=== PATIENT | female | born 1945 | race Caucasian/White ===

== ENCOUNTER 2017-01-17 12:34 | Inpatient (IN) ==
--- NOTE | 2017-01-17 12:37 | Emergency Department Note ---
Disposition Clinical Impression: Rhabdomyolysis, Osteomyelitis, UTI (urinary tract infection), JESSICA (acute kidney injury) Disposition: Admitted As Inpatient Condition: Good General Adult HPI - General Chief complaint: ED Fall Stated complaint: Fall/Dizziness Time Seen by Provider: 01/17/17 12:35 - Related Data Home Medications Medication Instructions Recorded Confirmed Amlodipine [Norvasc] 5 mg PO DAILY 03/22/15 01/17/17 Aspirin Enteric Coated [Aspirin EC] 81 mg PO DAILY 03/22/15 01/17/17 Fenofibrate [Lofibra] 160 mg PO DAILY 03/22/15 01/17/17 Levothyroxine [Synthroid] 75 mcg PO DAILY 03/22/15 01/17/17 Bupropion HCl [Wellbutrin Xl] 300 mg PO DAILY 01/17/17 01/17/17 Calcium Carbonate/Vitamin D3 1 tab PO BID 01/17/17 01/17/17 [Oyster Shell Calcium-Vit D Tab] Diphenhydramine HCl [Nighttime 50 mg PO HS 01/17/17 01/17/17 Sleep Aid] Docusate Sodium [Dok] 100 mg PO BID PRN 01/17/17 01/17/17 Multivitamin [One Daily Essential] 1 tab PO DAILY 01/17/17 01/17/17 OLANZapine [Zyprexa] 15 mg PO BID 01/17/17 01/17/17 Sertraline [Zoloft] 150 mg PO DAILY 01/17/17 01/17/17 Zolpidem [Ambien] 10 mg PO HS 01/17/17 01/17/17 risperiDONE [Risperidone] 4 mg PO BID 01/17/17 01/17/17 Allergies Allergy/AdvReac Type Severity Reaction Status Date / Time No Known Allergies Allergy Verified 03/22/15 09:04 Past Medical History - Past Medical History Medical history: Reports: hyperlipidemia, hypertension - Social History Smoking Status: Unknown if ever smoked Course Vital Signs Temperature 98.1 F 01/17/17 12:34 Pulse Rate 77 01/17/17 12:34 Respiratory Rate 18 01/17/17 12:34 Blood Pressure 177/89 01/17/17 12:34 O2 Sat by Pulse Oximetry 95 01/17/17 12:34 Temperature 98.1 F 01/17/17 12:34 Pulse Rate 72 01/17/17 15:48 Respiratory Rate 18 01/17/17 15:55 Blood Pressure 177/78 01/17/17 15:55 O2 Sat by Pulse Oximetry 93 01/17/17 15:48 Oxygen Delivery Oxygen Delivery Room Air Medical Decision Making - Lab Data Result diagrams: 01/17/17 13:10 01/17/17 13:10 Lab Results 01/17/17 01/17/17 01/17/17 Range/Units 12:59 13:05 13:10 WBC 9.1 (4.3-11.1) K/mcL RBC 4.21 (3.82-4.97) M/mcL Hgb 12.4 (11.5-15.4) g/dL Hct 40.2 (35.3-44.9) % MCV 95.5 (83.0-100.0) fL MCH 29.5 (28.0-33.3) pg MCHC 30.8 L (31.6-35.5) g/dL RDW 14.0 (11.5-14.5) % Plt Count 269 (140-400) K/mcL MPV 9.3 L (9.4-12.4) fL Immature Gran % 0.4 (0-4) % Seg Neutrophils % 80.1 % Lymphocytes % 9.3 % Monocytes % 8.4 % Eosinophils % 1.4 % Basophils % 0.4 % Neutrophils # 7.2 (1.6-8.9) K/mcL Lymphocytes # 0.8 (0.6-4.6) K/mcL Monocytes # 0.8 (0.0-1.3) K/mcL Eosinophils # 0.1 (0.0-0.6) K/mcL Basophils # 0.0 (0.0-0.2) K/mcL Sodium (136-145) mEq/L Potassium (3.5-4.5) mEq/L Chloride (98-109) mEq/L Carbon Dioxide (19-29) mEq/L BUN (7-20) mg/dL Creatinine (0.57-1.11) mg/dL Est GFR ( Amer) (> 60) Est GFR (Non-Af Amer) (> 60) BUN/Creatinine Ratio (6-26) Glucose (70-99) mg/dL Calculated Osmolality (280-300) Lactic Acid (0.5-2.2) mmol/L Calcium (8.6-10.8) mg/dL Creatine Kinase 3509 H (29-168) Units/L Urine Color Yellow (Yellow) Urine Clarity Slightly Hazy (Clear) Urine pH 6.5 (5.0-8.0) pH Units Ur Specific [place] 1.014 (1.010-1.025) Urine Protein 30 H (Neg-Trace) mg/dL Urine Glucose (UA) Normal (Normal) mg/dL Urine Ketones Negative (Negative) mg/dL Urine Blood Moderate H (Negative) Urine Nitrite Positive A (Negative) Urine Bilirubin Negative (Negative) Urine Urobilinogen Normal (Normal) mg/dL Ur Leukocyte Esterase Moderate H (Negative) Urine Microscopic RBC 3-5 H (0-3) per hpf Urine Microscopic WBC 3-5 H (0-3) per hpf Urine Bacteria Many H (None-Few) per hpf Ur Culture Indicated? YES A (NO) 01/17/17 01/17/17 Range/Units 13:10 13:10 WBC (4.3-11.1) K/mcL RBC (3.82-4.97) M/mcL Hgb (11.5-15.4) g/dL Hct (35.3-44.9) % MCV (83.0-100.0) fL MCH (28.0-33.3) pg MCHC (31.6-35.5) g/dL RDW (11.5-14.5) % Plt Count (140-400) K/mcL MPV (9.4-12.4) fL Immature Gran % (0-4) % Seg Neutrophils % % Lymphocytes % % Monocytes % % Eosinophils % % Basophils % % Neutrophils # (1.6-8.9) K/mcL Lymphocytes # (0.6-4.6) K/mcL Monocytes # (0.0-1.3) K/mcL Eosinophils # (0.0-0.6) K/mcL Basophils # (0.0-0.2) K/mcL Sodium 144 (136-145) mEq/L Potassium 3.6 (3.5-4.5) mEq/L Chloride 108 (98-109) mEq/L Carbon Dioxide 28 (19-29) mEq/L BUN 39 H (7-20) mg/dL Creatinine 2.32 H (0.57-1.11) mg/dL Est GFR ( Amer) 25 L (> 60) Est GFR (Non-Af Amer) 21 L (> 60) BUN/Creatinine Ratio 17 (6-26) Glucose 81 (70-99) mg/dL Calculated Osmolality 306 H (280-300) Lactic Acid 1.0 (0.5-2.2) mmol/L Calcium 12.0 H (8.6-10.8) mg/dL Creatine Kinase (29-168) Units/L Urine Color (Yellow) Urine Clarity (Clear) Urine pH (5.0-8.0) pH Units Ur Specific [place] (1.010-1.025) Urine Protein (Neg-Trace) mg/dL Urine Glucose (UA) (Normal) mg/dL Urine Ketones (Negative) mg/dL Urine Blood (Negative) Urine Nitrite (Negative) Urine Bilirubin (Negative) Urine Urobilinogen (Normal) mg/dL Ur Leukocyte Esterase (Negative) Urine Microscopic RBC (0-3) per hpf Urine Microscopic WBC (0-3) per hpf Urine Bacteria (None-Few) per hpf Ur Culture Indicated? (NO) Attestation Statement - Attestation Attestation: I examined this patient and my medical decision-making was reviewed with the Resident Physician. I agree with the documented findings, disposition and treatment plan as described except to the extent set forth below. [id number] time provided Patient sustained a mechanical fall at home. She denies injury. She has no pain at the time of my exam. She states she normally ambulates with a walker and has experienced increasing falls recently. She does have a subacute bruise to her left cheek on exam but otherwise appears in no acute distress
--- NOTE | 2017-01-17 12:58 | Emergency Department Note ---
Disposition Clinical Impression: JESSICA (acute kidney injury) Rhabdomyolysis Qualifiers: Rhabdomyolysis type: non-traumatic Qualified Code(s): M62.82 - Rhabdomyolysis Osteomyelitis Qualifiers: Osteomyelitis type: subacute Osteomyelitis location: foot Laterality: right Qualified Code(s): M86.271 - Subacute osteomyelitis, right ankle and foot UTI (urinary tract infection) Qualifiers: Urinary tract infection type: acute cystitis Hematuria presence: without hematuria Qualified Code(s): N30.00 - Acute cystitis without hematuria Disposition: Admitted As Inpatient Condition: Good Time of Disposition: 14:54 General Adult HPI - General Chief complaint: ED Fall Stated complaint: Fall/Dizziness Time Seen by Provider: 01/17/17 12:35 Source: patient, EMS Limitations: no limitations - History of Present Illness HPI Narrative: Patient sustained a ground level fall [place] night. Denies any loss of consciousness. Denies any pain at this time. Denies any other complaints other than generalized weakness. Pain Scale: 0 - Related Data Home Medications Medication Instructions Recorded Confirmed Amlodipine [Norvasc] 5 mg PO DAILY 03/22/15 01/17/17 Aspirin Enteric Coated [Aspirin EC] 81 mg PO DAILY 03/22/15 01/17/17 Fenofibrate [Lofibra] 160 mg PO DAILY 03/22/15 01/17/17 Levothyroxine [Synthroid] 75 mcg PO DAILY 03/22/15 01/17/17 Bupropion HCl [Wellbutrin Xl] 300 mg PO DAILY 01/17/17 01/17/17 Calcium Carbonate/Vitamin D3 1 tab PO BID 01/17/17 01/17/17 [Oyster Shell Calcium-Vit D Tab] Diphenhydramine HCl [Nighttime 50 mg PO HS 01/17/17 01/17/17 Sleep Aid] Docusate Sodium [Dok] 100 mg PO BID PRN 01/17/17 01/17/17 Multivitamin [One Daily Essential] 1 tab PO DAILY 01/17/17 01/17/17 OLANZapine [Zyprexa] 15 mg PO BID 01/17/17 01/17/17 Sertraline [Zoloft] 150 mg PO DAILY 01/17/17 01/17/17 Zolpidem [Ambien] 10 mg PO HS 01/17/17 01/17/17 risperiDONE [Risperidone] 4 mg PO BID 01/17/17 01/17/17 Allergies Allergy/AdvReac Type Severity Reaction Status Date / Time No Known Allergies Allergy Verified 03/22/15 09:04 All systems ED: reviewed and negative except as stated. Constitutional: Reports: weakness. Denies: fever, chills Eyes: Denies: vision change Cardiovascular: Denies: chest pain, palpitations, syncope Respiratory: Denies: cough, dyspnea, wheezes Gastrointestinal: Denies: abdominal pain, nausea, vomiting, diarrhea, hematemesis, melena, hematochezia Genitourinary: Denies: urgency, dysuria, frequency, hematuria Musculoskeletal: Denies: back pain, neck pain, joint swelling Integumentary: Denies: rash Neurological: Reports: weakness. Denies: headache, numbness Past Medical History - Past Medical History Attestation: Yes The following information was validated with the patient. Source: patient Medical history: Reports: hyperlipidemia, hypertension Psychiatric history: Reports: no psych history - Social History Smoking Status: Unknown if ever smoked Smokeless Tobacco Status: No Alcohol use: Reports: none Drug use: Reports: none Physical Exam - General Limitations: no limitations General appearance: alert, in no apparent distress - Head Head exam: atraumatic, normocephalic, normal inspection - Eye Eye exam: Present: normal appearance, PERRL, EOMI - ENT ENT exam: normal exam, normal oropharynx, mucous membranes moist - Neck Neck exam: Present: normal inspection, full ROM, trachea midline. Absent: tenderness, meningismus - Chest Chest inspection: Present: symmetric chest wall rise, other (Large ulcerated lesion with a purulent discharge to right chest wall. Axillary line.) - Respiratory Respiratory exam: Present: normal lung sounds bilaterally, accessory muscle use. Absent: respiratory distress - Cardiovascular Cardiovascular exam: Present: regular rate, normal rhythm, normal heart sounds - Abdominal Exam Abdominal exam: Present: soft, Non-Tender. Absent: tenderness, distention, guarding, rebound, rigidity, normal bowel sounds, organomegaly - Extremities Exam Extremities exam: Present: full ROM, normal capillary refill, other (Ulcerated lesion to lateral aspect of right foot around fifth digit.). Absent: tenderness , pedal edema - Back Exam Back exam: Present: normal inspection, full ROM. Absent: tenderness - Neurological Exam Neurological exam: Present: alert, oriented X3 - Expanded Neurological Exam Patient oriented to: Present: person, place, time Coma Scale Eye Opening: Spontaneous Coma Scale Motor Response: Obeys Commands Coma Scale Verbal Response: Oriented Coma Scale Total: 15 - Psychiatric Psychiatric exam: Present: normal affect, normal mood - Skin Skin exam: Present: warm, dry, normal color Course Course Narrative: Female patient presenting to the emergency department complaining of a fall and weakness. She states she fell around midnight but was unable to get up until this afternoon. She states she was able to get up by herself. She is reporting generalized weakness and denies any pain anywhere. She does appear pleasant. She does not appear to be in any distress. She Smells like urine. EMS advised that the patient had urinated on herself and around where she was laying. Patient is mentating appropriately. She denies any head pain. Pupils are equal and reactive to light. On exam of her body she has a large ulcerated lesion to the right rib area near her breast. It does have a purulent discharge. She also has a large ulcerated lesion to the right lateral aspect of her right foot. She states she has had surgery to this area. She states the ulcer on her chest wall is from a previous scratch that she has had for several months. She denies any nausea vomiting diarrhea fevers or chills. She denies any abdominal pain. She denies any shortness of breath or chest pain. We will get a basic lab workup on patient as well as x-rays. The x-ray of her right foot showed a possible septic arthritis or osteomyelitis. We have placed the patient on antibiotics at this time. She also has urinary tract infection, rhabdomyolysis, JESSICA and skin infection to the right chest wall. We will admit patient to the hospital. We will provide her with antibiotics as well as fluid resuscitation. - Consultations Consultation #1: Dr Muse accepeted Pt in stable condition. SHe is requesting that we give the Pt a dose of hydralazine. We will give this and give Pt her home dose of norvasc that she has not been able to take today. Time: 15:33 Vital Signs Temperature 98.1 F 01/17/17 12:34 Pulse Rate 77 01/17/17 12:34 Respiratory Rate 18 01/17/17 12:34 Blood Pressure 177/89 01/17/17 12:34 O2 Sat by Pulse Oximetry 95 01/17/17 12:34 Temperature 98.5 F 01/17/17 17:19 Pulse Rate 77 01/17/17 17:19 Respiratory Rate 14 01/17/17 17:19 Blood Pressure 197/79 01/17/17 17:19 O2 Sat by Pulse Oximetry 95 01/17/17 17:19 Oxygen Delivery Oxygen Delivery Room Air Medical Decision Making - Medical Records Medical records reviewed: Yes I reviewed the patient's medical records. - Lab Data Lab results reviewed: Yes I reviewed the patient's lab results. Result diagrams: 01/17/17 13:10 01/17/17 13:10 Lab Results 01/17/17 01/17/17 01/17/17 Range/Units 12:59 13:05 13:10 WBC 9.1 (4.3-11.1) K/mcL RBC 4.21 (3.82-4.97) M/mcL Hgb 12.4 (11.5-15.4) g/dL Hct 40.2 (35.3-44.9) % MCV 95.5 (83.0-100.0) fL MCH 29.5 (28.0-33.3) pg MCHC 30.8 L (31.6-35.5) g/dL RDW 14.0 (11.5-14.5) % Plt Count 269 (140-400) K/mcL MPV 9.3 L (9.4-12.4) fL Immature Gran % 0.4 (0-4) % Seg Neutrophils % 80.1 % Lymphocytes % 9.3 % Monocytes % 8.4 % Eosinophils % 1.4 % Basophils % 0.4 % Neutrophils # 7.2 (1.6-8.9) K/mcL Lymphocytes # 0.8 (0.6-4.6) K/mcL Monocytes # 0.8 (0.0-1.3) K/mcL Eosinophils # 0.1 (0.0-0.6) K/mcL Basophils # 0.0 (0.0-0.2) K/mcL Sodium (136-145) mEq/L Potassium (3.5-4.5) mEq/L Chloride (98-109) mEq/L Carbon Dioxide (19-29) mEq/L BUN (7-20) mg/dL Creatinine (0.57-1.11) mg/dL Est GFR ( Amer) (> 60) Est GFR (Non-Af Amer) (> 60) BUN/Creatinine Ratio (6-26) Glucose (70-99) mg/dL Calculated Osmolality (280-300) Lactic Acid (0.5-2.2) mmol/L Calcium (8.6-10.8) mg/dL Creatine Kinase 3509 H (29-168) Units/L Urine Color Yellow (Yellow) Urine Clarity Slightly Hazy (Clear) Urine pH 6.5 (5.0-8.0) pH Units Ur Specific [place] 1.014 (1.010-1.025) Urine Protein 30 H (Neg-Trace) mg/dL Urine Glucose (UA) Normal (Normal) mg/dL Urine Ketones Negative (Negative) mg/dL Urine Blood Moderate H (Negative) Urine Nitrite Positive A (Negative) Urine Bilirubin Negative (Negative) Urine Urobilinogen Normal (Normal) mg/dL Ur Leukocyte Esterase Moderate H (Negative) Urine Microscopic RBC 3-5 H (0-3) per hpf Urine Microscopic WBC 3-5 H (0-3) per hpf Urine Bacteria Many H (None-Few) per hpf Ur Culture Indicated? YES A (NO) 01/17/17 01/17/17 Range/Units 13:10 13:10 WBC (4.3-11.1) K/mcL RBC (3.82-4.97) M/mcL Hgb (11.5-15.4) g/dL Hct (35.3-44.9) % MCV (83.0-100.0) fL MCH (28.0-33.3) pg MCHC (31.6-35.5) g/dL RDW (11.5-14.5) % Plt Count (140-400) K/mcL MPV (9.4-12.4) fL Immature Gran % (0-4) % Seg Neutrophils % % Lymphocytes % % Monocytes % % Eosinophils % % Basophils % % Neutrophils # (1.6-8.9) K/mcL Lymphocytes # (0.6-4.6) K/mcL Monocytes # (0.0-1.3) K/mcL Eosinophils # (0.0-0.6) K/mcL Basophils # (0.0-0.2) K/mcL Sodium 144 (136-145) mEq/L Potassium 3.6 (3.5-4.5) mEq/L Chloride 108 (98-109) mEq/L Carbon Dioxide 28 (19-29) mEq/L BUN 39 H (7-20) mg/dL Creatinine 2.32 H (0.57-1.11) mg/dL Est GFR ( Amer) 25 L (> 60) Est GFR (Non-Af Amer) 21 L (> 60) BUN/Creatinine Ratio 17 (6-26) Glucose 81 (70-99) mg/dL Calculated Osmolality 306 H (280-300) Lactic Acid 1.0 (0.5-2.2) mmol/L Calcium 12.0 H (8.6-10.8) mg/dL Creatine Kinase (29-168) Units/L Urine Color (Yellow) Urine Clarity (Clear) Urine pH (5.0-8.0) pH Units Ur Specific [place] (1.010-1.025) Urine Protein (Neg-Trace) mg/dL Urine Glucose (UA) (Normal) mg/dL Urine Ketones (Negative) mg/dL Urine Blood (Negative) Urine Nitrite (Negative) Urine Bilirubin (Negative) Urine Urobilinogen (Normal) mg/dL Ur Leukocyte Esterase (Negative) Urine Microscopic RBC (0-3) per hpf Urine Microscopic WBC (0-3) per hpf Urine Bacteria (None-Few) per hpf Ur Culture Indicated? (NO) - Radiology Data Radiology results reviewed: Yes I reviewed the patient's radiology results. Chest X-Ray 01/17/17 12:55 IMPRESSION: No evidence of acute traumatic injury. D/ / Jonny Hodgson MD / Jonny Hodgson MD Interpreting Provider: Jonny Hodgson MD Foot X-Ray 01/17/17 12:55 IMPRESSION: 1. Diffuse soft tissue swelling of the 5th toe with septic arthritis of the 5th PIP joint and adjacent osteomyelitis along the 5th proximal phalangeal head, and almost the entire 5th middle phalanx. 2. Hammertoe deformities of the 2nd through 5th toes. 3. 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 D/ / 01/17/2017 13:36:03 Jose Vasques MD / kathy Interpreting Provider: Jose Vasques MD
[2017-01-17 13:07] LABS: Bilirubin,Urine Negative (Negative); Blood,Urine Moderate (Negative); Color,Urine Yellow (Yellow); Glucose,Urine (UA) Normal (Normal); Ketones,Urine Negative (Negative); Leukocyte Esterase,Urine Moderate (Negative); Nitrite,Urine Positive (Negative); PH,Urine 6.5 pH Units (5.0-8.0); Protein,Urine 30 mg/dL (Neg-Trace); Specific Gravity,Urine 1.014 (1.010-1.025); Urobilinogen,Urine Normal (Normal)
[2017-01-17 13:15] LABS: Clarity,Urine Slightly Hazy (Clear)
[2017-01-17 13:21] LABS: Basophils % 0.4 %; Eosinophils # 0.1 K/mcL (0.0-0.6); Eosinophils % 1.4 %; Hematocrit 40.2 % (35.3-44.9); Hemoglobin 12.4 g/dL (11.5-15.4); Immature Granulocytes % 0.4 % (0-4); Lymphocytes # 0.8 K/mcL (0.6-4.6); Lymphocytes % 9.3 %; Mean Corpuscular HGB Conc 30.8 g/dL (31.6-35.5); Mean Corpuscular Hemoglobin 29.5 pg (28.0-33.3); Mean Corpuscular Volume 95.5 fL (83.0-100.0); Mean Platelet Volume 9.3 fL (9.4-12.4); Monocytes # 0.8 K/mcL (0.0-1.3); Monocytes % 8.4 %; Neutrophils # 7.2 K/mcL (1.6-8.9); Platelet Count 269 K/mcL (140-400); Red Blood Count 4.21 M/mcL (3.82-4.97); Segmented Neutrophils % 80.1 %
[2017-01-17 13:28] LABS: Bacteria,Urine Many per hpf (None-Few)
[2017-01-17 13:33] LABS: Potassium 3.6 mEq/L (3.5-4.5)
[2017-01-17] MEDS ORDERED: Vancomycin 1,000 MG in D5% in Water 250 ML IVPB ONE (14:07)
[2017-01-17] MEDS ORDERED: 0.9 % Sodium Chloride 1,000 ML IVC ONE (14:20)
[2017-01-17] MEDS ORDERED: amLODIPine 5 MG TABLET PO ONE (15:32)
[2017-01-17] MEDS ORDERED: Naloxone 0.4 MG/ML INJ IVP PRN (17:07)
--- NOTE | 2017-01-17 17:19 | Internal Med History&Physical ---
<Tangela Hernandez - Last Filed: 01/17/17 18:15> Date of Encounter: 01/17/17 Time of Encounter: 17:15 Assessment and Plan (1) Rhabdomyolysis Current visit: Yes Status: Acute 1 patient sustained a mechanical fall from standing she was on the floor for approximately 12 hours. Her CK was 3509. We will continue with IV fluids overnight 2 cardiac monitoring 3 present potassium is stable at 3.6 we will continue to monitor 4 monitor intake and output 5 consult nephrology as needed 6 patient has had frequent falls in the past few months consulted hospice social worker for possible placement Qualifiers: Rhabdomyolysis type: non-traumatic Qualified Code(s): M62.82 - Rhabdomyolysis (2) JESSICA (acute kidney injury) Current visit: Yes Status: Acute 1 patient's Azucena 2.32 which is up from baseline. She does have some CK D Baseline seems to be around 1.5. We will continue with gentle IV fluids overnight monitoring creatinine 2 avoid nephrotoxins 3 renal dose antibiotics 4 monitor intake and output daily weights (3) UTI (urinary tract infection) Current visit: Yes Status: Acute 1 patient appears to have a UTI on her urinalysis this may be contributing to her frequent falls. Urine cultures and blood cultures have been sent 2 she was given Rocephin in the ER -it appears that she does have an osteomyelitis-she has been placed on Zosyn which we will continue for coverage of UTI-adjusts to cultural sensitivity Qualifiers: Urinary tract infection type: acute cystitis Hematuria presence: without hematuria Qualified Code(s): N30.00 - Acute cystitis without hematuria (4) Osteomyelitis Current visit: Yes Status: Acute 1 patient's right fifth toe is red and swollen x-ray did reveal septic arthritis PIP joint and adjacent osteomyelitis along the fifth proximal phalangeal head and almost the entire fifth middle phalanx. Blood cultures have been obtained patient started on Vanco and Zosyn 2 we will obtain CRP ESR 3 consult podiatry-Dr. Singh 4 small wound on fifth toe 0.5cm x 0.5cm wound culture obtained Qualifiers: Osteomyelitis type: subacute Osteomyelitis location: foot Laterality: right Qualified Code(s): M86.271 - Subacute osteomyelitis, right ankle and foot (5) Wound cellulitis Current visit: Yes Status: Acute 1 right axilla wound 6 x 4 cm does not appear superficial red beefy appearing with clear drainage. Appears possibly fungal in nature We will consult wound care. If no improvement may consider surgery consult 2 wound cultures obtained - started on Vanc zosyn- for osteo, will adjust to sensitivity (6) HTN (hypertension) Current visit: No Status: Chronic 1 continue with norvasc Qualifiers: Hypertension type: essential hypertension Qualified Code(s): I10 - Essential (primary) hypertension (7) Schizophrenia Current visit: No Status: Chronic 1 stable at this time- presently undergoing legal proceedings for guardianship, patient is being evicted from her apartment. social service consult 2 continue home medications 3 continue outpatient treatment Qualifiers: Schizophrenia type: unspecified Qualified Code(s): F20.9 - Schizophrenia, unspecified (8) Depression Current visit: No Status: Chronic 1 presently stable she denies any suicidal ideations. We will continue with home medications 2 continue outpatient treatment Qualifiers: Depression Type: unspecified Qualified Code(s): F32.9 - Major depressive disorder, single episode, unspecified (9) Hypothyroid Current visit: No Status: Chronic 1 check TSH continue Synthroid Qualifiers: Hypothyroidism type: unspecified Qualified Code(s): E03.9 - Hypothyroidism , unspecified (10) DVT prophylaxis Current visit: Yes Status: Acute 1 heparin subcutaneous Internal Medicine - H&P: HPI Chief complaint: fall Admitted From: Emergency Dept Plans for Post Hospital Care: Home History of present illness: Ms. Bynum is a 71 year old female past medical history of hypertension hyperlipidemia hypothyroidism CK D stage III, depression and schizophrenia. Coronary the patient she was walking through her apartment last night when she sustained a mechanical fall from standing. She denies any dizziness chest pain palpitations prior to incident. She states she has had several falls over the past 3 months. This fall occurred at approximately 12 midnight and she was on the floor until 12 noon, when a worker from the [facility] arrived. She was brought to the ER for further evaluation. Upon arrival to the ER patient's vital signs were blood pressure 177/89 heart rate 77 temperature 90.8 respiration 18. Lab work white count was 9.1 CK was 3509 creatinine was 2.3 to GFR is 24 UA was positive for blood nitrates and Luke's. [place] x-ray with no acute process. Patient did have x-ray of right foot which revealed diffuse soft tissue swelling of the fifth toe with septic arthritis of the fifth PIP joint and adjacent osteomyelitis along the fifth proximal phalangeal head and almost the entire fifth middle phalanx. The patient also has an open wound to her right axilla 6x4 cm Blood cultures were obtained patient was given IV fluids and Rocephin and vancomycin. She has been admitted for further workup evaluation. Presently the patient is alert and appropriate she is following commands. She does have a textile machinery sales representative from [facility] at bedside. From my understanding patient does have history of schizophrenia and she lives independently however her landlord is in the process of evicting her from her apartment. There are court proceedings underway to establish guardianship for the patient. She does admit to several falls over the past 3 months. She does not receive home health meals on wheels or any other type of assistance. She has a wound to her right axilla which she states has been there for approximately 10 years, she treated herself. She also has redness swelling with a 0.5x0.5cm wound on top of her right fifth toe. She states this was a corn that came off. She normally uses a walker at home to ambulate and states that she prepares her own meals. She denies any chest pain shortness of breath fevers chills nausea vomiting or diarrhea. She denies any urinary symptoms or cough. Her lung sounds are clear heart sounds are regular S1-S2 no rubs clicks gallops murmurs noted abdomen soft nontender no pedal edema. She does admit to history of visual and auditory hallucinations, however she states that these have been well controlled over the past 10 years. She does have some depression and has had suicidal ideations in the past however she denies any at this time. She has had suicide attempts in the past, last suicide attempt was 20 years ago. She is hemodynamically stable at this time. I reviewed this case with Dr. Muse who agrees with plan Past Med Surg Social Fam HX - Past Medical History Medical history: hyperlipidemia, hypertension Psychiatric history: no psych history - Social History Smoking Status: Unknown if ever smoked Smokeless Tobacco Status: No Alcohol use: none Drug use: none - Family History Mother Living Status: Hx Family Neuromuscular Disorders: Yes (dementia) Internal Medicine - H&P: Meds Amlodipine [Norvasc] 5 mg PO DAILY 03/22/15 [History] Aspirin Enteric Coated [Aspirin EC] 81 mg PO DAILY 03/22/15 [History] Fenofibrate [Lofibra] 160 mg PO DAILY 03/22/15 [History] Levothyroxine [Synthroid] 75 mcg PO DAILY 03/22/15 [History] Bupropion HCl [Wellbutrin Xl] 300 mg PO DAILY 01/17/17 [History] Calcium Carbonate/Vitamin D3 [Oyster Shell Calcium-Vit D Tab] 1 tab PO BID 01/17 [History] Diphenhydramine HCl [Nighttime Sleep Aid] 50 mg PO HS 01/17/17 [History] Docusate Sodium [Dok] 100 mg PO BID PRN 01/17/17 [History] Multivitamin [One Daily Essential] 1 tab PO DAILY 01/17/17 [History] OLANZapine [Zyprexa] 15 mg PO BID 01/17/17 [History] Sertraline [Zoloft] 150 mg PO DAILY 01/17/17 [History] Zolpidem [Ambien] 10 mg PO HS 01/17/17 [History] risperiDONE [Risperidone] 4 mg PO BID 01/17/17 [History] 3 Allergy/AdvReac Type Severity Reaction Status Date / Time No Known Allergies Allergy Verified 03/22/15 09:04 All Systems PM: A 10-system review of systems was performed and is negative for pertinent findings except as documented above in the HPI. - Constitutional Constitutional: falls, no chills, no fever(s), no night sweats - EENT Eyes: no change in vision, no discharge, no pain, no photophobia Ears: no ear discharge, no ear pain, no tinnitus Nose, mouth and throat: no dysphagia, no nasal discharge, no neck pain, no sore throat - Cardiovascular Cardiovascular ROS IM: no chest pain, no diaphoresis, no dyspnea, no lightheadedness, no palpitations, no syncope - Respiratory Respiratory: no cough, no dyspnea, no wheezing, no excessive phlegm production - Gastrointestinal Gastrointestinal: no abdominal pain, no diarrhea, no hematemesis, no hematochezia, no melena, no nausea, no vomiting - Genitourinary Genitourinary: no change in urinary stream, no dysuria, no flank pain, no hematuria - Musculoskeletal Musculoskeletal ROS IM: no numbness, no tingling - Integumentary Integumentary IM: non-healing lesions, sores - Neurological Neurological ROS: no confusion, no convulsions, no focal weakness, no numbness, no tingling, no tremor(s) - Psychiatric Psychiatric: auditory hallucinations, visual hallucinations - Constitutional Vitals: Temp Pulse Resp BP Pulse Ox 98.1 F 72 18 177/78 93 01/17/17 12:34 01/17/17 15:48 01/17/17 15:55 01/17/17 15:55 01/17/17 15:48 General appearance: Present: A&O X 3 - Head Head exam: Present: atraumatic, normocephalic - Eye Eye exam: Present: PERRL, conjuntiva pink, sclera anicteric Pupils: Present: PERRL - Neck Neck exam general surgery: Present: supple, trachea midline. Absent: lymphadenopathy - Respiratory Respiratory exam: Present: CTAB. Absent: accessory muscle use, rales, rhonchi, wheezes - Cardiovascular Cardiovascular exam: Present: RRR, +S1, +S2. Absent: diastolic murmur, gallop, rubs, systolic murmur - GI/Abdominal GI/Abdominal exam: Present: normal bowel sounds, soft, no peritoneal signs. Absent: distended, tenderness - Extremities Exam Extremities exam: Present: warm, radial pulses palpable and symmetrical. Absent : calf tenderness, cyanotic, pedal edema - Expanded Lower Extremities Exam Foot/Toe exam: Present: deformity, erythema, swelling, tenderness - Neurological Exam Neurological exam: Present: CN II-XII intact, oriented X3, no focal deficits. Absent: pronater drift, facial droop, speech deficit - Skin Skin exam: Present: dry, intact - Expanded Skin Exam Full body front and back image: 1 - 6x4 cm open red lesion , with clear drainage Internal Med - H&P Results - Labs CBC & Chem 7: 01/17/17 13:10 01/17/17 13:10 - Diagnostic Studies Other Images Additional comments: Chest X-Ray 01/17/17 12:55 IMPRESSION: No evidence of acute traumatic injury. D/ / Jonny Hodgson MD / Jonny Hodgson MD Interpreting Provider: Jonny Hodgson MD Foot X-Ray 01/17/17 12:55 IMPRESSION: 1. Diffuse soft tissue swelling of the 5th toe with septic arthritis of the 5th PIP joint and adjacent osteomyelitis along the 5th proximal phalangeal head, and almost the entire 5th middle phalanx. 2. Hammertoe deformities of the 2nd through 5th toes. 3. 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 D/ / 01/17/2017 13:36:03 Jose Vasques MD / kathy Interpreting Provider: Jose Vasques MD <Sarah Muse - Last Filed: 01/17/17 18:28> Date of Encounter: 01/17/17 Internal Medicine - H&P: HPI History of present illness: Ms. Bynum is a 71 year old female All Systems PM: A 10-system review of systems was performed and is negative for pertinent findings except as documented above in the HPI. - Constitutional Vitals: Temp Pulse Resp BP Pulse Ox 98.5 F 77 14 197/79 95 01/17/17 17:19 01/17/17 17:19 01/17/17 17:19 01/17/17 17:19 01/17/17 17:19 Internal Med - H&P Results - Labs CBC & Chem 7: 01/17/17 13:10 01/17/17 13:10 - Attending Attestation Pt seen and examined. Admitted s/p fall. Noted to have JESSICA, Rhabdomyolysis, OM of left foot, wound cellulitis. Pt has underlying schizophrenia and has no understanding of her illness. She is unsafe to live alone and needs care with her medical management. Podiatry consultation requested. Wound care for right inferior breast cellulitis. IV abx, IV fluids, f/u wound and blood cultures Case discussed with EMILY Hernandez, I agree with her documented findings, assessment, and plan.
[2017-01-17] MEDS: 0.9 % Sodium Chloride 1,000 ML IVC SCH (17:29)
[2017-01-17] MEDS: Piperacillin/Tazobactam 3.375 GM in D5% in Water (Mini-Bag+) 100 ML IVPB SCH (17:30)
[2017-01-17] MEDS: *HR* Heparin 5,000 UNIT/ML VIAL SQ SCH (17:31)
[2017-01-17] MEDS: OLANZapine 10 MG TAB.RAPDIS PO SCH (20:03)
[2017-01-17] MEDS: risperiDONE 1 MG TABLET PO SCH (20:33)
[2017-01-18] MEDS: 0.9 % Sodium Chloride 1,000 ML IVC SCH ×2 (03:00→15:14)
[2017-01-18 06:08] LABS: Basophils % 0.3 %; Eosinophils # 0.3 K/mcL (0.0-0.6); Eosinophils % 4.6 %; Hematocrit 31.5 % (35.3-44.9); Immature Granulocytes % 0.3 % (0-4); Lymphocytes # 1.1 K/mcL (0.6-4.6); Mean Corpuscular HGB Conc 31.1 g/dL (31.6-35.5); Mean Corpuscular Hemoglobin 29.7 pg (28.0-33.3); Mean Corpuscular Volume 95.5 fL (83.0-100.0); Mean Platelet Volume 9.6 fL (9.4-12.4); Monocytes # 0.7 K/mcL (0.0-1.3); Monocytes % 11.2 %; Platelet Count 218 K/mcL (140-400); Red Cell Distribution Width 14.2 % (11.5-14.5); Segmented Neutrophils % 65.6 %
[2017-01-18] MEDS: *HR* Heparin 5,000 UNIT/ML VIAL SQ SCH ×2 (06:15→17:29)
[2017-01-18] MEDS: Piperacillin/Tazobactam 3.375 GM in D5% in Water (Mini-Bag+) 100 ML IVPB SCH ×2 (06:15→17:26)
[2017-01-18 06:20] LABS: Magnesium 1.4 mg/dL (1.6-2.6); Potassium 3.2 mEq/L (3.5-4.5)
[2017-01-18 06:21] LABS: Calcium 9.5 mg/dL (8.6-10.8)
[2017-01-18 06:23] LABS: Hemoglobin 9.8 g/dL (11.5-15.4)
[2017-01-18] MEDS ORDERED: Magnesium Sulfate 2 GM in D5% in Water 100 ML IVPB ONE (07:32)
--- NOTE | 2017-01-18 08:13 | Internal Med Progress Note ---
<Zackary Bravo - Last Filed: 01/18/17 11:24> Date of Encounter: 01/18/17 Time of Encounter: 08:09 - Assessment and plan (1) Rhabdomyolysis Current Visit: Yes Status: Acute Assessment and plan: Patient appears to be improving. Kidney function, urine output are all improving. Patient states that this is her third fourth fall last month. Continue with fluid hydration, and continue to monitor renal function and electrolytes as well as urine output. Qualifiers: Rhabdomyolysis type: non-traumatic Qualified Code(s): M62.82 - Rhabdomyolysis (2) Osteomyelitis Current Visit: Yes Status: Acute Assessment and plan: Patient has evidence of acute and chronic osteomyelitis of the right toe as seen on x-ray. ESR and CRP are elevated. Podiatry's been consulted for possible surgical intervention. Continue antibiotic therapy with vancomycin and Zosyn. Qualifiers: Osteomyelitis type: subacute Osteomyelitis location: foot Laterality: right Qualified Code(s): M86.271 - Subacute osteomyelitis, right ankle and foot (3) UTI (urinary tract infection) Current Visit: Yes Status: Acute Assessment and plan: Patient has evidence of UTI on urinalysis which could be contributing to her frequent falls. Patient is on broad-spectrum antibiotic coverage for osteomyelitis including Zosyn which should provide good coverage for urinary pathogens. Urine culture is pending and will tailor antibiotics based on culture results. Qualifiers: Urinary tract infection type: acute cystitis Hematuria presence: without hematuria Qualified Code(s): N30.00 - Acute cystitis without hematuria (4) JESSICA (acute kidney injury) Current Visit: Yes Status: Acute Assessment and plan: On CKD stage III. secondary to rhabdomyolysis as discussed above. creatinine is gradually improving. Patient has good urine output. Continue with fluid hydration and encourage oral fluid intake. Avoid nephrotoxins and renally dose antibiotics. (5) HTN (hypertension) Current Visit: No Status: Chronic Assessment and plan: Blood pressure is under good control. Continue home regimen. Qualifiers: Hypertension type: essential hypertension Qualified Code(s): I10 - Essential (primary) hypertension (6) Schizophrenia Current Visit: No Status: Chronic Assessment and plan: Patient's mental status is stable with no evidence of hallucinations or agitations. Continue home medications. Qualifiers: Schizophrenia type: unspecified Qualified Code(s): F20.9 - Schizophrenia, unspecified (7) Depression Current Visit: No Status: Chronic Assessment and plan: Stable. Continue home medications. Qualifiers: Depression Type: unspecified Qualified Code(s): F32.9 - Major depressive disorder, single episode, unspecified (8) Hypothyroid Current Visit: No Status: Chronic Assessment and plan: Continue levothyroxine. Qualifiers: Hypothyroidism type: unspecified Qualified Code(s): E03.9 - Hypothyroidism , unspecified - Subjective Interval history: Patient seen and examined at bedside. Patient states that she is feeling better. She denies any headache, light headedness, syncope. She is eating and drinking well. She states she has not been out of bed since yesterday. - Constitutional Vitals: Temp Pulse Resp BP Pulse Ox 98.1 F 66 16 136/67 95 01/18/17 04:41 01/18/17 04:41 01/18/17 04:41 01/18/17 04:41 01/18/17 04:41 General appearance: Present: A&O X 3, pleasant, no acute distress - Respiratory Respiratory exam: Present: CTAB. Absent: rales, rhonchi, wheezes - Cardiovascular Cardiovascular exam: Present: RRR. Absent: gallop, rubs, systolic murmur - GI/Abdominal GI/Abdominal exam: Present: normal bowel sounds, soft. Absent: distended, tenderness - Extremities Exam Extremities exam: Present: warm. Absent: pedal edema, tenderness Additional comments: R 5th toe is mildly erythematous with a small area of non bleeding, nondraining ulceration with escar present. No erythema to the more proximal forefoot. - Neurological Exam Neurological exam: Present: alert, CN II-XII intact, oriented X3, no focal deficits Internal Medicine: Result - Labs CBC & Chem 7: 01/18/17 05:29 01/18/17 05:29 Labs: Short CBC 01/18/17 Range/Units 05:29 WBC 6.1 (4.3-11.1) K/mcL Hgb 9.8 L D (11.5-15.4) g/dL Hct 31.5 L (35.3-44.9) % Plt Count 218 (140-400) K/mcL Neutrophils # 4.0 (1.6-8.9) K/mcL BMP 01/18/17 05:29 Sodium 143 Potassium 3.2 L Chloride 111 H Carbon Dioxide 26 BUN 32 H Creatinine 1.99 H Glucose 73 Calcium 9.5 D Consult Discharge Plan - Plan Referrals: Stanislav Martino MD [Primary Care Provider] - <Jeremy Waller - Last Filed: 01/18/17 17:04> Date of Encounter: 01/18/17 - Constitutional Vitals: Temp Pulse Resp BP Pulse Ox 98.4 F 67 16 136/66 95 01/18/17 12:51 01/18/17 12:51 01/18/17 12:51 01/18/17 12:51 01/18/17 12:51 Internal Medicine: Result - Labs CBC & Chem 7: 01/18/17 05:29 01/18/17 05:29 Labs: Short CBC 01/18/17 Range/Units 05:29 WBC 6.1 (4.3-11.1) K/mcL Hgb 9.8 L D (11.5-15.4) g/dL Hct 31.5 L (35.3-44.9) % Plt Count 218 (140-400) K/mcL Neutrophils # 4.0 (1.6-8.9) K/mcL BMP 01/18/17 05:29 Sodium 143 Potassium 3.2 L Chloride 111 H Carbon Dioxide 26 BUN 32 H Creatinine 1.99 H Glucose 73 Calcium 9.5 D - Attending Attestation I examined this patient and my medical decision-making was reviewed with the Resident Physician. I agree with the documented findings, disposition and treatment plan as described except to the extent set forth below. 71/female Admitted with multiple issues. Presently on antibiotics for possible osteomyelitis. We will get opinion from psychiatry tomorrow.
[2017-01-18] MEDS: Fenofibrate 54 MG TABLET PO SCH (08:48)
[2017-01-18] MEDS: BuPROPion XL (24 HR) 150 MG TABLET PO SCH (08:48)
[2017-01-18] MEDS: Cholecalciferol (D-3) 1,000 UNIT TABLET PO SCH (08:48)
[2017-01-18] MEDS: Multivit/Ca/Min/Fe/FA 1 TAB TABLET PO SCH (08:48)
[2017-01-18] MEDS: Aspirin Enteric Coated 81 MG Tablet PO SCH (08:48)
[2017-01-18] MEDS: OLANZapine 10 MG TAB.RAPDIS PO SCH ×2 (08:49→20:52)
[2017-01-18] MEDS: amLODIPine 5 MG TABLET PO SCH (08:49)
[2017-01-18] MEDS ORDERED: Vancomycin (wt based) 1,000 MG VIAL IVPB SCH (09:00)
[2017-01-18] MEDS: risperiDONE 1 MG TABLET PO SCH ×2 (09:47→20:53)
[2017-01-18] MEDS ORDERED: Vancomycin 1,000 MG in D5% in Water 250 ML IVPB ONE (16:00)
[2017-01-19 05:41] LABS: Basophils % 0.7 %; Eosinophils # 0.4 K/mcL (0.0-0.6); Eosinophils % 6.2 %; Hematocrit 33.7 % (35.3-44.9); Hemoglobin 10.5 g/dL (11.5-15.4); Immature Granulocytes % 0.7 % (0-4); Lymphocytes # 1.1 K/mcL (0.6-4.6); Lymphocytes % 20.1 %; Mean Corpuscular HGB Conc 31.2 g/dL (31.6-35.5); Mean Corpuscular Hemoglobin 29.8 pg (28.0-33.3); Mean Corpuscular Volume 95.7 fL (83.0-100.0); Mean Platelet Volume 9.5 fL (9.4-12.4); Monocytes # 0.8 K/mcL (0.0-1.3); Monocytes % 14.1 %; Neutrophils # 3.3 K/mcL (1.6-8.9); Platelet Count 221 K/mcL (140-400); Red Blood Count 3.52 M/mcL (3.82-4.97); Red Cell Distribution Width 14.3 % (11.5-14.5); Segmented Neutrophils % 58.2 %
[2017-01-19 05:53] LABS: Calcium 8.9 mg/dL (8.6-10.8); Magnesium 1.7 mg/dL (1.6-2.6); Potassium 4.1 mEq/L (3.5-4.5)
[2017-01-19] MEDS: *HR* Heparin 5,000 UNIT/ML VIAL SQ SCH ×2 (06:01→17:22)
[2017-01-19] MEDS: Piperacillin/Tazobactam 3.375 GM in D5% in Water (Mini-Bag+) 100 ML IVPB SCH ×2 (06:01→17:25)
[2017-01-19] MEDS ORDERED: Vancomycin 1,000 MG in D5% in Water 250 ML IVPB ONE (07:00)
[2017-01-19] MEDS: OLANZapine 10 MG TAB.RAPDIS PO SCH ×2 (08:58→22:00)
[2017-01-19] MEDS: BuPROPion XL (24 HR) 150 MG TABLET PO SCH (08:58)
[2017-01-19] MEDS: Cholecalciferol (D-3) 1,000 UNIT TABLET PO SCH (08:59)
[2017-01-19] MEDS: Aspirin Enteric Coated 81 MG Tablet PO SCH (08:59)
[2017-01-19] MEDS: amLODIPine 5 MG TABLET PO SCH (08:59)
[2017-01-19] MEDS: Multivit/Ca/Min/Fe/FA 1 TAB TABLET PO SCH (08:59)
[2017-01-19] MEDS: Fenofibrate 54 MG TABLET PO SCH (09:00)
[2017-01-19] MEDS: risperiDONE 1 MG TABLET PO SCH ×2 (09:00→22:00)
--- NOTE | 2017-01-19 14:01 | Internal Med Progress Note ---
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 Denies fevers, chills, pain - Wound culture preliminary results reveal methicillin-resistant Staphylococcus aureus as well as gram-negative rods - Unlikely etiology malignancy given timeline - Wound care was consulted for further management - She is receiving vancomycin and Zosyn for possible osteomyelitis Qualifiers: Non-pressure ulcer stage: unspecified non-pressure ulcer stage Qualified Code(s): L98.499 - Non-pressure chronic ulcer of skin of other sites with unspecified severity (2) Rhabdomyolysis Current Visit: Yes Status: Acute Assessment and plan: - Patient appears to be improving clinically. CK on admission of 3509 - Repeat CK pending, kidney function slowly improving BUN/creatinine of 41/1.79 (32/1.99). Baseline creatinine of around 1.18 - Continue with fluid hydration, and continue to monitor renal function and electrolytes as well as urine output. - Patient reports this is her fourth fall this year, social work has been consulted for possible neglect, placement Qualifiers: Rhabdomyolysis type: non-traumatic Qualified Code(s): M62.82 - Rhabdomyolysis (3) Osteomyelitis Current Visit: Yes Status: Acute Assessment and plan: - Patient has evidence of acute and chronic osteomyelitis of the right toe as seen on x-ray. - ESR and CRP are elevated. - Podiatry's been consulted for possible surgical intervention. Plan to see patient this afternoon - Preliminary wound culture revealed Proteus growth - Continue antibiotic therapy with vancomycin and Zosyn. Qualifiers: Osteomyelitis type: subacute Osteomyelitis location: foot Laterality: right Qualified Code(s): M86.271 - Subacute osteomyelitis, right ankle and foot (4) UTI (urinary tract infection) Current Visit: Yes Status: Acute Assessment and plan: Patient has evidence of UTI on urinalysis which could be contributing to her frequent falls. - Patient is on broad-spectrum antibiotic coverage for osteomyelitis including Zosyn which should provide good coverage for urinary pathogens. - Follow urinary culture results grew Escherichia coli which is susceptible to the Zosyn she is receiving for possible osteomyelitis Qualifiers: Urinary tract infection type: acute cystitis Hematuria presence: without hematuria Qualified Code(s): N30.00 - Acute cystitis without hematuria (5) JESSICA (acute kidney injury) Current Visit: Yes Status: Acute Assessment and plan: On CKD stage III. secondary to rhabdomyolysis as discussed above. - creatinine is gradually improving, most recent 1.79. Patient has good urine output. - Continue with fluid hydration and encourage oral fluid intake. Avoid nephrotoxins and renally dose antibiotics. (6) HTN (hypertension) Current Visit: No Status: Chronic Assessment and plan: Blood pressure is under good control. Continue home regimen. Qualifiers: Hypertension type: essential hypertension Qualified Code(s): I10 - Essential (primary) hypertension (7) Schizophrenia Current Visit: No Status: Chronic Assessment and plan: Patient's mental status is stable with no evidence of hallucinations or agitations. Continue home medications. Qualifiers: Schizophrenia type: unspecified Qualified Code(s): F20.9 - Schizophrenia, unspecified (8) Depression Current Visit: No Status: Chronic Assessment and plan: Stable. Continue home medications. Qualifiers: Depression Type: unspecified Qualified Code(s): F32.9 - Major depressive disorder, single episode, unspecified (9) DVT prophylaxis Current Visit: Yes Status: Acute Assessment and plan: - Heparin 5000 units subcutaneously - Time Spent With Patient 25 - 35 minutes - Subjective Interval history: Patient was seen and examined at bedside. Reports that she is feeling well and is currently denying any symptoms of fever, chills, nausea, vomiting, chest pain , shortness of breath. She states that her right fifth toe wound has not changed since admission and she denies any drainage, erythema, warmth. She also denies similar symptoms of her right axilla lesion. She also denies any symptoms of dysuria, frequency, urgency. - Constitutional Vitals: Temp Pulse Resp BP Pulse Ox 98.3 F 64 18 146/71 96 01/19/17 11:36 01/19/17 11:36 01/19/17 11:36 01/19/17 11:36 01/19/17 11:36 General appearance: Present: A&O X 3, pleasant, no acute distress Exam: Gen.: Vitals noted. No acute distress. AAOx3 HEENT: PERRL/EOMI, oropharynx clear, Normocephalic, atraumatic Neck: Supple. No adenopathy. Cardiac: RRR, no murmur, +S1/S2 Pulmonary: CTA bilaterally, no wheezes, rales or rhonchi, equal chest expansion Abdomen: soft, nontender, BS noted, no guarding Back: Nontender throughout. MSK: ROM intact, no joint swelling noted Extremities: Eschar on the dorsal surface of 5th right toe without erythema, warmth, drainage. no BLE edema, nontender calf, no cyanosis or clubbing Skin: Toe lesion as noted above, right ulcer measuring approximately 3 cm x 3 cm in the right axillary fold, nonhealing. No visible drainage, moist appearing. No surrounding erythema Neuro: A&Ox3, moves all extremities, no focal deficits Psych: Appropriate mood and behavior Internal Medicine: Result - Labs CBC & Chem 7: 01/19/17 05:28 01/19/17 05:28 Labs: Short CBC 01/19/17 Range/Units 05:28 WBC 5.7 (4.3-11.1) K/mcL Hgb 10.5 L (11.5-15.4) g/dL Hct 33.7 L (35.3-44.9) % Plt Count 221 (140-400) K/mcL Neutrophils # 3.3 (1.6-8.9) K/mcL BMP 01/19/17 05:28 Sodium 143 Potassium 4.1 Chloride 113 H Carbon Dioxide 27 BUN 41 H Creatinine 1.79 H Glucose 97 Calcium 8.9 Consult Discharge Plan - Plan Referrals: Stanislav Martino MD [Primary Care Provider] - <Jeremy Waller - Last Filed: 01/19/17 18:18> Date of Encounter: 01/19/17 - Constitutional Vitals: Temp Pulse Resp BP Pulse Ox 98.3 F 69 16 138/71 95 01/19/17 16:39 01/19/17 16:39 01/19/17 16:39 01/19/17 16:39 01/19/17 16:39 Internal Medicine: Result - Labs CBC & Chem 7: 01/19/17 05:28 01/19/17 05:28 Labs: Short CBC 01/19/17 Range/Units 05:28 WBC 5.7 (4.3-11.1) K/mcL Hgb 10.5 L (11.5-15.4) g/dL Hct 33.7 L (35.3-44.9) % Plt Count 221 (140-400) K/mcL Neutrophils # 3.3 (1.6-8.9) K/mcL BMP 01/19/17 05:28 Sodium 143 Potassium 4.1 Chloride 113 H Carbon Dioxide 27 BUN 41 H Creatinine 1.79 H Glucose 97 Calcium 8.9 - Attending Attestation I examined this patient and my medical decision-making was reviewed with the Resident Physician. I agree with the documented findings, disposition and treatment plan as described except to the extent set forth below.
--- NOTE | 2017-01-19 17:37 | Podiatry Progress Note ---
Date of Encounter: 01/20/17 Time of Encounter: 12:00 - Assessment and Plan (1) Osteomyelitis Current Visit: Yes Status: Acute Erythema and swelling of toe #5 right foot secondary to osteomyelitis. Xrays of right foot obtained on 01/17/17 and showed Diffuse soft tissue swelling of the 5th toe with septic arthritis of the 5th PIP joint and adjacent osteomyelitis along the 5th proximal phalangeal head , and almost the entire 5th middle phalanx. ESR: 30, CRP: 23, WBC: 5.7 Agree with present antibiotic therapy. Plan will be for Dr. Singh to take patient to surgery on 01/22/17 for a phalangectomy of toe #5 and possible amputation of toe #5 right foot. Qualifiers: Osteomyelitis type: subacute Osteomyelitis location: foot Laterality: right Qualified Code(s): M86.271 - Subacute osteomyelitis, right ankle and foot Subjective Interval history: Podiatry was consulted yesterday for erythema and swelling of toe #5 right foot. Patient is sitting up in bed today eating lunch. ESR: 30 and CRP:23. Xray of the right foot from 01/17/17 showed diffuse soft tissue swelling of the 5th toe with septic arthritis of the 5th PIP joint and adjacent osteomyelitis along the 5th proximal phalangeal head, and almost the entire 5th middle phalanx. Patient is currently receiving Vancomycin and Zosyn. Dr. Singh evaluated patient yesterday and discussed treatment options with patient. Patient states she is okay with Dr. Singh removing the "diseased bone" of toe # 5 of her right foot and if he needs to take the whole toe to get rid of the infection, then that would be okay. No c/o fever or chills overnight. Objective - Vital Signs Vital Signs: Vital Signs Temp Pulse Resp BP Pulse Ox 01/19/17 16:39 98.3 F 69 16 138/71 95 01/19/17 11:36 98.3 F 64 18 146/71 96 01/19/17 07:28 97.9 F 66 16 184/84 97 01/19/17 04:37 97.8 F 65 16 127/67 96 01/18/17 23:18 98.1 F 76 16 160/78 93 01/18/17 18:38 98.1 F 69 16 138/77 95 01/18/17 17:46 97.1 F L 85 18 160/80 96 Intake and Output 08/28/17 08/28/17 08/28/17 07:59 15:59 23:59 Intake Total 580 / 580 Output Total 1100 / 1100 700 / 700 750 / 750 Balance -1100 / -1100 -120 / -120 -750 / -750 Intake: IV Fluids 100 / 100 Zosyn 3.375 GM In 100 / 100 Dextrose 5% (Minibag+) 100 ML 100 ML @ 25 mls/hr IVPB Q12H [facility] Rx#: [id number] Oral 480 / 480 Output: Catheter 1100 / 1100 700 / 700 750 / 750 Other: Meal Lunch Percent of Meal Consumed 75% Stool Size Moderate Stool Consistency formed Stool Color Brown # Bowel Movements 1 - Exam Exam: General appearance: alert awake oriented X 3. Calm and pleasant, no acute distress.. Vascular: Right foot: Pedal pulses +1/4 DP/PT , No evidence of cyanosis, pallor or rubor, Edema graded at 1+/4, Skin Temperature warm, No calf pain with manual compression. capillary refill time is immediate to digits. Neurologic: Sensation intact with light touch to right foot. . Integument: Toe #5 right foot is globally edematous and erythematous with dried escar to the dorsal aspect at the IP joint, no open area, no fluctuance, no streaking. - Lab Result Diagrams: 01/20/17 04:27 01/20/17 04:27 Labs: Abnormal lab results RBC 3.52 M/mcL (3.82-4.97) L 01/19/17 05:28 Hgb 10.5 g/dL (11.5-15.4) L 01/19/17 05:28 Hct 33.7 % (35.3-44.9) L 01/19/17 05:28 MCHC 31.2 g/dL (31.6-35.5) L 01/19/17 05:28 ESR 30 mm/hr (0-15) H 01/17/17 18:04 Chloride 113 mEq/L (98-109) H 01/19/17 05:28 BUN 41 mg/dL (7-20) H 01/19/17 05:28 Creatinine 1.79 mg/dL (0.57-1.11) H 01/19/17 05:28 Est GFR ( Amer) 34 (> 60) L 01/19/17 05:28 Est GFR (Non-Af Amer) 28 (> 60) L 01/19/17 05:28 Calculated Osmolality 306 (280-300) H 01/19/17 05:28 Creatine Kinase 698 Units/L (29-168) H 01/19/17 14:18 C-Reactive Protein 23 mg/L (Less than 5) H 01/17/17 18:04 Urine Protein 30 mg/dL (Neg-Trace) H 01/17/17 12:59 Urine Blood Moderate (Negative) H 01/17/17 12:59 Urine Nitrite Positive (Negative) A 01/17/17 12:59 Ur Leukocyte Esterase Moderate (Negative) H 01/17/17 12:59 Urine Microscopic RBC 3-5 per hpf (0-3) H 01/17/17 12:59 Urine Microscopic WBC 3-5 per hpf (0-3) H 01/17/17 12:59 Urine Bacteria Many per hpf (None-Few) H 01/17/17 12:59 Ur Culture Indicated? YES (NO) A 01/17/17 12:59 Microbiology, Last 48 Hours 01/17/17 17:42 Wound Culture - Preliminary Right Axilla Staphylococcus aureus Gram Negative Sukhdeep 01/17/17 17:42 Wound Culture - Preliminary Right Fifth Toe Proteus mirabilis Gram Negative Sukhdeep Consult Discharge Plan - Plan Referrals: Stanislav Martino MD [Primary Care Provider] -
[2017-01-20 04:45] LABS: Basophils % 0.7 %; Eosinophils # 0.4 K/mcL (0.0-0.6); Eosinophils % 7.1 %; Hematocrit 32.3 % (35.3-44.9); Immature Granulocytes % 0.4 % (0-4); Lymphocytes # 1.3 K/mcL (0.6-4.6); Lymphocytes % 22.3 %; Mean Corpuscular Hemoglobin 29.7 pg (28.0-33.3); Mean Corpuscular Volume 95.8 fL (83.0-100.0); Mean Platelet Volume 9.5 fL (9.4-12.4); Monocytes # 0.8 K/mcL (0.0-1.3); Monocytes % 14.2 %; Neutrophils # 3.1 K/mcL (1.6-8.9); Platelet Count 230 K/mcL (140-400); Red Blood Count 3.37 M/mcL (3.82-4.97); Red Cell Distribution Width 14.5 % (11.5-14.5); Segmented Neutrophils % 55.3 %
[2017-01-20 04:59] LABS: Magnesium 1.9 mg/dL (1.6-2.6); Potassium 4.8 mEq/L (3.5-4.5)
[2017-01-20] MEDS: *HR* Heparin 5,000 UNIT/ML VIAL SQ SCH ×2 (06:27→18:13)
[2017-01-20] MEDS: Piperacillin/Tazobactam 3.375 GM in D5% in Water (Mini-Bag+) 100 ML IVPB SCH ×2 (06:27→18:12)
[2017-01-20] MEDS: risperiDONE 1 MG TABLET PO SCH ×2 (08:16→21:42)
[2017-01-20] MEDS: Aspirin Enteric Coated 81 MG Tablet PO SCH (08:17)
[2017-01-20] MEDS: Fenofibrate 54 MG TABLET PO SCH (08:17)
[2017-01-20] MEDS: Multivit/Ca/Min/Fe/FA 1 TAB TABLET PO SCH (08:17)
[2017-01-20] MEDS: OLANZapine 10 MG TAB.RAPDIS PO SCH ×2 (08:17→21:42)
[2017-01-20] MEDS: Cholecalciferol (D-3) 1,000 UNIT TABLET PO SCH (08:18)
[2017-01-20] MEDS: amLODIPine 5 MG TABLET PO SCH (08:18)
[2017-01-20] MEDS: BuPROPion XL (24 HR) 150 MG TABLET PO SCH (08:26)
[2017-01-20] MEDS ORDERED: Vancomycin 1,000 MG in D5% in Water 250 ML IVPB SCH (12:00)
[2017-01-20] MEDS: Vancomycin 750 MG in D5% in Water 250 ML IVPB SCH (13:05)
--- NOTE | 2017-01-20 14:42 | Internal Med Progress Note ---
<Rosendo Mcconnell - Last Filed: 01/20/17 16:22> Date of Encounter: 01/20/17 Time of Encounter: 14:40 - Assessment and plan (1) Skin ulcer of axilla Current Visit: Yes Status: Acute Assessment and plan: - Patient reports 12 year history of chronic nonhealing ulcer of right axilla - No visible drainage, erythema, warmth suggesting signs of infection. Denies fevers, chills, pain - Wound culture preliminary results reveal methicillin-resistant Staphylococcus aureus as well as gram-negative rods - Unlikely etiology malignancy given timeline - Wound care was consulted for further management. agree with current antibiotic regimen, frequent dressing changes (per patient) - She is receiving vancomycin and Zosyn for MRSA as well as possible osteomyelitis Qualifiers: Non-pressure ulcer stage: unspecified non-pressure ulcer stage Qualified Code(s): L98.499 - Non-pressure chronic ulcer of skin of other sites with unspecified severity (2) Osteomyelitis Current Visit: Yes Status: Acute Assessment and plan: - Patient has evidence of acute and chronic osteomyelitis of the right toe as seen on x-ray. - ESR and CRP are elevated. - Podiatry's been consulted for possible surgical intervention. Agree with current antibiotic regimen, we will evaluate for surgery on 01/22. She is currently in agreement with right fifth toe amputation if podiatry deems necessary - Preliminary wound culture revealed Proteus growth - Continue antibiotic therapy with vancomycin and Zosyn. Qualifiers: Osteomyelitis type: subacute Osteomyelitis location: foot Laterality: right Qualified Code(s): M86.271 - Subacute osteomyelitis, right ankle and foot (3) Rhabdomyolysis Current Visit: Yes Status: Acute Assessment and plan: - Patient appears to be improving clinically. CK on admission of 3509, down to 500 - Repeat CK pending, kidney function slowly improving BUN/creatinine of 40/1.59 ( 41/1.79). Baseline creatinine of around 1.18 - Continue with fluid hydration, and continue to monitor renal function and electrolytes as well as urine output. - Patient reports this is her fourth fall this year, social work has been consulted for possible neglect, placement Qualifiers: Rhabdomyolysis type: non-traumatic Qualified Code(s): M62.82 - Rhabdomyolysis (4) UTI (urinary tract infection) Current Visit: Yes Status: Acute Assessment and plan: Patient has evidence of UTI on urinalysis which could be contributing to her frequent falls. - Follow urinary culture results grew Escherichia coli which is susceptible to the Zosyn she is receiving for possible osteomyelitis Qualifiers: Urinary tract infection type: acute cystitis Hematuria presence: without hematuria Qualified Code(s): N30.00 - Acute cystitis without hematuria (5) JESSICA (acute kidney injury) Current Visit: Yes Status: Acute Assessment and plan: On CKD stage III. secondary to rhabdomyolysis as discussed above. - creatinine is gradually improving, most recent 1.59. Patient has good urine output. - Continue with fluid hydration and encourage oral fluid intake. Avoid nephrotoxins and renally dose antibiotics. (6) HTN (hypertension) Current Visit: No Status: Chronic Assessment and plan: Blood pressure is under good control. Continue home regimen. Qualifiers: Hypertension type: essential hypertension Qualified Code(s): I10 - Essential (primary) hypertension (7) Schizophrenia Current Visit: No Status: Chronic Assessment and plan: Patient's mental status is stable with no evidence of hallucinations or agitations. Continue home medications. Qualifiers: Schizophrenia type: unspecified Qualified Code(s): F20.9 - Schizophrenia, unspecified (8) Depression Current Visit: No Status: Chronic Assessment and plan: Stable. Continue home medications. Qualifiers: Depression Type: unspecified Qualified Code(s): F32.9 - Major depressive disorder, single episode, unspecified (9) DVT prophylaxis Current Visit: Yes Status: Acute Assessment and plan: - Heparin 5000 units subcutaneously - Time Spent With Patient less than 15 minutes - Subjective Interval history: Patient was seen and examined at bedside. Reports that she is feeling well and is currently denying any symptoms of fever, chills, nausea, vomiting, chest pain , shortness of breath. She states that she is otherwise feeling well, without any symptoms of drainage, erythema, warmth in either her right fifth toe or her right axillary lesion. She states she was seen by wound care yesterday, and they agreed with a course of antibiotics as well as frequent dressing changes. Patient states that she has had this problem for almost 15 years, and is almost healed past, however she felt the urge to scratch which reopened her wound and has never healed since. He continues to deny any symptoms of urinary symptoms - Constitutional Vitals: Temp Pulse Resp BP Pulse Ox 98 F 66 16 136/68 97 01/20/17 12:19 01/20/17 12:19 01/20/17 12:19 01/20/17 12:19 01/20/17 12:19 General appearance: Present: A&O X 3, pleasant, no acute distress Exam: Gen.: Vitals noted. No acute distress. AAOx3 HEENT: PERRL/EOMI, oropharynx clear, Normocephalic, atraumatic Neck: Supple. No adenopathy. Cardiac: RRR, no murmur, +S1/S2 Pulmonary: CTA bilaterally, no wheezes, rales or rhonchi, equal chest expansion Abdomen: soft, nontender, BS noted, no guarding Back: Nontender throughout. MSK: ROM intact, no joint swelling noted Extremities: Lesion on right fifth toe stable since yesterday without evidence of erythema, warmth, or drainage. no BLE edema, nontender calf, no cyanosis or clubbing Skin: Right axillary wound covered with bandage, no evidence of drainage Neuro: A&Ox3, moves all extremities, no focal deficits Psych: Appropriate mood and behavior Internal Medicine: Result - Labs CBC & Chem 7: 01/20/17 04:27 01/20/17 04:27 Labs: Short CBC 01/20/17 Range/Units 04:27 WBC 5.6 (4.3-11.1) K/mcL Hgb 10.0 L (11.5-15.4) g/dL Hct 32.3 L (35.3-44.9) % Plt Count 230 (140-400) K/mcL Neutrophils # 3.1 (1.6-8.9) K/mcL BMP 01/20/17 04:27 Sodium 141 Potassium 4.8 H Chloride 114 H Carbon Dioxide 22 BUN 40 H Creatinine 1.59 H Glucose 76 Calcium 9.0 Consult Discharge Plan - Plan Referrals: Stanislav Martino MD [Primary Care Provider] - 01/28/17 10:15 am (Please follow up as schedule...) <Kevin Villegas - Last Filed: 01/20/17 18:35> Date of Encounter: 01/20/17 - Assessment and plan (1) Rhabdomyolysis Current Visit: Yes Status: Acute Qualifiers: Rhabdomyolysis type: non-traumatic Qualified Code(s): M62.82 - Rhabdomyolysis (2) Osteomyelitis Current Visit: Yes Status: Acute Qualifiers: Osteomyelitis type: subacute Osteomyelitis location: foot Laterality: right Qualified Code(s): M86.271 - Subacute osteomyelitis, right ankle and foot (3) Skin ulcer of axilla Current Visit: Yes Status: Acute Qualifiers: Non-pressure ulcer stage: unspecified non-pressure ulcer stage Qualified Code(s): L98.499 - Non-pressure chronic ulcer of skin of other sites with unspecified severity (4) HTN (hypertension) Current Visit: No Status: Chronic Qualifiers: Hypertension type: essential hypertension Qualified Code(s): I10 - Essential (primary) hypertension (5) Hypothyroid Current Visit: No Status: Chronic Qualifiers: Hypothyroidism type: unspecified Qualified Code(s): E03.9 - Hypothyroidism , unspecified (6) Pressure ulcer, stage 2 Current Visit: Yes Status: Acute Qualifiers: Pressure ulcer location: sacral region Qualified Code(s): L89.152 - Pressure ulcer of sacral region, stage 2 - Time Spent With Patient My time today was 35min - Constitutional Vitals: Temp Pulse Resp BP Pulse Ox 98.6 F 78 16 137/80 95 01/20/17 17:28 01/20/17 17:28 01/20/17 17:28 01/20/17 17:28 01/20/17 17:28 Internal Medicine: Result - Labs CBC & Chem 7: 01/20/17 04:27 01/20/17 04:27 Labs: Short CBC 01/20/17 Range/Units 04:27 WBC 5.6 (4.3-11.1) K/mcL Hgb 10.0 L (11.5-15.4) g/dL Hct 32.3 L (35.3-44.9) % Plt Count 230 (140-400) K/mcL Neutrophils # 3.1 (1.6-8.9) K/mcL BMP 01/20/17 04:27 Sodium 141 Potassium 4.8 H Chloride 114 H Carbon Dioxide 22 BUN 40 H Creatinine 1.59 H Glucose 76 Calcium 9.0 - Attending Attestation I examined this patient and my medical decision-making was reviewed with the Resident Physician on 01/20/17. I agree with the documented findings, disposition and treatment plan as described except to the extent set forth below. Ms. Bynum is currently admitted for acute rhabdo as well as osteomyelitis and skin ulcer. She remains moderate to high risk due to IV medications and infectious issues. Ms. Bynum feels OK. No fever or chills. No GI issues. Tolerating current medications. Appreciate wound care input. Exam Alert. Comfortable Mucus membranes moist Heart reg No wheeze Abd soft I/P 1. Acute rhabdo 2. Osteomyelitis Further diagnoses and plan as above.
[2017-01-21 04:02] LABS: Basophils # 0.1 K/mcL (0.0-0.2); Basophils % 1.1 %; Eosinophils # 0.4 K/mcL (0.0-0.6); Eosinophils % 7.6 %; Hematocrit 33.6 % (35.3-44.9); Hemoglobin 10.2 g/dL (11.5-15.4); Immature Granulocytes % 0.7 % (0-4); Lymphocytes # 1.5 K/mcL (0.6-4.6); Lymphocytes % 25.5 %; Mean Corpuscular HGB Conc 30.4 g/dL (31.6-35.5); Mean Corpuscular Hemoglobin 29.1 pg (28.0-33.3); Mean Corpuscular Volume 95.7 fL (83.0-100.0); Mean Platelet Volume 9.5 fL (9.4-12.4); Monocytes # 0.7 K/mcL (0.0-1.3); Platelet Count 240 K/mcL (140-400); Red Blood Count 3.51 M/mcL (3.82-4.97); Red Cell Distribution Width 14.6 % (11.5-14.5); Segmented Neutrophils % 52.1 %
[2017-01-21 04:10] LABS: Calcium 9.2 mg/dL (8.6-10.8); Magnesium 1.8 mg/dL (1.6-2.6); Potassium 4.5 mEq/L (3.5-4.5)
[2017-01-21] MEDS: Piperacillin/Tazobactam 3.375 GM in D5% in Water (Mini-Bag+) 100 ML IVPB SCH ×2 (05:53→17:01)
[2017-01-21] MEDS: *HR* Heparin 5,000 UNIT/ML VIAL SQ SCH ×2 (05:53→17:01)
[2017-01-21] MEDS: risperiDONE 1 MG TABLET PO SCH ×2 (09:45→20:45)
[2017-01-21] MEDS: amLODIPine 5 MG TABLET PO SCH (09:47)
[2017-01-21] MEDS: Aspirin Enteric Coated 81 MG Tablet PO SCH (09:47)
[2017-01-21] MEDS: Multivit/Ca/Min/Fe/FA 1 TAB TABLET PO SCH (09:47)
[2017-01-21] MEDS: OLANZapine 10 MG TAB.RAPDIS PO SCH ×2 (09:47→20:46)
[2017-01-21] MEDS: Cholecalciferol (D-3) 1,000 UNIT TABLET PO SCH (09:47)
[2017-01-21] MEDS: BuPROPion XL (24 HR) 150 MG TABLET PO SCH (09:47)
--- NOTE | 2017-01-21 10:08 | Internal Med Progress Note ---
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 Denies fevers, chills, pain - Wound culture final results reveal methicillin-resistant Staphylococcus aureus as well as gram-negative rods - Unlikely etiology malignancy given timeline - Wound care was consulted for further management. agree with current antibiotic regimen, frequent dressing changes, calcium alginate if patient will allow. Patient has a history of noncompliance of treatment with this particular lesion - She is receiving vancomycin and Zosyn for MRSA as well as possible osteomyelitis Qualifiers: Non-pressure ulcer stage: unspecified non-pressure ulcer stage Qualified Code(s): L98.499 - Non-pressure chronic ulcer of skin of other sites with unspecified severity (2) Osteomyelitis Current Visit: Yes Status: Acute Assessment and plan: - Patient has evidence of acute and chronic osteomyelitis of the right toe as seen on x-ray. - ESR and CRP are elevated. - Podiatry's been consulted for possible surgical intervention. Agree with current antibiotic regimen, we will evaluate for surgery on 01/22. She is currently in agreement with right fifth toe amputation if podiatry deems necessary - Final wound culture revealed Proteus growth - Continue antibiotic therapy with vancomycin and Zosyn day 4. Qualifiers: Osteomyelitis type: subacute Osteomyelitis location: foot Laterality: right Qualified Code(s): M86.271 - Subacute osteomyelitis, right ankle and foot (3) Rhabdomyolysis Current Visit: Yes Status: Acute Assessment and plan: - Patient appears to be improving clinically. CK on admission of 3509, down to 490 - Kidney function mildly worsened from yesterday at 41/1.64 (40/1.59). Baseline creatinine of around 1.18 - Continue with fluid hydration, and continue to monitor renal function and electrolytes as well as urine output. - Patient reports this is her fourth fall this year, social work has been consulted for possible neglect, placement - PTOT recommends SNF upon discharge Qualifiers: Rhabdomyolysis type: non-traumatic Qualified Code(s): M62.82 - Rhabdomyolysis (4) UTI (urinary tract infection) Current Visit: Yes Status: Acute Assessment and plan: Patient has evidence of UTI on urinalysis which could be contributing to her frequent falls. - Follow urinary culture results grew Escherichia coli which is susceptible to the Zosyn she is receiving for possible osteomyelitis Qualifiers: Urinary tract infection type: acute cystitis Hematuria presence: without hematuria Qualified Code(s): N30.00 - Acute cystitis without hematuria (5) JESSICA (acute kidney injury) Current Visit: Yes Status: Acute Assessment and plan: On CKD stage III. secondary to rhabdomyolysis as discussed above. - creatinine stable, most recent 1.64. Patient has good urine output. - Continue with fluid hydration and encourage oral fluid intake. Avoid nephrotoxins and renally dose antibiotics. (6) HTN (hypertension) Current Visit: No Status: Chronic Assessment and plan: Blood pressure is under good control. Continue home regimen. Qualifiers: Hypertension type: essential hypertension Qualified Code(s): I10 - Essential (primary) hypertension (7) Schizophrenia Current Visit: No Status: Chronic Assessment and plan: Patient's mental status is stable with no evidence of hallucinations or agitations. Continue home medications. Qualifiers: Schizophrenia type: unspecified Qualified Code(s): F20.9 - Schizophrenia, unspecified (8) Depression Current Visit: No Status: Chronic Assessment and plan: Stable. Continue home medications. Qualifiers: Depression Type: unspecified Qualified Code(s): F32.9 - Major depressive disorder, single episode, unspecified (9) DVT prophylaxis Current Visit: Yes Status: Acute Assessment and plan: - Heparin 5000 units subcutaneously - Time Spent With Patient 25 - 35 minutes - Subjective Interval history: Patient was seen and examined at bedside. Reports that she is feeling well and is currently denying any symptoms of fever, chills, nausea, vomiting, chest pain , shortness of breath. She states that she is feeling back to normal self, and that she is experiencing no pain, drainage, erythema, warmth from either her right fifth toe wound or right axillary ulcer. All her question she had were answered including possible date of discharge. - Constitutional Vitals: Temp Pulse Resp BP Pulse Ox 97.2 F L 66 16 144/77 94 01/21/17 07:01/21/17 07:01/21/17 07:01/21/17 07:01/21/17 07:17 General appearance: Present: A&O X 3, pleasant, no acute distress Exam: Gen.: Vitals noted. No acute distress. AAOx3 HEENT: PERRL/EOMI, oropharynx clear, Normocephalic, atraumatic Neck: Supple. No adenopathy. Cardiac: RRR, no murmur, +S1/S2 Pulmonary: CTA bilaterally, no wheezes, rales or rhonchi, equal chest expansion Abdomen: soft, nontender, BS noted, no guarding Back: Nontender throughout. MSK: Right fifth toe lesion stable from previous exam, no further evidence of erythema, warmth, drainage. ROM intact, no joint swelling noted Skin: Right axillary wound covered with bandages, no evidence of drainage at this time. Extremities: no BLE edema, nontender calf, no cyanosis or clubbing Neuro: A&Ox3, moves all extremities, no focal deficits Psych: Appropriate mood and behavior Internal Medicine: Result - Labs CBC & Chem 7: 01/21/17 03:33 01/21/17 03:33 Labs: Short CBC 01/21/17 Range/Units 03:33 WBC 5.7 (4.3-11.1) K/mcL Hgb 10.2 L (11.5-15.4) g/dL Hct 33.6 L (35.3-44.9) % Plt Count 240 (140-400) K/mcL Neutrophils # 3.0 (1.6-8.9) K/mcL BMP 01/21/17 03:33 Sodium 142 Potassium 4.5 Chloride 110 H Carbon Dioxide 29 BUN 41 H Creatinine 1.64 H Glucose 86 Calcium 9.2 Consult Discharge Plan - Plan Referrals: Stanislav Martino MD [Primary Care Provider] - 01/28/17 10:15 am (Please follow up as schedule...) <Kevin Villegas - Last Filed: 01/21/17 17:29> Date of Encounter: 01/21/17 - Assessment and plan (1) Rhabdomyolysis Current Visit: Yes Status: Acute Qualifiers: Rhabdomyolysis type: non-traumatic Qualified Code(s): M62.82 - Rhabdomyolysis (2) Osteomyelitis Current Visit: Yes Status: Acute Qualifiers: Osteomyelitis type: subacute Osteomyelitis location: foot Laterality: right Qualified Code(s): M86.271 - Subacute osteomyelitis, right ankle and foot (3) Skin ulcer of axilla Current Visit: Yes Status: Acute Qualifiers: Non-pressure ulcer stage: unspecified non-pressure ulcer stage Qualified Code(s): L98.499 - Non-pressure chronic ulcer of skin of other sites with unspecified severity (4) HTN (hypertension) Current Visit: No Status: Chronic Qualifiers: Hypertension type: essential hypertension Qualified Code(s): I10 - Essential (primary) hypertension (5) Hypothyroid Current Visit: No Status: Chronic Qualifiers: Hypothyroidism type: unspecified Qualified Code(s): E03.9 - Hypothyroidism , unspecified (6) Pressure ulcer, stage 2 Current Visit: Yes Status: Acute Qualifiers: Pressure ulcer location: sacral region Qualified Code(s): L89.152 - Pressure ulcer of sacral region, stage 2 - Constitutional Vitals: Temp Pulse Resp BP Pulse Ox 97.8 F 67 16 154/79 94 01/21/17 16:31 01/21/17 16:31 01/21/17 16:31 01/21/17 16:31 01/21/17 16:31 Internal Medicine: Result - Labs CBC & Chem 7: 01/21/17 03:33 01/21/17 03:33 Labs: Short CBC 01/21/17 Range/Units 03:33 WBC 5.7 (4.3-11.1) K/mcL Hgb 10.2 L (11.5-15.4) g/dL Hct 33.6 L (35.3-44.9) % Plt Count 240 (140-400) K/mcL Neutrophils # 3.0 (1.6-8.9) K/mcL BMP 01/21/17 03:33 Sodium 142 Potassium 4.5 Chloride 110 H Carbon Dioxide 29 BUN 41 H Creatinine 1.64 H Glucose 86 Calcium 9.2 - Attending Attestation I examined this patient and my medical decision-making was reviewed with the Resident Physician on 01/21/17. I agree with the documented findings, disposition and treatment plan as described except to the extent set forth below. Ms. Bynum is currently admitted for acute rhabdo and osteo of toe. She remains moderate to high risk due to need for IV meds and monitoring of labs. Ms. Bynum is eating lunch. She is up in chair. No CP or SOB. No fever or chills. Tolerating IV abx. No new complaints. Apparently to have surgery tomorrow. Exam Alert. Comfortable Heart reg No wheeze Dressings intact I/P 1. Osteo - plan for surgery tomorrow per podiatry note 2. Acute rhabo - improving with IV fluids. Further diagnoses and plan as above.
[2017-01-21] MEDS: Fenofibrate 54 MG TABLET PO SCH (11:08)
[2017-01-21] MEDS: Vancomycin 750 MG in D5% in Water 250 ML IVPB SCH (12:00)
--- NOTE | 2017-01-21 14:03 | Podiatry Progress Note ---
Date of Encounter: 01/23/17 Time of Encounter: 11:00 - Assessment and Plan (1) Osteomyelitis Current Visit: Yes Status: Acute Assessment: Erythema and swelling of toe #5 right foot secondary to osteomyelitis. Plan: OR with 01/22/17 for partial/total amputation of toe #5 right foot Continue current antibiotic therapy and continue to monitor for renal compromise Spoke with patient about surgery and post surgical care. All questions answered. Patient agreeable to plan. Denies any questions or concerns. NPO after midnight Qualifiers: Osteomyelitis type: subacute Osteomyelitis location: foot Laterality: right Qualified Code(s): M86.271 - Subacute osteomyelitis, right ankle and foot Subjective Interval history: Patient awaiting amputation of toe #5 right foot due to osteomyelitis of toe. Patient resting comfortably. Denies any questions or concerns Rates pain 3/10 at this time. Patient denies any fevers, chills n/v or flu like symptoms Patient denies any SOB or calf pain. Objective - Vital Signs Vital Signs: Vital Signs Temp Pulse Resp BP Pulse Ox 01/21/17 11:12 98.2 F 68 16 132/68 98 01/21/17 07:17 97.2 F L 66 16 144/77 94 01/21/17 03:39 97.7 F 65 18 144/76 96 01/20/17 23:42 98.3 F 71 20 135/74 94 01/20/17 18:56 98 F 73 20 117/68 96 01/20/17 17:28 98.6 F 78 16 137/80 95 Intake and Output 01/20/17 01/21/17 01/21/17 23:59 07:59 15:59 Intake Total 100 / 100 480 / 480 Output Total 150 / 150 0 / 0 1849 / 0 Balance -50 / -50 0 / 0 -1370 / -1370 Intake: IV Fluids 100 / 100 Zosyn 3.375 GM In 100 / 100 Dextrose 5% (Minibag+) 100 ML 100 ML @ 25 mls/hr IVPB Q12H [facility] Rx#: [id number] Oral 480 / 480 Output: Urine 150 / 150 0 / 0 0 / 0 Indwelling urinary cath 0 / 0 0 / 0 0 / 0 Catheter 1849 Other: Meal Lunch Percent of Meal Consumed 95% Stool Size Moderate Stool Consistency formed Stool Color Brown # Bowel Movements 1 Weight 64.7 kg Patient Weight 01/21/17 23:59 Weight 64.7 kg - Exam Exam: Awake, alert and oriented Rates pain 3/10 to right foot toe #5 No calf pain with manual compression Pedal pulses +2/4 DP/PT Cap refill <3 seconds Movement intact Sensation intact to moderate touch of foot Scabbed ulceration noted to dorsal aspect of toe #5 right foot, there is erythema, edema and warmth noted to toe. There is a four odor noted. There is no drainage noted at this tiem No streaking - Lab Result Diagrams: 01/23/17 03:47 01/23/17 03:47 Labs: Abnormal lab results RBC 3.51 M/mcL (3.82-4.97) L 01/21/17 03:33 Hgb 10.2 g/dL (11.5-15.4) L 01/21/17 03:33 Hct 33.6 % (35.3-44.9) L 01/21/17 03:33 MCHC 30.4 g/dL (31.6-35.5) L 01/21/17 03:33 RDW 14.6 % (11.5-14.5) H 01/21/17 03:33 ESR 30 mm/hr (0-15) H 01/17/17 18:04 Chloride 110 mEq/L (98-109) H 01/21/17 03:33 BUN 41 mg/dL (7-20) H 01/21/17 03:33 Creatinine 1.64 mg/dL (0.57-1.11) H 01/21/17 03:33 Est GFR ( Amer) 38 (> 60) L 01/21/17 03:33 Est GFR (Non-Af Amer) 31 (> 60) L 01/21/17 03:33 Calculated Osmolality 303 (280-300) H 01/21/17 03:33 Creatine Kinase 490 Units/L (29-168) H 01/21/17 03:33 C-Reactive Protein 23 mg/L (Less than 5) H 01/17/17 18:04 Urine Protein 30 mg/dL (Neg-Trace) H 01/17/17 12:59 Urine Blood Moderate (Negative) H 01/17/17 12:59 Urine Nitrite Positive (Negative) A 01/17/17 12:59 Ur Leukocyte Esterase Moderate (Negative) H 01/17/17 12:59 Urine Microscopic RBC 3-5 per hpf (0-3) H 01/17/17 12:59 Urine Microscopic WBC 3-5 per hpf (0-3) H 01/17/17 12:59 Urine Bacteria Many per hpf (None-Few) H 01/17/17 12:59 Ur Culture Indicated? YES (NO) A 01/17/17 12:59 Microbiology, Last 48 Hours 01/17/17 17:42 Wound Culture - Preliminary Right Axilla Methicillin Resistant S.aureus Pseudomonas aeruginosa Gram Negative Sukhdeep 01/17/17 17:42 Wound Culture - Final Right Fifth Toe Proteus mirabilis Consult Discharge Plan - Plan Referrals: Stanislav Martino MD [Primary Care Provider] - 01/28/17 10:15 am (Please follow up as schedule...)
[2017-01-22] MEDS: Piperacillin/Tazobactam 3.375 GM in D5% in Water (Mini-Bag+) 100 ML IVPB SCH ×2 (05:33→18:32)
[2017-01-22] MEDS: *HR* Heparin 5,000 UNIT/ML VIAL SQ SCH ×2 (05:34→18:32)
[2017-01-22 05:42] LABS: Basophils # 0.1 K/mcL (0.0-0.2); Basophils % 0.9 %; Eosinophils # 0.4 K/mcL (0.0-0.6); Eosinophils % 7.2 %; Hematocrit 35.1 % (35.3-44.9); Hemoglobin 10.6 g/dL (11.5-15.4); Immature Granulocytes % 0.5 % (0-4); Lymphocytes # 1.1 K/mcL (0.6-4.6); Lymphocytes % 17.9 %; Mean Corpuscular HGB Conc 30.2 g/dL (31.6-35.5); Mean Corpuscular Hemoglobin 29.4 pg (28.0-33.3); Mean Corpuscular Volume 97.2 fL (83.0-100.0); Mean Platelet Volume 9.6 fL (9.4-12.4); Monocytes # 0.8 K/mcL (0.0-1.3); Monocytes % 13.1 %; Neutrophils # 3.6 K/mcL (1.6-8.9); Platelet Count 245 K/mcL (140-400); Red Blood Count 3.61 M/mcL (3.82-4.97); Red Cell Distribution Width 14.6 % (11.5-14.5); Segmented Neutrophils % 60.4 %
[2017-01-22 05:52] LABS: Calcium 9.5 mg/dL (8.6-10.8); Magnesium 1.9 mg/dL (1.6-2.6); Potassium 4.5 mEq/L (3.5-4.5)
[2017-01-22] MEDS: amLODIPine 5 MG TABLET PO SCH (08:58)
[2017-01-22] MEDS: Cholecalciferol (D-3) 1,000 UNIT TABLET PO SCH (08:58)
[2017-01-22] MEDS: OLANZapine 10 MG TAB.RAPDIS PO SCH ×2 (08:59→21:56)
[2017-01-22] MEDS: BuPROPion XL (24 HR) 150 MG TABLET PO SCH (08:59)
[2017-01-22] MEDS: risperiDONE 1 MG TABLET PO SCH ×2 (08:59→21:56)
[2017-01-22] MEDS: Aspirin Enteric Coated 81 MG Tablet PO SCH (08:59)
[2017-01-22] MEDS: Fenofibrate 54 MG TABLET PO SCH (09:00)
[2017-01-22] MEDS: Multivit/Ca/Min/Fe/FA 1 TAB TABLET PO SCH (09:01)
[2017-01-22] MEDS ORDERED: Aminoglycoside Consult 1 EACH MC ONE (09:38)
[2017-01-22] MEDS ORDERED: amLODIPine 5 MG TABLET PO SCH (11:22)
[2017-01-22] MEDS: Vancomycin 750 MG in D5% in Water 250 ML IVPB SCH (12:37)
--- NOTE | 2017-01-22 14:10 | Internal Med Progress Note ---
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 Denies fevers, chills, pain - Wound culture final results reveal methicillin-resistant Staphylococcus aureus as well as gram-negative rods - Unlikely etiology malignancy given timeline - Wound care was consulted for further management. agree with current antibiotic regimen, frequent dressing changes, calcium alginate if patient will allow. Patient has a history of noncompliance of treatment with this particular lesion - She is receiving vancomycin and Zosyn day 5 for MRSA as well as possible osteomyelitis Qualifiers: Non-pressure ulcer stage: unspecified non-pressure ulcer stage Qualified Code(s): L98.499 - Non-pressure chronic ulcer of skin of other sites with unspecified severity (2) Osteomyelitis Current Visit: Yes Status: Acute Assessment and plan: - Patient has evidence of acute and chronic osteomyelitis of the right toe as seen on x-ray. - ESR and CRP are elevated. - Podiatry's been consulted for possible surgical intervention. Agree with current antibiotic regimen. Schedule for surgical amputation at 1730 this evening. She is currently in agreement with right fifth toe amputation - Final wound culture revealed Proteus growth - Continue antibiotic therapy with vancomycin and Zosyn day 5. Qualifiers: Osteomyelitis type: subacute Osteomyelitis location: foot Laterality: right Qualified Code(s): M86.271 - Subacute osteomyelitis, right ankle and foot (3) Rhabdomyolysis Current Visit: Yes Status: Acute Assessment and plan: - Patient appears to be improving clinically. CK on admission of 3509, down to 490 yesterday - Kidney function mildly improved from yesterday at 88/1.54 (41/1.64). Baseline creatinine of around 1.18 -Continue to encourage fluid intake and continue to monitor renal function and electrolytes as well as urine output. - Patient reports this is her fourth fall this year, social work has been consulted for possible neglect, placement - PTOT recommends SNF upon discharge Qualifiers: Rhabdomyolysis type: non-traumatic Qualified Code(s): M62.82 - Rhabdomyolysis (4) UTI (urinary tract infection) Current Visit: Yes Status: Acute Assessment and plan: Patient has evidence of UTI on urinalysis which could be contributing to her frequent falls. - Follow urinary culture results grew Escherichia coli which is susceptible to the Zosyn she is receiving for possible osteomyelitis, day 5 Qualifiers: Urinary tract infection type: acute cystitis Hematuria presence: without hematuria Qualified Code(s): N30.00 - Acute cystitis without hematuria (5) JESSICA (acute kidney injury) Current Visit: Yes Status: Acute Assessment and plan: On CKD stage III. secondary to rhabdomyolysis as discussed above. - creatinine stable, most recent 1.54. Patient has good urine output. - encourage oral fluid intake. Avoid nephrotoxins and renally dose antibiotics. (6) HTN (hypertension) Current Visit: No Status: Chronic Assessment and plan: Blood pressure is under good control. Continue home regimen. - Blood pressure has remained mildly elevated since admission, will increase dose of amlodipine from 5 mg by mouth daily to 10 mg by mouth daily tomorrow morning Qualifiers: Hypertension type: essential hypertension Qualified Code(s): I10 - Essential (primary) hypertension (7) Schizophrenia Current Visit: No Status: Chronic Assessment and plan: Patient's mental status is stable with no evidence of hallucinations or agitations. Continue home medications. Qualifiers: Schizophrenia type: unspecified Qualified Code(s): F20.9 - Schizophrenia, unspecified (8) Depression Current Visit: No Status: Chronic Assessment and plan: Stable. Continue home medications. Qualifiers: Depression Type: unspecified Qualified Code(s): F32.9 - Major depressive disorder, single episode, unspecified (9) DVT prophylaxis Current Visit: Yes Status: Acute Assessment and plan: - Heparin 5000 units subcutaneously - Time Spent With Patient 25 - 35 minutes - Subjective Interval history: Patient was seen and examined at bedside. Reports that she is feeling well and is currently denying any symptoms of fever, chills, nausea, vomiting, chest pain , shortness of breath. She states that she is feeling back to normal self, and that she is experiencing no pain, drainage, erythema, warmth from either her right fifth toe wound or right axillary ulcer. All her question she had were answered including possible date of discharge. Patient is scheduled for partial /total amputation of right fifth toe with podiatry at 1730 this evening. - Constitutional Vitals: Temp Pulse Resp BP Pulse Ox 98.1 F 71 18 134/72 99 01/22/17 11:00 01/22/17 11:00 01/22/17 11:00 01/22/17 11:00 01/22/17 11:00 General appearance: Present: A&O X 3, pleasant, no acute distress Exam: Gen.: Vitals noted. No acute distress. AAOx3 HEENT: PERRL/EOMI, oropharynx clear, Normocephalic, atraumatic Neck: Supple. No adenopathy. Cardiac: RRR, no murmur, +S1/S2 Pulmonary: CTA bilaterally, no wheezes, rales or rhonchi, equal chest expansion Abdomen: soft, nontender, BS noted, no guarding Back: Nontender throughout. MSK: ROM intact, no joint swelling noted Extremities: Right fifth toe eschar, stable from previous exam. No signs of drainage, warmth, erythema. no BLE edema, nontender calf, no cyanosis or clubbing Skin: Right chest wall lesion covered with dressing at time of examination, no signs of erythema, warmth, drainage. Neuro: A&Ox3, moves all extremities, no focal deficits Psych: Appropriate mood and behavior Internal Medicine: Result - Labs CBC & Chem 7: 01/22/17 04:37 01/22/17 04:37 Labs: Short CBC 01/22/17 Range/Units 04:37 WBC 5.9 (4.3-11.1) K/mcL Hgb 10.6 L (11.5-15.4) g/dL Hct 35.1 L (35.3-44.9) % Plt Count 245 (140-400) K/mcL Neutrophils # 3.6 (1.6-8.9) K/mcL BMP 01/22/17 04:37 Sodium 141 Potassium 4.5 Chloride 107 Carbon Dioxide 26 BUN 38 H Creatinine 1.54 H Glucose 79 Calcium 9.5 Consult Discharge Plan - Plan Referrals: Stanislav Martino MD [Primary Care Provider] - 01/28/17 10:15 am (Please follow up as schedule...) <Kevin Villegas - Last Filed: 01/22/17 18:50> Date of Encounter: 01/22/17 - Assessment and plan (1) Rhabdomyolysis Current Visit: Yes Status: Acute Qualifiers: Rhabdomyolysis type: non-traumatic Qualified Code(s): M62.82 - Rhabdomyolysis (2) Osteomyelitis Current Visit: Yes Status: Acute Qualifiers: Osteomyelitis type: subacute Osteomyelitis location: foot Laterality: right Qualified Code(s): M86.271 - Subacute osteomyelitis, right ankle and foot (3) Skin ulcer of axilla Current Visit: Yes Status: Acute Qualifiers: Non-pressure ulcer stage: unspecified non-pressure ulcer stage Qualified Code(s): L98.499 - Non-pressure chronic ulcer of skin of other sites with unspecified severity (4) HTN (hypertension) Current Visit: No Status: Chronic Qualifiers: Hypertension type: essential hypertension Qualified Code(s): I10 - Essential (primary) hypertension (5) Hypothyroid Current Visit: No Status: Chronic Qualifiers: Hypothyroidism type: unspecified Qualified Code(s): E03.9 - Hypothyroidism , unspecified (6) Pressure ulcer, stage 2 Current Visit: Yes Status: Acute Qualifiers: Pressure ulcer location: sacral region Qualified Code(s): L89.152 - Pressure ulcer of sacral region, stage 2 - Constitutional Vitals: Temp Pulse Resp BP Pulse Ox 97.3 F L 68 18 170/78 97 01/22/17 17:45 01/22/17 17:45 01/22/17 17:45 01/22/17 17:45 01/22/17 17:45 Internal Medicine: Result - Labs CBC & Chem 7: 01/22/17 04:37 01/22/17 04:37 Labs: Short CBC 01/22/17 Range/Units 04:37 WBC 5.9 (4.3-11.1) K/mcL Hgb 10.6 L (11.5-15.4) g/dL Hct 35.1 L (35.3-44.9) % Plt Count 245 (140-400) K/mcL Neutrophils # 3.6 (1.6-8.9) K/mcL BMP 01/22/17 04:37 Sodium 141 Potassium 4.5 Chloride 107 Carbon Dioxide 26 BUN 38 H Creatinine 1.54 H Glucose 79 Calcium 9.5 - Attending Attestation I examined this patient and my medical decision-making was reviewed with the Resident Physician on 01/22/17. I agree with the documented findings, disposition and treatment plan as described except to the extent set forth below. Ms. Bynum is currently admitted for acute rhabdo and osteomyelitis. She remains moderate to high risk due to IV meds and need for OR. Ms. Bynum is awaiting OR. She denies CP or SOB. No fever or chills. Slept OK. Exam alert. Comfortable Heart reg No wheeze Dressing intact I/P 1. Rhabdo 2. OM Further diagnoses and plan as above
--- NOTE | 2017-01-22 15:31 | Anesthesia Evaluation PreOp ---
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 Improved with IV hydration since admission.), Other (osteomyelitis) Anesthesia History: No Prior Anesthetic Complications (Unknown, patient generally poor historian.) Alcohol Use: none Drug use: none Medications and Allergies Amlodipine [Norvasc] 5 mg PO DAILY 03/22/15 [History] Aspirin Enteric Coated [Aspirin EC] 81 mg PO DAILY 03/22/15 [History] Fenofibrate [Lofibra] 160 mg PO DAILY 03/22/15 [History] Levothyroxine [Synthroid] 75 mcg PO DAILY 03/22/15 [History] Bupropion HCl [Wellbutrin Xl] 300 mg PO DAILY 01/17/17 [History] Calcium Carbonate/Vitamin D3 [Oyster Shell Calcium-Vit D Tab] 1 tab PO BID 01/17 [History] Diphenhydramine HCl [Nighttime Sleep Aid] 50 mg PO HS 01/17/17 [History] Docusate Sodium [Dok] 100 mg PO BID PRN 01/17/17 [History] Multivitamin [One Daily Essential] 1 tab PO DAILY 01/17/17 [History] OLANZapine [Zyprexa] 15 mg PO BID 01/17/17 [History] Sertraline [Zoloft] 150 mg PO DAILY 01/17/17 [History] Zolpidem [Ambien] 10 mg PO HS 01/17/17 [History] risperiDONE [Risperidone] 4 mg PO BID 01/17/17 [History] 3 Allergy/AdvReac Type Severity Reaction Status Date / Time No Known Allergies Allergy Verified 03/22/15 09:04 - Meds/Allergy Pre-op Review Medications Reviewed: Yes Allergies Reviewed: Yes Beta Blockers on Current Med List: No Anesthesia Results - Labs 01/22/17 04:37 01/22/17 04:37 Anesthesia Exam Selected Entries 01/22/17 11:00 Temperature 98.1 F Pulse Rate 71 Respiratory Rate 18 Blood Pressure 134/72 Weight: 65 kg NPO (# of Hours): over 8 hours - HEENT Pupil (Motor): Pupils equal Mallampati: I Teeth: Normal Oral Opening: Greater than 3 - Cardiac Rhythm: Regular - Pulmonary Breath Sounds: bilateral Clear Respiratory Effort: Symmetrical Anesthesia Assess/Plan ASA Score: 3 Modified Alonzo Scale for Level of Consciousness: Cooperative, oriented, and tranquil Anesthetic Plan: MAC Monitoring Plan: Standard Monitors Recovery Plan: Other
[2017-01-22] MEDS ORDERED: Bupivacaine/Clonidine Syringe 1 EACH SYRINGE ONE (15:59)
[2017-01-22] MEDS ORDERED: Ketamine *HR* 500 MG/10 ML MDV ONE (16:12)
[2017-01-22] MEDS ORDERED: *HR* FentaNYL (PF) 100 MCG/2 ML VIAL ONE (16:12)
[2017-01-22] MEDS ORDERED: Propofol 500 MG/50 ML INFUS..BTL ONE (16:13)
[2017-01-22] MEDS ORDERED: Lidocaine -MPF 2% 2 ML VIAL ONE (16:15)
--- NOTE | 2017-01-22 17:30 | Orthopedic Operative Note ---
Date of procedure: 01/22/17 Pre-op diagnosis: Osteomyelitis toe #5 right foot Post-op diagnosis: same Procedure: 01/22/17 17:25 #1 amputation of toe #5 right foot at the level of the metatarsophalangeal joint. Implants: None Complications: None Anesthesia: MAC, local Local Anesthetics: 0.25% Sensorcaine HCL SubQ (cc) Surgeon: Geronimo Singh Estimated blood loss (cc): 5 Tourniquet Time (Minutes): 0 Specimen: Phalanx of bone/toe #5 right foot Condition: stable Disposition: floor Procedure in Detail: 01/22/17 17:26 Details in summary of procedure: Patient brought to the surgical suite. A sign in procedure was performed. Patient was then transferred to the surgical table and positioned properly safely securely. The right foot was elevated on a foam block. No tourniquet was used. Anesthetic timeout was taken. The right foot was prepped with alcohol 3 times in a modified V-block was carried out midshaft #5 metatarsal right foot. Anesthetic was Marcaine with clonidine. No epinephrine was used. The right foot was then prepped and draped in usual sterile manner. Surgical timeout was taken. 2 Semi- elliptical incisions were made over the dorsal wound of the fifth toe right foot down to bone. The skin ellipse was then excised in toto as was the ulceration. This exposed necrotic bone that had proximal phalanx of the middle phalanx were noted to be friable yellow-eastman and not of normal color texture density or character. I then isolated the middle phalanx was then extirpated completely with a 15 scalpel blade and pickup the distal phalanx was then identified and found to be of normal color texture and density, the proximal phalanx was isolated and then dissection was carried out at the level of the periosteum proximally to the base it was then resected dorsal plantar fashion using power saw leaving the base the proximal phalanx. The toe was essentially filleted at that point we will except the distal phalanx and the base the proximal phalanx in hopes of salvaging the toe. Unfortunately the toe did not recover and was pallorous in nature. There is no active bleeding necessitated use of Bovie ligature. At that juncture was decided that amputation of the total level of metatarsalgia joint would be the best possible option to heal this wound without complication. At that point 2 incisions were then made at the level of the webspace creating a lateral flap covering the distal end of the sulcus of the foot. The remainder of the proximal phalanx was isolated and divided at the level of the metatarsal phalangeal joint by dividing the collateral ligaments and dorsal capsule plantar capsule #15 scalpel blade. After excision of the base of proximal phalanx the head of the metatarsal was inspected and found to be pristine. The wound did not exhibit any evidence of active necrosis or purulence. The wound was flushed with copious amounts sterile saline. Deep closure was uneventful with 3-0 Vicryl and the skin repaired with 3-0 Prolene prior to closure the wound was sprayed with PRP. Prior to closure the wound was inspected again and skin edges were viable and bleeding. The wound was then dressed with Adaptic 4 x 4's Kerlix and a mild compressive dressing. Estimated blood loss less than 5 mL complications encountered none. Patient was sent to holding room in good condition with vital signs stable. 02/02/17 12:43
[2017-01-22] MEDS ORDERED: Naloxone 0.4 MG/ML INJ IVP PRN (17:35)
[2017-01-23] MEDS: Piperacillin/Tazobactam 3.375 GM in D5% in Water (Mini-Bag+) 100 ML IVPB SCH ×2 (02:57→11:37)
[2017-01-23 03:57] LABS: Basophils % 0.7 %; Eosinophils # 0.4 K/mcL (0.0-0.6); Eosinophils % 6.6 %; Hematocrit 33.3 % (35.3-44.9); Immature Granulocytes % 0.5 % (0-4); Lymphocytes # 1.1 K/mcL (0.6-4.6); Lymphocytes % 18.3 %; Mean Corpuscular Hemoglobin 28.8 pg (28.0-33.3); Mean Platelet Volume 9.4 fL (9.4-12.4); Monocytes # 0.8 K/mcL (0.0-1.3); Monocytes % 13.7 %; Neutrophils # 3.5 K/mcL (1.6-8.9); Platelet Count 231 K/mcL (140-400); Red Blood Count 3.47 M/mcL (3.82-4.97); Red Cell Distribution Width 14.6 % (11.5-14.5); Segmented Neutrophils % 60.2 %
[2017-01-23 04:08] LABS: Calcium 9.1 mg/dL (8.6-10.8); Magnesium 1.7 mg/dL (1.6-2.6); Potassium 4.1 mEq/L (3.5-4.5)
[2017-01-23] MEDS: *HR* Heparin 5,000 UNIT/ML VIAL SQ SCH ×2 (07:03→17:39)
[2017-01-23] MEDS: Fenofibrate 54 MG TABLET PO SCH (08:07)
[2017-01-23] MEDS: BuPROPion XL (24 HR) 150 MG TABLET PO SCH (08:07)
[2017-01-23] MEDS: Aspirin Enteric Coated 81 MG Tablet PO SCH (08:08)
[2017-01-23] MEDS: amLODIPine 5 MG TABLET PO SCH (08:09)
[2017-01-23] MEDS: Multivit/Ca/Min/Fe/FA 1 TAB TABLET PO SCH (08:09)
[2017-01-23] MEDS: Cholecalciferol (D-3) 1,000 UNIT TABLET PO SCH (08:11)
[2017-01-23] MEDS: OLANZapine 10 MG TAB.RAPDIS PO SCH ×2 (08:11→20:24)
[2017-01-23] MEDS: risperiDONE 1 MG TABLET PO SCH ×2 (08:12→20:24)
[2017-01-23] MEDS ORDERED: Vancomycin 750 MG in D5% in Water 250 ML IVPB SCH (12:00)
[2017-01-23] MEDS: Doxycycline 100 MG CAPSULE PO SCH ×2 (12:50→20:24)
--- NOTE | 2017-01-23 16:09 | Internal Med Progress Note ---
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 Denies fevers, chills, pain - Wound culture final results reveal methicillin-resistant Staphylococcus aureus , Pseudomonas, achromobacter xylosoxidans - Wound care was consulted for further management. agree with current antibiotic regimen, frequent dressing changes, calcium alginate if patient will allow. Patient has a history of noncompliance of treatment with this particular lesion - She is receiving vancomycin and Zosyn day 6 for MRSA as well as possible osteomyelitis - Plan for doxycycline, when upon discharge given sensitivities for a total of a 14 day course. - Evaluating precertification for SNF placement at [facility] Qualifiers: Non-pressure ulcer stage: unspecified non-pressure ulcer stage Qualified Code(s): L98.499 - Non-pressure chronic ulcer of skin of other sites with unspecified severity (2) Osteomyelitis Current Visit: Yes Status: Acute Assessment and plan: - Postoperative day #1 following right fifth toe amputation. showing no signs of infection, tolerated the procedure well. - Final wound culture revealed Proteus growth - Continue antibiotic therapy with vancomycin and Zosyn day 6. - Podiatry following. Agree with SNF placement upon discharge - PT/OT consult agree with SNF placement Qualifiers: Osteomyelitis type: subacute Osteomyelitis location: foot Laterality: right Qualified Code(s): M86.271 - Subacute osteomyelitis, right ankle and foot (3) Rhabdomyolysis Current Visit: Yes Status: Acute Assessment and plan: - Resolved. CK on admission of 3509, down to 490 as recently - Kidney function stable from yesterday at 34/1.67 (38/1.54). Baseline creatinine of around 1.18 -Continue to encourage fluid intake and continue to monitor renal function and electrolytes as well as urine output. -Social work following - PTOT recommends SNF upon discharge Qualifiers: Rhabdomyolysis type: non-traumatic Qualified Code(s): M62.82 - Rhabdomyolysis (4) UTI (urinary tract infection) Current Visit: Yes Status: Acute Assessment and plan: Patient has evidence of UTI on urinalysis which could be contributing to her frequent falls. - Follow urinary culture results grew Escherichia coli which is susceptible to the Zosyn she is receiving for possible osteomyelitis, day 6 Qualifiers: Urinary tract infection type: acute cystitis Hematuria presence: without hematuria Qualified Code(s): N30.00 - Acute cystitis without hematuria (5) JESSICA (acute kidney injury) Current Visit: Yes Status: Acute Assessment and plan: On CKD stage III. secondary to rhabdomyolysis as discussed above. - creatinine stable, most recent 1.67. Patient has good urine output. - encourage oral fluid intake. Avoid nephrotoxins and renally dose antibiotics. (6) HTN (hypertension) Current Visit: No Status: Chronic Assessment and plan: Blood pressure is under good control. Continue home regimen. - increased amlodipine to 10 mg daily Qualifiers: Hypertension type: essential hypertension Qualified Code(s): I10 - Essential (primary) hypertension (7) Schizophrenia Current Visit: No Status: Chronic Assessment and plan: Patient's mental status is stable with no evidence of hallucinations or agitations. Continue home medications. Qualifiers: Schizophrenia type: unspecified Qualified Code(s): F20.9 - Schizophrenia, unspecified (8) Depression Current Visit: No Status: Chronic Assessment and plan: Stable. Continue home medications. Qualifiers: Depression Type: unspecified Qualified Code(s): F32.9 - Major depressive disorder, single episode, unspecified (9) DVT prophylaxis Current Visit: Yes Status: Acute Assessment and plan: - Heparin 5000 units subcutaneously - Time Spent With Patient 25 - 35 minutes - Subjective Interval history: Patient was seen and examined at bedside. No current complaints, patient is postop day #1 after right fifth toe amputation for subsequent osteomyelitis. She denies any symptoms of fevers, chills, drainage, warmth, edema or erythema. Surgical dressing in place with no obvious signs of drainage, infection. - Constitutional Vitals: Temp Pulse Resp BP Pulse Ox 98.1 F 79 17 124/74 98 01/23/17 11:09 01/23/17 11:09 01/23/17 11:09 01/23/17 11:09 01/23/17 11:09 General appearance: Present: A&O X 3, pleasant, no acute distress Exam: Gen.: Vitals noted. No acute distress. AAOx3 HEENT: PERRL/EOMI, oropharynx clear, Normocephalic, atraumatic Neck: Supple. No adenopathy. Cardiac: RRR, no murmur, +S1/S2. Right chest wall ulcer covered with dressing, no obvious source of infection, drainage. No surrounding erythema, warmth. Pulmonary: CTA bilaterally, no wheezes, rales or rhonchi, equal chest expansion Abdomen: soft, nontender, BS noted, no guarding Back: Nontender throughout. MSK: ROM intact, no joint swelling noted Extremities: Right foot with surgical dressing in place. no BLE edema, nontender calf, no cyanosis or clubbing Neuro: A&Ox3, moves all extremities, no focal deficits Psych: Appropriate mood and behavior Internal Medicine: Result - Labs CBC & Chem 7: 01/23/17 03:47 01/23/17 03:47 Labs: Short CBC 01/23/17 Range/Units 03:47 WBC 5.8 (4.3-11.1) K/mcL Hgb 10.0 L (11.5-15.4) g/dL Hct 33.3 L (35.3-44.9) % Plt Count 231 (140-400) K/mcL Neutrophils # 3.5 (1.6-8.9) K/mcL BMP 01/23/17 03:47 Sodium 143 Potassium 4.1 Chloride 110 H Carbon Dioxide 28 BUN 34 H Creatinine 1.67 H Glucose 100 H Calcium 9.1 Consult Discharge Plan - Plan Referrals: Stanislva Martino MD [Primary Care Provider] - 01/28/17 10:15 am (Please follow up as schedule...) <Kevin Villegas - Last Filed: 01/23/17 18:59> Date of Encounter: 01/23/17 - Assessment and plan (1) Rhabdomyolysis Current Visit: Yes Status: Resolved Qualifiers: Rhabdomyolysis type: non-traumatic Qualified Code(s): M62.82 - Rhabdomyolysis (2) Osteomyelitis Current Visit: Yes Status: Acute Qualifiers: Osteomyelitis type: subacute Osteomyelitis location: foot Laterality: right Qualified Code(s): M86.271 - Subacute osteomyelitis, right ankle and foot (3) Wound cellulitis Current Visit: Yes Status: Acute (4) Skin ulcer of axilla Current Visit: Yes Status: Acute Qualifiers: Non-pressure ulcer stage: unspecified non-pressure ulcer stage Qualified Code(s): L98.499 - Non-pressure chronic ulcer of skin of other sites with unspecified severity (5) HTN (hypertension) Current Visit: No Status: Chronic Qualifiers: Hypertension type: essential hypertension Qualified Code(s): I10 - Essential (primary) hypertension (6) Hypothyroid Current Visit: No Status: Chronic Qualifiers: Hypothyroidism type: unspecified Qualified Code(s): E03.9 - Hypothyroidism , unspecified (7) Pressure ulcer, stage 2 Current Visit: Yes Status: Acute Qualifiers: Pressure ulcer location: sacral region Qualified Code(s): L89.152 - Pressure ulcer of sacral region, stage 2 - Constitutional Vitals: Temp Pulse Resp BP Pulse Ox 99.6 F 78 22 126/69 98 01/23/17 16:45 01/23/17 16:45 01/23/17 16:45 01/23/17 16:45 01/23/17 16:45 Internal Medicine: Result - Labs CBC & Chem 7: 01/23/17 03:47 01/23/17 03:47 Labs: Short CBC 01/23/17 Range/Units 03:47 WBC 5.8 (4.3-11.1) K/mcL Hgb 10.0 L (11.5-15.4) g/dL Hct 33.3 L (35.3-44.9) % Plt Count 231 (140-400) K/mcL Neutrophils # 3.5 (1.6-8.9) K/mcL BMP 01/23/17 03:47 Sodium 143 Potassium 4.1 Chloride 110 H Carbon Dioxide 28 BUN 34 H Creatinine 1.67 H Glucose 100 H Calcium 9.1 - Attending Attestation I examined this patient and my medical decision-making was reviewed with the Resident Physician on 01/23/17. I agree with the documented findings, disposition and treatment plan as described except to the extent set forth below. Ms. Bynum is currently admitted for acute rhabdo and OM of foot. She is s/ p resection of toe. She remains moderate risk due to potential for worsening infectious issues. Ms. Bynum feels OK. No CP or SOB. No fever or chills. She is awaiting precert for SNF. Exam Alert. Comfortable Heart reg No wheeze Dressing intact I/P 1. Rhabdo - improved 2. OM s/p resection 3. Axillary wound Further diagnoses and plan as above.
--- NOTE | 2017-01-23 16:36 | Podiatry Progress Note ---
Date of Encounter: 01/23/17 Time of Encounter: 12:00 - Assessment and Plan (1) Osteomyelitis Current Visit: Yes Status: Acute Assessment: s/p #1 amputation of toe #5 right foot at the level of the metatarsophalangeal joint. Plan: Dressing removed. Incision line assessed. Incision line intact and without issue. Cleansed incision line with saline. Adaptic, 4 x 4's, and Kerlix was applied. Patient to leave dressing intact until seen in office next week. Patient has postoperative shoe at bedside. She is to be partial weightbearing. Weightbearing to heal only. Call with any fevers, chills, nausea vomiting, shortness of breath, or calf pain. Patient awaiting placement to [facility]. Patient will be going home on oral antibiotic therapy related to MRSA infection of the axillary. This is being managed by internal medicine. She will need appointment made to be seen in podiatry clinic by Dave Beck, or myself next week.. Qualifiers: Osteomyelitis type: subacute Osteomyelitis location: foot Laterality: right Qualified Code(s): M86.271 - Subacute osteomyelitis, right ankle and foot Subjective Interval history: s/p #1 amputation of toe #5 right foot at the level of the metatarsophalangeal joint. Post op day #1 Patient resting comfortably up to chair on arrival. Patient states she has some pain to surgical site however they just give her pain medicine. She denies any fevers chills nausea vomiting or flulike symptoms. Patient denies any calf pain Patient states she is awaiting placement to [facility] Objective - Vital Signs Vital Signs: Vital Signs Temp Pulse Resp BP Pulse Ox 01/23/17 11:09 98.1 F 79 17 124/74 98 01/23/17 08:00 98.1 F 67 16 148/72 98 01/23/17 03:31 97.7 F 63 19 109/62 95 01/22/17 23:53 97.7 F 70 19 108/58 94 01/22/17 19:35 68 158/73 95 01/22/17 18:30 69 160/71 95 01/22/17 18:15 72 163/72 96 01/22/17 18:00 97.5 F L 69 16 167/72 96 01/22/17 17:45 97.3 F L 68 18 170/78 97 Intake and Output 01/23/17 01/23/17 01/23/17 07:59 15:59 23:59 Intake Total 100 / 100 760 / 760 Output Total 250 / 250 350 / 350 Balance -150 / -150 410 / 410 Intake: IV Fluids 100 / 100 Zosyn 3.375 GM In 100 / 100 Dextrose 5% (Minibag+) 100 ML 100 ML @ 25 mls/hr IVPB Q8H [facility] Rx#: [id number] Oral 760 / 760 Output: Catheter 250 / 250 350 / 350 Other: Meal Breakfast Percent of Meal Consumed 100% Weight 60.6 kg Patient Weight 01/23/17 23:59 Weight 60.6 kg - Exam Exam: Podiatry General Exam: General appearance: alert awake oriented X 3. Calm and pleasant, no acute distress.. Vascular: Pedal pulses +2/4 DP/PT , No evidence of cyanosis, pallor or rubor, Edema graded at 1+/4, Skin Temperature warm, No calf pain with manual compression. capillary refill time is immediate to digits. Neurologic: Sensation intact with light touch to foot. . Postop Exam: S/P Sutures intact to incision line, no signs of dehiscence. No open area, no drainage, no odor, no erythema, no streaking. Minimal edema. Incision line intact without issue. - Lab Result Diagrams: 01/23/17 03:47 01/23/17 03:47 Labs: Abnormal lab results RBC 3.47 M/mcL (3.82-4.97) L 01/23/17 03:47 Hgb 10.0 g/dL (11.5-15.4) L 01/23/17 03:47 Hct 33.3 % (35.3-44.9) L 01/23/17 03:47 MCHC 30.0 g/dL (31.6-35.5) L 01/23/17 03:47 RDW 14.6 % (11.5-14.5) H 01/23/17 03:47 ESR 30 mm/hr (0-15) H 01/17/17 18:04 Chloride 110 mEq/L (98-109) H 01/23/17 03:47 BUN 34 mg/dL (7-20) H 01/23/17 03:47 Creatinine 1.67 mg/dL (0.57-1.11) H 01/23/17 03:47 Est GFR ( Amer) 37 (> 60) L 01/23/17 03:47 Est GFR (Non-Af Amer) 30 (> 60) L 01/23/17 03:47 Glucose 100 mg/dL (70-99) H 01/23/17 03:47 Calculated Osmolality 304 (280-300) H 01/23/17 03:47 Creatine Kinase 490 Units/L (29-168) H 01/21/17 03:33 C-Reactive Protein 23 mg/L (Less than 5) H 01/17/17 18:04 Urine Protein 30 mg/dL (Neg-Trace) H 01/17/17 12:59 Urine Blood Moderate (Negative) H 01/17/17 12:59 Urine Nitrite Positive (Negative) A 01/17/17 12:59 Ur Leukocyte Esterase Moderate (Negative) H 01/17/17 12:59 Urine Microscopic RBC 3-5 per hpf (0-3) H 01/17/17 12:59 Urine Microscopic WBC 3-5 per hpf (0-3) H 01/17/17 12:59 Urine Bacteria Many per hpf (None-Few) H 01/17/17 12:59 Ur Culture Indicated? YES (NO) A 01/17/17 12:59 Microbiology, Last 48 Hours 01/22/17 Unknown Surgical Biopsy Culture - Preliminary Right Fifth Toe 01/17/17 17:42 Wound Culture - Final Right Axilla Methicillin Resistant S.aureus Pseudomonas aeruginosa Achromobacter xylosoxidans Consult Discharge Plan - Plan Referrals: Stanislav Martino MD [Primary Care Provider] - 01/28/17 10:15 am (Please follow up as schedule...)
[2017-01-23] MEDS ORDERED: levoFLOXacin 500 MG TABLET PO SCH (18:00)
[2017-01-24] MEDS: *HR* Heparin 5,000 UNIT/ML VIAL SQ SCH ×2 (05:06→18:00)
[2017-01-24 05:40] LABS: Hematocrit 32.4 % (35.3-44.9); Hemoglobin 9.8 g/dL (11.5-15.4); Mean Corpuscular HGB Conc 30.2 g/dL (31.6-35.5); Mean Corpuscular Hemoglobin 28.8 pg (28.0-33.3); Mean Corpuscular Volume 95.3 fL (83.0-100.0); Mean Platelet Volume 9.4 fL (9.4-12.4); Platelet Count 249 K/mcL (140-400); Red Cell Distribution Width 14.7 % (11.5-14.5)
[2017-01-24 05:52] LABS: Calcium 9.4 mg/dL (8.6-10.8); Potassium 4.3 mEq/L (3.5-4.5)
[2017-01-24] MEDS: amLODIPine 5 MG TABLET PO SCH (08:52)
[2017-01-24] MEDS: Aspirin Enteric Coated 81 MG Tablet PO SCH (08:52)
[2017-01-24] MEDS: Doxycycline 100 MG CAPSULE PO SCH ×2 (08:52→21:30)
[2017-01-24] MEDS: BuPROPion XL (24 HR) 150 MG TABLET PO SCH (08:53)
[2017-01-24] MEDS: OLANZapine 10 MG TAB.RAPDIS PO SCH ×2 (08:53→21:33)
[2017-01-24] MEDS: Cholecalciferol (D-3) 1,000 UNIT TABLET PO SCH (08:53)
[2017-01-24] MEDS: Multivit/Ca/Min/Fe/FA 1 TAB TABLET PO SCH (08:53)
[2017-01-24] MEDS: risperiDONE 1 MG TABLET PO SCH ×2 (08:56→21:31)
[2017-01-24] MEDS: Fenofibrate 54 MG TABLET PO SCH (08:57)
--- NOTE | 2017-01-24 17:44 | Internal Med Progress Note ---
Date of Encounter: 01/24/17 Time of Encounter: 08:30 - Assessment and plan (1) Rhabdomyolysis Current Visit: Yes Status: Resolved Assessment and plan: - Improved. Will recheck CPK tomorrow but anticipate will be normal. Qualifiers: Rhabdomyolysis type: non-traumatic Qualified Code(s): M62.82 - Rhabdomyolysis (2) Osteomyelitis Current Visit: Yes Status: Acute Assessment and plan: - S/P amputation. Dressing intact. Qualifiers: Osteomyelitis type: subacute Osteomyelitis location: foot Laterality: right Qualified Code(s): M86.271 - Subacute osteomyelitis, right ankle and foot (3) Skin ulcer of axilla Current Visit: Yes Status: Acute Assessment and plan: - Will complete a course of abx with PO Levaquin and Doxycycline. Qualifiers: Non-pressure ulcer stage: limited to breakdown of skin Qualified Code(s): L98.491 - Non-pressure chronic ulcer of skin of other sites limited to breakdown of skin (4) HTN (hypertension) Current Visit: No Status: Chronic Assessment and plan: Somewhat better control today with medication adjustments. Qualifiers: Hypertension type: essential hypertension Qualified Code(s): I10 - Essential (primary) hypertension (5) Hypothyroid Current Visit: No Status: Chronic Assessment and plan: Continue levothyroxine. Qualifiers: Hypothyroidism type: unspecified Qualified Code(s): E03.9 - Hypothyroidism , unspecified (6) Pressure ulcer, stage 2 Current Visit: Yes Status: Acute Assessment and plan: Local wound care. Qualifiers: Pressure ulcer location: sacral region Qualified Code(s): L89.152 - Pressure ulcer of sacral region, stage 2 (7) Schizophrenia Current Visit: No Status: Chronic Assessment and plan: Patient's mental status is stable with no evidence of hallucinations or agitations. Continue home medications. Qualifiers: Schizophrenia type: other Qualified Code(s): F20.89 - Other schizophrenia; F20.8 - Other schizophrenia - Subjective Interval history: Ms. Bynum is currently admitted for acute rhabdo and OM of foot. She is s/ p amputation. She remains moderate risk due to potential for worsening clinical status. Ms. Bynum just finished breakfast. No fever or chills. No CP or SOB. Pain is controlled. Awaiting insurance precert for SNF. - Constitutional Vitals: Temp Pulse Resp BP Pulse Ox 98.2 F 77 19 121/58 98 01/24/17 15:51 01/24/17 15:51 01/24/17 15:51 01/24/17 15:51 01/24/17 15:51 General appearance: Present: A&O X 3, pleasant, answers questions appropriately - Head Head exam: Present: normocephalic - Eye Eye exam: Present: EOMI, conjuntiva pink - ENT ENT exam: Present: mucous membranes dry - Respiratory Respiratory exam: Present: CTAB. Absent: rales, rhonchi, wheezes - Cardiovascular Cardiovascular exam: Present: RRR. Absent: tachycardia - GI/Abdominal GI/Abdominal exam: Present: rigid. Absent: tenderness - Extremities Exam Extremities exam: Present: warm Additional comments: Dressing intact - Neurological Exam Neurological exam: Present: alert, oriented X3, no focal deficits - Skin Skin exam: Present: warm. Absent: rash Internal Medicine: Result - Labs CBC & Chem 7: 01/24/17 05:13 01/24/17 05:13 Labs: Short CBC 01/24/17 Range/Units 05:13 WBC 7.0 (4.3-11.1) K/mcL Hgb 9.8 L (11.5-15.4) g/dL Hct 32.4 L (35.3-44.9) % Plt Count 249 (140-400) K/mcL BMP 01/24/17 05:13 Sodium 141 Potassium 4.3 Chloride 108 Carbon Dioxide 28 BUN 39 H Creatinine 1.69 H Glucose 80 Calcium 9.4 Consult Discharge Plan - Plan Referrals: Stanislav Martino MD [Primary Care Provider] - 01/28/17 10:15 am (Please follow up as schedule...)
[2017-01-24] MEDS: levoFLOXacin 500 MG TABLET PO SCH (17:59)
[2017-01-25] MEDS: *HR* Heparin 5,000 UNIT/ML VIAL SQ SCH ×2 (06:16→18:04)
[2017-01-25] MEDS: Doxycycline 100 MG CAPSULE PO SCH ×2 (09:27→21:15)
[2017-01-25] MEDS: Fenofibrate 54 MG TABLET PO SCH (09:27)
[2017-01-25] MEDS: risperiDONE 1 MG TABLET PO SCH ×2 (09:27→21:16)
[2017-01-25] MEDS: BuPROPion XL (24 HR) 150 MG TABLET PO SCH (09:28)
[2017-01-25] MEDS: Multivit/Ca/Min/Fe/FA 1 TAB TABLET PO SCH (09:28)
[2017-01-25] MEDS: amLODIPine 5 MG TABLET PO SCH (09:28)
[2017-01-25] MEDS: OLANZapine 10 MG TAB.RAPDIS PO SCH ×2 (09:28→21:19)
[2017-01-25] MEDS: Aspirin Enteric Coated 81 MG Tablet PO SCH (09:28)
[2017-01-25] MEDS: Cholecalciferol (D-3) 1,000 UNIT TABLET PO SCH (09:28)
--- NOTE | 2017-01-25 17:49 | Internal Med Progress Note ---
Date of Encounter: 01/25/17 Time of Encounter: 09:30 - Assessment and plan (1) Rhabdomyolysis Current Visit: Yes Status: Resolved Assessment and plan: - Improved. Will recheck CPK tomorrow. Qualifiers: Rhabdomyolysis type: non-traumatic Qualified Code(s): M62.82 - Rhabdomyolysis (2) Osteomyelitis Current Visit: Yes Status: Acute Assessment and plan: - S/P amputation. Dressing intact. Qualifiers: Osteomyelitis type: subacute Osteomyelitis location: foot Laterality: right Qualified Code(s): M86.271 - Subacute osteomyelitis, right ankle and foot (3) Skin ulcer of axilla Current Visit: Yes Status: Acute Assessment and plan: - Will complete a course of abx with PO Levaquin and Doxycycline. Qualifiers: Non-pressure ulcer stage: limited to breakdown of skin Qualified Code(s): L98.491 - Non-pressure chronic ulcer of skin of other sites limited to breakdown of skin (4) HTN (hypertension) Current Visit: No Status: Chronic Assessment and plan: Somewhat better control today with medication adjustments. Qualifiers: Hypertension type: essential hypertension Qualified Code(s): I10 - Essential (primary) hypertension (5) Hypothyroid Current Visit: No Status: Chronic Assessment and plan: Continue levothyroxine. Qualifiers: Hypothyroidism type: unspecified Qualified Code(s): E03.9 - Hypothyroidism , unspecified (6) Pressure ulcer, stage 2 Current Visit: Yes Status: Acute Assessment and plan: Local wound care. Qualifiers: Pressure ulcer location: sacral region Qualified Code(s): L89.152 - Pressure ulcer of sacral region, stage 2 (7) Schizophrenia Current Visit: No Status: Chronic Assessment and plan: Patient's mental status is stable with no evidence of hallucinations or agitations. Continue home medications. Qualifiers: Schizophrenia type: other Qualified Code(s): F20.89 - Other schizophrenia; F20.8 - Other schizophrenia - Subjective Interval history: Ms. Bynum is currently admitted for acute rhabdo and OM of foot. She is s/ p amputation. She remains moderate risk due to potential for worsening clinical status. Ms. Bynum is up in chair. No complaints currently. Awaiting discharge after precert on . No fever or chills. No CP or SOB. On PO abx at this time. - Constitutional Vitals: Temp Pulse Resp BP Pulse Ox 98.0 F 78 14 131/62 94 01/25/17 15:57 01/25/17 15:57 01/25/17 15:57 01/25/17 15:57 01/25/17 15:57 General appearance: Present: A&O X 3, pleasant, answers questions appropriately - Head Head exam: Present: normocephalic - Eye Eye exam: Present: conjuntiva pink - ENT ENT exam: Present: mucous membranes dry - Respiratory Respiratory exam: Present: CTAB. Absent: rales, rhonchi, wheezes - Cardiovascular Cardiovascular exam: Present: distant heart sounds. Absent: tachycardia - GI/Abdominal GI/Abdominal exam: Present: soft. Absent: tenderness - Extremities Exam Extremities exam: Present: warm. Absent: tenderness - Neurological Exam Neurological exam: Present: alert, no focal deficits - Skin Skin exam: Present: warm. Absent: rash Internal Medicine: Result - Labs CBC & Chem 7: 01/24/17 05:13 01/24/17 05:13 Consult Discharge Plan - Plan Referrals: Stanislav Martino MD [Primary Care Provider] - 01/28/17 10:15 am (Please follow up as schedule...)
[2017-01-25] MEDS: levoFLOXacin 500 MG TABLET PO SCH (18:04)
--- NOTE | 2017-01-25 22:24 | Podiatry Progress Note ---
Date of Encounter: 01/25/17 Time of Encounter: 12:22 - Assessment and Plan (1) Osteomyelitis Current Visit: Yes Status: Acute Patient will minimize weightbearing on the site. Patient will keep the dressings clean dry and intact. Patient will have dressing change today and on Thursday if she is still in-house. Qualifiers: Osteomyelitis type: subacute Osteomyelitis location: foot Laterality: right Qualified Code(s): M86.271 - Subacute osteomyelitis, right ankle and foot Subjective Principal diagnosis: Foot infection Interval history: Patient relates that she has decreased pain since yesterday. Patient relates that overall she noticed significant significant improvement. Patient is curious whether the pain will continue to decrease. Objective - Vital Signs Vital Signs: Vital Signs Temp Pulse Resp BP Pulse Ox 01/25/17 19:45 98.4 F 74 16 117/57 01/25/17 15:57 98.0 F 78 14 131/62 94 01/25/17 11:44 97.9 F 67 16 118/59 96 01/25/17 08:29 97.9 F 71 16 132/75 95 01/25/17 04:09 98.1 F 63 16 125/72 94 01/25/17 00:06 98.3 F 73 16 122/68 95 Intake and Output 01/25/17 01/25/17 01/25/17 07:59 15:59 23:59 Intake Total 0 / 0 360 / 360 120 / 120 Output Total 750 / 750 750 / 750 Balance -750 / -750 360 / 360 -630 / -630 Intake: Oral 0 / 0 360 / 360 120 / 120 Output: Urine 750 / 750 750 / 750 Other: Meal Breakfast Dinner Percent of Meal Consumed 95% 50% Weight 59.81 kg Patient Weight 01/25/17 23:59 Weight 59.81 kg - Exam Exam: Capillary fill time intact, no strikethrough on the dressing, no noted erythema , no new edema. - Lab Result Diagrams: 01/24/17 05:13 01/24/17 05:13 Labs: Abnormal lab results RBC 3.40 M/mcL (3.82-4.97) L 01/24/17 05:13 Hgb 9.8 g/dL (11.5-15.4) L 01/24/17 05:13 Hct 32.4 % (35.3-44.9) L 01/24/17 05:13 MCHC 30.2 g/dL (31.6-35.5) L 01/24/17 05:13 RDW 14.7 % (11.5-14.5) H 01/24/17 05:13 ESR 30 mm/hr (0-15) H 01/17/17 18:04 BUN 39 mg/dL (7-20) H 01/24/17 05:13 Creatinine 1.69 mg/dL (0.57-1.11) H 01/24/17 05:13 Est GFR ( Amer) 36 (> 60) L 01/24/17 05:13 Est GFR (Non-Af Amer) 30 (> 60) L 01/24/17 05:13 Creatine Kinase 490 Units/L (29-168) H 01/21/17 03:33 C-Reactive Protein 23 mg/L (Less than 5) H 01/17/17 18:04 Urine Protein 30 mg/dL (Neg-Trace) H 01/17/17 12:59 Urine Blood Moderate (Negative) H 01/17/17 12:59 Urine Nitrite Positive (Negative) A 01/17/17 12:59 Ur Leukocyte Esterase Moderate (Negative) H 01/17/17 12:59 Urine Microscopic RBC 3-5 per hpf (0-3) H 01/17/17 12:59 Urine Microscopic WBC 3-5 per hpf (0-3) H 01/17/17 12:59 Urine Bacteria Many per hpf (None-Few) H 01/17/17 12:59 Ur Culture Indicated? YES (NO) A 01/17/17 12:59 Microbiology, Last 48 Hours 01/22/17 Unknown Surgical Biopsy Culture - Preliminary Right Fifth Toe Consult Discharge Plan - Plan Referrals: Stanislav Martino MD [Primary Care Provider] - 01/28/17 10:15 am (Please follow up as schedule...)
[2017-01-26] MEDS: *HR* Heparin 5,000 UNIT/ML VIAL SQ SCH ×2 (06:20→18:38)
[2017-01-26 06:34] LABS: Hematocrit 32.5 % (35.3-44.9); Hemoglobin 10.2 g/dL (11.5-15.4); Mean Corpuscular HGB Conc 31.4 g/dL (31.6-35.5); Mean Corpuscular Volume 95.6 fL (83.0-100.0); Mean Platelet Volume 9.7 fL (9.4-12.4); Platelet Count 259 K/mcL (140-400); Red Cell Distribution Width 14.9 % (11.5-14.5)
[2017-01-26 06:48] LABS: Calcium 9.8 mg/dL (8.6-10.8); Magnesium 1.6 mg/dL (1.6-2.6); Potassium 4.3 mEq/L (3.5-4.5)
[2017-01-26] MEDS: Doxycycline 100 MG CAPSULE PO SCH ×2 (09:03→21:50)
[2017-01-26] MEDS: Aspirin Enteric Coated 81 MG Tablet PO SCH (09:03)
[2017-01-26] MEDS: risperiDONE 1 MG TABLET PO SCH ×2 (09:03→21:50)
[2017-01-26] MEDS: Fenofibrate 54 MG TABLET PO SCH (09:04)
[2017-01-26] MEDS: Multivit/Ca/Min/Fe/FA 1 TAB TABLET PO SCH (09:04)
[2017-01-26] MEDS: amLODIPine 5 MG TABLET PO SCH (09:04)
[2017-01-26] MEDS: OLANZapine 10 MG TAB.RAPDIS PO SCH ×2 (09:05→21:50)
[2017-01-26] MEDS: Cholecalciferol (D-3) 1,000 UNIT TABLET PO SCH (09:05)
[2017-01-26] MEDS: BuPROPion XL (24 HR) 150 MG TABLET PO SCH (09:05)
--- NOTE | 2017-01-26 09:47 | Internal Med Progress Note ---
<Rosendo Mcconnell - Last Filed: 01/26/17 09:45> Date of Encounter: 01/26/17 Time of Encounter: 09:45 - Assessment and plan (1) Skin ulcer of axilla Current Visit: Yes Status: Acute Assessment and plan: - Will complete a course of abx with PO Levaquin and Doxycycline. Day #4 - Completed 6 day course of vamc/ Zosyn previously Qualifiers: Non-pressure ulcer stage: limited to breakdown of skin Qualified Code(s): L98.491 - Non-pressure chronic ulcer of skin of other sites limited to breakdown of skin (2) Osteomyelitis Current Visit: Yes Status: Acute Assessment and plan: - S/P amputation. Dressing intact. - will follow up with podiatry as outpatient Qualifiers: Osteomyelitis type: subacute Osteomyelitis location: foot Laterality: right Qualified Code(s): M86.271 - Subacute osteomyelitis, right ankle and foot (3) Rhabdomyolysis Current Visit: Yes Status: Resolved Assessment and plan: -Resolved. most recent CK 94 Qualifiers: Rhabdomyolysis type: non-traumatic Qualified Code(s): M62.82 - Rhabdomyolysis (4) UTI (urinary tract infection) Current Visit: Yes Status: Acute Assessment and plan: Patient has evidence of UTI on urinalysis which could be contributing to her frequent falls. - Follow urinary culture results grew Escherichia coli, completed 6 day course of Zosyn which was susceptible to - Receiving Levaquin, doxycycline for right chest wall ulcer. Levaquin was indeterminate sensitivity Qualifiers: Urinary tract infection type: acute cystitis Hematuria presence: without hematuria Qualified Code(s): N30.00 - Acute cystitis without hematuria (5) JESSICA (acute kidney injury) Current Visit: Yes Status: Resolved Assessment and plan: On CKD stage III. secondary to rhabdomyolysis as discussed above. - creatinine stable Patient has good urine output. - encourage oral fluid intake. Avoid nephrotoxins and renally dose antibiotics. (6) HTN (hypertension) Current Visit: No Status: Chronic Assessment and plan: Somewhat better control today with medication adjustments. 131/65 Qualifiers: Hypertension type: essential hypertension Qualified Code(s): I10 - Essential (primary) hypertension (7) Schizophrenia Current Visit: No Status: Chronic Assessment and plan: Patient's mental status is stable with no evidence of hallucinations or agitations. Continue home medications. Qualifiers: Schizophrenia type: other Qualified Code(s): F20.89 - Other schizophrenia; F20.8 - Other schizophrenia (8) Depression Current Visit: No Status: Chronic Assessment and plan: Stable. Continue home medications. Qualifiers: Depression Type: unspecified Qualified Code(s): F32.9 - Major depressive disorder, single episode, unspecified (9) DVT prophylaxis Current Visit: Yes Status: Acute Assessment and plan: - Heparin 5000 units subcutaneously - Time Spent With Patient 25 - 35 minutes - Subjective Interval history: Patient was seen and examined at bedside. No current complaints, patient is postop day #4 after right fifth toe amputation for subsequent osteomyelitis. She denies any symptoms of fevers, chills, drainage, warmth, edema or erythema. Surgical dressing in place with no obvious signs of drainage, infection. - Constitutional Vitals: Temp Pulse Resp BP Pulse Ox 97.9 F 64 20 131/65 96 01/26/17 07:37 01/26/17 07:37 01/26/17 07:37 01/26/17 07:37 01/26/17 07:37 General appearance: Present: A&O X 3, pleasant, answers questions appropriately Exam: Gen.: Vitals noted. No acute distress. AAOx3 HEENT: PERRL/EOMI, oropharynx clear, Normocephalic, atraumatic Neck: Supple. No adenopathy. Cardiac: RRR, no murmur, +S1/S2 Pulmonary: CTA bilaterally, no wheezes, rales or rhonchi, equal chest expansion Abdomen: soft, nontender, BS noted, no guarding Back: Nontender throughout. MSK: ROM intact, no joint swelling noted Skin: Right chest wall bandage in place, no signs of infection, drainage. Extremities: Right foot with surgical dressing in place, no signs of drainage. no BLE edema, nontender calf, no cyanosis or clubbing Neuro: A&Ox3, moves all extremities, no focal deficits Psych: Appropriate mood and behavior Internal Medicine: Result - Labs CBC & Chem 7: 01/26/17 05:46 01/26/17 05:46 Labs: Short CBC 01/26/17 Range/Units 05:46 WBC 6.2 (4.3-11.1) K/mcL Hgb 10.2 L (11.5-15.4) g/dL Hct 32.5 L (35.3-44.9) % Plt Count 259 (140-400) K/mcL BMP 01/26/17 05:46 Sodium 142 Potassium 4.3 Chloride 109 Carbon Dioxide 26 BUN 58 H D Creatinine 2.07 H Glucose 70 Calcium 9.8 Consult Discharge Plan - Plan Referrals: Stanislav Martino MD [Primary Care Provider] - 01/28/17 10:15 am (Please follow up as schedule...) <Kevin Villegas - Last Filed: 01/26/17 12:50> Date of Encounter: 01/26/17 - Assessment and plan (1) CKD (chronic kidney disease) stage 3, GFR 30-59 ml/min Current Visit: Yes Status: Chronic Assessment and plan: Slightly worse today - monitoring. (2) Osteomyelitis Current Visit: Yes Status: Acute Qualifiers: Osteomyelitis type: subacute Osteomyelitis location: foot Laterality: right Qualified Code(s): M86.271 - Subacute osteomyelitis, right ankle and foot (3) Skin ulcer of axilla Current Visit: Yes Status: Acute Qualifiers: Non-pressure ulcer stage: limited to breakdown of skin Qualified Code(s): L98.491 - Non-pressure chronic ulcer of skin of other sites limited to breakdown of skin (4) HTN (hypertension) Current Visit: No Status: Chronic Qualifiers: Hypertension type: essential hypertension Qualified Code(s): I10 - Essential (primary) hypertension (5) Hypothyroid Current Visit: No Status: Chronic Qualifiers: Hypothyroidism type: unspecified Qualified Code(s): E03.9 - Hypothyroidism , unspecified (6) Pressure ulcer, stage 2 Current Visit: Yes Status: Acute Qualifiers: Pressure ulcer location: sacral region Qualified Code(s): L89.152 - Pressure ulcer of sacral region, stage 2 (7) Schizophrenia Current Visit: No Status: Chronic Qualifiers: Schizophrenia type: other Qualified Code(s): F20.89 - Other schizophrenia; F20.8 - Other schizophrenia (8) Rhabdomyolysis Current Visit: Yes Status: Resolved Qualifiers: Rhabdomyolysis type: non-traumatic Qualified Code(s): M62.82 - Rhabdomyolysis - Constitutional Vitals: Temp Pulse Resp BP Pulse Ox 98.0 F 72 15 120/60 94 01/26/17 11:51 01/26/17 11:51 01/26/17 11:51 01/26/17 11:51 01/26/17 11:51 Internal Medicine: Result - Labs CBC & Chem 7: 01/26/17 05:46 01/26/17 05:46 Labs: Short CBC 01/26/17 Range/Units 05:46 WBC 6.2 (4.3-11.1) K/mcL Hgb 10.2 L (11.5-15.4) g/dL Hct 32.5 L (35.3-44.9) % Plt Count 259 (140-400) K/mcL BMP 01/26/17 05:46 Sodium 142 Potassium 4.3 Chloride 109 Carbon Dioxide 26 BUN 58 H D Creatinine 2.07 H Glucose 70 Calcium 9.8 - Attending Attestation I examined this patient and my medical decision-making was reviewed with the Resident Physician on 01/26/17. I agree with the documented findings, disposition and treatment plan as described except to the extent set forth below. Ms Bynum is currently admitted for acute rhabdo and osteomyelitis. She remains moderate risk due to potential for worsening renal dysfunction and infection. Ms. Bynum has no new complaints. Pain is controlled. No fever or chills. No CP or SOB. Creatinine slightly higher today. Exam Alert. Comfortable Mucus membranes moist Heart reg No wheeze Dressing intact I/P 1 Rhabdo resolved 2. CKD - monitoring 3. Complete PO abx Further diagnoses and plan as above.
[2017-01-26] MEDS: levoFLOXacin 500 MG TABLET PO SCH (18:38)
[2017-01-27 03:03] LABS: Hematocrit 30.7 % (35.3-44.9); Hemoglobin 9.6 g/dL (11.5-15.4); Mean Corpuscular HGB Conc 31.3 g/dL (31.6-35.5); Mean Corpuscular Hemoglobin 29.7 pg (28.0-33.3); Mean Platelet Volume 9.2 fL (9.4-12.4); Platelet Count 269 K/mcL (140-400); Red Blood Count 3.23 M/mcL (3.82-4.97); Red Cell Distribution Width 15.1 % (11.5-14.5)
[2017-01-27 03:17] LABS: Calcium 9.4 mg/dL (8.6-10.8); Potassium 4.5 mEq/L (3.5-4.5)
[2017-01-27] MEDS: *HR* Heparin 5,000 UNIT/ML VIAL SQ SCH (05:36)
--- NOTE | 2017-01-27 07:55 | Electrocardiograph Report ---
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
[2017-01-27] MEDS: OLANZapine 10 MG TAB.RAPDIS PO SCH (08:16)
[2017-01-27] MEDS: Cholecalciferol (D-3) 1,000 UNIT TABLET PO SCH (08:16)
[2017-01-27] MEDS: Multivit/Ca/Min/Fe/FA 1 TAB TABLET PO SCH (08:16)
[2017-01-27] MEDS: BuPROPion XL (24 HR) 150 MG TABLET PO SCH (08:16)
[2017-01-27] MEDS: Aspirin Enteric Coated 81 MG Tablet PO SCH (08:16)
[2017-01-27] MEDS: Doxycycline 100 MG CAPSULE PO SCH (08:16)
[2017-01-27] MEDS: Fenofibrate 54 MG TABLET PO SCH (08:17)
[2017-01-27] MEDS: risperiDONE 1 MG TABLET PO SCH (08:17)
[2017-01-27] MEDS: amLODIPine 5 MG TABLET PO SCH (08:17)
[2017-01-27 11:56] VITALS: BP 119/63
--- NOTE | 2017-01-27 14:08 | Discharge Summary ---
<KeilaRosendo lanza - Last Filed: 01/27/17 14:05> Date of Encounter: 01/27/17 Time of Encounter: 14:06 - Discharge Diagnosis (1) Rhabdomyolysis Priority: Primary Status: Resolved Qualifiers: Rhabdomyolysis type: non-traumatic Qualified Code(s): M62.82 - Rhabdomyolysis (2) Skin ulcer of axilla Priority: Secondary Status: Chronic Qualifiers: Non-pressure ulcer stage: limited to breakdown of skin Qualified Code(s): L98.491 - Non-pressure chronic ulcer of skin of other sites limited to breakdown of skin (3) Osteomyelitis Priority: Secondary Status: Resolved Qualifiers: Osteomyelitis type: subacute Osteomyelitis location: foot Laterality: right Qualified Code(s): M86.271 - Subacute osteomyelitis, right ankle and foot (4) UTI (urinary tract infection) Priority: Secondary Status: Resolved Qualifiers: Urinary tract infection type: acute cystitis Hematuria presence: without hematuria Qualified Code(s): N30.00 - Acute cystitis without hematuria (5) JESSICA (acute kidney injury) Priority: Secondary Status: Resolved (6) HTN (hypertension) Priority: Secondary Status: Chronic Qualifiers: Hypertension type: essential hypertension Qualified Code(s): I10 - Essential (primary) hypertension (7) Schizophrenia Priority: Secondary Status: Chronic Qualifiers: Schizophrenia type: other Qualified Code(s): F20.89 - Other schizophrenia; F20.8 - Other schizophrenia (8) Depression Priority: Secondary Status: Chronic Qualifiers: Depression Type: unspecified Qualified Code(s): F32.9 - Major depressive disorder, single episode, unspecified (9) DVT prophylaxis Priority: Secondary Status: Acute - Discharge Medications Prescriptions: amLODIPine [Norvasc] 10 mg PO DAILY #30 tab Doxycycline 100 mg PO BID #8 cap levoFLOXacin [Levaquin] 500 mg PO Q24H #4 tab Home Medications: Aspirin Enteric Coated [Aspirin EC] 81 mg PO DAILY 03/22/15 [History] Fenofibrate [Lofibra] 160 mg PO DAILY 03/22/15 [History] Levothyroxine [Synthroid] 75 mcg PO DAILY 03/22/15 [History] Bupropion HCl [Wellbutrin Xl] 300 mg PO DAILY 01/17/17 [History] Calcium Carbonate/Vitamin D3 [Oyster Shell Calcium-Vit D Tab] 1 tab PO BID 01/17 [History] Diphenhydramine HCl [Nighttime Sleep Aid] 50 mg PO HS 01/17/17 [History] Docusate Sodium [Dok] 100 mg PO BID PRN 01/17/17 [History] Multivitamin [One Daily Essential] 1 tab PO DAILY 01/17/17 [History] OLANZapine [Zyprexa] 15 mg PO BID 01/17/17 [History] Sertraline [Zoloft] 150 mg PO DAILY 01/17/17 [History] Zolpidem [Ambien] 10 mg PO HS 01/17/17 [History] risperiDONE [Risperidone] 4 mg PO BID 01/17/17 [History] Doxycycline 100 mg PO BID #8 cap 01/27/17 [Rx] amLODIPine [Norvasc] 10 mg PO DAILY #30 tab 01/27/17 [Rx] levoFLOXacin [Levaquin] 500 mg PO Q24H #4 tab 01/27/17 [Rx] Allergies/Adverse Reactions: 3 Allergy/AdvReac Type Severity Reaction Status Date / Time No Known Allergies Allergy Verified 03/22/15 09:04 Date of admission: 01/17/17 17:07 Primary care physician: Stanislav Martino Consults: 01/17/17 17:10 Consult to Adventure Therapist [CONS] Routine Reason for SW Consult: Discharge planning-patient has history of mental illness and is in the process of being evicted from her apartment. Apparently there are some proceedings taking place concerning guardianship 01/17/17 17:37 Consult to Occupational Therapy [CONS] Routine Comment: Evaluate, develop and implement POC Reason for Consult: falls Consult to Physical Therapy [CONS] Routine Comment: Evaluate, develop and implement POC Reason for Consult: falls Discharging clinician: Rosendo Mcconnell Anticipated date of discharge: 01/27/17 - Patient Status Disposition: Home, Self-Care Condition: Good Functional capacity at discharge: independent ambulation Overall status at discharge: patient is back to baseline - Discharge Instructions Instructions: Urinary Tract Infection in Women (DC), Cellulitis (DC), Toe Amputation (DC) Additional Instructions: Please follow up with your PCP regarding further management of your diabetes, right chest wound. Also, please complete your course of antibiotics. - Diet and Activity Activity: increase activity as tolerated, resume usual activities as tolerated Diet: advance to your usual diet, diabetic diet Hospital course: Ms. Bynum is a 71 year old female who presented to the emergency department after an apparent fall she states that she was walking through her apartment last night when she sustained a mechanical fall. She denied any symptoms of dizziness, chest pain, palpitations prior to the incident. She does admit to a significant history of frequent falls of the past 3 months. She states she was on the floor for approximately 12 hours when a worker from the [facility] arrived, and she was brought to the emergency for further evaluation. Of note, EMS port in that the patient had urinated on herself. In the emergency department, vital signs were significant for a blood pressure of 177/ 89, remainder within normal limits. Lab results were significant for a BUN/ creatinine of 39/2.32, creatinine kinase of 3509, urinalysis was positive for moderate leukocyte esterase, microscopic white blood cells and red blood cells with many bacteria. Remainder of labs were within normal limits. On physical exam, patient was also noted to have an ulcerated lesion on the lateral aspect of the right foot on the fifth digit, as well as arch ulcerated lesion with purulent discharge on the right chest wall. Patient was admitted to medicine service for further management of acute kidney injury secondary to rhabdomyolysis, osteomyelitis of the right fifth toe, right chest wall ulceration. During course of hospital stay, patient's condition gradually improved. A consult to podiatry was ordered and they comfirmed the diagnosis of osteomyelitits on foot xray. She was taken for 5th toe amputation on 01/22 without complications. She was put on vancomycin and zosyn for both the chest wall lesion, osteomyelitis, and UTI. Urine culture revealed Escherichia coli, fifth toe culture showed Proteus mirabilis, and right chest wall lesion was positive for methicillin-resistant Staphylococcus aureus, Pseudomonas, achromobacter xylosoxidans. She was converted to doxycycline and Levaquin which should provide adequate coverage of all bacterium for a duration of a total of 2 weeks. In the course of hospital stay, patient's kidney function continued to improve with fluid hydration. Her creatinine kinase return to normal levels. She was evaluated by physical therapy and occupational therapy and will be discharged to a fpc facility in stable medical condition. She was instructed to follow-up with her primary care physician and to return to emergency department if her condition worsens. - Time Spent with Patient Total time spent providing and/or coordinating discharge services: 40 minutes. - Constitutional Vitals: Temp Pulse Resp BP Pulse Ox 98.3 F 66 18 119/63 97 01/27/17 11:54 01/27/17 11:54 01/27/17 11:54 01/27/17 11:54 01/27/17 11:54 General appearance: Present: A&O X 3, pleasant, answers questions appropriately Exam: Gen.: Vitals noted. No acute distress. AAOx3 HEENT: PERRL/EOMI, oropharynx clear, Normocephalic, atraumatic Neck: Supple. No adenopathy. Cardiac: RRR, no murmur, +S1/S2 Pulmonary: CTA bilaterally, no wheezes, rales or rhonchi, equal chest expansion Abdomen: soft, nontender, BS noted, no guarding Back: Nontender throughout. Skin: Right chest wall ulcer covered with dressing. No obvious signs of drainage , erythema. MSK: ROM intact, no joint swelling noted Extremities: post op day 5 with right 5th toe amputation. Dressing intact, no signs of infection. no BLE edema, nontender calf, no cyanosis or clubbing Neuro: A&Ox3, moves all extremities, no focal deficits Psych: Appropriate mood and behavior <Kevin Villegas - Last Filed: 01/27/17 16:44> Date of Encounter: 01/27/17 - Discharge Diagnosis (1) Rhabdomyolysis Status: Resolved Qualifiers: Rhabdomyolysis type: non-traumatic Qualified Code(s): M62.82 - Rhabdomyolysis (2) Osteomyelitis Status: Resolved Qualifiers: Osteomyelitis type: subacute Osteomyelitis location: foot Laterality: right Qualified Code(s): M86.271 - Subacute osteomyelitis, right ankle and foot (3) CKD (chronic kidney disease) stage 3, GFR 30-59 ml/min Priority: Secondary Status: Chronic (4) Skin ulcer of axilla Status: Chronic Qualifiers: Non-pressure ulcer stage: limited to breakdown of skin Qualified Code(s): L98.491 - Non-pressure chronic ulcer of skin of other sites limited to breakdown of skin (5) HTN (hypertension) Status: Chronic Qualifiers: Hypertension type: essential hypertension Qualified Code(s): I10 - Essential (primary) hypertension (6) Hypothyroid Priority: Secondary Status: Chronic Qualifiers: Hypothyroidism type: unspecified Qualified Code(s): E03.9 - Hypothyroidism , unspecified (7) Pressure ulcer, stage 2 Priority: Secondary Status: Acute Qualifiers: Pressure ulcer location: sacral region Qualified Code(s): L89.152 - Pressure ulcer of sacral region, stage 2 (8) Schizophrenia Status: Chronic Qualifiers: Schizophrenia type: other Qualified Code(s): F20.89 - Other schizophrenia; F20.8 - Other schizophrenia Date of admission: 01/17/17 17:07 Primary care physician: Stanislav Martino Consults: 01/17/17 17:10 Consult to [facility] Therapist [CONS] Routine Reason for SW Consult: Discharge planning-patient has history of mental illness and is in the process of being evicted from her apartment. Apparently there are some proceedings taking place concerning guardianship 01/17/17 17:37 Consult to Occupational Therapy [CONS] Routine Comment: Evaluate, develop and implement POC Reason for Consult: falls Consult to Physical Therapy [CONS] Routine Comment: Evaluate, develop and implement POC Reason for Consult: falls Hospital course: Ms. Bynum is a 71 year old female - Time Spent with Patient Total time spent providing and/or coordinating discharge services: 39min - Constitutional Vitals: Temp Pulse Resp BP Pulse Ox 98.3 F 66 18 119/63 97 01/27/17 11:54 01/27/17 11:54 01/27/17 11:54 01/27/17 11:54 01/27/17 11:54 - Attending Attestation I examined this patient and my medical decision-making was reviewed with the Resident Physician on 01/27/17. I agree with the documented findings, disposition and treatment plan as described except to the extent set forth below. Ms. Bynum was admitted for acute rhabdomyolysis and osteomyelitis of foot. She has done well and rhabdo has resolved. She is s/p amputation of toe. She is now afebrile with stable vitals. Her insurance has approved SNF and she will be discharged today. Exam Alert. Comfortable Heart reg No wheeze Abd soft Dressing intact Plan D/C to SNF today.
--- NOTE | 2017-01-27 14:44 | Physician Discharge Referral ---
ExtendedCare Referral Info Transfer To: [facility] emergency department health Provider in Charge after Transfer: PCP Institutional Level of Care: Skilled - Diagnosis (1) Rhabdomyolysis Priority: Primary Status: Resolved (2) Skin ulcer of axilla Priority: Secondary Status: Chronic (3) Osteomyelitis Priority: Secondary Status: Resolved (4) UTI (urinary tract infection) Priority: Secondary Status: Resolved (5) JESSICA (acute kidney injury) Priority: Secondary Status: Resolved (6) HTN (hypertension) Priority: Secondary Status: Chronic (7) Schizophrenia Priority: Secondary Status: Chronic (8) Depression Priority: Secondary Status: Chronic (9) DVT prophylaxis Priority: Secondary Status: Acute - Transfer Medications Prescriptions: amLODIPine [Norvasc] 10 mg PO DAILY #30 tab Doxycycline 100 mg PO BID #8 cap levoFLOXacin [Levaquin] 500 mg PO Q24H #4 tab Home Medications: Aspirin Enteric Coated [Aspirin EC] 81 mg PO DAILY 03/22/15 [History] Fenofibrate [Lofibra] 160 mg PO DAILY 03/22/15 [History] Levothyroxine [Synthroid] 75 mcg PO DAILY 03/22/15 [History] Bupropion HCl [Wellbutrin Xl] 300 mg PO DAILY 01/17/17 [History] Calcium Carbonate/Vitamin D3 [Oyster Shell Calcium-Vit D Tab] 1 tab PO BID 01/17 [History] Diphenhydramine HCl [Nighttime Sleep Aid] 50 mg PO HS 01/17/17 [History] Docusate Sodium [Dok] 100 mg PO BID PRN 01/17/17 [History] Multivitamin [One Daily Essential] 1 tab PO DAILY 01/17/17 [History] OLANZapine [Zyprexa] 15 mg PO BID 01/17/17 [History] Sertraline [Zoloft] 150 mg PO DAILY 01/17/17 [History] Zolpidem [Ambien] 10 mg PO HS 01/17/17 [History] risperiDONE [Risperidone] 4 mg PO BID 01/17/17 [History] Doxycycline 100 mg PO BID #8 cap 01/27/17 [Rx] amLODIPine [Norvasc] 10 mg PO DAILY #30 tab 01/27/17 [Rx] levoFLOXacin [Levaquin] 500 mg PO Q24H #4 tab 01/27/17 [Rx] Allergies/Adverse Reactions: 3 Allergy/AdvReac Type Severity Reaction Status Date / Time No Known Allergies Allergy Verified 03/22/15 09:04 - Respiratory Orders Smoking Cessation: Smoking cessation has been advised. For more information, call the [place] Tobacco Quit Line at 6-652-HSAD-NOW. - Mobility Orders Ambulate (with walker) - Rehabiliation Orders Rehab Potential: Fair - Treatments List/Other: Dressing changes every 2 days, complete course of antibiotics. - Diet Orders Regular CERTIFICATION: I certify that the transfer of the above named patient to an Extended Care Facility is necessary for the continuing treatment of the diagnosis listed. The above information is true and accurate reflection of patient's current condition. Confidential - Redisclosure prohibited without a patient's written consent.
== END 2017-01-27 15:16 | disposition home or self-care (01) | DRG 314 ==
LOC: EMEROO 12:34 → 2ANU 12:34 → SUATTDRO 17:07
PROVIDERS: ADMIT Nurse Practitioner Acute Care; ATTEND Internal Medicine

== ENCOUNTER 2017-03-27 11:54 | Inpatient (IN) ==
--- NOTE | 2017-03-27 12:02 | Emergency Department Note ---
Disposition Clinical Impression: TIA (transient ischemic attack) Qualifiers: Transient cerebral ischemia type: unspecified Qualified Code(s): G45.9 - Transient cerebral ischemic attack, unspecified Disposition: Admitted As Inpatient Condition: Fair Referrals: Ant Brewer MD [Primary Care Provider] - Forms: ED Satisfaction Letter Time of Disposition: 13:49 Neuro HPI - General Chief Complaint: ED Neuro Symptoms/Deficit Stated Complaint: stroke like symptoms Time Seen by Provider: 03/27/17 11:58 Source: patient, EMS Mode of arrival: EMS Nursing Notes Reviewed: Yes Vital Signs Reviewed: Yes - History of Present Illness HPI Narrative: 71-year-old was at a rehabilitation facility and had an episode where she developed facial droop on the left side. She also became unresponsive for about 10 minutes. After about 10 minutes patient normalized and came back to her baseline. On arrival here the patient has some difficulty telling us what happened. Onset of Symptoms Date: 03/27/17 Onset of Symptoms Time: 11:30 Timing confirmed by: caregiver Location: left face Severity: none Quality: weakness Symptoms Improving: Yes - Related Data Home Medications: Home Medications Medication Instructions Recorded Confirmed Aspirin Enteric Coated [Aspirin EC] 81 mg PO DAILY 03/22/15 03/27/17 Fenofibrate [Lofibra] 160 mg PO DAILY 03/22/15 03/27/17 Bupropion HCl [Wellbutrin Xl] 300 mg PO DAILY 01/17/17 03/27/17 Calcium Carbonate/Vitamin D3 1 tab PO BID 01/17/17 03/27/17 [Oyster Shell Calcium-Vit D Tab] Docusate Sodium [Dok] 100 mg PO BID PRN 01/17/17 03/27/17 Multivitamin [One Daily Essential] 1 tab PO DAILY 01/17/17 03/27/17 OLANZapine [Zyprexa] 15 mg PO BID 01/17/17 03/27/17 Sertraline [Zoloft] 100 mg PO DAILY 01/17/17 03/27/17 Zolpidem [Ambien] 10 mg PO HS 01/17/17 03/27/17 risperiDONE [Risperidone] 4 mg PO BID 01/17/17 03/27/17 Ibuprofen [Motrin] 400 mg PO Q4HR PRN 03/27/17 03/27/17 Levothyroxine Sodium [Levoxyl] 100 mcg PO DAILY 03/27/17 03/27/17 Loratadine [Claritin] 10 mg PO DAILY 03/27/17 03/27/17 amLODIPine [Norvasc] 5 mg PO DAILY 03/27/17 03/27/17 Allergies/Adverse Reactions: Allergies Allergy/AdvReac Type Severity Reaction Status Date / Time No Known Allergies Allergy Verified 03/27/17 13:08 Past Medical History - Past Medical History Medical history: Reports: hyperlipidemia, hypertension, thyroid disease, other Surgical history: Reports: cholecystectomy, orthopedic, other Psychiatric history: Reports: anxiety, depression, schizophrenia - Social History Smoking Status: Never smoker Smokeless Tobacco Status: No Alcohol use: Reports: none Drug use: Reports: none Course - Reevaluation(s) Reevaluation #1: 71-year-old who had a period of unresponsiveness and also a period of left- sided facial weakness. She also a bit her tongue is not clear whether she had had a seizure. Presentation to the emergency department she had resolution of her symptoms. Consultation obtained with neurology referral to go ahead and admit her. Time: 13:47 - Consultations Consultation #1: Discussed with Dr. Murphy neurology patient is not a TPA candidate based on resolution of symptoms, NIH score of 0, questionable seizure. Time: 12:28 Consultation #2: Discussed with Dr. Jane, admit Time: 13:56 Vital Signs Temperature 98.4 F 03/27/17 11:57 Pulse Rate 77 03/27/17 11:57 Respiratory Rate 16 03/27/17 11:57 Blood Pressure 175/82 03/27/17 11:57 O2 Sat by Pulse Oximetry 94 03/27/17 11:57 Temperature 98.4 F 03/27/17 11:57 Pulse Rate 86 03/27/17 13:45 Respiratory Rate 16 03/27/17 13:45 Blood Pressure 179/84 03/27/17 13:45 O2 Sat by Pulse Oximetry 96 03/27/17 13:45 Oxygen Delivery Oxygen Delivery Room Air Neuro Symptoms/Deficit - Lab Data Lab results reviewed: Yes I reviewed the patient's lab results. Result diagrams: 03/27/17 12:16 03/27/17 12:16 Lab Results 03/27/17 03/27/17 03/27/17 Range/Units 12:16 12:16 12:16 WBC 5.6 (4.3-11.1) K/mcL RBC 3.71 L (3.82-4.97) M/mcL Hgb 11.4 L (11.5-15.4) g/dL Hct 37.4 (35.3-44.9) % MCV 100.8 H (83.0-100.0) fL MCH 30.7 (28.0-33.3) pg MCHC 30.5 L (31.6-35.5) g/dL RDW 14.5 (11.5-14.5) % Plt Count 261 (140-400) K/mcL MPV 9.3 L (9.4-12.4) fL Immature Gran % 0.4 (0-4) % Seg Neutrophils % 54.9 % Lymphocytes % 18.7 % Monocytes % 13.9 % Eosinophils % 11.4 % Basophils % 0.7 % Neutrophils # 3.1 (1.6-8.9) K/mcL Lymphocytes # 1.1 (0.6-4.6) K/mcL Monocytes # 0.8 (0.0-1.3) K/mcL Eosinophils # 0.6 (0.0-0.6) K/mcL Basophils # 0.0 (0.0-0.2) K/mcL PT 10.7 (9.4-12.1) Seconds INR 1.0 APTT 28.9 (26.0-36.0) Seconds Sodium 144 (136-145) mEq/L Potassium 4.1 (3.5-4.5) mEq/L Chloride 105 (98-109) mEq/L Carbon Dioxide 29 (19-29) mEq/L BUN 32 H (7-20) mg/dL Creatinine 1.78 H (0.57-1.11) mg/dL Est GFR ( Amer) 34 L (> 60) Est GFR (Non-Af Amer) 28 L (> 60) BUN/Creatinine Ratio 18 (6-26) Glucose 79 (70-99) mg/dL Calculated Osmolality 304 H (280-300) Calcium 10.8 (8.6-10.8) mg/dL Troponin I (0-0.03) ng/mL 03/27/17 Range/Units 12:16 WBC (4.3-11.1) K/mcL RBC (3.82-4.97) M/mcL Hgb (11.5-15.4) g/dL Hct (35.3-44.9) % MCV (83.0-100.0) fL MCH (28.0-33.3) pg MCHC (31.6-35.5) g/dL RDW (11.5-14.5) % Plt Count (140-400) K/mcL MPV (9.4-12.4) fL Immature Gran % (0-4) % Seg Neutrophils % % Lymphocytes % % Monocytes % % Eosinophils % % Basophils % % Neutrophils # (1.6-8.9) K/mcL Lymphocytes # (0.6-4.6) K/mcL Monocytes # (0.0-1.3) K/mcL Eosinophils # (0.0-0.6) K/mcL Basophils # (0.0-0.2) K/mcL PT (9.4-12.1) Seconds INR APTT (26.0-36.0) Seconds Sodium (136-145) mEq/L Potassium (3.5-4.5) mEq/L Chloride (98-109) mEq/L Carbon Dioxide (19-29) mEq/L BUN (7-20) mg/dL Creatinine (0.57-1.11) mg/dL Est GFR ( Amer) (> 60) Est GFR (Non-Af Amer) (> 60) BUN/Creatinine Ratio (6-26) Glucose (70-99) mg/dL Calculated Osmolality (280-300) Calcium (8.6-10.8) mg/dL Troponin I 0.01 (0-0.03) ng/mL - Radiology Data Radiology results reviewed: Yes I reviewed the patient's radiology results. Chest X-Ray 03/27/17 11:58 IMPRESSION: Stable mild cardiomegaly. Question of COPD. No acute pulmonary disease. D/ / David Rubio MD / David Rubio MD Interpreting Provider: David Rubio MD Head CT 03/27/17 11:58 IMPRESSION: 1. No hemorrhage or CT changes of acute brain ischemia at this time 2. Stable appearance of large right frontoparietal calcified meningioma and associated effect on the right frontal lobe 3. Stable left frontal parafalcine arachnoid cyst D/ / Kev Peña MD / Kev Peña MD Interpreting Provider: Kev Peña MD - EKG Data EKG attestation: Yes I reviewed and interpreted this EKG. EKG shows normal: sinus rhythm Rate: normal Rhythm: NSR [place]/QRS: right axis deviation Interpretation: no acute changes NIH Stroke Scale - Level of Consciousness LOC: Alert - LOC Questions LOC Questions: Answers both correctly - LOC Commands LOC Commands: Performs both correctly - Best Gaze Best Gaze: Normal - Visual Visual: No visual loss - Facial Palsy Facial Palsy: Normal - Motor Arms Motor Arm-Left: No drift for 10 seconds Motor Arm-Right: No drift for 10 seconds - Motor Legs Motor Leg-Left: No drift for 5 seconds Motor Leg-Right: No drift for 5 seconds - Limb Ataxia Limb Ataxia: Normal, No Ataxia - Sensory Sensory: Normal - Best Language Best Language: No aphasia - Dysarthria Dysarthria: Normal - Extinction and Inattention Extinction and Inattention: Normal - NIHSS Total Score NIHSS Total Score: 0 TPA Checklist - Eligibilty for IV tPA 1. LKW equal to or less than 4.5 hours be before treatment: Yes 2. Clinical diagnosis of ischemic stroke causing deficit: No - LKW: 3-4.5 hrs Add. Warnings/Precautions Patient/family understanding: The patient/family members have been counseled and understood the risk, benefit , and alternatives of treatment.
[2017-03-27 12:23] LABS: Basophils % 0.7 %; Eosinophils # 0.6 K/mcL (0.0-0.6); Eosinophils % 11.4 %; Hematocrit 37.4 % (35.3-44.9); Hemoglobin 11.4 g/dL (11.5-15.4); Immature Granulocytes % 0.4 % (0-4); Lymphocytes # 1.1 K/mcL (0.6-4.6); Lymphocytes % 18.7 %; Mean Corpuscular HGB Conc 30.5 g/dL (31.6-35.5); Mean Corpuscular Hemoglobin 30.7 pg (28.0-33.3); Mean Corpuscular Volume 100.8 fL (83.0-100.0); Mean Platelet Volume 9.3 fL (9.4-12.4); Monocytes # 0.8 K/mcL (0.0-1.3); Monocytes % 13.9 %; Neutrophils # 3.1 K/mcL (1.6-8.9); Platelet Count 261 K/mcL (140-400); Red Blood Count 3.71 M/mcL (3.82-4.97); Red Cell Distribution Width 14.5 % (11.5-14.5); Segmented Neutrophils % 54.9 %
[2017-03-27 12:29] LABS: Prothrombin Time 10.7 Seconds (9.4-12.1)
[2017-03-27 12:31] LABS: Activated Partial Thrombo Time 28.9 Seconds (26.0-36.0)
[2017-03-27 12:40] LABS: Calcium 10.8 mg/dL (8.6-10.8); Potassium 4.1 mEq/L (3.5-4.5)
[2017-03-27] MEDS ORDERED: Naloxone 0.4 MG/ML INJ IVP PRN (14:34)
--- NOTE | 2017-03-27 14:46 | Internal Med History&Physical ---
Date of Encounter: 03/27/17 Time of Encounter: 14:43 Assessment and Plan (1) Seizure Current visit: Yes Status: Suspected Seizure versus TIA .Presents today unresponsiveness lasting approximately 10 minutes. Preceding the event was facial drooping. She is now neurologically intact with no focal neuro deficits. He was noted that she did not bite her tongue sometime throughout the event. Some concern for seizure activity. No prior history of CVA or TIAs. She does have a history of large extra-axial mass (calcified meningioma) arising from inner table right frontoparietal junction, which could be due to residual activity. Consult neurology-completed in the ED, recommend admission,will see patient MRI head without contrast EEG Continue aspirin, high-dose statin therapy Continuous telemetry Follow stroke protocol is for neuro checks, precautions Implement seizure precautions CBC, CMP, mg, phos, Lipid panel in am (2) TIA (transient ischemic attack) Current visit: Yes Status: Suspected See plan above Qualifiers: Transient cerebral ischemia type: unspecified Qualified Code(s): G45.9 - Transient cerebral ischemic attack, unspecified (3) HTN (hypertension) Current visit: Yes Status: Chronic History of hypertension, hypertensive at this time. Continue home antihypertensives, Norvasc 5 mg daily, and IV push metoprolol 5 mg every 6 when necessary for SBP greater than 150 Qualifiers: Hypertension type: essential hypertension Qualified Code(s): I10 - Essential (primary) hypertension (4) Hypothyroid Current visit: Yes Status: Chronic Resume levothyroxine Qualifiers: Hypothyroidism type: unspecified Qualified Code(s): E03.9 - Hypothyroidism , unspecified (5) CKD (chronic kidney disease) stage 3, GFR 30-59 ml/min Current visit: Yes Status: Chronic CT stage III. No worsening of renal function. CMP in the morning (6) DVT prophylaxis Current visit: Yes Status: Acute Heparin 5000 units subcutaneous every 12 hours Internal Medicine - H&P: HPI Chief complaint: 10 minute episode of unresponsiveness, seizure vs tia Admitted From: Home Plans for Post Hospital Care: Home History of present illness: Ms. Bynum is a 71 year old female with a past medical history of HIV, HTN, hypothyroidism, anxiety presents for any period presents today are in situ today with a 10 minute episode of unresponsiveness. Preceding unresponsive event the patient reported having facial droop. Additionally, she also bit her tongue. Upon arrival to the ED neurologically intact, with no awareness of this morning's events. Neuro consult and agrees with admission for further workup and evaluation. CT scan of the head negative except for large extra- axial mass (calcified meningioma) in the right frontoparietal junction. Troponin -0.01. Past Med Surg Social Fam HX - Past Medical History Medical history: hyperlipidemia, hypertension, thyroid disease, other Psychiatric history: anxiety, depression, schizophrenia - Past Surgical History Surgical History: cholecystectomy, orthopedic, other - Social History Smoking Status: Never smoker Smokeless Tobacco Status: No Alcohol use: none Drug use: none - Family History Mother Living Status: Hx Family Neuromuscular Disorders: Yes (dementia) Internal Medicine - H&P: Meds Aspirin Enteric Coated [Aspirin EC] 81 mg PO DAILY 03/22/15 [History] Fenofibrate [Lofibra] 160 mg PO DAILY 03/22/15 [History] Bupropion HCl [Wellbutrin Xl] 300 mg PO DAILY 01/17/17 [History] Calcium Carbonate/Vitamin D3 [Oyster Shell Calcium-Vit D Tab] 1 tab PO BID 01/17 [History] Docusate Sodium [Dok] 100 mg PO BID PRN 01/17/17 [History] Multivitamin [One Daily Essential] 1 tab PO DAILY 01/17/17 [History] OLANZapine [Zyprexa] 15 mg PO BID 01/17/17 [History] Sertraline [Zoloft] 100 mg PO DAILY 01/17/17 [History] Zolpidem [Ambien] 10 mg PO HS 01/17/17 [History] risperiDONE [Risperidone] 4 mg PO BID 01/17/17 [History] Ibuprofen [Motrin] 400 mg PO Q4HR PRN 03/27/17 [History] Levothyroxine Sodium [Levoxyl] 100 mcg PO DAILY 03/27/17 [History] Loratadine [Claritin] 10 mg PO DAILY 03/27/17 [History] amLODIPine [Norvasc] 5 mg PO DAILY 03/27/17 [History] 3 Allergy/AdvReac Type Severity Reaction Status Date / Time No Known Allergies Allergy Verified 03/27/17 13:08 All Systems PM: A 10-system review of systems was performed and is negative for pertinent findings except as documented above in the HPI. - Constitutional Constitutional: no chills, no fatigue, no fever(s), no falls, no night sweats - EENT Eyes: no change in vision, no discharge, no pain, no photophobia Ears: no ear discharge, no ear pain, no tinnitus Nose, mouth and throat: no dysphagia, no nasal discharge, no neck pain, no sore throat - Cardiovascular Cardiovascular ROS IM: no chest pain, no diaphoresis, no dyspnea, no lightheadedness, no palpitations, no syncope - Respiratory Respiratory: no cough, no dyspnea, no wheezing, no excessive phlegm production - Gastrointestinal Gastrointestinal: no abdominal pain, no diarrhea, no hematemesis, no hematochezia, no melena, no nausea, no vomiting - Genitourinary Genitourinary: no change in urinary stream, no dysuria, no flank pain, no hematuria - Musculoskeletal Musculoskeletal ROS IM: no numbness, no tingling - Integumentary Integumentary IM: no rash, no unusual bruising - Neurological Neurological ROS: disequilibrium, frequent falls, memory loss, no confusion, no convulsions, no focal weakness, no headache(s), no numbness, no tingling, no tremor(s) - Hematologic/Lymphatic Hematologic/Lymphatic: no easy bruising - Constitutional Vitals: Temp Pulse Resp BP Pulse Ox 98.4 F 85 16 186/84 96 03/27/17 11:57 03/27/17 14:26 03/27/17 14:26 03/27/17 14:26 03/27/17 13:45 General appearance: Present: cooperative, A&O X 3, no acute distress, answers questions appropriately - Head Head exam: Present: atraumatic, normocephalic - Eye Eye exam: Present: EOMI, PERRL, conjuntiva pink, sclera anicteric Pupils: Present: PERRL - Neck Neck exam general surgery: Present: supple, trachea midline. Absent: lymphadenopathy - Respiratory Respiratory exam: Present: CTAB. Absent: accessory muscle use, rales, rhonchi, wheezes - Cardiovascular Cardiovascular exam: Present: RRR, +S1, +S2. Absent: diastolic murmur, gallop, rubs, systolic murmur - GI/Abdominal GI/Abdominal exam: Present: normal bowel sounds, soft, no peritoneal signs. Absent: distended, tenderness - Extremities Exam Extremities exam: Present: warm, radial pulses palpable and symmetrical. Absent : calf tenderness, cyanotic, pedal edema - Neurological Exam Neurological exam: Present: CN II-XII intact, oriented X3, no focal deficits. Absent: pronater drift, facial droop, speech deficit - Expanded Neurological Exam Patient oriented to: Present: person, place, time Speech: Present: fluid speech Cranial Nerves: EOM's intact PM: Normal, gag reflex PM: Normal, nystagmus PM: Normal, tongue deviation PM: Normal Cerebellar function: finger to nose: Normal, heel to barksdale: Normal, Romberg: Normal Upper motor neuron: Babinski sign: Normal, Celso neglect: Normal, pronator drift : Normal, sensory extinction: Normal Neuro motor strength exam: LUE: 5, RUE: 5, LLE: 5, RLE: 5 Coma Scale Eye Opening: Spontaneous Coma Scale Motor Response: Obeys Commands Coma Scale Verbal Response: Oriented Coma Scale Total: 15 - Psychiatric Psychiatric exam: Present: normal affect, normal mood - Skin Skin exam: Present: dry, intact Internal Med - H&P Results - Labs CBC & Chem 7: 03/27/17 12:16 03/27/17 12:16 - EKG Data EKG shows normal: sinus rhythm - EKG Data When compared to previous EKG: there is no significant change - Diagnostic Studies Chest x-ray Status: image reviewed by me Additional comments: No acute cardiopulmonary process
[2017-03-27] MEDS ORDERED: *HR* Metoprolol 5 MG/5 ML VIAL IVP PRN (14:56)
[2017-03-27] MEDS ORDERED: *HR* LORazepam 2 MG/ML VIAL IVP PRN (15:16)
--- NOTE | 2017-03-27 15:19 | Event Note ---
Date of Encounter: 03/27/17 Time of Encounter: 15:18 Patient seen and examined with nurse practitioner. Suspect seizure with post ictal. Because she has structural brain disease "meningioma", will start the patient on Keppra. Neurology evaluation. EEG
[2017-03-27] MEDS: *HR* Heparin 5,000 UNIT/ML VIAL SQ SCH (16:09)
[2017-03-27 17:07] LABS: Bilirubin,Urine Negative (Negative); Blood,Urine Negative (Negative); Clarity,Urine Clear (Clear); Color,Urine Yellow (Yellow); Glucose,Urine (UA) Normal (Normal); Ketones,Urine Negative (Negative); Leukocyte Esterase,Urine Negative (Negative); Nitrite,Urine Negative (Negative); PH,Urine 7.5 pH Units (5.0-8.0); Protein,Urine 30 mg/dL (Neg-Trace); Specific Gravity,Urine 1.015 (1.010-1.025); Urobilinogen,Urine Normal (Normal)
[2017-03-27 17:11] LABS: Bacteria,Urine None Seen per hpf (None-Few); Hyaline Casts,Urine None Seen per lpf (None-Few); RBC,Urine 0-3 per hpf (0-3); Squamous Epithelial Cell,Urine Few per lpf (None-Few); WBC,Urine 0-3 per hpf (0-3)
--- NOTE | 2017-03-27 17:38 | Electrocardiograph Report ---
[facility] Test Date: 2017-03-27 Pat Name: Berenice Bynum Department: 102 Room: 3B22 Gender: F Family Services Worker: : 1945 Requested By: Donnie Yoder Order Number: [id number] Reading MD: Judd Calderon MD Measurements Intervals [place] Rate: 77 P: 60 TN: 179 QRS: -33 QRSD: 108 T: 18 QT: 367 QTc: 399 Interpretive Statements SINUS RHYTHM MARKED LEFT AXIS DEVIATION [QRS AXIS < -30] Electronically Signed On 03-27-2017 17:37:38 EDT by Judd Calderon MD
[2017-03-27] MEDS: OLANZapine 5 MG TAB.RAPDIS PO SCH (20:56)
[2017-03-27] MEDS: risperiDONE 1 MG TABLET PO SCH (20:56)
[2017-03-28 02:52] LABS: Basophils # 0.1 K/mcL (0.0-0.2); Basophils % 0.9 %; Eosinophils # 0.8 K/mcL (0.0-0.6); Eosinophils % 15.5 %; Immature Granulocytes % 0.6 % (0-4); Lymphocytes # 1.3 K/mcL (0.6-4.6); Mean Corpuscular HGB Conc 30.3 g/dL (31.6-35.5); Mean Corpuscular Hemoglobin 30.7 pg (28.0-33.3); Mean Corpuscular Volume 101.2 fL (83.0-100.0); Mean Platelet Volume 9.7 fL (9.4-12.4); Monocytes # 0.9 K/mcL (0.0-1.3); Monocytes % 16.1 %; Neutrophils # 2.2 K/mcL (1.6-8.9); Platelet Count 245 K/mcL (140-400); Red Blood Count 3.26 M/mcL (3.82-4.97); Red Cell Distribution Width 14.4 % (11.5-14.5); Segmented Neutrophils % 41.9 %
[2017-03-28 03:16] LABS: Bilirubin,Total 0.3 mg/dL (0.2-1.2); Calcium 10.2 mg/dL (8.6-10.8); Magnesium 1.7 mg/dL (1.6-2.6); Phosphorous 3.6 mg/dL (2.3-4.7); Potassium 3.8 mEq/L (3.5-4.5)
[2017-03-28] MEDS: *HR* Heparin 5,000 UNIT/ML VIAL SQ SCH ×3 (05:50→21:55)
[2017-03-28] MEDS ORDERED: 0.9 % Sodium Chloride 500 ML IVC ONE (07:50)
[2017-03-28] MEDS ORDERED: amLODIPine 5 MG TABLET PO SCH (09:00)
[2017-03-28] MEDS: Aspirin Enteric Coated 81 MG Tablet PO SCH (09:33)
[2017-03-28] MEDS: OLANZapine 5 MG TAB.RAPDIS PO SCH ×2 (09:33→21:54)
[2017-03-28] MEDS: risperiDONE 1 MG TABLET PO SCH ×2 (09:33→21:54)
[2017-03-28] MEDS: BuPROPion XL (24 HR) 150 MG TABLET PO SCH (09:33)
[2017-03-28] MEDS: Fenofibrate 54 MG TABLET PO SCH (09:33)
--- NOTE | 2017-03-28 12:41 | Neurology - Consult Note ---
Date of Encounter: 03/28/17 Time of Encounter: 12:35 Assessment and Plan (1) Seizure Current Visit: No Status: Suspected I am highly suspicious of seizure activity, likely due to the right frontal meningioma resulting in neuronal instability. I agree with Keppra 500mg BID, which should be maintained. The meningioma is calcified and therefore is stable. I will interpret the EEG later today. She may be discharged at your discretion. I will follow up with her after discharge. History of Present Illness HPI: Ms. Bynum is a 71 year old female seen for neurologic consultation due to an episode of acute altered mental status, suspicious for seizure. Pt. has a known history of a large calcified right frontal meningioma, which has been stable for quite some time. She resides in an ECF due to difficulty walking. She apparently did bite her tongue. She is currently on IV Keppra. MRI of the brain shows the large calcified right frontal meningioma, as well as the stable left frontal arachnoid cyst. Past Med Surg Social Fam HX - Past Medical History Medical history: hyperlipidemia, hypertension, thyroid disease, other Psychiatric history: anxiety, depression, schizophrenia - Past Surgical History Surgical History: cholecystectomy, orthopedic, other - Social History Smoking Status: Never smoker Smokeless Tobacco Status: No Alcohol use: none Drug use: none - Family History Mother Living Status: Hx Family Neuromuscular Disorders: Yes (dementia) Medications and Allergies Aspirin Enteric Coated [Aspirin EC] 81 mg PO DAILY 03/22/15 [History] Fenofibrate [Lofibra] 160 mg PO DAILY 03/22/15 [History] Bupropion HCl [Wellbutrin Xl] 300 mg PO DAILY 01/17/17 [History] Calcium Carbonate/Vitamin D3 [Oyster Shell Calcium-Vit D Tab] 1 tab PO BID 01/17 [History] Docusate Sodium [Dok] 100 mg PO BID PRN 01/17/17 [History] Multivitamin [One Daily Essential] 1 tab PO DAILY 01/17/17 [History] OLANZapine [Zyprexa] 15 mg PO BID 01/17/17 [History] Sertraline [Zoloft] 100 mg PO DAILY 01/17/17 [History] Zolpidem [Ambien] 10 mg PO HS 01/17/17 [History] risperiDONE [Risperidone] 4 mg PO BID 01/17/17 [History] Ibuprofen [Motrin] 400 mg PO Q4HR PRN 03/27/17 [History] Levothyroxine Sodium [Levoxyl] 100 mcg PO DAILY 03/27/17 [History] Loratadine [Claritin] 10 mg PO DAILY 03/27/17 [History] amLODIPine [Norvasc] 5 mg PO DAILY 03/27/17 [History] 3 Allergy/AdvReac Type Severity Reaction Status Date / Time No Known Allergies Allergy Verified 03/27/17 13:08 All Systems: A 10-system review of systems was performed and is negative for pertinent findings except as documented above in the HPI. Review of Systems: 10 point review of systems is consistent with the HPI and otherwise negative. Physical Examination - Vital Signs Vital Signs: Initial Vital Signs Temp Pulse Resp BP Pulse Ox 98.4 F 77 16 175/82 94 03/27/17 11:57 03/27/17 11:57 03/27/17 11:57 03/27/17 11:57 03/27/17 11:57 - Exam Exam: Cerebral- Awake and alert, follows commands and answers questions appropriately. No agnosia, or aphasia. There is some element of cognitive decline however. CN- II-XII are all intact. Motor- Mild left hemiparesis, atrophy of the left leg below the knee, left foot deformed, good strength of the RUE and RLE. No involuntary movements. DTR's diminished throughout. - Neurologic Detailed sensory examination: intact Results - Laboratory Findings CBC and BMP: 03/28/17 02:01 03/28/17 02:01 Abnormal lab findings: Abnormal lab results RBC 3.26 M/mcL (3.82-4.97) L 03/28/17 02:01 Hgb 10.0 g/dL (11.5-15.4) L 03/28/17 02:01 Hct 33.0 % (35.3-44.9) L 03/28/17 02:01 MCV 101.2 fL (83.0-100.0) H 03/28/17 02:01 MCHC 30.3 g/dL (31.6-35.5) L 03/28/17 02:01 Eosinophils # 0.8 K/mcL (0.0-0.6) H 03/28/17 02:01 BUN 33 mg/dL (7-20) H 03/28/17 02:01 Creatinine 2.05 mg/dL (0.57-1.11) H 03/28/17 02:01 Est GFR ( Amer) 29 (> 60) L 03/28/17 02:01 Est GFR (Non-Af Amer) 24 (> 60) L 03/28/17 02:01 Albumin 3.0 g/dL (3.5-5.0) L 03/28/17 02:01 Albumin/Globulin Ratio 1.0 (1.1-2.2) L 03/28/17 02:01 Urine Protein 30 mg/dL (Neg-Trace) H 03/27/17 16:50 Nasal Screen MRSA (PCR) Positive (Negative) A 03/27/17 17:00 Consult Discharge Plan - Plan Referrals: Ant Brewer MD [Primary Care Provider] -
--- NOTE | 2017-03-28 13:09 | Internal Med Progress Note ---
Date of Encounter: 03/28/17 Time of Encounter: 13:07 - Assessment and plan (1) Seizure Current Visit: No Status: Suspected Assessment and plan: Berenice Bynum is a 71-year-old female with past medical history hypertension , hypothyroidism, chronic kidney disease and chronic right axilla wound who presented to [facility] on 03/27/2017 after an unresponsive episode at [facility]. She was admitted for neurologic elation and further workup and treatment. 1. Seizures: new onset. Presented with unresponsive episode at [facility]. She did bite tongue during the episode. Brain MRI with large calcified right frontal meningioma and a stable left frontal arachnoid cyst. Evaluated by neurology who suspects seizure activity, likely due to the right frontal meningioma resulting and Neurontin all instability. No seizure-like activity recurrence while inpatient. Continue Keppra, seizure precautions. EEG pending. Will need to follow-up with neurology outpatient. 2. Chronic kidney disease: GFR and Cr at baseline on admission however now increased. IV fluids, monitor CMP 3. Hypertension: per hx. BP controlled. Continue home BP medications. Monitor BP and titrate PRN 4. Hypothyroidism: per hx. Cont home levothyroxine 5. DVT prophylaxis: heparin (2) CKD (chronic kidney disease) stage 3, GFR 30-59 ml/min Current Visit: No Status: Chronic (3) HTN (hypertension) Current Visit: No Status: Chronic Qualifiers: Hypertension type: essential hypertension Qualified Code(s): I10 - Essential (primary) hypertension (4) Hypothyroid Current Visit: No Status: Chronic Qualifiers: Hypothyroidism type: unspecified Qualified Code(s): E03.9 - Hypothyroidism , unspecified - Subjective Interval history: Seen and examined at bedside. Patient is new to me, information obtained from chart review and patient report. Patient's that she does not really remember what happened yesterday, she does not think she had a seizure but she did bite her tongue. She has no complaints all my exam. Says she feels better only to go back to the nursing facility. - Constitutional Vitals: Temp Pulse Resp BP Pulse Ox 98.6 F 76 18 126/75 92 03/28/17 11:45 03/28/17 11:45 03/28/17 11:45 03/28/17 11:45 03/28/17 11:45 General appearance: Present: cooperative, A&O X 3, no acute distress, answers questions appropriately - Head Head exam: Present: atraumatic, normocephalic - Eye Eye exam: Present: PERRL, conjuntiva pink, sclera anicteric Pupils: Present: PERRL - Neck Neck exam general surgery: Present: supple, trachea midline. Absent: lymphadenopathy - Respiratory Respiratory exam: Present: CTAB. Absent: accessory muscle use, rales, rhonchi, wheezes - Cardiovascular Cardiovascular exam: Present: RRR, +S1, +S2. Absent: diastolic murmur, gallop, rubs, systolic murmur - GI/Abdominal GI/Abdominal exam: Present: normal bowel sounds, soft, no peritoneal signs. Absent: distended, tenderness - Extremities Exam Extremities exam: Present: warm, radial pulses palpable and symmetrical. Absent : calf tenderness, cyanotic, pedal edema - Neurological Exam Neurological exam: Present: CN II-XII intact, oriented X3, no focal deficits. Absent: pronater drift, facial droop, speech deficit - Skin Skin exam: Present: dry, intact Additional comments: Right axilla chronic wound Internal Medicine: Result - Labs CBC & Chem 7: 03/28/17 02:01 03/28/17 02:01 Labs: Short CBC 03/28/17 Range/Units 02:01 WBC 5.3 (4.3-11.1) K/mcL Hgb 10.0 L (11.5-15.4) g/dL Hct 33.0 L (35.3-44.9) % Plt Count 245 (140-400) K/mcL Neutrophils # 2.2 (1.6-8.9) K/mcL BMP 03/28/17 02:01 Sodium 141 Potassium 3.8 Chloride 106 Carbon Dioxide 27 BUN 33 H Creatinine 2.05 H Glucose 84 Calcium 10.2 Cardiac Enzymes 03/27/17 Range/Units 18:20 Troponin I 0.01 (0-0.03) ng/mL Liver Function 03/28/17 Range/Units 02:01 Total Bilirubin 0.3 (0.2-1.2) mg/dL AST 24 (5-34) Units/L ALT 10 (0-55) Units/L Alkaline Phosphatase 50 (38-126) Units/L Albumin 3.0 L (3.5-5.0) g/dL Urine 03/27/17 Range/Units 16:50 Urine Color Yellow (Yellow) Urine Clarity Clear (Clear) Urine pH 7.5 (5.0-8.0) pH Units Ur Specific Dow 1.015 (1.010-1.025) Urine Protein 30 H (Neg-Trace) mg/dL Urine Glucose (UA) Normal (Normal) mg/dL - ABG Interpretation ABG results: PT/INR, D-dimer PT 10.7 Seconds (9.4-12.1) 03/27/17 12:16 - Impressions Impressions Brain MRI 03/27/17 14:33 IMPRESSION: 1. No acute intracranial abnormality. Specifically, no acute infarction. 2. Stable MRI of the brain demonstrating calcified extra-axial mass overlying the right frontal lobe consistent with meningioma. There is mass effect on the right frontal lobe with some mild vasogenic edema which is stable. Stable mild right to left shift of midline structures measuring 4 mm. 3. Diffuse parenchymal volume loss and sequela of mild chronic microvascular ischemic changes. D/ / 03/27/2017 19:19:42 Shashi rUiarte MD / [email or web address] Interpreting Provider: Shashi Uriarte MD Consult Discharge Plan - Plan Referrals: Ant Brewer MD [Primary Care Provider] -
--- NOTE | 2017-03-28 14:05 | EEG/EMG/Oth Biometrics Report ---
EEG Procedure Report Date of procedure: 03/28/17 EEG Procedure: Routine EEG Procedure Note: This is a report of a 21 channel bipolar and referential montage EEG. A posterior dominant rhythm of 10 Hz moderate voltage alpha frequency is identified symmetrically in the posterior head regions. Rhythm attenuates symmetrically with eye opening. Hyperventilation is not performed during the recording. There is no sleep activity identified during the study. Photic stimulation is performed and does not produce a driving response. The EKG rhythm strip reveals normal sinus rhythm at 72 beats per minute. Impressions: This EEG recording is within normal limits. There is no evidence of epileptiform activity identified during the study. Comment: A normal EEG does not preclude a diagnosis of seizure or epilepsy. If the clinical suspicion for seizure activity is high, serial EEGs or perhaps a prolonged recording may increase the yield. Please correlate clinically.
[2017-03-28] MEDS: levETIRAcetam 250 MG TABLET PO SCH (16:42)
[2017-03-29] MEDS: levETIRAcetam 250 MG TABLET PO SCH (05:25)
[2017-03-29] MEDS: *HR* Heparin 5,000 UNIT/ML VIAL SQ SCH (05:25)
[2017-03-29 05:31] LABS: Potassium 3.5 mEq/L (3.5-4.5)
[2017-03-29] MEDS ORDERED: amLODIPine 5 MG TABLET PO SCH (07:38)
--- NOTE | 2017-03-29 08:25 | Discharge Summary ---
Date of Encounter: 03/29/17 Time of Encounter: 08:23 - Discharge Diagnosis (1) Seizure Priority: Primary Status: Suspected Comments: Berenice Bynum is a 71-year-old female with past medical history hypertension , hypothyroidism, chronic kidney disease and chronic right axilla wound who presented to [facility] on 03/27/2017 after an unresponsive episode at [facility]. She was started on IV Keppra and admitted for Neurological evaluation. 1. Seizure: new onset. Presented with unresponsive episode at [facility] with evidence of biting tongue. Brain MRI with large calcified right frontal meningioma and stable left frontal arachnoid cyst. Evaluated by Neurology who suspected seizure likely due to right frontal meningioma resulting in neuronal instability. EEG with no evidence of epileptiform activity. No seizure recurrence while inpatient. Continue Keppra, seizure precautions. Will need to follow-up with Neurology outpatient 2. Acute on chronic kidney disease: Cr peaked at 2.05 which appears worse than baseline. Received IV fluids with minimal improvement. No apparent nephrotoxic agents on medication list. Evaluated by Nephrology who suspects CKD secondary to HTN and NSAID use. Will need to follow-up with [facility] in 6- 8 weeks (will need a BMP, spot urine albumin/creatinine, vitamin D 25 OH, uric acid, PTH and renal US 1-2 weeks prior to visit). Renal function can be monitored at SNF 3. Hypertension: per hx. BP elevated. Amlodipine increased. BP can be monitored at SNF 4. Hypothyroidism: per hx. Cont home levothyroxine 5. Chronic right axilla wound: appears stable and healing. Cont local wound care (2) CKD (chronic kidney disease) stage 3, GFR 30-59 ml/min Priority: Primary Status: Acute (3) HTN (hypertension) Priority: Primary Status: Acute Qualifiers: Hypertension type: essential hypertension Qualified Code(s): I10 - Essential (primary) hypertension (4) Hypothyroid Priority: Primary Status: Chronic Qualifiers: Hypothyroidism type: unspecified Qualified Code(s): E03.9 - Hypothyroidism , unspecified - Discharge Medications Prescriptions: Zolpidem [Ambien] 10 mg PO HS PRN #7 tablet PRN Reason: Insomnia Home Medications: Aspirin Enteric Coated [Aspirin EC] 81 mg PO DAILY 03/22/15 [History] Fenofibrate [Lofibra] 160 mg PO DAILY 03/22/15 [History] Bupropion HCl [Wellbutrin Xl] 300 mg PO DAILY 01/17/17 [History] Calcium Carbonate/Vitamin D3 [Oyster Shell Calcium-Vit D Tab] 1 tab PO BID 01/17 [History] Docusate Sodium [Dok] 100 mg PO BID PRN 01/17/17 [History] Multivitamin [One Daily Essential] 1 tab PO DAILY 01/17/17 [History] OLANZapine [Zyprexa] 15 mg PO BID 01/17/17 [History] Sertraline [Zoloft] 100 mg PO DAILY 01/17/17 [History] Zolpidem [Ambien] 10 mg PO HS 01/17/17 [History] risperiDONE [Risperidone] 4 mg PO BID 01/17/17 [History] Levothyroxine Sodium [Levoxyl] 100 mcg PO DAILY 03/27/17 [History] Loratadine [Claritin] 10 mg PO DAILY 03/27/17 [History] Zolpidem [Ambien] 10 mg PO HS PRN #7 tablet 03/29/17 [Rx] amLODIPine [Norvasc] 10 mg PO DAILY tablet 03/29/17 [Rx] levETIRAcetam [Keppra] 500 mg PO Q12HR tablet 03/29/17 [Rx] Allergies/Adverse Reactions: 3 Allergy/AdvReac Type Severity Reaction Status Date / Time No Known Allergies Allergy Verified 03/27/17 13:08 Date of admission: 03/28/17 13:18 Primary care physician: Ant Brewer MD Discharging clinician: Shirley Mendez Anticipated date of discharge: 03/29/17 - Patient Status Disposition: Transfer LTC Condition: Good Functional capacity at discharge: uses cane/walker Overall status at discharge: patient is back to baseline - Discharge Instructions Follow Up With: Ant Brewer MD [Primary Care Provider] - Jacob Wade MD [Partnered Physician] - Zackary Murphy DO [Partnered Physician] - Additional Instructions: Please call [facility] and make an appointment for patient in 6-8 weeks. She will need a BMP, spot urine albumin/creatinine, vitamin D 25 OH, uric acid, PTH and renal US 1-2 weeks prior to visit Please rosibel Dr. Murphy office in 24 hours or next business day for follow-up appointment - Diet and Activity Activity: as per physical therapy Diet: advance to your usual diet Interval History: Seen and examined at bedside, says she feels back to baseline and wants to discharge back to ECF today. No further seizure activity Hospital course: Ms. Bynum is a 71 year old female - Time Spent with Patient Total time spent providing and/or coordinating discharge services: Greater than 30 minutes (48 minutes spent on discharge) - Constitutional Vitals: Temp Pulse Resp BP Pulse Ox 97.8 F 66 15 168/75 96 03/29/17 07:44 03/29/17 07:44 03/29/17 07:44 03/29/17 07:44 03/29/17 07:44 General appearance: Present: cooperative, A&O X 3, no acute distress, answers questions appropriately - Head Head exam: Present: atraumatic, normocephalic - Eye Eye exam: Present: PERRL, conjuntiva pink, sclera anicteric Pupils: Present: PERRL - Neck Neck exam general surgery: Present: supple, trachea midline. Absent: lymphadenopathy Additional comments: Left tongue healing laceration - Respiratory Respiratory exam: Present: CTAB. Absent: accessory muscle use, rales, rhonchi, wheezes - Cardiovascular Cardiovascular exam: Present: RRR, +S1, +S2. Absent: diastolic murmur, gallop, rubs, systolic murmur - GI/Abdominal GI/Abdominal exam: Present: normal bowel sounds, soft, no peritoneal signs. Absent: distended, tenderness - Extremities Exam Extremities exam: Present: warm, radial pulses palpable and symmetrical. Absent : calf tenderness, cyanotic, pedal edema - Neurological Exam Neurological exam: Present: CN II-XII intact, oriented X3, no focal deficits. Absent: pronater drift, facial droop, speech deficit - Skin Skin exam: Present: dry, intact
[2017-03-29] MEDS: Aspirin Enteric Coated 81 MG Tablet PO SCH (08:49)
[2017-03-29] MEDS: risperiDONE 1 MG TABLET PO SCH (08:50)
[2017-03-29] MEDS: Fenofibrate 54 MG TABLET PO SCH (08:51)
[2017-03-29] MEDS: BuPROPion XL (24 HR) 150 MG TABLET PO SCH (08:51)
[2017-03-29] MEDS: OLANZapine 5 MG TAB.RAPDIS PO SCH (08:52)
[2017-03-29 10:00] VITALS: BP 150/78
--- NOTE | 2017-03-29 11:36 | Nephrology Consult Note ---
Date of Encounter: 03/29/17 Time of Encounter: 11:35 Assessment and Plan (1) CKD (chronic kidney disease) stage 3, GFR 30-59 ml/min Current Visit: Yes Status: Chronic The patient has EKG that has been present since 2014. Prior to hospitalization it appears that her baseline creatinine was around 1.5-1.7. During hospitalization her creatinine went as high as 2.0 and she will be discharged with a creatinine of 1.9. The patient has a history of hypertension and I suspect this is the major contributing cause of her chronic kidney disease. She also reports taking NSAIDs on a regular basis about 1-2 times per week. This could also be contributing to her chronic kidney disease. At the time my evaluation I think she is safe for outpatient workup. She can follow up with [facility] in 6-8 weeks with a BMP, spot urine albumin/creatinine, vitamin D 25 OH, uric acid, and PTH 1-2 weeks prior to visit. She should have a renal ultrasound prior to visit as well. I recommend that she avoid nephrotoxins including discontinuing NSAIDs. Adjust medications for renal function. Avoid dehydration. (2) HTN (hypertension) Current Visit: No Status: Chronic She is asymptomatic, but her blood pressure is not ideal. Have her collect a blood pressure log 1-2 weeks prior to her visit with [facility]. Outpatient management. Qualifiers: Hypertension type: essential hypertension Qualified Code(s): I10 - Essential (primary) hypertension (3) Seizure Current Visit: No Status: Suspected Per neurology and the primary team. (4) Anemia Current Visit: Yes Status: Acute This can be managed on outpatient basis. Monitor for bleeding. Qualifiers: Qualified Code(s): D64.9 - Anemia, unspecified History of Present Illness - Reason for Consult Consult date: 03/29/17 Chronic Kidney Disease - Chief Complaint CKD - History of Present Illness Ms. Bynum is a 71 yo woman who presented to the hospital with seizures. She was found to have CKD and nephrology was consulted to evaluate. At the time of my evaluation the patient is feeling better she denies chest pain, shortness of breath, dysuria, hematuria, nausea, vomiting, diarrhea, or any other problems. She reports her seizures are controlled. She states she has not seen a kidney doctor in the past. She recalls a remote history of being told that one of her kidneys does not work. Past Med Surg Social Fam HX - Past Medical History Medical history: hyperlipidemia, hypertension, thyroid disease, other Psychiatric history: anxiety, depression, schizophrenia - Past Surgical History Surgical History: cholecystectomy, orthopedic, other - Social History Smoking Status: Never smoker Smokeless Tobacco Status: No Alcohol use: none Drug use: none - Family History Mother Living Status: Hx Family Neuromuscular Disorders: Yes (dementia) Medications and Allergies Aspirin Enteric Coated [Aspirin EC] 81 mg PO DAILY 03/22/15 [History] Fenofibrate [Lofibra] 160 mg PO DAILY 03/22/15 [History] Bupropion HCl [Wellbutrin Xl] 300 mg PO DAILY 01/17/17 [History] Calcium Carbonate/Vitamin D3 [Oyster Shell Calcium-Vit D Tab] 1 tab PO BID 01/17 [History] Docusate Sodium [Dok] 100 mg PO BID PRN 01/17/17 [History] Multivitamin [One Daily Essential] 1 tab PO DAILY 01/17/17 [History] OLANZapine [Zyprexa] 15 mg PO BID 01/17/17 [History] Sertraline [Zoloft] 100 mg PO DAILY 01/17/17 [History] Zolpidem [Ambien] 10 mg PO HS 01/17/17 [History] risperiDONE [Risperidone] 4 mg PO BID 01/17/17 [History] Ibuprofen [Motrin] 400 mg PO Q4HR PRN 03/27/17 [History] Levothyroxine Sodium [Levoxyl] 100 mcg PO DAILY 03/27/17 [History] Loratadine [Claritin] 10 mg PO DAILY 03/27/17 [History] amLODIPine [Norvasc] 5 mg PO DAILY 03/27/17 [History] 3 Allergy/AdvReac Type Severity Reaction Status Date / Time No Known Allergies Allergy Verified 03/27/17 13:08 Review of Systems All Systems: reviewed and no additional remarkable complaints except as stated ( As per history of present illness.) Exam - Vital Signs Vital signs: Initial Vital Signs Temp Pulse Resp BP Pulse Ox 98.4 F 77 16 175/82 94 03/27/17 11:57 03/27/17 11:57 03/27/17 11:57 03/27/17 11:57 03/27/17 11:57 Vital Signs - Last 8 Hours Temp Pulse Resp BP Pulse Ox 03/29/17 09:59 98.3 F 72 15 150/78 96 03/29/17 07:44 97.8 F 66 15 168/75 96 Intake and Output 03/29/17 03/29/17 03/29/17 00:59 07:59 15:59 Intake Total 240 / 240 Output Total Balance 240 / 240 Intake: Oral 240 / 240 Output: Urine Other: Meal Breakfast Percent of Meal Consumed 100% Stool Size Stool Consistency Weight Patient Weight 03/29/17 22:59 Weight 66.043 kg - General Appearance General appearance: well-developed, well-nourished EENT: ATNC Neck: supple Respiratory: clear Cardiology: no edema, regular rate, regular rhythm Gastrointestinal: no tenderness Integumentary: warm and dry Neurologic: alert and oriented x3 Musculoskeletal: no cyanosis Psychiatric: mood/affect appropriate Results - Lab Results 03/28/17 02:01 03/29/17 04:41 Most recent lab results Calcium 9.0 mg/dL (8.6-10.8) 03/29/17 04:41 Phosphorus 3.6 mg/dL (2.3-4.7) 03/28/17 02:01 Magnesium 1.7 mg/dL (1.6-2.6) 03/28/17 02:01 Consult Discharge Plan - Plan Referrals: Ant Brewer MD [Primary Care Provider] -
--- NOTE | 2017-03-29 12:35 | Physician Discharge Referral ---
ExtendedCare Referral Info Transfer To: [facility] Provider in Charge: Shirley Mendez Provider in Charge after Transfer: Other (SNF provider) Institutional Level of Care: Skilled - Diagnosis (1) Seizure Status: Suspected (2) CKD (chronic kidney disease) stage 3, GFR 30-59 ml/min Status: Acute (3) HTN (hypertension) Status: Acute (4) Hypothyroid Status: Chronic - Transfer Medications Prescriptions: Zolpidem [Ambien] 10 mg PO HS PRN #7 tablet PRN Reason: Insomnia Home Medications: Aspirin Enteric Coated [Aspirin EC] 81 mg PO DAILY 03/22/15 [History] Fenofibrate [Lofibra] 160 mg PO DAILY 03/22/15 [History] Bupropion HCl [Wellbutrin Xl] 300 mg PO DAILY 01/17/17 [History] Calcium Carbonate/Vitamin D3 [Oyster Shell Calcium-Vit D Tab] 1 tab PO BID 01/17 [History] Docusate Sodium [Dok] 100 mg PO BID PRN 01/17/17 [History] Multivitamin [One Daily Essential] 1 tab PO DAILY 01/17/17 [History] OLANZapine [Zyprexa] 15 mg PO BID 01/17/17 [History] Sertraline [Zoloft] 100 mg PO DAILY 01/17/17 [History] Zolpidem [Ambien] 10 mg PO HS 01/17/17 [History] risperiDONE [Risperidone] 4 mg PO BID 01/17/17 [History] Levothyroxine Sodium [Levoxyl] 100 mcg PO DAILY 03/27/17 [History] Loratadine [Claritin] 10 mg PO DAILY 03/27/17 [History] Zolpidem [Ambien] 10 mg PO HS PRN #7 tablet 03/29/17 [Rx] amLODIPine [Norvasc] 10 mg PO DAILY tablet 03/29/17 [Rx] levETIRAcetam [Keppra] 500 mg PO Q12HR tablet 03/29/17 [Rx] Allergies/Adverse Reactions: 3 Allergy/AdvReac Type Severity Reaction Status Date / Time No Known Allergies Allergy Verified 03/27/17 13:08 - Respiratory Orders None Smoking Cessation: Smoking cessation has been advised. For more information, call the [place] Tobacco Quit Line at 8-772-QUWY-NOW. - Advance Directives Code Status: Full Code - Mobility Orders Ambulate - Rehabiliation Orders Rehab Orders: Evaluation for Physical Therapy, Evaluation for Occupational Therapy - Diet Orders Regular CERTIFICATION: I certify that the transfer of the above named patient to an Extended Care Facility is necessary for the continuing treatment of the diagnosis listed. The above information is true and accurate reflection of patient's current condition. Confidential - Redisclosure prohibited without a patient's written consent.
== END 2017-03-29 15:50 | DRG 53 ==
LOC: 3BNU 11:54 → EMEROO 11:54 → 3BNU 14:37
PROVIDERS: ADMIT Registered Nurse; ATTEND Registered Nurse

== ENCOUNTER 2017-05-19 11:11 | Observation (INO) ==
--- NOTE | 2017-05-19 11:15 | Emergency Department Note ---
Disposition Clinical Impression: Altered mental status Qualifiers: Altered mental status type: unspecified Qualified Code(s): R41.82 - Altered mental status, unspecified Disposition: Admitted As Inpatient Condition: Fair Referrals: NONE,PCP [Primary Care Provider] - Forms: ED Satisfaction Letter Time of Disposition: 12:58 Altered Mental Status HPI - General Chief Complaint: ED Altered Mental Status Stated Complaint: ams Time Seen by Provider: 05/19/17 11:12 Source: patient, EMS Mode of arrival: EMS Limitations: altered mental status Nursing Notes Reviewed: Yes Vital Signs Reviewed: Yes - History of Present Illness HPI Narrative: 72-year-old female who has [facility] the [facility]. Denies any localizing weakness. Denies any trauma. MD complaint: altered mental status Onset (ago): Just [employer] Timing confirmed by: caregiver Associated symptoms: Reports: denies other symptoms - Related Data Home Medications Medication Instructions Recorded Confirmed Aspirin Enteric Coated [Aspirin EC] 81 mg PO DAILY 03/22/15 04/09/17 Fenofibrate [Lofibra] 160 mg PO DAILY 03/22/15 04/09/17 Bupropion HCl [Wellbutrin Xl] 300 mg PO DAILY 01/17/17 04/09/17 Calcium Carbonate/Vitamin D3 1 tab PO BID 01/17/17 04/09/17 [Oyster Shell Calcium-Vit D Tab] Docusate Sodium [Dok] 100 mg PO BID PRN 01/17/17 04/09/17 Multivitamin [One Daily Essential] 1 tab PO DAILY 01/17/17 04/09/17 OLANZapine [Zyprexa] 15 mg PO BID 01/17/17 04/09/17 Sertraline [Zoloft] 100 mg PO DAILY 01/17/17 04/09/17 risperiDONE [Risperidone] 4 mg PO BID 01/17/17 04/09/17 Levothyroxine Sodium [Levoxyl] 100 mcg PO DAILY 03/27/17 04/09/17 Loratadine [Claritin] 10 mg PO DAILY 03/27/17 04/09/17 Ibuprofen [Advil] 200 mg PO Q4H PRN 04/09/17 04/09/17 LevETIRAcetam [Roweepra] 500 mg PO BID 04/09/17 04/09/17 amLODIPine [Norvasc] 5 mg PO DAILY 04/09/17 04/09/17 Previous Rx's Medication Instructions Recorded Zolpidem [Ambien] 10 mg PO HS PRN #7 tablet 03/29/17 OxyCODONE/APAP 10/325 [Percocet 1 each PO Q6HR PRN #24 tablet 04/09/17 10/325 MG] Allergies Allergy/AdvReac Type Severity Reaction Status Date / Time No Known Allergies Allergy Verified 04/09/17 07:21 All systems ED: reviewed and negative except as stated. Constitutional: Denies: fever, chills, weakness, weight change Eyes: Denies: eye pain, eye discharge, vision change ENT ED: Denies: ear pain, throat pain, dental pain, hearing loss, epistaxis, congestion, dysphagia Cardiovascular: Denies: chest pain, palpitations, dyspnea on exertion, edema, syncope Respiratory: Denies: cough, dyspnea, wheezes, hemoptysis, stridor Gastrointestinal: Denies: abdominal pain, nausea, vomiting, diarrhea, constipation, hematemesis, melena, hematochezia Genitourinary: Denies: dysuria, frequency, hematuria, discharge Musculoskeletal: Denies: back pain, neck pain, arthralgia, myalgia Integumentary: Denies: rash, abrasion, lesions Neurological: Reports: confusion. Denies: headache, weakness, numbness, paresthesias, abnormal gait, vertigo Psychiatric: Denies: anxiety, depression, suicidal thoughts, homicidal thoughts , auditory hallucinations, visual hallucinations Endocrine: Denies: fatigue Hematological/Lymphatic: Denies: easy bleeding, easy bruising Allergic/Immunologic: Denies: facial swelling, urticaria Past Medical History - Past Medical History Medical history: Reports: hyperlipidemia, hypertension, thyroid disease, other Surgical history: Reports: cholecystectomy, orthopedic, other Psychiatric history: Reports: anxiety, depression, schizophrenia - Social History Smoking Status: Never smoker Smokeless Tobacco Status: No Alcohol use: Reports: none Drug use: Reports: none Physical Exam - General Limitations: altered mental status General appearance: alert, in no apparent distress - Head Head exam: atraumatic, normocephalic, normal inspection - Eye Eye exam: Present: normal appearance, PERRL, EOMI - ENT ENT exam: normal exam, normal oropharynx, mucous membranes moist - Neck Neck exam: Present: normal inspection, full ROM, trachea midline - Chest Chest inspection: Present: normal inspection, symmetric chest wall rise - Respiratory Respiratory exam: Present: normal lung sounds bilaterally - Cardiovascular Cardiovascular exam: Present: regular rate, normal rhythm, normal heart sounds - Abdominal Exam Abdominal exam: Present: soft, Non-Tender. Absent: tenderness, distention, guarding, rebound, rigidity - Extremities Exam Extremities exam: Present: normal inspection, full ROM. Absent: tenderness, pedal edema - Expanded Lower Extremity Exam Neurovascular/Tendon exam: Absent: motor deficit, sensory deficit, tendon deficit Gait: observed and normal - Back Exam Back exam: Present: normal inspection, full ROM. Absent: tenderness - Neurological Exam Neurological exam: Present: alert, oriented X3. Absent: motor sensory deficit - Psychiatric Psychiatric exam: Present: normal affect, normal mood - Skin Skin exam: Present: warm, dry, intact, normal color Course - Reevaluation(s) Reevaluation #1: 72-year-old who comes in complaining of altered mental status from the prison. Been more confused. Time: 12:58 - Consultations Consultation #1: Discussed with , admit Time: 13:19 Vital Signs Temperature 98.4 F 05/19/17 11:13 Pulse Rate 80 05/19/17 11:13 Respiratory Rate 14 05/19/17 11:13 Blood Pressure 134/67 05/19/17 11:13 O2 Sat by Pulse Oximetry 93 05/19/17 11:13 Temperature 98.4 F 05/19/17 11:13 Pulse Rate 80 05/19/17 11:13 Respiratory Rate 14 05/19/17 11:13 Blood Pressure 134/67 05/19/17 11:13 O2 Sat by Pulse Oximetry 93 05/19/17 11:13 Oxygen Delivery Oxygen Delivery Room Air Altered Mental Status - Lab Data Result diagrams: 05/19/17 11:28 05/19/17 11:28 Lab Results 05/19/17 05/19/17 05/19/17 Range/Units 11:28 11:28 11:28 WBC 4.7 (4.3-11.1) K/mcL RBC 4.15 (3.82-4.97) M/mcL Hgb 12.3 (11.5-15.4) g/dL Hct 39.9 (35.3-44.9) % MCV 96.1 (83.0-100.0) fL MCH 29.6 (28.0-33.3) pg MCHC 30.8 L (31.6-35.5) g/dL RDW 13.7 (11.5-14.5) % Plt Count 263 (140-400) K/mcL MPV 9.6 (9.4-12.4) fL Immature Gran % 0.2 (0-4) % Seg Neutrophils % 52.8 % Lymphocytes % 23.5 % Monocytes % 12.1 % Eosinophils % 10.6 % Basophils % 0.8 % Neutrophils # 2.5 (1.6-8.9) K/mcL Lymphocytes # 1.1 (0.6-4.6) K/mcL Monocytes # 0.6 (0.0-1.3) K/mcL Eosinophils # 0.5 (0.0-0.6) K/mcL Basophils # 0.0 (0.0-0.2) K/mcL PT 10.9 (9.4-12.1) Seconds INR 1.0 APTT 29.9 (26.0-36.0) Seconds Sodium 144 (136-145) mEq/L Potassium 4.6 (3.5-5.1) mEq/L Chloride 111 H (98-107) mEq/L Carbon Dioxide 32 H (23-29) mEq/L BUN 38 H (8-23) mg/dL Creatinine 1.69 H (0.60-1.20) mg/dL Est GFR ( Amer) 36 L (> 60) Est GFR (Non-Af Amer) 30 L (> 60) BUN/Creatinine Ratio 22 (6-26) Glucose 75 (70-105) mg/dL POC Glucose (58-89) Calculated Osmolality 306 H (280-300) Calcium 10.6 H (8.6-10.3) mg/dL Total Bilirubin 0.3 (0.3-1.0) mg/dL Direct Bilirubin 0.1 (0.0-0.2) mg/dL Indirect Bilirubin 0.2 (0.0-1.2) mg/dL AST 20 (13-39) Units/L ALT 11 (7-52) Units/L Alkaline Phosphatase 37 (34-104) Units/L Troponin I (< 0.04) ng/mL Serum Total Protein 5.9 L (6.4-8.9) g/dL Albumin 3.4 L (3.5-5.7) g/dL Globulin 2.5 (2.4-3.5) g/dL Albumin/Globulin Ratio 1.4 (1.1-2.2) Urine Color (Yellow) Urine Clarity (Clear) Urine pH (5.0-8.0) pH Units Ur Specific [place] (1.010-1.025) Urine Protein (Neg-Trace) mg/dL Urine Glucose (UA) (Normal) mg/dL Urine Ketones (Negative) mg/dL Urine Blood (Negative) Urine Nitrite (Negative) Urine Bilirubin (Negative) Urine Urobilinogen (Normal) mg/dL Ur Leukocyte Esterase (Negative) Urine Microscopic RBC (0-3) per hpf Urine Microscopic WBC (0-3) per hpf Ur Squamous Epith Cells (None-Few) per lpf Urine Bacteria (None-Few) per hpf Hyaline Casts (None-Few) per lpf Ur Culture Indicated? (NO) Urine Opiates Screen (Chyqyu=423) ng/mL Ur Barbiturates Screen (Iorewu=559) ng/mL Ur Phencyclidine Scrn (Cutoff=25) ng/mL Ur Amphetamines Screen (Kpthrb=9875) ng/mL U Benzodiazepines Scrn (Kifhka=320) ng/mL Urine Cocaine Screen (Cutoff= 300) ng/mL U Marijuana (THC) Screen (Cutoff = 50) ng/mL Ethyl Alcohol < 10 (0-10) mg/dL 05/19/17 05/19/17 05/19/17 Range/Units 11:28 11:32 11:32 WBC (4.3-11.1) K/mcL RBC (3.82-4.97) M/mcL Hgb (11.5-15.4) g/dL Hct (35.3-44.9) % MCV (83.0-100.0) fL MCH (28.0-33.3) pg MCHC (31.6-35.5) g/dL RDW (11.5-14.5) % Plt Count (140-400) K/mcL MPV (9.4-12.4) fL Immature Gran % (0-4) % Seg Neutrophils % % Lymphocytes % % Monocytes % % Eosinophils % % Basophils % % Neutrophils # (1.6-8.9) K/mcL Lymphocytes # (0.6-4.6) K/mcL Monocytes # (0.0-1.3) K/mcL Eosinophils # (0.0-0.6) K/mcL Basophils # (0.0-0.2) K/mcL PT (9.4-12.1) Seconds INR APTT (26.0-36.0) Seconds Sodium (136-145) mEq/L Potassium (3.5-5.1) mEq/L Chloride (98-107) mEq/L Carbon Dioxide (23-29) mEq/L BUN (8-23) mg/dL Creatinine (0.60-1.20) mg/dL Est GFR ( Amer) (> 60) Est GFR (Non-Af Amer) (> 60) BUN/Creatinine Ratio (6-26) Glucose (70-105) mg/dL POC Glucose (58-89) Calculated Osmolality (280-300) Calcium (8.6-10.3) mg/dL Total Bilirubin (0.3-1.0) mg/dL Direct Bilirubin (0.0-0.2) mg/dL Indirect Bilirubin (0.0-1.2) mg/dL AST (13-39) Units/L ALT (7-52) Units/L Alkaline Phosphatase (34-104) Units/L Troponin I < 0.03 (< 0.04) ng/mL Serum Total Protein (6.4-8.9) g/dL Albumin (3.5-5.7) g/dL Globulin (2.4-3.5) g/dL Albumin/Globulin Ratio (1.1-2.2) Urine Color Yellow (Yellow) Urine Clarity Cloudy A (Clear) Urine pH 7.0 (5.0-8.0) pH Units Ur Specific [place] 1.017 (1.010-1.025) Urine Protein 100 H (Neg-Trace) mg/dL Urine Glucose (UA) Normal (Normal) mg/dL Urine Ketones Negative (Negative) mg/dL Urine Blood Negative (Negative) Urine Nitrite Negative (Negative) Urine Bilirubin Negative (Negative) Urine Urobilinogen Normal (Normal) mg/dL Ur Leukocyte Esterase Negative (Negative) Urine Microscopic RBC 0-3 (0-3) per hpf Urine Microscopic WBC 0-3 (0-3) per hpf Ur Squamous Epith Cells Many H (None-Few) per lpf Urine Bacteria None Seen (None-Few) per hpf Hyaline Casts None Seen (None-Few) per lpf Ur Culture Indicated? NO (NO) Urine Opiates Screen Negative (Iofcrx=708) ng/mL Ur Barbiturates Screen Negative (Siloyz=344) ng/mL Ur Phencyclidine Scrn Negative (Cutoff=25) ng/mL Ur Amphetamines Screen Negative (Rkhcdr=3705) ng/mL U Benzodiazepines Scrn Negative (Ngnzej=658) ng/mL Urine Cocaine Screen Negative (Cutoff= 300) ng/mL U Marijuana (THC) Screen Negative (Cutoff = 50) ng/mL Ethyl Alcohol (0-10) mg/dL 05/19/17 Range/Units 11:35 WBC (4.3-11.1) K/mcL RBC (3.82-4.97) M/mcL Hgb (11.5-15.4) g/dL Hct (35.3-44.9) % MCV (83.0-100.0) fL MCH (28.0-33.3) pg MCHC (31.6-35.5) g/dL RDW (11.5-14.5) % Plt Count (140-400) K/mcL MPV (9.4-12.4) fL Immature Gran % (0-4) % Seg Neutrophils % % Lymphocytes % % Monocytes % % Eosinophils % % Basophils % % Neutrophils # (1.6-8.9) K/mcL Lymphocytes # (0.6-4.6) K/mcL Monocytes # (0.0-1.3) K/mcL Eosinophils # (0.0-0.6) K/mcL Basophils # (0.0-0.2) K/mcL PT (9.4-12.1) Seconds INR APTT (26.0-36.0) Seconds Sodium (136-145) mEq/L Potassium (3.5-5.1) mEq/L Chloride (98-107) mEq/L Carbon Dioxide (23-29) mEq/L BUN (8-23) mg/dL Creatinine (0.60-1.20) mg/dL Est GFR ( Amer) (> 60) Est GFR (Non-Af Amer) (> 60) BUN/Creatinine Ratio (6-26) Glucose (70-105) mg/dL POC Glucose 78 (58-89) Calculated Osmolality (280-300) Calcium (8.6-10.3) mg/dL Total Bilirubin (0.3-1.0) mg/dL Direct Bilirubin (0.0-0.2) mg/dL Indirect Bilirubin (0.0-1.2) mg/dL AST (13-39) Units/L ALT (7-52) Units/L Alkaline Phosphatase (34-104) Units/L Troponin I (< 0.04) ng/mL Serum Total Protein (6.4-8.9) g/dL Albumin (3.5-5.7) g/dL Globulin (2.4-3.5) g/dL Albumin/Globulin Ratio (1.1-2.2) Urine Color (Yellow) Urine Clarity (Clear) Urine pH (5.0-8.0) pH Units Ur Specific [place] (1.010-1.025) Urine Protein (Neg-Trace) mg/dL Urine Glucose (UA) (Normal) mg/dL Urine Ketones (Negative) mg/dL Urine Blood (Negative) Urine Nitrite (Negative) Urine Bilirubin (Negative) Urine Urobilinogen (Normal) mg/dL Ur Leukocyte Esterase (Negative) Urine Microscopic RBC (0-3) per hpf Urine Microscopic WBC (0-3) per hpf Ur Squamous Epith Cells (None-Few) per lpf Urine Bacteria (None-Few) per hpf Hyaline Casts (None-Few) per lpf Ur Culture Indicated? (NO) Urine Opiates Screen (Bosvis=646) ng/mL Ur Barbiturates Screen (Petsdi=304) ng/mL Ur Phencyclidine Scrn (Cutoff=25) ng/mL Ur Amphetamines Screen (Dtsyjw=9601) ng/mL U Benzodiazepines Scrn (Ybfujm=469) ng/mL Urine Cocaine Screen (Cutoff= 300) ng/mL U Marijuana (THC) Screen (Cutoff = 50) ng/mL Ethyl Alcohol (0-10) mg/dL - EKG Data EKG attestation: Yes I reviewed and interpreted this EKG. EKG shows normal: sinus rhythm Rate: normal Rhythm: NSR, PVC's Interpretation: no acute changes TPA Checklist - LKW: 3-4.5 hrs Add. Warnings/Precautions Patient/family understanding: The patient/family members have been counseled and understood the risk, benefit , and alternatives of treatment.
[2017-05-19 11:41] LABS: Bilirubin,Urine Negative (Negative); Blood,Urine Negative (Negative); Clarity,Urine Cloudy (Clear); Color,Urine Yellow (Yellow); Glucose,Urine (UA) Normal (Normal); Ketones,Urine Negative (Negative); Leukocyte Esterase,Urine Negative (Negative); Nitrite,Urine Negative (Negative); Protein,Urine 100 mg/dL (Neg-Trace); Specific Gravity,Urine 1.017 (1.010-1.025); Urobilinogen,Urine Normal (Normal)
[2017-05-19 11:42] LABS: Basophils % 0.8 %; Eosinophils # 0.5 K/mcL (0.0-0.6); Eosinophils % 10.6 %; Hematocrit 39.9 % (35.3-44.9); Hemoglobin 12.3 g/dL (11.5-15.4); Immature Granulocytes % 0.2 % (0-4); Lymphocytes # 1.1 K/mcL (0.6-4.6); Lymphocytes % 23.5 %; Mean Corpuscular HGB Conc 30.8 g/dL (31.6-35.5); Mean Corpuscular Hemoglobin 29.6 pg (28.0-33.3); Mean Corpuscular Volume 96.1 fL (83.0-100.0); Mean Platelet Volume 9.6 fL (9.4-12.4); Monocytes # 0.6 K/mcL (0.0-1.3); Monocytes % 12.1 %; Neutrophils # 2.5 K/mcL (1.6-8.9); Platelet Count 263 K/mcL (140-400); Red Blood Count 4.15 M/mcL (3.82-4.97); Red Cell Distribution Width 13.7 % (11.5-14.5); Segmented Neutrophils % 52.8 %
[2017-05-19 11:44] LABS: Bacteria,Urine None Seen per hpf (None-Few); Hyaline Casts,Urine None Seen per lpf (None-Few); RBC,Urine 0-3 per hpf (0-3); Squamous Epithelial Cell,Urine Many per lpf (None-Few); WBC,Urine 0-3 per hpf (0-3)
[2017-05-19 11:46] LABS: Amphetamine Screen,Urine Negative ng/mL (Cutoff=1000); Barbiturate Screen,Urine Negative ng/mL (Cutoff=200); Benzodiazepines Screen,Urine Negative ng/mL (Cutoff=200); Cannabinoid Screen,Urine Negative ng/mL (Cutoff = 50); Cocaine Screen,Urine Negative ng/mL (Cutoff= 300); Opiate Screen,Urine Negative ng/mL (Cutoff=300); Phencyclidine Screen,Urine Negative ng/mL (Cutoff=25)
[2017-05-19 11:47] LABS: Prothrombin Time 10.9 Seconds (9.4-12.1)
[2017-05-19 11:50] LABS: Activated Partial Thrombo Time 29.9 Seconds (26.0-36.0)
[2017-05-19 12:01] LABS: Alanine Aminotransferase 11 Units/L (7-52); Albumin 3.4 g/dL (3.5-5.7); Albumin/Globulin Ratio 1.4 (1.1-2.2); Alkaline Phosphatase 37 Units/L (34-104); Aspartate Amino Transferase 20 Units/L (13-39); BUN/Creatinine Ratio 22 (6-26); Bilirubin,Direct 0.1 mg/dL (0.0-0.2); Bilirubin,Indirect 0.2 mg/dL (0.0-1.2); Bilirubin,Total 0.3 mg/dL (0.3-1.0); Blood Urea Nitrogen 38 mg/dL (8-23); Calcium 10.6 mg/dL (8.6-10.3); Carbon Dioxide 32 mEq/L (23-29); Chloride 111 mEq/L (98-107); Globulin 2.5 g/dL (2.4-3.5); Glucose 75 mg/dL (70-105); Osmolality,Calculated 306 (280-300); Potassium 4.6 mEq/L (3.5-5.1); Sodium 144 mEq/L (136-145); Total Protein 5.9 g/dL (6.4-8.9); eGFR For African Americans 36 (> 60); eGFR For Non-African Americans 30 (> 60)
[2017-05-19 12:19] LABS: Ethanol < 10 mg/dL (0-10)
[2017-05-19] MEDS ORDERED: Ondansetron 4 MG/2 ML VIAL IVP PRN (14:49)
[2017-05-19] MEDS ORDERED: Naloxone 0.4 MG/ML INJ IVP PRN (14:49)
[2017-05-19] MEDS ORDERED: Acetaminophen 325 MG TABLET PO PRN (14:49)
[2017-05-19] MEDS: Nystatin POWDER 30 GM BOTTLE TP SCH ×2 (15:09→21:01)
--- NOTE | 2017-05-19 15:11 | Internal Med History&Physical ---
<[place] - Last Filed: 05/19/17 15:28> Date of Encounter: 05/19/17 Time of Encounter: 15:01 Assessment and Plan (1) Altered mental status Status: Acute AMS - Hx of AMS, depression, seizure, and schizophrenia, on mutilple drugs. - Recent history of urinary tract infection, urine culture is still positive today at rehab center. UA at ED is negative for WBC, nitrate, or leuko esterase. CXR and CT head are normal. - Unclear the etiology of mental status change at this time. - Pending urine culture, TSH elevated at ED and will repeat. - Will start antibiotics according to the urine culture results. - Will check blood level of Keppra to rule out toxicity. - Continue telemetry monitoring Qualifiers: Altered mental status type: unspecified Qualified Code(s): R41.82 - Altered mental status, unspecified (2) Yeast dermatitis Status: Acute The yeast infection - Rashes and tenderness of breasts noted, consists with yeast skin infection. - Nystatin powder topical ordered. - Skin care per nursing. (3) UTI (urinary tract infection) Status: Chronic UTI - History UTI and recent culture results was positive. -UA and EGD was negative for UTI. - Pending urine culture. Hold antibiotic antibiotics for now. Qualifiers: Urinary tract infection type: acute cystitis Hematuria presence: without hematuria Qualified Code(s): N30.00 - Acute cystitis without hematuria (4) HTN (hypertension) Status: Chronic HTN -Stable and continue home medications Qualifiers: Hypertension type: essential hypertension Qualified Code(s): I10 - Essential (primary) hypertension (5) Schizophrenia Status: Chronic Schizophrenia Stable continue home medications Qualifiers: Schizophrenia type: other Qualified Code(s): F20.89 - Other schizophrenia; F20.8 - Other schizophrenia (6) Depression Status: Chronic Depression - Mood stable continue current treatment. Qualifiers: Depression Type: unspecified Qualified Code(s): F32.9 - Major depressive disorder, single episode, unspecified (7) Hypothyroid Status: Chronic Hypothyroidism - TSH above normal range, we will just Synthroid dose. Qualifiers: Hypothyroidism type: unspecified Qualified Code(s): E03.9 - Hypothyroidism , unspecified (8) CKD (chronic kidney disease) stage 3, GFR 30-59 ml/min Status: Chronic Security - Serum creatinine level at baseline (9) Seizure Status: Suspected Seizures - No witnessed seizure. - We will check Keppra level to rule out toxicity. - continue home meds. Internal Medicine - H&P: HPI Admitted From: Emergency Dept Plans for Post Hospital Care: Transfer [facility] Facility History of present illness: Ms. Bynum is a 72 year old female This is a 72-year-old female with past medical history of seizure, CKD, hypothyroidism, mental status change, depression, anxiety, schizophrenia, hypertension whole was sent from the rehabilitation center due to mental status change. Per the patient, the staff at rehabilitation center reported the patient has been found to have increased confusion in the last a few days. She was told she has urinary tract infection as well and she was sent to the hospital for further evaluation and treatment. She reported that she had urinary tract infection several months ago and was treated. Today the [facility] staff told her that her urine culture was still positive. She denies any fever chills or night sweats. She denies dysuria, urgency, or frequency. She has no headache or tenderness or numbness. At ED, she was alert and oriented 3. Vital signs were stable. Lab results is significant for high TSH. UA is negative. Stat x-ray and CT head also normal. Due to the new onset of mental status change, she was admitted for observation. Past Med Surg Social Fam HX - Past Medical History Medical history: hyperlipidemia, hypertension, thyroid disease, other Psychiatric history: anxiety, depression, schizophrenia - Past Surgical History Surgical History: cholecystectomy, orthopedic, other - Social History Smoking Status: Never smoker Smokeless Tobacco Status: No Alcohol use: none Drug use: none - Family History Mother Living Status: Hx Family Neuromuscular Disorders: Yes (dementia) Internal Medicine - H&P: Meds Aspirin Enteric Coated [Aspirin EC] 81 mg PO DAILY 03/22/15 [History] Fenofibrate [Lofibra] 160 mg PO DAILY 03/22/15 [History] Bupropion HCl [Wellbutrin Xl] 300 mg PO DAILY 01/17/17 [History] Calcium Carbonate/Vitamin D3 [Oyster Shell Calcium-Vit D Tab] 1 tab PO BID 01/17 [History] Multivitamin [One Daily Essential] 1 tab PO DAILY 01/17/17 [History] OLANZapine [Zyprexa] 15 mg PO BID 01/17/17 [History] Sertraline [Zoloft] 100 mg PO DAILY 01/17/17 [History] risperiDONE [Risperidone] 4 mg PO BID 01/17/17 [History] LevETIRAcetam [Roweepra] 500 mg PO BID 04/09/17 [History] amLODIPine [Norvasc] 5 mg PO DAILY 04/09/17 [History] 3 Allergy/AdvReac Type Severity Reaction Status Date / Time No Known Allergies Allergy Verified 04/09/17 07:21 All Systems PM: A 10-system review of systems was performed and is negative for pertinent findings except as documented above in the HPI. Review of systems: REVIEW OF SYSTEMS: CONSTITUTIONAL: No weight loss, fever, chills, weakness or fatigue. HEENT: Eyes: No visual loss, blurred vision, double vision or yellow sclerae. Ears, Nose, Throat: No hearing loss, sneezing, congestion, runny nose or sore throat. SKIN: rashes underneath both breasts.. CARDIOVASCULAR: No chest pain, chest pressure or chest discomfort. No palpitations or edema. RESPIRATORY: No shortness of breath, cough or sputum. GASTROINTESTINAL: No anorexia, nausea, vomiting or diarrhea. No abdominal pain or blood. GENITOURINARY: No dysuria, urgency, or frequency. NEUROLOGICAL: No headache, dizziness, syncope, paralysis, ataxia, numbness or tingling in the extremities. No change in bowel or bladder control. MUSCULOSKELETAL: No muscle, back pain, joint pain or stiffness. HEMATOLOGIC: No anemia, bleeding or bruising. LYMPHATICS: No enlarged nodes. No history of splenectomy. PSYCHIATRIC: No history of depression or anxiety. ENDOCRINOLOGIC: No reports of sweating, cold or heat intolerance. No polyuria or polydipsia. - Constitutional Vitals: Temp Pulse Resp BP Pulse Ox 98.4 F 82 14 142/72 94 05/19/17 11:13 05/19/17 14:44 05/19/17 14:44 05/19/17 14:44 05/19/17 14:44 Exam: PHYSICAL EXAMINATION: GENERAL APPEARANCE: The patient is alert, oriented and in no acute distress. HEENT: Head is normocephalic. The sinuses are non-tender. Pupils are equal and reactive. The nares are patent. Oropharynx clear without lesions. NECK: Supple without lymphadenopathy. HEART: Regular rate and rhythm. LUNGS: No crackles or wheezes are heard. ABDOMEN: Soft, non-tender, non-distended with good bowel sounds heard. Inguinal area is normal. EXTREMITIES: Without cyanosis, clubbing or edema. NEUROLOGICAL: Gross nonfocal. A+OX3. SKIN: Warm and dry. Rashes noted underneath breasts. Internal Med - H&P Results - Labs CBC & Chem 7: 05/19/17 11:28 05/19/17 11:28 - EKG Data EKG shows normal: sinus rhythm <Devi Yip - Last Filed: 06/19/17 09:47> Date of Encounter: 06/19/17 Internal Medicine - H&P: HPI History of present illness: Ms. Bynum is a 72 year old female Past Med Surg Social Fam HX - Family History Mother Living Status: Age at : 39 Cause of : unknown Hx Family Cardiac Disorders: Yes Hx Family Respiratory Disorders: No Hx Family Cancer: No Hx Family GI Disorders: No Hx Family Genitourinary Disorders: No Hx Family Endocrine Disorder: No Hx Family Musculoskeletal Disorders: No Hx Family Neuromuscular Disorders: Yes (dementia) Hx Family Neurologic Disorders: No Hx Family HEENT Disorders: No Hx Family Autoimmune Disorders: No Hx Family Reproductive Disorders: No Hx Family Psychosocial Disorders: No Hx Family Medical Disorders: No Father Living Status: Age at : 50 Cause of : couldnt breath Hx Family Neurologic Disorders: Yes (dementia) Hx Family Medical Disorders: Yes (smoker) All Systems PM: A 10-system review of systems was performed and is negative for pertinent findings except as documented above in the HPI. - Constitutional Vitals: Temp Pulse Resp BP Pulse Ox 97.6 F 62 14 145/78 95 05/26/17 11:17 05/26/17 11:17 05/26/17 11:17 05/26/17 11:17 05/26/17 11:17 Internal Med - H&P Results - Labs CBC & Chem 7: 05/20/17 04:30 05/24/17 08:01 - Impressions ITS Impressions Brain MRI 05/20/17 09:58 IMPRESSION: Stable right frontal meningioma. Stable mild chronic small vessel ischemic changes. No new or acute finding in the brain parenchyma. Expansile lesion involving the clivus of uncertain etiology. This is new since 2009. A low grade chondrosarcoma cannot be entirely excluded. Postcontrast images could be considered to further evaluate the lesion. D/ / 05/20/2017 14:18:37 Kassi Bermudez MD / idalia Interpreting Provider: Kassi Bermudez MD Retroperitoneum Ultrasound 05/20/17 15:33 IMPRESSION: Cortical thinning left kidney. Lobular. Kidneys with increased cortical echogenicity consistent with medical renal disease. No nephrolithiasis or hydronephrosis. No discrete masses are present. D/ / Xenia Narvaez MD / Xenia Narvaez MD Interpreting Provider: Xenia Narvaez MD - Attending Attestation I personally and independently interviewed and examined the patient with CAREER PORTALS TEACHER, and I reviewed the patient's medical record with her. I am in agreement with the assessment and proposed treatment plan. I discussed my findings and recommendation with the patient and answer all questions. The patient's medical records were edited to accurately reflect this encounter.
[2017-05-19] MEDS: amLODIPine 5 MG TABLET PO SCH (15:33)
[2017-05-19] MEDS: Aspirin Enteric Coated 81 MG Tablet PO SCH (15:33)
[2017-05-19] MEDS: levETIRAcetam 250 MG TABLET PO SCH ×2 (15:33→20:44)
[2017-05-19] MEDS: (Calcium Carbonate/Vitamin D3 [Oyster Shell Calcium-V) PO SCH ×2 (15:33→20:47)
[2017-05-19] MEDS: risperiDONE 1 MG TABLET PO SCH ×2 (15:34→20:44)
[2017-05-19] MEDS: Fenofibrate 54 MG TABLET PO SCH (15:34)
[2017-05-19] MEDS: OLANZapine 5 MG TAB.RAPDIS PO SCH ×2 (15:34→20:44)
[2017-05-19] MEDS: Multivit/Ca/Min/Fe/FA 1 TAB TABLET PO SCH (15:34)
[2017-05-19] MEDS: BuPROPion XL (24 HR) 150 MG TABLET PO SCH (15:34)
[2017-05-19] MEDS: *HR* Heparin 5,000 UNIT/ML VIAL SQ SCH (20:45)
[2017-05-20 04:55] LABS: Hematocrit 35.1 % (35.3-44.9); Hemoglobin 10.8 g/dL (11.5-15.4); Mean Corpuscular HGB Conc 30.8 g/dL (31.6-35.5); Mean Corpuscular Hemoglobin 29.6 pg (28.0-33.3); Mean Corpuscular Volume 96.2 fL (83.0-100.0); Mean Platelet Volume 9.6 fL (9.4-12.4); Platelet Count 261 K/mcL (140-400); Red Blood Count 3.65 M/mcL (3.82-4.97); Red Cell Distribution Width 13.9 % (11.5-14.5)
[2017-05-20 05:09] LABS: Calcium 9.6 mg/dL (8.6-10.3); Potassium 3.6 mEq/L (3.5-5.1)
[2017-05-20] MEDS: *HR* Heparin 5,000 UNIT/ML VIAL SQ SCH ×3 (05:44→21:23)
[2017-05-20] MEDS: Levothyroxine 25 MCG TABLET PO SCH (05:44)
--- NOTE | 2017-05-20 06:30 | Electrocardiograph Report ---
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
[2017-05-20] MEDS: BuPROPion XL (24 HR) 150 MG TABLET PO SCH (09:36)
[2017-05-20] MEDS: amLODIPine 5 MG TABLET PO SCH (09:36)
[2017-05-20] MEDS: levETIRAcetam 250 MG TABLET PO SCH ×2 (09:37→19:57)
[2017-05-20] MEDS: Multivit/Ca/Min/Fe/FA 1 TAB TABLET PO SCH (09:37)
[2017-05-20] MEDS: risperiDONE 1 MG TABLET PO SCH ×2 (09:37→19:58)
[2017-05-20] MEDS: Fenofibrate 54 MG TABLET PO SCH (09:37)
[2017-05-20] MEDS: Aspirin Enteric Coated 81 MG Tablet PO SCH (09:37)
[2017-05-20] MEDS: OLANZapine 5 MG TAB.RAPDIS PO SCH ×2 (09:37→19:57)
[2017-05-20] MEDS: (Calcium Carbonate/Vitamin D3 [Oyster Shell Calcium-V) PO SCH ×2 (09:37→19:58)
[2017-05-20] MEDS: Nystatin POWDER 30 GM BOTTLE TP SCH ×3 (10:14→20:00)
--- NOTE | 2017-05-20 15:35 | Internal Med Progress Note ---
Date of Encounter: 05/20/17 Time of Encounter: 15:32 - Assessment and plan (1) Acute encephalopathy Current Visit: Yes Status: Acute Assessment and plan: Details unclear but apparently presented from ECF with altered mental status. Patient says she woke up from sleep and was mixed up on her dates. No ECF staff available for collateral. Head CT nonacute, brain MRI without acute infarct or abnormality. Patient is known to me from previous admission and mentation appears to be at baseline. No obvious infectious or metabolic derangements. UDS negative. Hold on further workup at this time. (2) CKD (chronic kidney disease) stage 3, GFR 30-59 ml/min Current Visit: No Status: Chronic Assessment and plan: has known CKD. Now with acute on chronic kidney disease. Was evaluated by nephrology previous admission who recommended outpatient follow-up; unclear if this has happened. Will obtain renal ultrasound per nephrology's previous recommendations. Avoid nephrotoxic agents as able. Gentle IV fluids. Monitor repeat renal function. (3) HTN (hypertension) Current Visit: No Status: Chronic Assessment and plan: per hx. BP variable but settable. Continue home BP medication. Monitor BP and titrate PRN Qualifiers: Hypertension type: essential hypertension Qualified Code(s): I10 - Essential (primary) hypertension (4) Hypothyroid Current Visit: No Status: Chronic Assessment and plan: per hx. Cont home with levothyroxine. Qualifiers: Hypothyroidism type: unspecified Qualified Code(s): E03.9 - Hypothyroidism , unspecified (5) Seizure Current Visit: No Status: Suspected Assessment and plan: per hx. no evidence of seizure activity. Continue home Keppra (6) DVT prophylaxis Current Visit: No Status: Acute Assessment and plan: heparin - Time Spent With Patient less than 15 minutes - Subjective Interval history: Seen and examined at bedside; patient is known to me from previous admission. She has no complaints on my exam other than being tired. She thinks some of her confusion/lethargy may be coming from recent medication changes. No chest pain, no shortness of breath. No numbness or tingling. - Constitutional Vitals: Temp Pulse Resp BP Pulse Ox 97.9 F 68 14 151/78 95 05/20/17 10:33 05/20/17 10:33 05/20/17 10:33 05/20/17 10:33 05/20/17 10:33 General appearance: Present: A&O X 3, no acute distress Exam: Forgetful - Head Head exam: Present: atraumatic, normocephalic - Eye Eye exam: Present: PERRL, conjuntiva pink, sclera anicteric Pupils: Present: PERRL - Neck Neck exam general surgery: Present: supple, trachea midline. Absent: lymphadenopathy - Respiratory Respiratory exam: Present: CTAB. Absent: accessory muscle use, rales, rhonchi, wheezes - Cardiovascular Cardiovascular exam: Present: RRR, +S1, +S2. Absent: diastolic murmur, gallop, rubs, systolic murmur - GI/Abdominal GI/Abdominal exam: Present: normal bowel sounds, soft, no peritoneal signs. Absent: distended, tenderness - Extremities Exam Extremities exam: Present: warm, radial pulses palpable and symmetrical. Absent : calf tenderness, cyanotic, pedal edema - Neurological Exam Neurological exam: Present: CN II-XII intact, oriented X3, no focal deficits. Absent: pronater drift, facial droop, speech deficit - Skin Skin exam: Present: dry, intact Internal Medicine: Result - Labs CBC & Chem 7: 05/20/17 04:30 05/20/17 04:30 Labs: Short CBC 05/20/17 Range/Units 04:30 WBC 4.1 L (4.3-11.1) K/mcL Hgb 10.8 L D (11.5-15.4) g/dL Hct 35.1 L (35.3-44.9) % Plt Count 261 (140-400) K/mcL [facility] 05/20/17 04:30 Sodium 143 Potassium 3.6 Chloride 111 H Carbon Dioxide 28 BUN 44 H Creatinine 1.87 H Glucose 113 H Calcium 9.6 Cardiac Enzymes 05/19/17 05/19/17 05/20/17 Range/Units 16:00 22:12 04:30 Troponin I < 0.03 < 0.03 < 0.03 (< 0.04) ng/mL - ABG Interpretation ABG results: PT/INR, D-dimer PT 10.9 Seconds (9.4-12.1) 05/19/17 11:28 - Impressions Impressions Brain MRI 05/20/17 09:58 IMPRESSION: Stable right frontal meningioma. Stable mild chronic small vessel ischemic changes. No new or acute finding in the brain parenchyma. Expansile lesion involving the clivus of uncertain etiology. This is new since 2008. A low grade chondrosarcoma cannot be entirely excluded. Postcontrast images could be considered to further evaluate the lesion. D/ / 05/20/2017 14:18:37 Kassi Bermudez MD / idalia Interpreting Provider: Kassi Bermudez MD Consult Discharge Plan - Plan Referrals: NONE,PCP [Primary Care Provider] -
[2017-05-21] MEDS: *HR* Heparin 5,000 UNIT/ML VIAL SQ SCH ×3 (05:04→21:38)
[2017-05-21] MEDS: Levothyroxine 25 MCG TABLET PO SCH (06:12)
[2017-05-21] MEDS: amLODIPine 5 MG TABLET PO SCH (09:19)
[2017-05-21] MEDS: levETIRAcetam 250 MG TABLET PO SCH ×2 (09:19→21:33)
[2017-05-21] MEDS: Aspirin Enteric Coated 81 MG Tablet PO SCH (09:19)
[2017-05-21] MEDS: risperiDONE 1 MG TABLET PO SCH ×2 (09:19→21:38)
[2017-05-21] MEDS: Multivit/Ca/Min/Fe/FA 1 TAB TABLET PO SCH (09:19)
[2017-05-21] MEDS: BuPROPion XL (24 HR) 150 MG TABLET PO SCH (09:19)
[2017-05-21] MEDS: Fenofibrate 54 MG TABLET PO SCH (09:20)
[2017-05-21] MEDS: (Calcium Carbonate/Vitamin D3 [Oyster Shell Calcium-V) PO SCH ×2 (09:20→21:38)
[2017-05-21] MEDS: OLANZapine 5 MG TAB.RAPDIS PO SCH ×2 (09:20→21:38)
[2017-05-21] MEDS: Nystatin POWDER 30 GM BOTTLE TP SCH ×3 (09:20→21:37)
[2017-05-21] MEDS ORDERED: 0.9 % Sodium Chloride 500 ML IVC ONE (09:58)
[2017-05-21 16:58] LABS: Potassium 4.2 mEq/L (3.5-5.1)
--- NOTE | 2017-05-21 17:36 | Internal Med Progress Note ---
Date of Encounter: 05/21/17 Time of Encounter: 17:34 - Assessment and plan (1) Acute encephalopathy Current Visit: Yes Status: Acute Assessment and plan: Details unclear but apparently presented from ECF with altered mental status. Patient says she woke up from sleep and was mixed up on her dates. No ECF staff available for collateral. Head CT nonacute, brain MRI without acute infarct or abnormality. Patient is known to me from previous admission and mentation appears to be at baseline. No obvious infectious or metabolic derangements. UDS negative. Hold on further workup at this time. (2) CKD (chronic kidney disease) stage 3, GFR 30-59 ml/min Current Visit: No Status: Chronic Assessment and plan: has known CKD. Now with acute on chronic kidney disease. Was evaluated by nephrology previous admission who recommended outpatient follow-up; unclear if this has happened. Renal US evidence of medical renal disease, otherwise non- acute. Avoid nephrotoxic agents as able. Gentle IV fluids. Monitor repeat renal function. (3) HTN (hypertension) Current Visit: No Status: Chronic Assessment and plan: per hx. BP variable but except above. Continue home BP medication. Monitor BP and titrate PRN Qualifiers: Hypertension type: essential hypertension Qualified Code(s): I10 - Essential (primary) hypertension (4) Hypothyroid Current Visit: No Status: Chronic Assessment and plan: per hx. Cont home with levothyroxine. Qualifiers: Hypothyroidism type: unspecified Qualified Code(s): E03.9 - Hypothyroidism , unspecified (5) Seizure Current Visit: No Status: Suspected Assessment and plan: per hx. no evidence of seizure activity. Continue home Keppra (6) DVT prophylaxis Current Visit: No Status: Acute Assessment and plan: heparin - Subjective Interval history: Seen and examined at bedside; uneventful night, she has no complaints. Says she slept well; is eating and drinking. No dysuria. No CP, no SOB - Constitutional Vitals: Temp Pulse Resp BP Pulse Ox 97 F L 74 16 126/55 91 05/21/17 17:29 05/21/17 17:29 05/21/17 17:29 05/21/17 17:29 05/21/17 17:29 General appearance: Present: A&O X 3, no acute distress - Head Head exam: Present: atraumatic, normocephalic - Eye Eye exam: Present: PERRL, conjuntiva pink, sclera anicteric Pupils: Present: PERRL - Neck Neck exam general surgery: Present: supple, trachea midline. Absent: lymphadenopathy - Respiratory Respiratory exam: Present: CTAB. Absent: accessory muscle use, rales, rhonchi, wheezes - Cardiovascular Cardiovascular exam: Present: RRR, +S1, +S2. Absent: diastolic murmur, gallop, rubs, systolic murmur - GI/Abdominal GI/Abdominal exam: Present: normal bowel sounds, soft, no peritoneal signs. Absent: distended, tenderness - Extremities Exam Extremities exam: Present: warm, radial pulses palpable and symmetrical. Absent : calf tenderness, cyanotic, pedal edema - Neurological Exam Neurological exam: Present: CN II-XII intact, oriented X3, no focal deficits. Absent: pronater drift, facial droop, speech deficit - Skin Skin exam: Present: dry, intact Internal Medicine: Result - Labs CBC & Chem 7: 05/20/17 04:30 05/21/17 16:10 Labs: BMP 05/21/17 16:10 Sodium 140 Potassium 4.2 Chloride 109 H Carbon Dioxide 29 BUN 37 H Creatinine 1.95 H Glucose 92 Calcium 9.0 - ABG Interpretation ABG results: PT/INR, D-dimer PT 10.9 Seconds (9.4-12.1) 05/19/17 11:28 Consult Discharge Plan - Plan Referrals: NONE,PCP [Primary Care Provider] -
[2017-05-21] MEDS: 0.9 % Sodium Chloride 1,000 ML IVC SCH (17:41)
[2017-05-22] MEDS: *HR* Heparin 5,000 UNIT/ML VIAL SQ SCH ×3 (05:37→21:27)
[2017-05-22] MEDS: Levothyroxine 25 MCG TABLET PO SCH (05:37)
[2017-05-22 05:39] LABS: Calcium 8.8 mg/dL (8.6-10.3)
[2017-05-22] MEDS: 0.9 % Sodium Chloride 1,000 ML IVC SCH ×2 (07:55→21:25)
[2017-05-22] MEDS: BuPROPion XL (24 HR) 150 MG TABLET PO SCH (07:57)
[2017-05-22] MEDS: Aspirin Enteric Coated 81 MG Tablet PO SCH (07:57)
[2017-05-22] MEDS: risperiDONE 1 MG TABLET PO SCH ×2 (07:57→21:27)
[2017-05-22] MEDS: amLODIPine 5 MG TABLET PO SCH (07:57)
[2017-05-22] MEDS: Fenofibrate 54 MG TABLET PO SCH (07:57)
[2017-05-22] MEDS: levETIRAcetam 250 MG TABLET PO SCH ×2 (07:57→21:26)
[2017-05-22] MEDS: Multivit/Ca/Min/Fe/FA 1 TAB TABLET PO SCH (07:57)
[2017-05-22] MEDS: Nystatin POWDER 30 GM BOTTLE TP SCH ×3 (07:58→21:26)
[2017-05-22] MEDS: OLANZapine 5 MG TAB.RAPDIS PO SCH ×2 (07:58→21:27)
[2017-05-22] MEDS: (Calcium Carbonate/Vitamin D3 [Oyster Shell Calcium-V) PO SCH ×2 (07:58→21:27)
--- NOTE | 2017-05-22 17:07 | Internal Med Progress Note ---
Date of Encounter: 05/22/17 Time of Encounter: 17:05 - Assessment and plan (1) Acute encephalopathy Current Visit: Yes Status: Acute Assessment and plan: Details unclear but apparently presented from ECF with altered mental status. Patient says she woke up from sleep and was mixed up on her dates. No ECF staff available for collateral. Head CT nonacute, brain MRI without acute infarct or abnormality. Patient is known to me from previous admission and mentation appears to be at baseline. No obvious infectious or metabolic derangements. UDS negative. Hold on further workup at this time. (2) CKD (chronic kidney disease) stage 3, GFR 30-59 ml/min Current Visit: No Status: Chronic Assessment and plan: has known CKD. Now with acute on chronic kidney disease. Was evaluated by nephrology previous admission who recommended outpatient follow-up; unclear if this has happened. Renal US evidence of medical renal disease, otherwise non- acute. Avoid nephrotoxic agents as able. Gentle IV fluids. Monitor repeat renal function. (3) HTN (hypertension) Current Visit: No Status: Chronic Assessment and plan: per hx. BP variable but acceptable. Continue home BP medication. Monitor BP and titrate PRN Qualifiers: Hypertension type: essential hypertension Qualified Code(s): I10 - Essential (primary) hypertension (4) Hypothyroid Current Visit: No Status: Chronic Assessment and plan: per hx. Cont home with levothyroxine. Qualifiers: Hypothyroidism type: unspecified Qualified Code(s): E03.9 - Hypothyroidism , unspecified (5) Seizure Current Visit: No Status: Suspected Assessment and plan: per hx. no evidence of seizure activity. Continue home Keppra (6) DVT prophylaxis Current Visit: No Status: Acute Assessment and plan: heparin - Subjective Interval history: Seen and examined at bedside; uneventful night. She has no complaints other [facility] She is aware that it may be Thursday next week due to insurance reasons. She specifically denies chest pain, no shortness of breath, no abdominal pain and nausea vomiting or diarrhea - Constitutional Vitals: Temp Pulse Resp BP Pulse Ox 97.6 F 68 16 136/79 97 05/22/17 15:02 05/22/17 15:02 05/22/17 15:02 05/22/17 10:24 12/29/17 10:24 General appearance: Present: A&O X 3, no acute distress - Head Head exam: Present: atraumatic, normocephalic - Eye Eye exam: Present: PERRL, conjuntiva pink, sclera anicteric Pupils: Present: PERRL - Neck Neck exam general surgery: Present: supple, trachea midline. Absent: lymphadenopathy - Respiratory Respiratory exam: Present: CTAB. Absent: accessory muscle use, rales, rhonchi, wheezes - Cardiovascular Cardiovascular exam: Present: RRR, +S1, +S2. Absent: diastolic murmur, gallop, rubs, systolic murmur - GI/Abdominal GI/Abdominal exam: Present: normal bowel sounds, soft, no peritoneal signs. Absent: distended, tenderness - Extremities Exam Extremities exam: Present: warm, radial pulses palpable and symmetrical. Absent : calf tenderness, cyanotic, pedal edema - Neurological Exam Neurological exam: Present: CN II-XII intact, oriented X3, no focal deficits. Absent: pronater drift, facial droop, speech deficit - Skin Skin exam: Present: dry, intact Internal Medicine: Result - Labs CBC & Chem 7: 05/20/17 04:30 05/22/17 05:15 Labs: BMP 05/22/17 05:15 Sodium 141 Potassium 4.0 Chloride 113 H Carbon Dioxide 25 BUN 39 H Creatinine 1.80 H Glucose 92 Calcium 8.8 - ABG Interpretation ABG results: PT/INR, D-dimer PT 10.9 Seconds (9.4-12.1) 05/19/17 11:28 - Impressions Impressions Brain MRI 05/20/17 09:58 IMPRESSION: Stable right frontal meningioma. Stable mild chronic small vessel ischemic changes. No new or acute finding in the brain parenchyma. Expansile lesion involving the clivus of uncertain etiology. This is new since 2008. A low grade chondrosarcoma cannot be entirely excluded. Postcontrast images could be considered to further evaluate the lesion. D/ / 05/20/2017 14:18:37 Kassi Bermudez MD / idalia Interpreting Provider: Kassi Bermudez MD Consult Discharge Plan - Plan Referrals: NONE,PCP [Primary Care Provider] -
[2017-05-23] MEDS: Levothyroxine 25 MCG TABLET PO SCH (06:08)
[2017-05-23] MEDS: *HR* Heparin 5,000 UNIT/ML VIAL SQ SCH ×3 (06:08→21:43)
[2017-05-23] MEDS: OLANZapine 5 MG TAB.RAPDIS PO SCH ×2 (08:10→21:43)
[2017-05-23] MEDS: amLODIPine 5 MG TABLET PO SCH (08:10)
[2017-05-23] MEDS: Aspirin Enteric Coated 81 MG Tablet PO SCH (08:11)
[2017-05-23] MEDS: Fenofibrate 54 MG TABLET PO SCH (08:11)
[2017-05-23] MEDS: BuPROPion XL (24 HR) 150 MG TABLET PO SCH (08:11)
[2017-05-23] MEDS: risperiDONE 1 MG TABLET PO SCH ×2 (08:11→21:43)
[2017-05-23] MEDS: levETIRAcetam 250 MG TABLET PO SCH ×2 (08:11→21:43)
[2017-05-23] MEDS: Multivit/Ca/Min/Fe/FA 1 TAB TABLET PO SCH (08:11)
[2017-05-23] MEDS: Nystatin POWDER 30 GM BOTTLE TP SCH ×3 (08:13→21:57)
[2017-05-23] MEDS: (Calcium Carbonate/Vitamin D3 [Oyster Shell Calcium-V) PO SCH ×2 (08:13→21:43)
--- NOTE | 2017-05-23 13:54 | Internal Med Progress Note ---
Date of Encounter: 05/23/17 Time of Encounter: 13:42 - Assessment and plan (1) Acute encephalopathy Current Visit: Yes Status: Acute Assessment and plan: Details unclear but apparently presented from ECF with altered mental status. Patient says she woke up from sleep and was mixed up on her dates. No ECF staff available for collateral. Head CT nonacute, brain MRI without acute infarct or abnormality. Patient is known to me from previous admission and mentation appears to be at baseline. No obvious infectious or metabolic derangements. UDS negative. Hold on further workup at this time. (2) CKD (chronic kidney disease) stage 3, GFR 30-59 ml/min Current Visit: No Status: Chronic Assessment and plan: has known CKD. Now with acute on chronic kidney disease. Was evaluated by nephrology on previous admission who recommended outpatient follow-up; unclear if this has happened. Renal US evidence of medical renal disease, otherwise non -acute. Avoid nephrotoxic agents as able. IV fluids stopped. Renal function stable (3) HTN (hypertension) Current Visit: No Status: Chronic Assessment and plan: per hx. BP variable but acceptable. Continue home BP medication. Monitor BP and titrate PRN Qualifiers: Hypertension type: essential hypertension Qualified Code(s): I10 - Essential (primary) hypertension (4) Hypothyroid Current Visit: No Status: Chronic Assessment and plan: per hx. Cont home with levothyroxine. Qualifiers: Hypothyroidism type: unspecified Qualified Code(s): E03.9 - Hypothyroidism , unspecified (5) Seizure Current Visit: No Status: Suspected Assessment and plan: per hx. no evidence of seizure activity. Continue home Keppra (6) DVT prophylaxis Current Visit: No Status: Acute Assessment and plan: heparin - Time Spent With Patient less than 15 minutes - Subjective Interval history: Seen and examined at bedside; uneventful night. Says she feels tired, otherwise she has no complaints. She is aware of need to obtain precert fro insurance before being discharged. Discussed with RN the need to mobilize and get OOB - Constitutional Vitals: Temp Pulse Resp BP Pulse Ox 98.1 F 70 15 133/71 91 05/23/17 11:18 05/23/17 11:18 05/23/17 11:18 05/23/17 11:18 05/23/17 11:18 General appearance: Present: A&O X 3, no acute distress - Head Head exam: Present: atraumatic, normocephalic - Eye Eye exam: Present: PERRL, conjuntiva pink, sclera anicteric Pupils: Present: PERRL - Neck Neck exam general surgery: Present: supple, trachea midline. Absent: lymphadenopathy - Respiratory Respiratory exam: Present: CTAB. Absent: accessory muscle use, rales, rhonchi, wheezes - Cardiovascular Cardiovascular exam: Present: RRR, +S1, +S2. Absent: diastolic murmur, gallop, rubs, systolic murmur - GI/Abdominal GI/Abdominal exam: Present: normal bowel sounds, soft, no peritoneal signs. Absent: distended, tenderness - Extremities Exam Extremities exam: Present: warm, radial pulses palpable and symmetrical. Absent : calf tenderness, cyanotic, pedal edema - Neurological Exam Neurological exam: Present: CN II-XII intact, oriented X3, no focal deficits. Absent: pronater drift, facial droop, speech deficit - Skin Skin exam: Present: dry, intact Internal Medicine: Result - Labs CBC & Chem 7: 05/20/17 04:30 05/22/17 05:15 - ABG Interpretation ABG results: PT/INR, D-dimer PT 10.9 Seconds (9.4-12.1) 05/19/17 11:28 Consult Discharge Plan - Plan Referrals: NONE,PCP [Primary Care Provider] -
[2017-05-23] MEDS: 0.9 % Sodium Chloride 1,000 ML IVC SCH (19:47)
[2017-05-24] MEDS: *HR* Heparin 5,000 UNIT/ML VIAL SQ SCH ×3 (05:43→21:40)
[2017-05-24] MEDS: Levothyroxine 25 MCG TABLET PO SCH (05:43)
[2017-05-24 08:26] LABS: Calcium 8.9 mg/dL (8.6-10.3); Potassium 4.1 mEq/L (3.5-5.1)
[2017-05-24] MEDS: Multivit/Ca/Min/Fe/FA 1 TAB TABLET PO SCH (09:30)
[2017-05-24] MEDS: levETIRAcetam 250 MG TABLET PO SCH ×2 (09:30→21:39)
[2017-05-24] MEDS: Aspirin Enteric Coated 81 MG Tablet PO SCH (09:30)
[2017-05-24] MEDS: risperiDONE 1 MG TABLET PO SCH ×2 (09:30→21:39)
[2017-05-24] MEDS: Fenofibrate 54 MG TABLET PO SCH (09:30)
[2017-05-24] MEDS: BuPROPion XL (24 HR) 150 MG TABLET PO SCH (09:31)
[2017-05-24] MEDS: amLODIPine 5 MG TABLET PO SCH (09:31)
[2017-05-24] MEDS: OLANZapine 5 MG TAB.RAPDIS PO SCH ×2 (09:36→21:39)
--- NOTE | 2017-05-24 11:42 | Nephrology Consult Note ---
Date of Encounter: 05/24/17 Time of Encounter: 11:00 Assessment and Plan (1) CKD (chronic kidney disease) stage 3, GFR 30-59 ml/min Current Visit: No Status: Chronic Relatively stable CKD stage IIIb-IV with a baseline eGFR near the low 30s and even upper 20s at times. Nephrology consulted for CKD workup while she's here awaiting her ECF to accept her back after the long Holiday Weekend. Of note, I see that Dr. Wade, my colleague saw her for Nephrology Consultation back in Mar. She was arranged to follow up in the clinic with him but she missed two follow up appt's according to the [facility] outpatient EHR system. I reviewed her prior UA with 30-100 proteinuria and not persistent hematuria. She was found to have a +PEDRO this fall as well. Renal U/S demonstrated inc'd echogenecity, which would be consistent with long standing CKD, plus cortical thinning, which is often seen in people who have a hx of care home NSAID exposures. She affirmed a long hx of NSAIDs in the past, but none recently (I see that her ECF / Home med list did not include NSAIDs, which is reassuring). I recommend checking serologies such as ds-DNA (due to the prior +PEDRO finding; of note, she denied any FHx of Lupus; and lupus nephritis classically would have microscopic hematuria, which she does not have, so there is a chance that the +PEDRO is simply a false positive, which is non uncommon in elderly patients) . Will also screen C3, C4, PEDRO, U eos, check spot U P/C ration, SPEP and UPEP. Continue to follow a renal protective strategy, such as dosing renally cleared Rx by GFR, avoid nephrotoxins such as NSAIDs, Bactrim, IV contast, and adequate water intake. Thank you for consulting the [facility] service. Of note, after this hospitalization, I counseled her to be sure to follow up in the clinic with Dr. Wade (who first established with the pt during the prior hospitalization). Will follow with you. (2) Positive PEDRO (antinuclear antibody) Current Visit: Yes Status: Acute See above (3) Proteinuria Current Visit: Yes Status: Chronic See above Qualifiers: Proteinuria type: persistent Qualified Code(s): R80.1 - Persistent proteinuria, unspecified (4) HTN (hypertension) Current Visit: No Status: Chronic Suspect HTN may also be a factor in the etiology of her CKD. Qualifiers: Hypertension type: essential hypertension Qualified Code(s): I10 - Essential (primary) hypertension (5) Acute encephalopathy Current Visit: Yes Status: Acute As per primary History of Present Illness - Reason for Consult Consult date: 05/23/17 Chronic Kidney Disease Requesting physician: Shirley Mendez - Chief Complaint Incidental CKD IIIb-IV noted during admission for Acute Encephalopathy - History of Present Illness Berenice Bynum is a very pleasant 72 y/o WF with a pmh of HTN, general arthritis s/p years of NSAIDs, longstanding CKD and et al who presented with acute encephalopthy from her ECF. She is awaiting return to the ECF but will have to wait till Thursday (after the long Holiday weekend). She has previously seen Dr. Wade, from the [facility] group; though she actually did not recall from memory. She was hospitalized back in about Mar and arranged to follow up with Dr. Wade in our CKD clinic, but I see that she missed two appt's with Dr. Wade. She had a renal U/S performed thus far while here. Today she did not report or affirm any N/V/D, F/C, dysuria, CP, ShOB, visible hematuria, lower extremity edema. She reported no FHx of Lupus, CKD or ESRD. She thinks she may have passed a renal stone many years ago, but none recently. She generally drinks about "32 oz of tea" per day. She affirmed that for many years she regularly took IBU or Aleve a few times per week, but has nto taken any recently. She denied having a heart cath recently and I do not see any recent contrast enhanced studies in the [facility] EHR system. Past Med Surg Social Fam HX - Past Medical History Medical history: hyperlipidemia, hypertension, thyroid disease, other Psychiatric history: anxiety, depression, schizophrenia - Past Surgical History Surgical History: cholecystectomy, orthopedic, other - Social History Smoking Status: Never smoker Smokeless Tobacco Status: No Alcohol use: none Drug use: none - Family History Mother Living Status: Age at : 39 Cause of : unknown Hx Family Cardiac Disorders: Yes Hx Family Respiratory Disorders: No Hx Family Cancer: No Hx Family GI Disorders: No Hx Family Genitourinary Disorders: No Hx Family Endocrine Disorder: No Hx Family Musculoskeletal Disorders: No Hx Family Neuromuscular Disorders: Yes (dementia) Hx Family Neurologic Disorders: No Hx Family HEENT Disorders: No Hx Family Autoimmune Disorders: No Hx Family Reproductive Disorders: No Hx Family Psychosocial Disorders: No Hx Family Medical Disorders: No Father Living Status: Age at : 50 Cause of : couldnt breath Hx Family Neurologic Disorders: Yes (dementia) Hx Family Medical Disorders: Yes (smoker) Medications and Allergies Aspirin Enteric Coated [Aspirin EC] 81 mg PO DAILY 03/22/15 [History] Fenofibrate [Lofibra] 160 mg PO DAILY 03/22/15 [History] Bupropion HCl [Wellbutrin Xl] 300 mg PO DAILY 01/17/17 [History] Calcium Carbonate/Vitamin D3 [Oyster Shell Calcium-Vit D Tab] 1 tab PO BID 01/17 [History] Multivitamin [One Daily Essential] 1 tab PO DAILY 01/17/17 [History] OLANZapine [Zyprexa] 15 mg PO BID 01/17/17 [History] Sertraline [Zoloft] 100 mg PO DAILY 01/17/17 [History] risperiDONE [Risperidone] 4 mg PO BID 01/17/17 [History] LevETIRAcetam [Roweepra] 500 mg PO BID 04/09/17 [History] amLODIPine [Norvasc] 5 mg PO DAILY 04/09/17 [History] 3 Allergy/AdvReac Type Severity Reaction Status Date / Time No Known Allergies Allergy Verified 04/09/17 07:21 Review of Systems All Systems: reviewed and no additional remarkable complaints except as stated Exam - Vital Signs Vital signs: Initial Vital Signs Temp Pulse Resp BP Pulse Ox 98.4 F 80 14 134/67 93 05/19/17 11:13 05/19/17 11:13 05/19/17 11:13 05/19/17 11:13 05/19/17 11:13 Vital Signs - Last 8 Hours Temp Pulse Resp BP Pulse Ox 05/24/17 06:39 98.7 F 65 16 128/73 91 05/24/17 04:04 98.0 F 65 16 156/75 94 Intake and Output 05/23/17 05/24/17 05/24/17 23:59 07:59 15:59 Intake Total 240 / 240 Output Total 300 / 300 Balance -300 / -300 240 / 240 Intake: Oral 240 / 240 Output: Urine 300 / 300 Other: Meal Breakfast Percent of Meal Consumed 100% Stool Size Small Stool Consistency formed Stool Characteristics Normal for Patient Stool Color Brown # Voids 1 1 # Urine Diapers 1 # Bowel Movements 1 Weight 73.437 kg Patient Weight 05/24/17 23:59 Weight 73.437 kg - General Appearance General appearance: well-developed, well-nourished, appears started age EENT: ATNC, PERRL, mucous membranes moist Neck: supple Respiratory: clear Cardiology: no edema, regular rate, regular rhythm, normal S1, normal S2 Gastrointestinal: normoactive bowel sounds, no tenderness Integumentary: no rash, warm and dry Neurologic: no focal deficit, no asterixis, alert and oriented x3 Musculoskeletal: no deformities, no erythema, no cyanosis Psychiatric: mood/affect appropriate, cooperative Results - Lab Results 05/20/17 04:30 05/24/17 08:01 Most recent lab results Calcium 8.9 mg/dL (8.6-10.3) 05/24/17 08:01 I reviewed the inpatient progress notes, labs, med lists, vitals, imaging and also reviewed the outpatient EHR eCW and see that she missed two follow up appt' s with Dr. Wade. - Image Kidney/bladder ultrasound: report reviewed (cortical thinning noted bilaterally , which would be consistent with long hx of NSAID use. Also inc'd echogenicity is consistent with care home CKD) Consult Discharge Plan - Plan Referrals: NONE,PCP [Primary Care Provider] -
[2017-05-24] MEDS: Nystatin POWDER 30 GM BOTTLE TP SCH ×3 (11:48→22:33)
[2017-05-24] MEDS: (Calcium Carbonate/Vitamin D3 [Oyster Shell Calcium-V) PO SCH ×2 (11:51→21:33)
--- NOTE | 2017-05-24 14:46 | Internal Med Progress Note ---
Date of Encounter: 05/24/17 Time of Encounter: 14:44 - Assessment and plan (1) Acute encephalopathy Current Visit: Yes Status: Acute Assessment and plan: Details unclear but apparently presented from ECF with altered mental status. Patient says she woke up from sleep and was mixed up on her dates. No ECF staff available for collateral. Head CT nonacute, brain MRI without acute infarct or abnormality. Patient is known to me from previous admission and mentation appears to be at baseline. No obvious infectious or metabolic derangements. UDS negative. Hold on further workup at this time. (2) CKD (chronic kidney disease) stage 3, GFR 30-59 ml/min Current Visit: No Status: Chronic Assessment and plan: has known CKD. Now with acute on chronic kidney disease. Was evaluated by nephrology on previous admission who recommended outpatient follow-up; unclear if this has happened. Renal US evidence of medical renal disease, otherwise non -acute. Avoid nephrotoxic agents as able. IV fluids stopped. Renal function stable. Nephrology followed; C3, C4, PEDRO, U eos, check spot U P/C ration, SPEP and UPEP pending (3) HTN (hypertension) Current Visit: No Status: Chronic Assessment and plan: per hx. BP variable but acceptable. Continue home BP medication. Monitor BP and titrate PRN Qualifiers: Hypertension type: essential hypertension Qualified Code(s): I10 - Essential (primary) hypertension (4) Hypothyroid Current Visit: No Status: Chronic Assessment and plan: per hx. Cont home with levothyroxine. Qualifiers: Hypothyroidism type: unspecified Qualified Code(s): E03.9 - Hypothyroidism , unspecified (5) Seizure Current Visit: No Status: Suspected Assessment and plan: per hx. no evidence of seizure activity. Continue home Keppra (6) DVT prophylaxis Current Visit: No Status: Acute Assessment and plan: heparin - Subjective Interval history: Seen and examined at bedside; uneventful night. Sitting up in chair at bedside. She has no complaints. Awaiting pre-certification - Constitutional Vitals: Temp Pulse Resp BP Pulse Ox 98.1 F 64 18 157/76 97 05/24/17 11:50 05/24/17 11:50 05/24/17 11:50 05/24/17 11:50 05/24/17 11:50 General appearance: Present: A&O X 3, no acute distress - Head Head exam: Present: atraumatic, normocephalic - Eye Eye exam: Present: PERRL, conjuntiva pink, sclera anicteric Pupils: Present: PERRL - Neck Neck exam general surgery: Present: supple, trachea midline. Absent: lymphadenopathy - Respiratory Respiratory exam: Present: CTAB. Absent: accessory muscle use, rales, rhonchi, wheezes - Cardiovascular Cardiovascular exam: Present: RRR, +S1, +S2. Absent: diastolic murmur, gallop, rubs, systolic murmur - GI/Abdominal GI/Abdominal exam: Present: normal bowel sounds, soft, no peritoneal signs. Absent: distended, tenderness - Extremities Exam Extremities exam: Present: warm, radial pulses palpable and symmetrical. Absent : calf tenderness, cyanotic, pedal edema - Neurological Exam Neurological exam: Present: CN II-XII intact, oriented X3, no focal deficits. Absent: pronater drift, facial droop, speech deficit - Skin Skin exam: Present: dry, intact Internal Medicine: Result - Labs CBC & Chem 7: 05/20/17 04:30 05/24/17 08:01 Labs: BMP 05/24/17 08:01 Sodium 143 Potassium 4.1 Chloride 115 H Carbon Dioxide 27 BUN 32 H Creatinine 1.68 H Glucose 79 Calcium 8.9 - ABG Interpretation ABG results: PT/INR, D-dimer PT 10.9 Seconds (9.4-12.1) 05/19/17 11:28 Consult Discharge Plan - Plan Referrals: NONE,PCP [Primary Care Provider] -
[2017-05-25 01:26] LABS: Protein/Creatinine Ratio,Urine 0.74 mg/mg (0.00-0.20)
[2017-05-25] MEDS: Levothyroxine 25 MCG TABLET PO SCH (06:34)
[2017-05-25] MEDS: *HR* Heparin 5,000 UNIT/ML VIAL SQ SCH ×3 (06:34→20:30)
[2017-05-25] MEDS: risperiDONE 1 MG TABLET PO SCH ×2 (09:06→20:29)
[2017-05-25] MEDS: OLANZapine 5 MG TAB.RAPDIS PO SCH ×2 (09:06→20:29)
[2017-05-25] MEDS: Fenofibrate 54 MG TABLET PO SCH (09:07)
[2017-05-25] MEDS: amLODIPine 5 MG TABLET PO SCH (09:07)
[2017-05-25] MEDS: Aspirin Enteric Coated 81 MG Tablet PO SCH (09:07)
[2017-05-25] MEDS: BuPROPion XL (24 HR) 150 MG TABLET PO SCH (09:07)
[2017-05-25] MEDS: levETIRAcetam 250 MG TABLET PO SCH ×2 (09:07→20:29)
[2017-05-25] MEDS: Multivit/Ca/Min/Fe/FA 1 TAB TABLET PO SCH (09:07)
--- NOTE | 2017-05-25 09:53 | Event Note ---
Date of Encounter: 05/25/17 Time of Encounter: 09:51 Nephrology Chart Review Still pending lab draws today, New Years Day. Will reassess her tomorrow. Continue to follow a renal protective / conservative strategy. ALICIA
[2017-05-25] MEDS: Nystatin POWDER 30 GM BOTTLE TP SCH ×3 (09:57→20:36)
[2017-05-25] MEDS: (Calcium Carbonate/Vitamin D3 [Oyster Shell Calcium-V) PO SCH ×2 (09:58→20:20)
--- NOTE | 2017-05-25 15:58 | Internal Med Progress Note ---
Date of Encounter: 05/25/17 Time of Encounter: 15:56 - Assessment and plan (1) Acute encephalopathy Current Visit: Yes Status: Acute Assessment and plan: Details unclear but apparently presented from ECF with altered mental status. Patient says she woke up from sleep and was mixed up on her dates. No ECF staff available for collateral. Head CT nonacute, brain MRI without acute infarct or abnormality. Patient is known to me from previous admission and mentation appears to be at baseline. No obvious infectious or metabolic derangements. UDS negative. Hold on further workup at this time. (2) CKD (chronic kidney disease) stage 3, GFR 30-59 ml/min Current Visit: No Status: Chronic Assessment and plan: has known CKD. Now with acute on chronic kidney disease. Was evaluated by nephrology on previous admission who recommended outpatient follow-up; unclear if this has happened. Renal US evidence of medical renal disease, otherwise non -acute. Avoid nephrotoxic agents as able. IV fluids stopped. Renal function stable. Nephrology followed; C3, C4, PEDRO, U eos, check spot U P/C ration, SPEP and UPEP pending (3) HTN (hypertension) Current Visit: No Status: Chronic Assessment and plan: per hx. BP variable but acceptable. Continue home BP medication. Monitor BP and titrate PRN Qualifiers: Hypertension type: essential hypertension Qualified Code(s): I10 - Essential (primary) hypertension (4) Hypothyroid Current Visit: No Status: Chronic Assessment and plan: per hx. Cont home with levothyroxine. Qualifiers: Hypothyroidism type: unspecified Qualified Code(s): E03.9 - Hypothyroidism , unspecified (5) Seizure Current Visit: No Status: Suspected Assessment and plan: per hx. no evidence of seizure activity. Continue home Keppra (6) DVT prophylaxis Current Visit: No Status: Acute Assessment and plan: heparin - Time Spent With Patient less than 15 minutes - Subjective Interval history: Seen and examined at bedside; uneventful night. She has no complaints, says she slept well. Awaiting placement - Constitutional Vitals: Temp Pulse Resp BP Pulse Ox 98 F 66 17 127/65 92 05/25/17 15:52 05/25/17 15:52 05/25/17 15:52 05/25/17 15:52 05/25/17 15:52 General appearance: Present: A&O X 3, no acute distress - Head Head exam: Present: atraumatic, normocephalic - Eye Eye exam: Present: PERRL, conjuntiva pink, sclera anicteric Pupils: Present: PERRL - Neck Neck exam general surgery: Present: supple, trachea midline. Absent: lymphadenopathy - Respiratory Respiratory exam: Present: CTAB. Absent: accessory muscle use, rales, rhonchi, wheezes - Cardiovascular Cardiovascular exam: Present: RRR, +S1, +S2. Absent: diastolic murmur, gallop, rubs, systolic murmur - GI/Abdominal GI/Abdominal exam: Present: normal bowel sounds, soft, no peritoneal signs. Absent: distended, tenderness - Extremities Exam Extremities exam: Present: warm, radial pulses palpable and symmetrical. Absent : calf tenderness, cyanotic, pedal edema - Neurological Exam Neurological exam: Present: CN II-XII intact, oriented X3, no focal deficits. Absent: pronater drift, facial droop, speech deficit - Skin Skin exam: Present: dry, intact Internal Medicine: Result - Labs CBC & Chem 7: 05/20/17 04:30 05/24/17 08:01 - ABG Interpretation ABG results: PT/INR, D-dimer PT 10.9 Seconds (9.4-12.1) 05/19/17 11:28 Consult Discharge Plan - Plan Referrals: NONE,PCP [Primary Care Provider] -
[2017-05-26] MEDS: Levothyroxine 25 MCG TABLET PO SCH (05:48)
[2017-05-26] MEDS: *HR* Heparin 5,000 UNIT/ML VIAL SQ SCH ×2 (05:48→14:23)
[2017-05-26] MEDS: OLANZapine 5 MG TAB.RAPDIS PO SCH (08:46)
[2017-05-26] MEDS: Fenofibrate 54 MG TABLET PO SCH (08:47)
[2017-05-26] MEDS: risperiDONE 1 MG TABLET PO SCH (08:47)
[2017-05-26] MEDS: BuPROPion XL (24 HR) 150 MG TABLET PO SCH (08:48)
[2017-05-26] MEDS: Aspirin Enteric Coated 81 MG Tablet PO SCH (08:50)
[2017-05-26] MEDS: levETIRAcetam 250 MG TABLET PO SCH (08:50)
[2017-05-26] MEDS: Multivit/Ca/Min/Fe/FA 1 TAB TABLET PO SCH (08:50)
[2017-05-26] MEDS: amLODIPine 5 MG TABLET PO SCH (08:50)
[2017-05-26] MEDS: Nystatin POWDER 30 GM BOTTLE TP SCH ×2 (09:00→14:23)
[2017-05-26 11:18] VITALS: BP 145/78
[2017-05-26] MEDS: (Calcium Carbonate/Vitamin D3 [Oyster Shell Calcium-V) PO SCH (11:36)
--- NOTE | 2017-05-26 13:00 | Nephrology Progress Note ---
Date of Encounter: 05/26/17 Time of Encounter: 12:58 - Assessment and Plan (1) CKD (chronic kidney disease) stage 3, GFR 30-59 ml/min Current Visit: No Status: Chronic Stable CKD stage IIIB - IV with baseline GFR appearing to be in the low 30s and high 20s. GFR is 30 today which appears to be her baseline. She has good urine output. Serologies including [id number] DNA, ANCA as well as complements, SPEP and light chains are pending. The importance of follow-up was stressed upon the patient today and the patient should follow up in approximately 4 weeks in the outpatient clinic with Dr. Wade.continue to follow a renal protective strategy by avoiding nephrotoxins encouraging oral intake, and dosing medications by GFR. (2) HTN (hypertension) Current Visit: No Status: Chronic Blood pressure slightly elevated. Qualifiers: Qualified Code(s): I10 - Essential (primary) hypertension (3) Acute encephalopathy Current Visit: Yes Status: Resolved Further management per primary (4) Proteinuria Current Visit: Yes Status: Chronic Further workup pending as above. Qualifiers: Qualified Code(s): R80.1 - Persistent proteinuria, unspecified (5) Positive PEDRO (antinuclear antibody) Current Visit: Yes Status: Acute Further workup pending as above. Subjective Principal diagnosis: AMS Interval history: Patient seen and examined at bedside. She has no complaints at this time. She denies chest pain, shortness of breath, nausea, vomiting, diarrhea. Objective - Vital Signs Vital signs: Vital Signs Temp Pulse Resp BP Pulse Ox 05/26/17 11:17 97.6 F 62 14 145/78 95 05/26/17 07:40 98.2 F 62 14 143/77 95 05/26/17 03:30 98.4 F 62 16 146/73 94 05/25/17 23:19 97.4 F L 68 16 132/61 94 05/25/17 20:40 95 05/25/17 19:03 98.0 F 84 16 161/81 95 05/25/17 15:52 98 F 66 17 127/65 92 Intake and Output 05/25/17 05/26/17 05/26/17 23:59 07:59 15:59 Intake Total 0 / 0 240 / 240 Output Total 0 / 0 350 / 350 Balance 0 / 0 -110 / -110 Intake: Oral 0 / 0 240 / 240 Output: Urine 0 / 0 350 / 350 Other: Meal Breakfast Percent of Meal Consumed 100% Weight 72.484 kg Patient Weight 05/26/17 23:59 Weight 72.484 kg - General Appearance General appearance: Present: well-developed, appears started age EENT: Present: ATNC, mucous membranes moist Neck: Present: supple Respiratory: Present: clear Cardiology: Present: no murmurs, no rub, no gallops, no edema, regular rate, regular rhythm Gastrointestinal: Present: normoactive bowel sounds, no tenderness, no guarding Integumentary: Present: no rash, warm and dry Neurologic: Present: no focal deficit, alert and oriented x3 Musculoskeletal: Present: no erythema, no cyanosis, no clubbing - Lab 05/20/17 04:30 05/24/17 08:01 Most recent lab results Calcium 8.9 mg/dL (8.6-10.3) 05/24/17 08:01 Urine Creatinine 42 mg/dL 05/25/17 01:00 Urine Total Protein 31 mg/dL 05/25/17 01:00 Consult Discharge Plan - Plan Referrals: Jacob Wade MD [Partnered Physician] - (Please call for follow-up appointment within 4 weeks) NONE,PCP [Primary Care Provider] -
--- NOTE | 2017-05-26 14:15 | Discharge Summary ---
Date of Encounter: 05/26/17 Time of Encounter: 14:12 - Discharge Diagnosis (1) Acute encephalopathy Priority: Primary Status: Resolved Comments: Details unclear but apparently presented from ECF with altered mental status. Patient says she woke up from sleep and was mixed up on her dates. No ECF staff available for collateral. Head CT nonacute, brain MRI without acute infarct or abnormality. Patient is known to me from previous admission and mentation appears to be at baseline. No obvious infectious or metabolic derangements. UDS negative. Hold on further workup at this time. (2) CKD (chronic kidney disease) stage 3, GFR 30-59 ml/min Priority: Secondary Status: Chronic Comments: has known CKD. Now with acute on chronic kidney disease. Was evaluated by nephrology on previous admission who recommended outpatient follow-up; unclear if this has happened. Renal US evidence of medical renal disease, otherwise non -acute. Avoid nephrotoxic agents as able. IV fluids stopped. Renal function stable. Nephrology followed. Will need to follow-up with Dr. Wade in 4 weeks. (3) HTN (hypertension) Priority: Secondary Status: Chronic Comments: per hx. BP variable but acceptable. Continue home BP medication. BP can be monitored at ECF Qualifiers: Hypertension type: essential hypertension Qualified Code(s): I10 - Essential (primary) hypertension (4) Hypothyroid Priority: Secondary Status: Chronic Comments: per hx. Cont home with levothyroxine. Qualifiers: Hypothyroidism type: unspecified Qualified Code(s): E03.9 - Hypothyroidism , unspecified (5) Seizure Priority: Secondary Status: Chronic Comments: per hx. no evidence of seizure activity. Continue home Keppra - Discharge Medications Home Medications: Aspirin Enteric Coated [Aspirin EC] 81 mg PO DAILY 03/22/15 [History] Fenofibrate [Lofibra] 160 mg PO DAILY 03/22/15 [History] Bupropion HCl [Wellbutrin Xl] 300 mg PO DAILY 01/17/17 [History] Calcium Carbonate/Vitamin D3 [Oyster Shell Calcium-Vit D Tab] 1 tab PO BID 01/17 [History] Multivitamin [One Daily Essential] 1 tab PO DAILY 01/17/17 [History] OLANZapine [Zyprexa] 15 mg PO BID 01/17/17 [History] Sertraline [Zoloft] 100 mg PO DAILY 01/17/17 [History] risperiDONE [Risperidone] 4 mg PO BID 01/17/17 [History] LevETIRAcetam [Roweepra] 500 mg PO BID 04/09/17 [History] amLODIPine [Norvasc] 5 mg PO DAILY 04/09/17 [History] Allergies/Adverse Reactions: 3 Allergy/AdvReac Type Severity Reaction Status Date / Time No Known Allergies Allergy Verified 04/09/17 07:21 Procedures/tests Complete & Pending: Procedures Performed prior 72 hours Category Date Time Status EKG [ECG 12 lead ECG] [ECG] Stat Y 05/26/17 00:15 Completed Date of admission: 05/19/17 13:34 Primary care physician: PCP NONE Consults: 05/19/17 15:23 Consult to Security Business Analyst [CONS] Routine Reason for SW Consult: patient from ECF 05/22/17 10:12 Consult to Occupational Therapy [CONS] Routine Comment: Evaluate, develop and implement POC Reason for Consult: return to ecf Consult to Physical Therapy [CONS] Routine Comment: Evaluate, develop and implement POC Reason for Consult: return to ecf 05/24/17 07:37 Consult to Nephrology [CONS] Routine Consulting Provider: Kidney Ching/CHELSI/BERTRAND/YANG Reason for Consult: CKD Call Completed: Yes Discharging clinician: hSirley Mendez Anticipated date of discharge: 05/26/17 - Patient Status Disposition: Transfer SNF Condition: Good Functional capacity at discharge: uses cane/walker Overall status at discharge: patient is back to baseline - Discharge Instructions Follow Up With: NONE,PCP [Primary Care Provider] - Jacob Wade MD [Partnered Physician] - (Please call for follow-up appointment within 4 weeks) - Diet and Activity Activity: as per physical therapy Diet: advance to your usual diet Interval History: Seen and examined at bedside; sitting up in chair. Says she feels well, had an uneventful night. She has no complaints. She is aware of pleated discharged back to ECF today. Hospital course: See assessment and plan for hospital course - Time Spent with Patient Total time spent providing and/or coordinating discharge services: - Constitutional Vitals: Temp Pulse Resp BP Pulse Ox 97.6 F 62 14 145/78 95 05/26/17 11:17 05/26/17 11:17 01/02/18 11:17 05/26/17 11:17 05/26/17 11:17 General appearance: Present: A&O X 3, no acute distress - Head Head exam: Present: atraumatic, normocephalic - Eye Eye exam: Present: PERRL, conjuntiva pink, sclera anicteric Pupils: Present: PERRL - Neck Neck exam general surgery: Present: supple, trachea midline. Absent: lymphadenopathy - Respiratory Respiratory exam: Present: CTAB. Absent: accessory muscle use, rales, rhonchi, wheezes - Cardiovascular Cardiovascular exam: Present: RRR, +S1, +S2. Absent: diastolic murmur, gallop, rubs, systolic murmur - GI/Abdominal GI/Abdominal exam: Present: normal bowel sounds, soft, no peritoneal signs. Absent: distended, tenderness - Extremities Exam Extremities exam: Present: warm, radial pulses palpable and symmetrical. Absent : calf tenderness, cyanotic, pedal edema - Neurological Exam Neurological exam: Present: CN II-XII intact, oriented X3, no focal deficits. Absent: pronater drift, facial droop, speech deficit - Skin Skin exam: Present: dry, intact
--- NOTE | 2017-05-26 15:11 | Physician Discharge Referral ---
[facility] Referral Info Transfer To: [facility] Provider in Charge: Shirley Mendez CNP Provider in Charge after Transfer: PCP Institutional Level of Care: Skilled - Diagnosis (1) Acute encephalopathy Status: Resolved (2) CKD (chronic kidney disease) stage 3, GFR 30-59 ml/min Status: Chronic (3) HTN (hypertension) Status: Chronic (4) Hypothyroid Status: Chronic (5) Seizure Status: Chronic - Transfer Medications Home Medications: Aspirin Enteric Coated [Aspirin EC] 81 mg PO DAILY 03/22/15 [History] Fenofibrate [Lofibra] 160 mg PO DAILY 03/22/15 [History] Bupropion HCl [Wellbutrin Xl] 300 mg PO DAILY 01/17/17 [History] Calcium Carbonate/Vitamin D3 [Oyster Shell Calcium-Vit D Tab] 1 tab PO BID 01/17 [History] Multivitamin [One Daily Essential] 1 tab PO DAILY 01/17/17 [History] OLANZapine [Zyprexa] 15 mg PO BID 01/17/17 [History] Sertraline [Zoloft] 100 mg PO DAILY 01/17/17 [History] risperiDONE [Risperidone] 4 mg PO BID 01/17/17 [History] LevETIRAcetam [Roweepra] 500 mg PO BID 04/09/17 [History] amLODIPine [Norvasc] 5 mg PO DAILY 04/09/17 [History] Allergies/Adverse Reactions: 3 Allergy/AdvReac Type Severity Reaction Status Date / Time No Known Allergies Allergy Verified 04/09/17 07:21 - Respiratory Orders None Smoking Cessation: Smoking cessation has been advised. For more information, call the [place] Tobacco Quit Line at 1-955-IIAX-NOW. - Advance Directives Code Status: Full Code - Mobility Orders Ambulate - Rehabiliation Orders Rehab Potential: Good Rehab Orders: Evaluation for Physical Therapy, Evaluation for Occupational Therapy - Diet Orders Regular CERTIFICATION: I certify that the transfer of the above named patient to an Extended Care Facility is necessary for the continuing treatment of the diagnosis listed. The above information is true and accurate reflection of patient's current condition. Confidential - Redisclosure prohibited without a patient's written consent.
--- NOTE | 2017-05-26 17:08 | Electrocardiograph Report ---
[place] [id number] Test Date: 2017-05-26 Pat Name: Berenice Bynum Department: 113 Room: 3B41 Gender: F Tool Design Checker: : 1945 Requested By: Anand Youssef Order Number: [id number] Reading MD: Tung Rodriguez DO Measurements Intervals Craig Rate: 70 P: 59 WI: 197 QRS: -37 QRSD: 113 T: 40 QT: 404 QTc: 424 Interpretive Statements SINUS RHYTHM MARKED LEFT AXIS DEVIATION INTRAVENTRICULAR CONDUCTION DELAY NONSPECIFIC T-WAVE ABNORMALITY Electronically Signed On 05-26-2017 17:06:07 EST by Tung Rodriguez DO
[2017-05-27 07:46] LABS: Complement Component 3 97 mg/dL (88-201)
[2017-05-27 07:47] LABS: Complement Component 4 11 mg/dL (10-40)
[2017-05-27 13:10] LABS: Kappa Qnt Free Light Chains 4.42 mg/dL (0.33-1.94); Lambda Qnt Free Light Chains 2.32 mg/dL (0.57-2.63)
[2017-05-28 04:02] LABS: Alpha 2 Globulin (PEP) 0.47 g/dL (0.48-1.05); Beta Globulin (PEP) 0.67 g/dL (0.48-1.10)
[2017-05-28 08:15] LABS: Myeloperoxidase Ab 1 AU/mL (0-19); Serine Protease-3 Antibody 1 AU/mL (0-19)
[2017-05-28 08:19] LABS: IFE Reflexed NOT DONE
== END 2017-05-26 15:34 ==
LOC: EMEROO 11:11 → 3BNU 11:11
PROVIDERS: ADMIT Student in an Organized Health Care Education/Training Program; ATTEND Registered Nurse

== ENCOUNTER 2018-03-19 21:26 | Observation (INO) ==
--- NOTE | 2018-03-19 21:46 | Emergency Department Note ---
Disposition Clinical Impression: Elevated troponin, Confusion Disposition: Admitted As Inpatient Condition: Fair Forms: ED Satisfaction Letter Time of Disposition: 03:04 General Adult HPI - General Stated complaint: AMS Time Seen by Provider: 03/19/18 21:34 Nursing Notes Reviewed: Yes Vital Signs Reviewed: Yes - History of Present Illness HPI Narrative: 72-year-old female presents from intermediate via EMS for evaluation. Patient's chief complaint is lower back pain that has been ongoing for the past 2-3 days. Nothing noted to improve it. Worse at night when she lays down. No unusual weakness the bilateral lower extremities, incontinence of urine, constant bowel. No trauma. Per EMS, st[facility] intermediate called for a 2 week history of dwindling mentation with mention that she appeared altered today. EMS could not find the patient's nurse at the facility to obtain additional information. Patient's baseline is unknown. In route, she was afebrile with normal glycemia. PMH includes: Schizophrenia, CKD, history of UTI. ROS: Positive: As above Negative: Fever, chills, nausea, vomiting, chest pains, palpitations, dyspnea, diaphoresis, abdominal pain, dysuria, changes in bowel habits, weakness and confusion - Related Data Home Medications Medication Instructions Recorded Confirmed Bupropion HCl [Wellbutrin Xl] 300 mg PO DAILY 01/17/17 12/05/17 Calcium Carbonate/Vitamin D3 1 tab PO BID 01/17/17 12/05/17 [Oyster Shell Calcium-Vit D Tab] OLANZapine [Zyprexa] 15 mg PO BID 01/17/17 12/05/17 Sertraline [Zoloft] 100 mg PO DAILY 01/17/17 12/05/17 risperiDONE [Risperidone] 4 mg PO BID 01/17/17 12/05/17 LevETIRAcetam [Roweepra] 500 mg PO BID 04/09/17 12/05/17 amLODIPine [Norvasc] 5 mg PO DAILY 04/09/17 12/05/17 Acetaminophen [Tylenol] 650 mg PO Q6HR PRN 12/05/17 12/05/17 Aspirin [Adult Aspirin Regimen] 81 mg PO DAILY 12/05/17 12/05/17 Brimonidine Tartrate/Timolol 1 drop RIGHT EYE TID 12/05/17 12/05/17 [Combigan 0.2%-0.5% Eye Drops] GuaiFENesin/Dextromethorphan 10 ml PO Q6HR PRN 12/05/17 12/05/17 [Robitussin/Dm] Ketorolac Tromethamine 1 drop RIGHT EYE QID 12/05/17 12/05/17 Pravastatin Sodium [Pravachol] 20 mg PO DAILY 12/05/17 12/05/17 PrednisoLONE Acetate 1% Opth 1 drop RIGHT EYE QID 12/05/17 12/05/17 [PredFORTE 1%] Previous Rx's Medication Instructions Recorded Nystatin POWDER [Nystop] 1 appl TP TID PRN #0 bottle 12/06/17 Allergies Allergy/AdvReac Type Severity Reaction Status Date / Time No Known Allergies Allergy Verified 02/05/18 22:47 All systems ED: reviewed and negative except as stated. Review of Systems: As Per HPI Past Medical History - Past Medical History Medical history: Reports: hyperlipidemia, hypertension, thyroid disease, other Surgical history: Reports: cholecystectomy, orthopedic, other Psychiatric history: Reports: anxiety, depression, schizophrenia - Social History Smoking Status: Never smoker Smokeless Tobacco Status: No Alcohol use: Reports: none Drug use: Reports: none Physical Exam Vital Signs Reviewed General: Patient is alert, oriented, and in no acute distress. Head: atraumatic, normocephalic Eye: normal appearance, PERRL, EOMI, no scleral icterus, no conjunctival injection ENT: mucous membranes moist, normal external ear exam Neck: normal inspection, trachea midline, full ROM Chest: normal inspection, symmetric chest rise Respiratory: Good respiratory effort. Bilateral breath sounds are clear without wheezing, crackles, or rhonchi. Cardiovascular: Regular rate and rhythm. No clicks, rubs, gallops, or murmors. Normal heart sounds. Abdomen: Bowel sounds present normoactive x-4 quadrants. Abdomen is soft, nondistended, and nontender. No guarding or rebound. No CVA tenderness. Musculoskeletal: Spontaneously moving all extremities. No tenderness to midline or paraspinal palpation of the patient's C-spine, T-spine, L-spine. Skin: warm, dry, intact. Neuro: GCS 15. Alert and oriented x4 - patient answers questions quickly and appropriately about name, date of , location, situation. Sensation light touch intact. Psych: Patient's affect is appropriate for situation. Course Course Narrative: Urinalysis obtained by straight catheter. Foul smelling urine and brown per nursing staff. Concern is urinalysis does not appear to be infected. Will culture. Given the foul-smelling and brown appearance as well as patient's general smell of urine, will empirically cover for UTI with culture pending. We will recommend to the hospitalist antibiotic de-escalation once culture has resulted. Serum creatinine 2.32 which is on the high end of patient's baseline. BUN is elevated however this is consistent with patient's baseline. Mild hypernatremia. Troponin 0.06. The patient does have chronic kidney disease, she does not have a history of elevated troponin. No ischemic changes and EKG. Patient has no chest pain. I discussed the above with the admitting hospitalist, Dr. Simon. He agrees to accept the patient regarding continued evaluation of her troponin. We discussed my concern for her urinalysis versus the gross observation of the urine specimen. EKG dated 03/19/2018 at 21:48 interpreted as sinus rhythm with rate of 76. MT 200. QRS 107, QTC 508. Normal axis. Nonspecific ST-T changes. Compared to previous EKG dated 12/05/2017 showing no acute ischemic changes comparison. Vital Signs Temperature 97.9 F 03/19/18 21:52 Pulse Rate 72 03/19/18 21:52 Respiratory Rate 18 03/19/18 21:52 Blood Pressure 169/88 03/19/18 21:52 O2 Sat by Pulse Oximetry 98 03/19/18 21:52 Temperature 97.9 F 03/19/18 21:52 Pulse Rate 91 03/20/18 01:46 Respiratory Rate 20 03/20/18 02:44 Blood Pressure 160/78 03/20/18 02:44 O2 Sat by Pulse Oximetry 98 03/20/18 01:46 Oxygen Delivery Oxygen Delivery Room Air Medical Decision Making - Lab Data Result diagrams: 03/19/18 21:48 03/19/18 21:48 Lab Results 03/19/18 03/19/18 03/19/18 Range/Units 21:40 21:40 21:48 WBC 6.2 (4.3-11.1) K/mcL RBC 4.02 (3.82-4.97) M/mcL Hgb 11.6 (11.5-15.4) g/dL Hct 37.8 (35.3-44.9) % MCV 94.0 (83.0-100.0) fL MCH 28.9 (28.0-33.3) pg MCHC 30.7 L (31.6-35.5) g/dL RDW 13.2 (11.5-14.5) % Plt Count 214 (140-400) K/mcL MPV 9.8 (9.4-12.4) fL Immature Gran % 0.3 (0-4) % Seg Neutrophils % 56.9 % Lymphocytes % 20.4 % Monocytes % 16.4 % Eosinophils % 5.5 % Basophils % 0.5 % Neutrophils # 3.5 (1.6-8.9) K/mcL Lymphocytes # 1.3 (0.6-4.6) K/mcL Monocytes # 1.0 (0.0-1.3) K/mcL Eosinophils # 0.3 (0.0-0.6) K/mcL Basophils # 0.0 (0.0-0.2) K/mcL Sodium (136-145) mEq/L Potassium (3.5-5.1) mEq/L Chloride (98-107) mEq/L Carbon Dioxide (23-29) mEq/L BUN (8-23) mg/dL Creatinine (0.60-1.20) mg/dL Est GFR ( Amer) (> 60) Est GFR (Non-Af Amer) (> 60) BUN/Creatinine Ratio (6-26) Glucose (70-105) mg/dL Calculated Osmolality (280-300) Calcium (8.6-10.3) mg/dL Creatine Kinase (30-223) Units/L Troponin I (< 0.04) ng/mL B-Natriuretic Peptide (Less than 100) pg/mL Urine Color Yellow (Yellow) Urine Clarity Clear (Clear) Urine pH 6.0 (5.0-8.0) pH Units Ur Specific [place] 1.023 (1.010-1.025) Urine Protein >=300 H (Neg-Trace) mg/dL Urine Glucose (UA) Normal (Normal) mg/dL Urine Ketones Negative (Negative) mg/dL Urine Blood Trace H (Negative) Urine Nitrite Negative (Negative) Urine Bilirubin Negative (Negative) Urine Urobilinogen Normal (Normal) mg/dL Ur Leukocyte Esterase Negative (Negative) Urine Microscopic RBC 3-5 H (0-3) per hpf Urine Microscopic WBC 5-15 H (0-3) per hpf Ur Squamous Epith Cells Many H (None-Few) per lpf Amorphous Sediment Moderate H (Few) Urine Bacteria Few (None-Few) per hpf Hyaline Casts Few (None-Few) per lpf Ur Culture Indicated? NO (NO) Urine Opiates Screen Negative (Gonvrj=563) ng/mL Ur Barbiturates Screen Negative (Gsfsnf=085) ng/mL Ur Phencyclidine Scrn Negative (Cutoff=25) ng/mL Ur Amphetamines Screen Negative (Uavclx=2968) ng/mL U Benzodiazepines Scrn Negative (Rttxne=000) ng/mL Urine Cocaine Screen Negative (Cutoff= 300) ng/mL U Marijuana (THC) Screen Negative (Cutoff = 50) ng/mL Ur Drug Screen Interp See Below 03/19/18 03/19/18 Range/Units 21:48 21:48 WBC (4.3-11.1) K/mcL RBC (3.82-4.97) M/mcL Hgb (11.5-15.4) g/dL Hct (35.3-44.9) % MCV (83.0-100.0) fL MCH (28.0-33.3) pg MCHC (31.6-35.5) g/dL RDW (11.5-14.5) % Plt Count (140-400) K/mcL MPV (9.4-12.4) fL Immature Gran % (0-4) % Seg Neutrophils % % Lymphocytes % % Monocytes % % Eosinophils % % Basophils % % Neutrophils # (1.6-8.9) K/mcL Lymphocytes # (0.6-4.6) K/mcL Monocytes # (0.0-1.3) K/mcL Eosinophils # (0.0-0.6) K/mcL Basophils # (0.0-0.2) K/mcL Sodium 147 H (136-145) mEq/L Potassium 4.3 (3.5-5.1) mEq/L Chloride 110 H (98-107) mEq/L Carbon Dioxide 31 H (23-29) mEq/L BUN 40 H (8-23) mg/dL Creatinine 2.32 H (0.60-1.20) mg/dL Est GFR ( Amer) 25 L (> 60) Est GFR (Non-Af Amer) 21 L (> 60) BUN/Creatinine Ratio 17 (6-26) Glucose 112 H (70-105) mg/dL Calculated Osmolality 315 H (280-300) Calcium 11.4 H (8.6-10.3) mg/dL Creatine Kinase 124 (30-223) Units/L Troponin I 0.06 H* (< 0.04) ng/mL B-Natriuretic Peptide 40 (Less than 100) pg/mL Urine Color (Yellow) Urine Clarity (Clear) Urine pH (5.0-8.0) pH Units Ur Specific [place] (1.010-1.025) Urine Protein (Neg-Trace) mg/dL Urine Glucose (UA) (Normal) mg/dL Urine Ketones (Negative) mg/dL Urine Blood (Negative) Urine Nitrite (Negative) Urine Bilirubin (Negative) Urine Urobilinogen (Normal) mg/dL Ur Leukocyte Esterase (Negative) Urine Microscopic RBC (0-3) per hpf Urine Microscopic WBC (0-3) per hpf Ur Squamous Epith Cells (None-Few) per lpf Amorphous Sediment (Few) Urine Bacteria (None-Few) per hpf Hyaline Casts (None-Few) per lpf Ur Culture Indicated? (NO) Urine Opiates Screen (Xvejmg=155) ng/mL Ur Barbiturates Screen (Yrsjzi=472) ng/mL Ur Phencyclidine Scrn (Cutoff=25) ng/mL Ur Amphetamines Screen (Etshft=4235) ng/mL U Benzodiazepines Scrn (Ojqliz=359) ng/mL Urine Cocaine Screen (Cutoff= 300) ng/mL U Marijuana (THC) Screen (Cutoff = 50) ng/mL Ur Drug Screen Interp
[2018-03-19 21:54] LABS: Bilirubin,Urine Negative (Negative); Blood,Urine Trace (Negative); Clarity,Urine Clear (Clear); Color,Urine Yellow (Yellow); Glucose,Urine (UA) Normal (Normal); Ketones,Urine Negative (Negative); Leukocyte Esterase,Urine Negative (Negative); Nitrite,Urine Negative (Negative); Protein,Urine >=300 mg/dL (Neg-Trace); Specific Gravity,Urine 1.023 (1.010-1.025); Urobilinogen,Urine Normal (Normal)
[2018-03-19 21:56] LABS: Squamous Epithelial Cell,Urine Many per lpf (None-Few)
[2018-03-19 22:02] LABS: Amphetamine Screen,Urine Negative ng/mL (Cutoff=1000); Barbiturate Screen,Urine Negative ng/mL (Cutoff=200); Benzodiazepines Screen,Urine Negative ng/mL (Cutoff=200); Cannabinoid Screen,Urine Negative ng/mL (Cutoff = 50); Cocaine Screen,Urine Negative ng/mL (Cutoff= 300); Opiate Screen,Urine Negative ng/mL (Cutoff=300); Phencyclidine Screen,Urine Negative ng/mL (Cutoff=25)
[2018-03-19 22:06] LABS: Basophils % 0.5 %; Eosinophils # 0.3 K/mcL (0.0-0.6); Eosinophils % 5.5 %; Hematocrit 37.8 % (35.3-44.9); Hemoglobin 11.6 g/dL (11.5-15.4); Immature Granulocytes % 0.3 % (0-4); Lymphocytes # 1.3 K/mcL (0.6-4.6); Lymphocytes % 20.4 %; Mean Corpuscular HGB Conc 30.7 g/dL (31.6-35.5); Mean Corpuscular Hemoglobin 28.9 pg (28.0-33.3); Mean Platelet Volume 9.8 fL (9.4-12.4); Monocytes % 16.4 %; Neutrophils # 3.5 K/mcL (1.6-8.9); Platelet Count 214 K/mcL (140-400); Red Blood Count 4.02 M/mcL (3.82-4.97); Red Cell Distribution Width 13.2 % (11.5-14.5); Segmented Neutrophils % 56.9 %
[2018-03-19 22:07] LABS: Bacteria,Urine Few per hpf (None-Few); Hyaline Casts,Urine Few per lpf (None-Few)
[2018-03-19 22:08] LABS: Amorphous Sediment,Urine Moderate (Few)
[2018-03-19 22:19] LABS: Calcium 11.4 mg/dL (8.6-10.3); Potassium 4.3 mEq/L (3.5-5.1)
[2018-03-19 22:24] LABS: Troponin I 0.06 ng/mL (< 0.04)
[2018-03-19] MEDS ORDERED: Aspirin 325 MG TABLET PO ONE (22:24)
--- NOTE | 2018-03-19 22:50 | Emergency Department Note ---
Disposition Clinical Impression: Elevated troponin, Confusion Disposition: Admitted As Inpatient Condition: Fair General Adult HPI - General Chief complaint: ED Altered Mental Status Stated complaint: AMS Time Seen by Provider: 03/19/18 21:34 Source: patient, EMS Limitations: no limitations Nursing Notes Reviewed: Yes Vital Signs Reviewed: Yes - History of Present Illness Pain Scale: 4 - Related Data Home Medications Medication Instructions Recorded Confirmed Bupropion HCl [Wellbutrin Xl] 300 mg PO DAILY 01/17/17 12/05/17 Calcium Carbonate/Vitamin D3 1 tab PO BID 01/17/17 12/05/17 [Oyster Shell Calcium-Vit D Tab] OLANZapine [Zyprexa] 15 mg PO BID 01/17/17 12/05/17 Sertraline [Zoloft] 100 mg PO DAILY 01/17/17 12/05/17 risperiDONE [Risperidone] 4 mg PO BID 01/17/17 12/05/17 LevETIRAcetam [Roweepra] 500 mg PO BID 04/09/17 12/05/17 amLODIPine [Norvasc] 5 mg PO DAILY 04/09/17 12/05/17 Acetaminophen [Tylenol] 650 mg PO Q6HR PRN 12/05/17 12/05/17 Aspirin [Adult Aspirin Regimen] 81 mg PO DAILY 12/05/17 12/05/17 Brimonidine Tartrate/Timolol 1 drop RIGHT EYE TID 12/05/17 12/05/17 [Combigan 0.2%-0.5% Eye Drops] GuaiFENesin/Dextromethorphan 10 ml PO Q6HR PRN 12/05/17 12/05/17 [Robitussin/Dm] Ketorolac Tromethamine 1 drop RIGHT EYE QID 12/05/17 12/05/17 Pravastatin Sodium [Pravachol] 20 mg PO DAILY 12/05/17 12/05/17 PrednisoLONE Acetate 1% Opth 1 drop RIGHT EYE QID 12/05/17 12/05/17 [PredFORTE 1%] Previous Rx's Medication Instructions Recorded Nystatin POWDER [Nystop] 1 appl TP TID PRN #0 bottle 12/06/17 Allergies Allergy/AdvReac Type Severity Reaction Status Date / Time No Known Allergies Allergy Verified 02/05/18 22:47 Past Medical History - Past Medical History Medical history: Reports: hyperlipidemia, hypertension, thyroid disease, other Surgical history: Reports: cholecystectomy, orthopedic, other Psychiatric history: Reports: anxiety, depression, schizophrenia - Social History Smoking Status: Never smoker Smokeless Tobacco Status: No Alcohol use: Reports: none Drug use: Reports: none Physical Exam - General Limitations: no limitations General appearance: alert Course Vital Signs Temperature 97.9 F 03/19/18 21:52 Pulse Rate 72 03/19/18 21:52 Respiratory Rate 18 03/19/18 21:52 Blood Pressure 169/88 03/19/18 21:52 O2 Sat by Pulse Oximetry 98 03/19/18 21:52 Temperature 97.5 F L 03/20/18 03:03 Pulse Rate 75 03/20/18 03:03 Respiratory Rate 18 03/20/18 03:03 Blood Pressure 172/81 03/20/18 03:03 O2 Sat by Pulse Oximetry 95 03/20/18 03:03 Oxygen Delivery Oxygen Delivery Room Air Medical Decision Making - Medical Records Medical records reviewed: Yes I reviewed the patient's medical records. - Lab Data Lab results reviewed: Yes I reviewed the patient's lab results. Result diagrams: 03/19/18 21:48 03/19/18 21:48 Lab Results 03/19/18 03/19/18 03/19/18 Range/Units 21:40 21:40 21:48 WBC 6.2 (4.3-11.1) K/mcL RBC 4.02 (3.82-4.97) M/mcL Hgb 11.6 (11.5-15.4) g/dL Hct 37.8 (35.3-44.9) % MCV 94.0 (83.0-100.0) fL MCH 28.9 (28.0-33.3) pg MCHC 30.7 L (31.6-35.5) g/dL RDW 13.2 (11.5-14.5) % Plt Count 214 (140-400) K/mcL MPV 9.8 (9.4-12.4) fL Immature Gran % 0.3 (0-4) % Seg Neutrophils % 56.9 % Lymphocytes % 20.4 % Monocytes % 16.4 % Eosinophils % 5.5 % Basophils % 0.5 % Neutrophils # 3.5 (1.6-8.9) K/mcL Lymphocytes # 1.3 (0.6-4.6) K/mcL Monocytes # 1.0 (0.0-1.3) K/mcL Eosinophils # 0.3 (0.0-0.6) K/mcL Basophils # 0.0 (0.0-0.2) K/mcL Sodium (136-145) mEq/L Potassium (3.5-5.1) mEq/L Chloride (98-107) mEq/L Carbon Dioxide (23-29) mEq/L BUN (8-23) mg/dL Creatinine (0.60-1.20) mg/dL Est GFR ( Amer) (> 60) Est GFR (Non-Af Amer) (> 60) BUN/Creatinine Ratio (6-26) Glucose (70-105) mg/dL Calculated Osmolality (280-300) Calcium (8.6-10.3) mg/dL Creatine Kinase (30-223) Units/L Troponin I (< 0.04) ng/mL B-Natriuretic Peptide (Less than 100) pg/mL Urine Color Yellow (Yellow) Urine Clarity Clear (Clear) Urine pH 6.0 (5.0-8.0) pH Units Ur Specific [place] 1.023 (1.010-1.025) Urine Protein >=300 H (Neg-Trace) mg/dL Urine Glucose (UA) Normal (Normal) mg/dL Urine Ketones Negative (Negative) mg/dL Urine Blood Trace H (Negative) Urine Nitrite Negative (Negative) Urine Bilirubin Negative (Negative) Urine Urobilinogen Normal (Normal) mg/dL Ur Leukocyte Esterase Negative (Negative) Urine Microscopic RBC 3-5 H (0-3) per hpf Urine Microscopic WBC 5-15 H (0-3) per hpf Ur Squamous Epith Cells Many H (None-Few) per lpf Amorphous Sediment Moderate H (Few) Urine Bacteria Few (None-Few) per hpf Hyaline Casts Few (None-Few) per lpf Ur Culture Indicated? NO (NO) Urine Opiates Screen Negative (Jvgjpb=422) ng/mL Ur Barbiturates Screen Negative (Mafqzc=646) ng/mL Ur Phencyclidine Scrn Negative (Cutoff=25) ng/mL Ur Amphetamines Screen Negative (Llmhhb=8632) ng/mL U Benzodiazepines Scrn Negative (Rlzgpy=866) ng/mL Urine Cocaine Screen Negative (Cutoff= 300) ng/mL U Marijuana (THC) Screen Negative (Cutoff = 50) ng/mL Ur Drug Screen Interp See Below 03/19/18 03/19/18 Range/Units 21:48 21:48 WBC (4.3-11.1) K/mcL RBC (3.82-4.97) M/mcL Hgb (11.5-15.4) g/dL Hct (35.3-44.9) % MCV (83.0-100.0) fL MCH (28.0-33.3) pg MCHC (31.6-35.5) g/dL RDW (11.5-14.5) % Plt Count (140-400) K/mcL MPV (9.4-12.4) fL Immature Gran % (0-4) % Seg Neutrophils % % Lymphocytes % % Monocytes % % Eosinophils % % Basophils % % Neutrophils # (1.6-8.9) K/mcL Lymphocytes # (0.6-4.6) K/mcL Monocytes # (0.0-1.3) K/mcL Eosinophils # (0.0-0.6) K/mcL Basophils # (0.0-0.2) K/mcL Sodium 147 H (136-145) mEq/L Potassium 4.3 (3.5-5.1) mEq/L Chloride 110 H (98-107) mEq/L Carbon Dioxide 31 H (23-29) mEq/L BUN 40 H (8-23) mg/dL Creatinine 2.32 H (0.60-1.20) mg/dL Est GFR ( Amer) 25 L (> 60) Est GFR (Non-Af Amer) 21 L (> 60) BUN/Creatinine Ratio 17 (6-26) Glucose 112 H (70-105) mg/dL Calculated Osmolality 315 H (280-300) Calcium 11.4 H (8.6-10.3) mg/dL Creatine Kinase 124 (30-223) Units/L Troponin I 0.06 H* (< 0.04) ng/mL B-Natriuretic Peptide 40 (Less than 100) pg/mL Urine Color (Yellow) Urine Clarity (Clear) Urine pH (5.0-8.0) pH Units Ur Specific [place] (1.010-1.025) Urine Protein (Neg-Trace) mg/dL Urine Glucose (UA) (Normal) mg/dL Urine Ketones (Negative) mg/dL Urine Blood (Negative) Urine Nitrite (Negative) Urine Bilirubin (Negative) Urine Urobilinogen (Normal) mg/dL Ur Leukocyte Esterase (Negative) Urine Microscopic RBC (0-3) per hpf Urine Microscopic WBC (0-3) per hpf Ur Squamous Epith Cells (None-Few) per lpf Amorphous Sediment (Few) Urine Bacteria (None-Few) per hpf Hyaline Casts (None-Few) per lpf Ur Culture Indicated? (NO) Urine Opiates Screen (Knwipp=969) ng/mL Ur Barbiturates Screen (Jivxqj=897) ng/mL Ur Phencyclidine Scrn (Cutoff=25) ng/mL Ur Amphetamines Screen (Zgshni=2729) ng/mL U Benzodiazepines Scrn (Ucnezk=994) ng/mL Urine Cocaine Screen (Cutoff= 300) ng/mL U Marijuana (THC) Screen (Cutoff = 50) ng/mL Ur Drug Screen Interp - Radiology Data Radiology results reviewed: Yes I reviewed the patient's radiology results. Chest X-Ray 03/19/18 21:35 IMPRESSION: Minimal pulmonary edema. D/ / 03/19/2018 22:31:31 Rosendo Frederick MD / [facility] Interpreting Provider: Rosendo Frederick MD Lumbar Spine X-Ray 03/19/18 21:35 IMPRESSION: 1. No acute osseous abnormality of the lumbar spine. 2. Grade 1 anterolisthesis of L4 on L5. 3. Mild multilevel degenerative disc disease. D/ / Rosendo Brooks MD / Rosendo Brooks MD Interpreting Provider: Rosendo Brooks MD Head CT 03/19/18 23:11 IMPRESSION: Redemonstration of a large right frontal meningioma which creates mass-effect upon the right frontal lobe, resulting in reactive edema, and mild right to left shift. These findings are unchanged when compared to the previous exam. No acute abnormality identified. D/ / Dustin Monteiro MD / Dustin Monteiro MD Interpreting Provider: Dustin Monteiro MD - EKG Data EKG #1 EKG attestation: Yes I reviewed and interpreted this EKG. EKG results narrative: EKG shows a normal sinus rhythm with ventricular rate is 76. No acute ST segment elevation or depression. Attestation Statement - Attestation Attestation: I, Mason Tam MD, personally evaluated this patient and discussed their management with the resident physician. I reviewed the resident's note and agree with the documented findings, medical decision making, and plan of care. 72-year-old female presents to the emergency department by embolus from a local [facility]. [facility] felt the patient was more confused than usual. Here in the emergency department the patient is awake and alert and answers questions. She complains of some diffuse lower back pain for several days. She denies fever. No chest pain or shortness of breath. No cough. No abdominal pain. No vomiting or diarrhea. On examination patient is a well-developed well-nourished elderly female in no acute distress. She is alert and cooperative. No cyanosis or diaphoresis. Breath sounds are clear and equal bilaterally. Heart regular rate and rhythm. Abdomen soft and nontender with normal bowel sounds. No CVA tenderness. Labs reviewed. Troponin elevated at 0.06. Although patient does have chronic kidney disease her previous troponins have always been negative. No acute changes on EKG. Chest x-ray showed mild pulmonary edema. Head CT negative. The hospitalist, Dr. Simon, was consulted and accepted admission of the patient .
[2018-03-20] MEDS ORDERED: Naloxone 0.4 MG/ML INJ IVP PRN (03:04)
[2018-03-20] MEDS ORDERED: Nystatin POWDER 30 GM BOTTLE TP PRN (05:08)
[2018-03-20] MEDS ORDERED: traMADol 50 MG TABLET PO PRN (05:08)
[2018-03-20] MEDS: *HR* Heparin 5,000 UNIT/ML VIAL SQ SCH ×3 (05:50→20:35)
--- NOTE | 2018-03-20 05:54 | Internal Med History&Physical ---
Date of Encounter: 03/20/18 Time of Encounter: 05:51 Internal Medicine - H&P: HPI Chief complaint: AMS/Elevated Troponin History of present illness: Ms. Bynum is a 72 year old female with a past medical history of seizures, CKD, hypothyroidism, depression, schizophrenia and hypertension who was sent from her senior care due to mental status changes. Nursing staff at the home felt the patient was more confused than usual. Initial assessment on the patient to be over awake and alert and responding appropriately to questions. She did complain of diffuse lower back pain which had been ongoing for the past several days. Patient denies any fever or chills, chest pain, shortness of breath, nausea, vomiting or diarrhea. CT scan of the lumbar spine showed only degenerative changes. Her labs were relatively unremarkable except for elevated creatinine, mild hypernatremia and an elevated troponin of 0.06. EKG was unremarkable and chest x-ray showed mild pulmonary edema. Patient admitted for altered mental status and elevated troponin. 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 Psychiatric history: anxiety, depression, schizophrenia - Past Surgical History Surgical History: cholecystectomy, orthopedic, other Additional surgical history: left ankle sx years ago - Social History Smoking Status: Never smoker Smokeless Tobacco Status: No Alcohol use: none Drug use: none - Family History Mother Living Status: Hx Family Cardiac Disorders: Yes Hx Family Respiratory Disorders: No Hx Family Cancer: No Hx Family GI Disorders: No Hx Family Endocrine Disorder: No Hx Family Neuromuscular Disorders: Yes (dementia) Hx Family Neurologic Disorders: No Hx Family HEENT Disorders: No Hx Family Autoimmune Disorders: No Father Living Status: Hx Family Neurologic Disorders: Yes (dementia) Internal Medicine - H&P: Meds Bupropion HCl [Wellbutrin Xl] 300 mg PO DAILY 01/17/17 [History] OLANZapine [Zyprexa] 15 mg PO BID 01/17/17 [History] risperiDONE [Risperidone] 4 mg PO BID 01/17/17 [History] LevETIRAcetam [Roweepra] 500 mg PO BID 04/09/17 [History] Acetaminophen [Tylenol] 650 mg PO Q6HR PRN 12/05/17 [History] Aspirin [Adult Aspirin Regimen] 81 mg PO DAILY 12/05/17 [History] Brimonidine Tartrate/Timolol [Combigan 0.2%-0.5% Eye Drops] 1 drop RIGHT EYE BID 12/05/17 [History] GuaiFENesin/Dextromethorphan [Robitussin/Dm] 10 ml PO Q6HR PRN 12/05/17 [Hist ory] Pravastatin Sodium [Pravachol] 20 mg PO HS 12/05/17 [History] Ammonium Lactate [Patricia-Hydrolac] 1 appl TP BID 03/20/18 [History] Nystatin POWDER [Nystop] 1 appl TP BID PRN 03/20/18 [History] Tramadol HCl [Ultram] 50 mg PO QID PRN 03/20/18 [History] amLODIPine [Norvasc] 10 mg PO DAILY 30 Days #60 tablet 03/21/18 [Rx] Allergy/AdvReac Type Severity Reaction Status Date / Time No Known Allergies Allergy Verified 02/05/18 22:47 All Systems PM: A 10-system review of systems was performed and is negative for pertinent findings except as documented above in the HPI. - Constitutional Constitutional: no chills, no fever(s), no night sweats - EENT Eyes: no change in vision, no discharge, no pain, no photophobia Ears: no ear discharge, no ear pain, no tinnitus Nose, mouth and throat: no dysphagia, no nasal discharge, no neck pain, no sore throat - Cardiovascular Cardiovascular ROS IM: no chest pain, no diaphoresis, no dyspnea, no lightheadedness, no palpitations, no syncope - Respiratory Respiratory: no cough, no dyspnea, no wheezing, no excessive phlegm production - Gastrointestinal Gastrointestinal: no abdominal pain, no diarrhea, no hematemesis, no hematochezia, no melena, no nausea, no vomiting - Genitourinary Genitourinary: no change in urinary stream, no dysuria, no flank pain, no hematuria - Musculoskeletal Musculoskeletal ROS IM: no numbness, no tingling - Integumentary Integumentary IM: no rash, no unusual bruising - Neurological Neurological ROS: no confusion, no convulsions, no focal weakness, no numbness, no tingling, no tremor(s) - Hematologic/Lymphatic Hematologic/Lymphatic: no easy bruising - Constitutional Vitals: Temp Pulse Resp BP Pulse Ox 97.5 F L 75 18 172/81 95 03/20/18 03:03 03/20/18 03:03 03/20/18 03:03 03/20/18 03:03 03/20/18 03:03 Exam: General: Alert and oriented 3 Skin:Normal color, no rash, no lesions. HEENT:EOM, pupils equal, round and reactive. Cardiovascular:Normal S1 & S2, no rubs, murmurs or gallops. No JVD. Pulse regular. Lungs:Normal breath sounds, no wheezes or crackles. Abdomen:Soft, non-tender, no rigidity. Extremities:No deformity, no edema or tenderness, no joint swelling or clubbing. Neurological:Normal cognition and motor skills. Pulses:Carotid and radial pulses normal +2. Rest of the physical exam is non contributory Internal Med - H&P Results - Labs CBC & Chem 7: 03/21/18 04:49 03/21/18 04:49 Labs: Short CBC 03/19/18 Range/Units 21:48 WBC 6.2 (4.3-11.1) K/mcL Hgb 11.6 (11.5-15.4) g/dL Hct 37.8 (35.3-44.9) % Plt Count 214 (140-400) K/mcL Neutrophils # 3.5 (1.6-8.9) K/mcL BMP 03/19/18 21:48 Sodium 147 H Potassium 4.3 Chloride 110 H Carbon Dioxide 31 H BUN 40 H Creatinine 2.32 H Glucose 112 H Calcium 11.4 H Cardiac Enzymes 03/19/18 Range/Units 21:48 Troponin I 0.06 H* (< 0.04) ng/mL Urine 03/19/18 Range/Units 21:40 Urine Color Yellow (Yellow) Urine Clarity Clear (Clear) Urine pH 6.0 (5.0-8.0) pH Units Ur Specific [place] 1.023 (1.010-1.025) Urine Protein >=300 H (Neg-Trace) mg/dL Urine Glucose (UA) Normal (Normal) mg/dL - Impressions ITS Impressions Chest X-Ray 03/19/18 21:35 IMPRESSION: Minimal pulmonary edema. D/ / 03/19/2018 22:31:31 Rosendo Frederick MD / noé Interpreting Provider: Rosendo Frederick MD Lumbar Spine X-Ray 03/19/18 21:35 IMPRESSION: 1. No acute osseous abnormality of the lumbar spine. 2. Grade 1 anterolisthesis of L4 on L5. 3. Mild multilevel degenerative disc disease. D/ / Rosendo Brooks MD / Rosendo Brooks MD Interpreting Provider: Rosendo Brooks MD Head CT 03/19/18 23:11 IMPRESSION: Redemonstration of a large right frontal meningioma which creates mass-effect upon the right frontal lobe, resulting in reactive edema, and mild right to left shift. These findings are unchanged when compared to the previous exam. No acute abnormality identified. D/ / Dustin Monteiro MD / Dustin Monteiro MD Interpreting Provider: Dustin Monteiro MD - Assessment and plan (1) Altered mental status Status: Acute Assessment and plan: Patient somewhat somnolent on my exam, but did wake up. She is alert oriented 3, able to answer questions and follow commands. Work up for her encephalopathy in the ER has been normal. Head CT showed no acute intracranial abnormalities, chest x-ray showed mild pulmonary edema. No source of infection at this point. Her urinalysis did not indicate infection but was reported to be very foul- smelling. Urine cultures were sent regardless. No significant metabolic derangements though her creatinine does appear to be towards the upper limit of her baseline and the patient is mildly hypernatremic. Patient is on several psychiatric medications which may be contributing to her current clinical picture. Continue to monitor We will give her one bag of D5 half-normal saline Hold meds, especially sedating meds. Consider MRI. Physical therapy consult Qualifiers: Altered mental status type: disorientation Qualified Code(s): R41.0 - Disorientation, unspecified (2) Elevated troponin Status: Acute Assessment and plan: Elevated troponin in the setting of chronic kidney disease though when compared to previous troponin levels this one is higher than previous measurements. Patient did not endorse any chest pain. EKG was normal. Telemetry We will trend for now. Consider stress testing if patient remains clinically stable. (3) Acute on chronic renal insufficiency Status: Acute Assessment and plan: Patient's creatinine towards the upper limit of her baseline. We will give one bag of D5 half-normal saline. Reassess in the morning. (4) Hypernatremia Status: Acute Assessment and plan: Mild hyponatremia with a sodium of 147. Will give patient D5 half-normal saline. Reassess. (5) HTN (hypertension) Status: Chronic Qualifiers: Hypertension type: unspecified Qualified Code(s): I10 - Essential (primary) hypertension (6) Back pain Status: Acute Assessment and plan: Likely chronic. CT scan of the lumbar spine shows no acute osseous abnormality of the lumbar spine with Grade 1 anteriolisthesis of L4 on L5, and mild multilevel degenerative degenerative disc disease. Non-narcotic pain control for now. Qualifiers: Back pain location: low back pain Chronicity: chronic Back pain laterality: midline Sciatica presence: without sciatica Qualified Code(s): M54.5 - Low back pain; G89.29 - Other chronic pain (7) Schizophrenia Status: Chronic Assessment and plan: Holding patient's psych meds due to altered mental status. Qualifiers: Schizophrenia type: unspecified Qualified Code(s): F20.9 - Schizophrenia, unspecified (8) DVT prophylaxis Status: Acute Assessment and plan: Heparin subcutaneous - Time Spent With Patient Total time spent is greater than 50% in coordination of care (as documented) at patient's floor/unit and/or counseling patient:
[2018-03-20 05:58] LABS: Basophils % 0.7 %; Eosinophils # 0.4 K/mcL (0.0-0.6); Eosinophils % 6.7 %; Hematocrit 35.1 % (35.3-44.9); Hemoglobin 10.8 g/dL (11.5-15.4); Immature Granulocytes % 0.4 % (0-4); Lymphocytes # 1.3 K/mcL (0.6-4.6); Lymphocytes % 22.7 %; Mean Corpuscular HGB Conc 30.8 g/dL (31.6-35.5); Mean Corpuscular Volume 94.4 fL (83.0-100.0); Mean Platelet Volume 9.4 fL (9.4-12.4); Monocytes % 17.5 %; Neutrophils # 2.9 K/mcL (1.6-8.9); Platelet Count 195 K/mcL (140-400); Red Blood Count 3.72 M/mcL (3.82-4.97); Red Cell Distribution Width 13.1 % (11.5-14.5)
[2018-03-20 06:21] LABS: Albumin 3.1 g/dL (3.5-5.7); Albumin/Globulin Ratio 1.2 (1.1-2.2); Bilirubin,Total 0.3 mg/dL (0.3-1.0); Calcium 10.9 mg/dL (8.6-10.3); Globulin 2.6 g/dL (2.4-3.5); Potassium 3.9 mEq/L (3.5-5.1); Total Protein 5.7 g/dL (6.4-8.9)
[2018-03-20 06:24] LABS: Troponin I 0.05 ng/mL (< 0.04)
[2018-03-20] MEDS ORDERED: D5% in 0.45% NACL 1,000 ML IVC SCH (06:30)
[2018-03-20] MEDS ORDERED: risperiDONE 1 MG TABLET PO SCH (09:00)
[2018-03-20] MEDS ORDERED: amLODIPine 5 MG TABLET PO SCH (09:00)
[2018-03-20] MEDS ORDERED: OLANZapine 5 MG TAB.RAPDIS PO SCH (09:00)
[2018-03-20] MEDS: levETIRAcetam 250 MG TABLET PO SCH ×2 (09:15→20:35)
[2018-03-20] MEDS: Aspirin Enteric Coated 81 MG Tablet PO SCH (09:15)
[2018-03-20] MEDS: BuPROPion XL (24 HR) 150 MG TABLET PO SCH (09:16)
[2018-03-20] MEDS: Ketorolac OPTH Soln 5 ML BOTTLE RIGHT EYE SCH ×4 (09:18→20:36)
[2018-03-20] MEDS ORDERED: amLODIPine 5 MG TABLET PO ONE (11:15)
--- NOTE | 2018-03-20 11:22 | Internal Med Progress Note ---
Hospitalist Progress Note - Encounter Date of Encounter: 03/20/18 Time of Encounter: 09:00 - Subjective Interval History: Pt is still confused, oriented to place only, denies "any hurt". denies SOB/CP/N/V. - Exam Vitals: Temp Pulse Resp BP Pulse Ox 97.5 F L 63 19 175/85 91 03/20/18 07:16 03/20/18 07:16 03/20/18 07:16 03/20/18 07:16 03/20/18 07:16 Exam: General: Alert and oriented 3 Skin:Normal color, no rash, no lesions. HEENT:EOM, pupils equal, round and reactive. Cardiovascular:Normal S1 & S2, no rubs, murmurs or gallops. No JVD. Pulse regular. Lungs:Normal breath sounds, no wheezes or crackles. Abdomen:Soft, non-tender, no rigidity. Extremities:No deformity, no edema or tenderness, no joint swelling or clubbing. Neurological:Normal cognition and motor skills. Pulses:Carotid and radial pulses normal +2. Rest of the physical exam is non contributory - Assessment and Plan (1) HTN (hypertension) Current Visit: No Status: Chronic Assessment and Plan: Increased home meds amlodipine to 10 mg po daily as BP is high. Hydralazine iv PRN. (2) Schizophrenia Current Visit: No Status: Chronic Assessment and Plan: Holding patient's psych meds due to altered mental status at this point, may resume when her general condition improves. (3) Altered mental status Current Visit: No Status: Acute Assessment and Plan: Pt is somnolent, oriented [address] Don't know her baseline mental status. - CT head negative, pt move 4 limbs - No signs of infection to explain AMS so far, abd CT negative. - Pt has signs of dehydration, with hypernatremia, elevated Cr. Will cont IVF. - Hypercalcemia noticed, cont IVF and repeat calcium with PTHi in AM (4) Acute on chronic renal insufficiency Current Visit: No Status: Acute Assessment and Plan: Patient's creatinine towards the upper limit of her baseline. We will give one bag of D5 half-normal saline. (5) Elevated troponin Current Visit: Yes Status: Acute Assessment and Plan: Elevated troponin in the setting of chronic kidney disease though when compared to previous troponin levels this one is higher than previous measurements. Patient did not endorse any chest pain. EKG was normal. Telemetry Three sets of troponin 0.06-0.05-0.04, consider demand ischemia. (6) Back pain Current Visit: Yes Status: Acute Assessment and Plan: Likely chronic. CT scan of the lumbar spine shows no acute osseous abnormality of the lumbar spine with Grade 1 anteriolisthesis of L4 on L5, and mild multilevel degenerative degenerative disc disease. Non-narcotic pain control for now. (7) Hypernatremia Current Visit: Yes Status: Acute Assessment and Plan: Mild hyponatremia with a sodium of 147. Will give patient D5 half-normal saline. Reassess. (8) DVT prophylaxis Current Visit: Yes Status: Acute Assessment and Plan: Heparin subcutaneous (9) Hypercalcemia Current Visit: Yes Status: Acute Assessment and Plan: Calcium 10.9 on albumin 3.1, corrected Calcium 11.62. - Dehydration or other causes of hypercalcemia - Cont IVF - Repeat Ca in AM with PTHi DVT Prophylaxis: heparin sc - Time Spent with Patient Total time spent is greater than 50% in coordination of care (as documented) at patient's floor/unit and/or counseling patient: 30 min 25 - 35 minutes Plan of Care Discussed with: nurse Internal Medicine: Result - Labs CBC & Chem 7: 03/20/18 05:33 03/20/18 05:33 Labs: Short CBC 03/19/18 03/20/18 Range/Units 21:48 05:33 WBC 6.2 5.5 (4.3-11.1) K/mcL Hgb 11.6 10.8 L (11.5-15.4) g/dL Hct 37.8 35.1 L (35.3-44.9) % Plt Count 214 195 (140-400) K/mcL Neutrophils # 3.5 2.9 (1.6-8.9) K/mcL BMP 03/19/18 03/20/18 21:48 05:33 Sodium 147 H 148 H Potassium 4.3 3.9 Chloride 110 H 111 H Carbon Dioxide 31 H 31 H BUN 40 H 37 H Creatinine 2.32 H 2.29 H Glucose 112 H 84 Calcium 11.4 H 10.9 H Cardiac Enzymes 03/19/18 03/20/18 03/20/18 Range/Units 21:48 05:33 09:47 Troponin I 0.06 H* 0.05 H* 0.04 H* (< 0.04) ng/mL Liver Function 03/20/18 Range/Units 05:33 Total Bilirubin 0.3 (0.3-1.0) mg/dL AST 17 (13-39) Units/L ALT 9 (7-52) Units/L Alkaline Phosphatase 57 (34-104) Units/L Albumin 3.1 L (3.5-5.7) g/dL Urine 03/19/18 Range/Units 21:40 Urine Color Yellow (Yellow) Urine Clarity Clear (Clear) Urine pH 6.0 (5.0-8.0) pH Units Ur Specific [place] 1.023 (1.010-1.025) Urine Protein >=300 H (Neg-Trace) mg/dL Urine Glucose (UA) Normal (Normal) mg/dL - Impressions Impressions Chest X-Ray 03/19/18 21:35 IMPRESSION: Minimal pulmonary edema. D/ / 03/19/2018 22:31:31 Rosendo Frederick MD / noé Interpreting Provider: Rosendo Frederick MD Lumbar Spine X-Ray 03/19/18 21:35 IMPRESSION: 1. No acute osseous abnormality of the lumbar spine. 2. Grade 1 anterolisthesis of L4 on L5. 3. Mild multilevel degenerative disc disease. D/ / Rosendo Brooks MD / Rosendo Brooks MD Interpreting Provider: Rosendo Brooks MD Head CT 03/19/18 23:11 IMPRESSION: Redemonstration of a large right frontal meningioma which creates mass-effect upon the right frontal lobe, resulting in reactive edema, and mild right to left shift. These findings are unchanged when compared to the previous exam. No acute abnormality identified. D/ / Dustin Monteiro MD / Dustin Monteiro MD Interpreting Provider: Dustin Monteiro MD Abdomen/Pelvis CT 03/20/18 09:29 IMPRESSION: 1. No acute abnormality. D/ / Bakari Magdaleno MD / Bakari Magdaleno MD Interpreting Provider: Bakari Magdaleno MD Consult Discharge Plan - Plan Referrals: NONE,PCP [Primary Care Provider] - (1) HTN (hypertension) Qualifiers: Hypertension type: essential hypertension (2) Schizophrenia Qualifiers: Schizophrenia type: unspecified Qualified Code(s): F20.9 - Schizophrenia, unspecified (3) Altered mental status Qualifiers: Altered mental status type: disorientation Qualified Code(s): R41.0 - Disorientation, unspecified (6) Back pain Qualifiers: Back pain location: low back pain Chronicity: chronic Back pain laterality: midline Sciatica presence: without sciatica Qualified Code(s): M54.5 - Low back pain; G89.29 - Other chronic pain
[2018-03-20] MEDS: Acetaminophen 325 MG TABLET PO PRN ×2 (15:22→23:29)
[2018-03-20] MEDS: D5% in 0.45% NACL 1,000 ML IVC SCH ×2 (16:09→23:32)
[2018-03-21 05:44] LABS: Basophils % 0.6 %; Eosinophils # 0.3 K/mcL (0.0-0.6); Eosinophils % 6.1 %; Hematocrit 32.6 % (35.3-44.9); Hemoglobin 10.2 g/dL (11.5-15.4); Immature Granulocytes % 0.2 % (0-4); Lymphocytes % 21.5 %; Mean Corpuscular HGB Conc 31.3 g/dL (31.6-35.5); Mean Corpuscular Hemoglobin 29.3 pg (28.0-33.3); Mean Corpuscular Volume 93.7 fL (83.0-100.0); Mean Platelet Volume 9.8 fL (9.4-12.4); Monocytes # 0.7 K/mcL (0.0-1.3); Monocytes % 14.4 %; Neutrophils # 2.7 K/mcL (1.6-8.9); Platelet Count 187 K/mcL (140-400); Red Blood Count 3.48 M/mcL (3.82-4.97); Red Cell Distribution Width 13.2 % (11.5-14.5); Segmented Neutrophils % 57.2 %
[2018-03-21 06:06] LABS: Albumin 2.9 g/dL (3.5-5.7); Albumin/Globulin Ratio 1.1 (1.1-2.2); Bilirubin,Total 0.2 mg/dL (0.3-1.0); Calcium 9.5 mg/dL (8.6-10.3); Globulin 2.6 g/dL (2.4-3.5); Potassium 3.6 mEq/L (3.5-5.1); Total Protein 5.5 g/dL (6.4-8.9)
[2018-03-21] MEDS: *HR* Heparin 5,000 UNIT/ML VIAL SQ SCH (07:30)
[2018-03-21 07:31] VITALS: BP 177/73
[2018-03-21] MEDS: BuPROPion XL (24 HR) 150 MG TABLET PO SCH (08:06)
[2018-03-21] MEDS: levETIRAcetam 250 MG TABLET PO SCH (08:06)
[2018-03-21] MEDS: Aspirin Enteric Coated 81 MG Tablet PO SCH (08:06)
[2018-03-21] MEDS: D5% in 0.45% NACL 1,000 ML IVC SCH (08:07)
[2018-03-21] MEDS: Ketorolac OPTH Soln 5 ML BOTTLE RIGHT EYE SCH (08:08)
[2018-03-21] MEDS ORDERED: amLODIPine 5 MG TABLET PO SCH (09:00)
--- NOTE | 2018-03-21 09:45 | Discharge Summary ---
- NOTES TO OUTPATIENT PROVIDER Notes to Outpatient Provider: 1. Pt's calcium level at high side, will hold home meds calcium/vit D3 at this point, follow up with PCP to determined when to restart. 2. Amlodipine has been increased to 10 mg po daily because BP is high, please f/u BP. Orders not resulted at time of discharge: Pending orders 03/19/18 21:35 ECG 12 lead ECG [ECG] Stat Date of Encounter: 03/21/18 Time of Encounter: 09:00 - Discharge Diagnosis (1) Schizophrenia Priority: Secondary Status: Chronic Qualifiers: Schizophrenia type: unspecified Qualified Code(s): F20.9 - Schizophrenia, unspecified (2) Altered mental status Priority: Primary Status: Acute Qualifiers: Altered mental status type: disorientation Qualified Code(s): R41.0 - Disorientation, unspecified (3) Acute on chronic renal insufficiency Priority: Secondary Status: Acute (4) Elevated troponin Priority: Primary Status: Acute (5) Back pain Priority: Secondary Status: Acute Qualifiers: Back pain location: low back pain Chronicity: chronic Back pain laterality: midline Sciatica presence: without sciatica Qualified Code(s): M54.5 - Low back pain; G89.29 - Other chronic pain (6) Hypernatremia Priority: Primary Status: Acute (7) DVT prophylaxis Priority: Secondary Status: Acute (8) Hypercalcemia Priority: Primary Status: Acute (9) Dehydration Priority: Primary Status: Acute (10) HTN (hypertension) Priority: Secondary Status: Acute Qualifiers: Hypertension type: essential hypertension Qualified Code(s): I10 - Essential (primary) hypertension Hospital course: Ms. Bynum is a 72 year old female present to ER for AMS and confusions. Pt has no signs of infection but found hypernatremia and hypercalcemia. She was considered dehydration and was treated with IVF. After treatment, her mental status has improved. Pt is AAO x 3 this AM. Her hypernatremia and hypercalcemie has improved as well. Pt has good appetite and eating/drinking well. Her PTHi is appropriately inhibited (26 on calcium 9.5), not suggestive for primary hyperparathyroidism and hypercalcemia is considered due to dehydration. Will discharge pt back to [facility] today. Will recommend hold home meds calcium/vit D at this point b/o hypercalcemia. I have seen and examined pt today. Pt is more awake, alert, oriented x 3. Vitals stable. Stable to discharge back to [facility]. - Time Spent with Patient Total time spent providing and/or coordinating discharge services: 30 min Less than 30 minutes - Discharge Medications Prescriptions: amLODIPine [Norvasc] 10 mg PO DAILY 30 Days #60 tablet Home Medications: Bupropion HCl [Wellbutrin Xl] 300 mg PO DAILY 01/17/17 [History] OLANZapine [Zyprexa] 15 mg PO BID 01/17/17 [History] risperiDONE [Risperidone] 4 mg PO BID 01/17/17 [History] LevETIRAcetam [Roweepra] 500 mg PO BID 04/09/17 [History] Acetaminophen [Tylenol] 650 mg PO Q6HR PRN 12/05/17 [History] Aspirin [Adult Aspirin Regimen] 81 mg PO DAILY 12/05/17 [History] Brimonidine Tartrate/Timolol [Combigan 0.2%-0.5% Eye Drops] 1 drop RIGHT EYE BID 12/05/17 [History] GuaiFENesin/Dextromethorphan [Robitussin/Dm] 10 ml PO Q6HR PRN 12/05/17 [History] Pravastatin Sodium [Pravachol] 20 mg PO HS 12/05/17 [History] Ammonium Lactate [Patricia-Hydrolac] 1 appl TP BID 03/20/18 [History] Nystatin POWDER [Nystop] 1 appl TP BID PRN 03/20/18 [History] Tramadol HCl [Ultram] 50 mg PO QID PRN 03/20/18 [History] amLODIPine [Norvasc] 10 mg PO DAILY 30 Days #60 tablet 03/21/18 [Rx] Allergies/Adverse Reactions: Allergy/AdvReac Type Severity Reaction Status Date / Time No Known Allergies Allergy Verified 02/05/18 22:47 Date of admission: 03/20/18 01:39 Primary care physician: PCP NONE Consults: 03/20/18 06:19 Consult to Physical Therapy [CONS] Routine Comment: Evaluate, develop and implement POC Reason for Consult: Deconditioning Does patient have active BEDREST order?: Yes Is patient medically & hemodynamically stable?: Yes Discharging clinician: Miles Flood Anticipated date of discharge: 03/21/18 - Constitutional Vitals: Temp Pulse Resp BP Pulse Ox 97.5 F L 73 19 177/73 94 03/21/18 07:30 03/21/18 07:30 03/21/18 07:30 03/21/18 07:30 03/21/18 07:30 General appearance: Present: A&O X 3, no acute distress, answers questions appropriately Exam: in NAD - Head Head exam: Present: atraumatic, normocephalic - Eye Eye exam: Present: PERRL, conjuntiva pink, sclera anicteric Pupils: Present: PERRL - Neck Neck exam general surgery: Present: supple, trachea midline. Absent: lymphadenopathy - Respiratory Respiratory exam: Present: CTAB. Absent: accessory muscle use, rales, rhonchi, wheezes - Cardiovascular Cardiovascular exam: Present: RRR, +S1, +S2. Absent: diastolic murmur, gallop, rubs, systolic murmur - GI/Abdominal GI/Abdominal exam: Present: normal bowel sounds, soft, no peritoneal signs. Absent: distended, tenderness - Extremities Exam Extremities exam: Present: warm, radial pulses palpable and symmetrical. Absent: calf tenderness, cyanotic, pedal edema - Neurological Exam Neurological exam: Present: CN II-XII intact, oriented X3, no focal deficits. Absent: pronater drift, facial droop, speech deficit - Skin Skin exam: Present: dry, intact - Patient Status Disposition: Transfer SNF Condition: Fair Overall status at discharge: patient is back to baseline - Discharge Instructions Follow Up With: NONE,PCP [Primary Care Provider] - Forms: ED Satisfaction Letter - Diet and Activity Activity: as per physical therapy Diet: low fat, low cholesterol, low salt diet
--- NOTE | 2018-03-21 10:01 | Physician Discharge Referral ---
ExtendedCare Referral Info Transfer To: F Provider in Charge after Transfer: Other (F physician) - Diagnosis (1) Schizophrenia Status: Chronic (2) Altered mental status Status: Acute (3) Acute on chronic renal insufficiency Status: Acute (4) Elevated troponin Status: Acute (5) Back pain Status: Acute (6) Hypernatremia Status: Acute (7) DVT prophylaxis Status: Acute (8) Hypercalcemia Status: Acute (9) Dehydration Status: Acute (10) HTN (hypertension) Status: Acute - Transfer Medications Prescriptions: amLODIPine [Norvasc] 10 mg PO DAILY 30 Days #60 tablet Home Medications: Bupropion HCl [Wellbutrin Xl] 300 mg PO DAILY 01/17/17 [History] OLANZapine [Zyprexa] 15 mg PO BID 01/17/17 [History] risperiDONE [Risperidone] 4 mg PO BID 01/17/17 [History] LevETIRAcetam [Roweepra] 500 mg PO BID 04/09/17 [History] Acetaminophen [Tylenol] 650 mg PO Q6HR PRN 12/05/17 [History] Aspirin [Adult Aspirin Regimen] 81 mg PO DAILY 12/05/17 [History] Brimonidine Tartrate/Timolol [Combigan 0.2%-0.5% Eye Drops] 1 drop RIGHT EYE BID 12/05/17 [History] GuaiFENesin/Dextromethorphan [Robitussin/Dm] 10 ml PO Q6HR PRN 12/05/17 [History] Pravastatin Sodium [Pravachol] 20 mg PO HS 12/05/17 [History] Ammonium Lactate [Patricia-Hydrolac] 1 appl TP BID 03/20/18 [History] Nystatin POWDER [Nystop] 1 appl TP BID PRN 03/20/18 [History] Tramadol HCl [Ultram] 50 mg PO QID PRN 03/20/18 [History] amLODIPine [Norvasc] 10 mg PO DAILY 30 Days #60 tablet 03/21/18 [Rx] Allergies/Adverse Reactions: Allergy/AdvReac Type Severity Reaction Status Date / Time No Known Allergies Allergy Verified 02/05/18 22:47 - Respiratory Orders Smoking Cessation: Smoking cessation has been advised. For more information, call the [place] Tobacco Quit Line at 5-330-KXHK-NOW. - Advance Directives Code Status: Full Code - Rehabiliation Orders Rehab Orders: Evaluation for Physical Therapy, Evaluation for Occupational Therapy - Diet Orders Cardiac CERTIFICATION: I certify that the transfer of the above named patient to an Extended Care Facility is necessary for the continuing treatment of the diagnosis listed. The above information is true and accurate reflection of patient's current condition. Confidential - Redisclosure prohibited without a patient's written consent.
--- NOTE | 2018-03-26 09:59 | Electrocardiograph Report ---
[address] [address] Test Date: 2018-03-19 Pat Name: Berenice Bynum Department: [id number] Room: 2A12 Gender: F [employer] Inter[employer]: : 1945 Requested By: Rashad Willoughby Order Number: [id number] Reading MD: Tung Rodriguez Measurements Intervals [place] Rate: 76 P: 69 MD: 200 QRS: -28 QRSD: 107 T: 49 QT: 451 QTc: 508 Interpretive Statements Sinus rhythm Borderline left axis deviation Prolonged QT interval Electronically Signed On 03-26-2018 9:57:43 EDT by Tung Rodriguez
== END 2018-03-21 11:05 ==
LOC: 2ANU 21:26 → EMEROOARM 21:26 → 2ANU 03-20 02:45
PROVIDERS: ADMIT Internal Medicine; ATTEND Internal Medicine

== ENCOUNTER 2018-06-22 21:51 | Observation (INO) ==
--- NOTE | 2018-06-22 22:13 | Emergency Department Note ---
Disposition Clinical Impression: Weakness HTN (hypertension) Qualifiers: Hypertension type: unspecified Qualified Code(s): I10 - Essential (primary) hypertension Altered mental status Qualifiers: Altered mental status type: somnolence Qualified Code(s): R40.0 - Somnolence Disposition: Admitted As Inpatient Condition: Fair Forms: ED Satisfaction Letter Time of Disposition: 23:21 General Adult HPI - General Chief complaint: ED Neuro Symptoms/Deficit Stated complaint: AMS/ poss stroke Time Seen by Provider: 06/22/18 21:52 Source: patient, EMS Mode of arrival: EMS Limitations: altered mental status Nursing Notes Reviewed: Yes Vital Signs Reviewed: Yes - History of Present Illness HPI Narrative: 73 yo female presents via EMS from the long-term with the chief complaint of altered mental status and strokelike symptoms. The patient is a poor historian stating she has felt tired all day. She thinks she may have had a stroke in the past but does not remember if she had any deficits from this. She is also complaining of some lower abdominal pain. She does not remember if she took any of her medications today. She does not know her other medical problems. She does not have any complaints other than the fatigue and abdominal pain. The patient is full code. - Related Data Home Medications Medication Instructions Recorded Confirmed Bupropion HCl [Wellbutrin Xl] 300 mg PO DAILY 01/17/17 03/20/18 OLANZapine [Zyprexa] 15 mg PO BID 01/17/17 03/20/18 risperiDONE [Risperidone] 4 mg PO BID 01/17/17 03/20/18 levETIRAcetam [Roweepra] 500 mg PO BID 04/09/17 03/20/18 Acetaminophen [Tylenol] 650 mg PO Q6HR PRN 12/05/17 03/20/18 Aspirin [Adult Aspirin Regimen] 81 mg PO DAILY 12/05/17 03/20/18 Brimonidine Tartrate/Timolol 1 drop RIGHT EYE BID 12/05/17 03/20/18 [Combigan 0.2%-0.5% Eye Drops] GuaiFENesin/Dextromethorphan 10 ml PO Q6HR PRN 12/05/17 03/20/18 [Robitussin/Dm] Pravastatin Sodium [Pravachol] 20 mg PO HS 12/05/17 03/20/18 Ammonium Lactate [Patricia-Hydrolac] 1 appl TP BID 03/20/18 03/20/18 Nystatin POWDER [Nystop] 1 appl TP BID PRN 03/20/18 03/20/18 Tramadol HCl [Ultram] 50 mg PO QID PRN 03/20/18 03/20/18 Allergies Allergy/AdvReac Type Severity Reaction Status Date / Time No Known Allergies Allergy Verified 02/05/18 22:47 Review of Systems: As Per HPI Limitations: ROS unobtainable due to patients medical condition Past Medical History - Past Medical History Medical history: Reports: hyperlipidemia, hypertension, thyroid disease, other Surgical history: Reports: cholecystectomy, orthopedic, other Psychiatric history: Reports: anxiety, depression, schizophrenia - Social History Smoking Status: Never smoker Smokeless Tobacco Status: No Alcohol use: Reports: none Drug use: Reports: none Physical Exam Patient has slight right-sided lower facial weakness. Her right arm is weaker than her left. She is able to move all extremities and follow commands. She is alert and oriented 3 but sleepy on exam. - General Limitations: altered mental status - Head Head exam: atraumatic, normocephalic - Eye Eye exam: Present: normal appearance, PERRL, EOMI - Chest Chest inspection: Present: normal inspection, symmetric chest wall rise - Respiratory Respiratory exam: Present: normal lung sounds bilaterally - Cardiovascular Cardiovascular exam: Present: regular rate, normal rhythm - Abdominal Exam Abdominal exam: Present: soft, tenderness. Absent: distention, guarding, rebound, rigidity Abdominal tenderness: Present: suprapubic, mild - Neurological Exam Neurological exam: Present: motor sensory deficit - Psychiatric Psychiatric exam: Present: flat affect - Skin Skin exam: Present: warm, dry, intact Course Vital Signs Temperature 98.4 F 06/22/18 22:11 Pulse Rate 68 06/22/18 22:11 Respiratory Rate 16 06/22/18 22:11 Blood Pressure 183/93 06/22/18 22:11 O2 Sat by Pulse Oximetry 95 06/22/18 22:11 Temperature 97.8 F 06/22/18 22:51 Pulse Rate 65 06/22/18 22:51 Respiratory Rate 20 06/22/18 22:51 Blood Pressure 205/88 06/22/18 22:51 O2 Sat by Pulse Oximetry 99 06/22/18 22:51 Oxygen Delivery Oxygen Delivery Nasal Cannula Medical Decision Making - MDM Narrative Medical decision making narrative: This patient presents with altered mental status and some right-sided weakness. We will do a workup including CBC, BMP, LFTs, TSH, lipase, lactic, urinalysis, EKG, troponin, chest x-ray, CT head without contrast. 2320 - Lab work is at the patient's baseline. CXR and CT head do not reveal any acute processes. We will admit the patient for BP control and further workup for altered mental status. - Medical Records Medical records reviewed: Yes I reviewed the patient's medical records. - Lab Data Lab results reviewed: Yes I reviewed the patient's lab results. Result diagrams: 06/22/18 22:34 06/22/18 22:34 Lab Results 06/22/18 06/22/18 06/22/18 Range/Units 22:34 22:34 22:34 WBC 5.6 (4.3-11.1) K/mcL RBC 3.97 (3.82-4.97) M/mcL Hgb 11.8 (11.5-15.4) g/dL Hct 37.9 (35.3-44.9) % MCV 95.5 (83.0-100.0) fL MCH 29.7 (28.0-33.3) pg MCHC 31.1 L (31.6-35.5) g/dL RDW 13.3 (11.5-14.5) % Plt Count 218 (140-400) K/mcL MPV 9.5 (9.4-12.4) fL Immature Gran % 0.2 (0-4) % Seg Neutrophils % 57.1 % Lymphocytes % 20.7 % Monocytes % 14.6 % Eosinophils % 7.0 % Basophils % 0.4 % Neutrophils # 3.2 (1.6-8.9) K/mcL Lymphocytes # 1.2 (0.6-4.6) K/mcL Monocytes # 0.8 (0.0-1.3) K/mcL Eosinophils # 0.4 (0.0-0.6) K/mcL Basophils # 0.0 (0.0-0.2) K/mcL PT 10.4 (9.4-12.1) Seconds INR 0.9 APTT 32.2 (26.0-36.0) Seconds Sodium 142 (136-145) mEq/L Potassium 4.5 (3.5-5.1) mEq/L Chloride 108 H (98-107) mEq/L Carbon Dioxide 29 (23-29) mEq/L BUN 40 H (8-23) mg/dL Creatinine 2.86 H (0.60-1.20) mg/dL Est GFR ( Amer) 20 L (> 60) Est GFR (Non-Af Amer) 16 L (> 60) BUN/Creatinine Ratio 14 (6-26) Glucose 104 (70-105) mg/dL Calculated Osmolality 304 H (280-300) Lactic Acid (0.5-2.2) mmol/L Calcium 10.6 H (8.6-10.3) mg/dL Total Bilirubin 0.4 (0.3-1.0) mg/dL Direct Bilirubin 0.0 (0.0-0.2) mg/dL Indirect Bilirubin 0.4 (0.0-1.2) mg/dL AST 15 (13-39) Units/L ALT 6 L (7-52) Units/L Alkaline Phosphatase 53 (34-104) Units/L Ammonia (16-53) mcmol/L Troponin I < 0.03 (< 0.04) ng/mL Serum Total Protein 6.1 L (6.4-8.9) g/dL Albumin 3.2 L (3.5-5.7) g/dL Globulin 2.9 (2.4-3.5) g/dL Albumin/Globulin Ratio 1.1 (1.1-2.2) Lipase 36 (11-82) Units/L Urine Color (Yellow) Urine Clarity (Clear) Urine pH (5.0-8.0) pH Units Ur Specific [place] (1.010-1.025) Urine Protein (Neg-Trace) mg/dL Urine Glucose (UA) (Normal) mg/dL Urine Ketones (Negative) mg/dL Urine Blood (Negative) Urine Nitrite (Negative) Urine Bilirubin (Negative) Urine Urobilinogen (Normal) mg/dL Ur Leukocyte Esterase (Negative) Urine Microscopic RBC (0-3) per hpf Urine Microscopic WBC (0-3) per hpf Ur Culture Indicated? (NO) 06/22/18 06/22/18 06/22/18 Range/Units 22:34 22:34 22:51 WBC (4.3-11.1) K/mcL RBC (3.82-4.97) M/mcL Hgb (11.5-15.4) g/dL Hct (35.3-44.9) % MCV (83.0-100.0) fL MCH (28.0-33.3) pg MCHC (31.6-35.5) g/dL RDW (11.5-14.5) % Plt Count (140-400) K/mcL MPV (9.4-12.4) fL Immature Gran % (0-4) % Seg Neutrophils % % Lymphocytes % % Monocytes % % Eosinophils % % Basophils % % Neutrophils # (1.6-8.9) K/mcL Lymphocytes # (0.6-4.6) K/mcL Monocytes # (0.0-1.3) K/mcL Eosinophils # (0.0-0.6) K/mcL Basophils # (0.0-0.2) K/mcL PT (9.4-12.1) Seconds INR APTT (26.0-36.0) Seconds Sodium (136-145) mEq/L Potassium (3.5-5.1) mEq/L Chloride (98-107) mEq/L Carbon Dioxide (23-29) mEq/L BUN (8-23) mg/dL Creatinine (0.60-1.20) mg/dL Est GFR ( Amer) (> 60) Est GFR (Non-Af Amer) (> 60) BUN/Creatinine Ratio (6-26) Glucose (70-105) mg/dL Calculated Osmolality (280-300) Lactic Acid 0.7 (0.5-2.2) mmol/L Calcium (8.6-10.3) mg/dL Total Bilirubin (0.3-1.0) mg/dL Direct Bilirubin (0.0-0.2) mg/dL Indirect Bilirubin (0.0-1.2) mg/dL AST (13-39) Units/L ALT (7-52) Units/L Alkaline Phosphatase (34-104) Units/L Ammonia 48 (16-53) mcmol/L Troponin I (< 0.04) ng/mL Serum Total Protein (6.4-8.9) g/dL Albumin (3.5-5.7) g/dL Globulin (2.4-3.5) g/dL Albumin/Globulin Ratio (1.1-2.2) Lipase (11-82) Units/L Urine Color Yellow (Yellow) Urine Clarity Clear (Clear) Urine pH 7.0 (5.0-8.0) pH Units Ur Specific [place] 1.009 L (1.010-1.025) Urine Protein >=300 H (Neg-Trace) mg/dL Urine Glucose (UA) Normal (Normal) mg/dL Urine Ketones Negative (Negative) mg/dL Urine Blood Trace H (Negative) Urine Nitrite Negative (Negative) Urine Bilirubin Negative (Negative) Urine Urobilinogen Normal (Normal) mg/dL Ur Leukocyte Esterase Negative (Negative) Urine Microscopic RBC 3-5 H (0-3) per hpf Urine Microscopic WBC 0-3 (0-3) per hpf Ur Culture Indicated? NO (NO) - Radiology Data Radiology results reviewed: Yes I reviewed the patient's radiology results. - EKG Data EKG #1 EKG attestation: Yes I reviewed and interpreted this EKG. EKG results narrative: EKG obtained at 22:01 on 06/22/2018 Heart rate 70 bpm, VA interval 197, QRS duration 111, QTC 468, QTC 505 Sinus rhythm with idioventricular conduction delay. No significant ST segment elevations or depressions. No signs of arrhythmia. No old EKG for comparison.
[2018-06-22 22:49] LABS: Basophils % 0.4 %; Eosinophils # 0.4 K/mcL (0.0-0.6); Hematocrit 37.9 % (35.3-44.9); Hemoglobin 11.8 g/dL (11.5-15.4); Immature Granulocytes % 0.2 % (0-4); Lymphocytes # 1.2 K/mcL (0.6-4.6); Lymphocytes % 20.7 %; Mean Corpuscular HGB Conc 31.1 g/dL (31.6-35.5); Mean Corpuscular Hemoglobin 29.7 pg (28.0-33.3); Mean Corpuscular Volume 95.5 fL (83.0-100.0); Mean Platelet Volume 9.5 fL (9.4-12.4); Monocytes # 0.8 K/mcL (0.0-1.3); Monocytes % 14.6 %; Neutrophils # 3.2 K/mcL (1.6-8.9); Platelet Count 218 K/mcL (140-400); Red Blood Count 3.97 M/mcL (3.82-4.97); Red Cell Distribution Width 13.3 % (11.5-14.5); Segmented Neutrophils % 57.1 %
[2018-06-22 22:56] LABS: INR 0.9; Prothrombin Time 10.4 Seconds (9.4-12.1)
[2018-06-22 22:59] LABS: Activated Partial Thrombo Time 32.2 Seconds (26.0-36.0)
[2018-06-22 23:03] LABS: Bilirubin,Urine Negative (Negative); Blood,Urine Trace (Negative); Clarity,Urine Clear (Clear); Color,Urine Yellow (Yellow); Glucose,Urine (UA) Normal (Normal); Ketones,Urine Negative (Negative); Leukocyte Esterase,Urine Negative (Negative); Nitrite,Urine Negative (Negative); Protein,Urine >=300 mg/dL (Neg-Trace); Specific Gravity,Urine 1.009 (1.010-1.025); Urobilinogen,Urine Normal (Normal)
[2018-06-22 23:12] LABS: WBC,Urine 0-3 per hpf (0-3)
[2018-06-22 23:13] LABS: Alanine Aminotransferase 6 Units/L (7-52); Albumin 3.2 g/dL (3.5-5.7); Albumin/Globulin Ratio 1.1 (1.1-2.2); Alkaline Phosphatase 53 Units/L (34-104); Aspartate Amino Transferase 15 Units/L (13-39); BUN/Creatinine Ratio 14 (6-26); Bilirubin,Indirect 0.4 mg/dL (0.0-1.2); Bilirubin,Total 0.4 mg/dL (0.3-1.0); Blood Urea Nitrogen 40 mg/dL (8-23); Calcium 10.6 mg/dL (8.6-10.3); Carbon Dioxide 29 mEq/L (23-29); Chloride 108 mEq/L (98-107); Globulin 2.9 g/dL (2.4-3.5); Glucose 104 mg/dL (70-105); Lipase 36 Units/L (11-82); Osmolality,Calculated 304 (280-300); Potassium 4.5 mEq/L (3.5-5.1); Sodium 142 mEq/L (136-145); Total Protein 6.1 g/dL (6.4-8.9); Troponin I < 0.03 ng/mL (< 0.04); eGFR For Non-African Americans 16 (> 60)
[2018-06-22 23:27] LABS: Thyroid Stimulating Hormone 9.018 mcIU/mL (0.340-5.600)
--- NOTE | 2018-06-22 23:31 | Emergency Department Note ---
Disposition Clinical Impression: Weakness, Calcified cerebral meningioma HTN (hypertension) Qualifiers: Hypertension type: unspecified Qualified Code(s): I10 - Essential (primary) hypertension Altered mental status Qualifiers: Altered mental status type: somnolence Qualified Code(s): R40.0 - Somnolence Cerebrovascular accident Qualifiers: CVA mechanism: unspecified Qualified Code(s): I63.9 - Cerebral infarction, unspecified Disposition: Admitted As Inpatient Condition: Fair Forms: ED Satisfaction Letter General Adult HPI - General Chief complaint: ED Neuro Symptoms/Deficit Stated complaint: AMS/ poss stroke Time Seen by Provider: 06/22/18 21:52 Source: patient, EMS Mode of arrival: EMS Limitations: altered mental status - History of Present Illness Pain Scale: 0 - Related Data Home Medications Medication Instructions Recorded Confirmed Bupropion HCl [Wellbutrin Xl] 300 mg PO DAILY 01/17/17 03/20/18 OLANZapine [Zyprexa] 15 mg PO BID 01/17/17 03/20/18 risperiDONE [Risperidone] 4 mg PO BID 01/17/17 03/20/18 levETIRAcetam [Roweepra] 500 mg PO BID 04/09/17 03/20/18 Acetaminophen [Tylenol] 650 mg PO Q6HR PRN 12/05/17 03/20/18 Aspirin [Adult Aspirin Regimen] 81 mg PO DAILY 12/05/17 03/20/18 Brimonidine Tartrate/Timolol 1 drop RIGHT EYE BID 12/05/17 03/20/18 [Combigan 0.2%-0.5% Eye Drops] GuaiFENesin/Dextromethorphan 10 ml PO Q6HR PRN 12/05/17 03/20/18 [Robitussin/Dm] Pravastatin Sodium [Pravachol] 20 mg PO HS 12/05/17 03/20/18 Ammonium Lactate [Patricia-Hydrolac] 1 appl TP BID 03/20/18 03/20/18 Nystatin POWDER [Nystop] 1 appl TP BID PRN 03/20/18 03/20/18 Tramadol HCl [Ultram] 50 mg PO QID PRN 03/20/18 03/20/18 Allergies Allergy/AdvReac Type Severity Reaction Status Date / Time No Known Allergies Allergy Verified 02/05/18 22:47 Past Medical History - Past Medical History Medical history: Reports: hyperlipidemia, hypertension, thyroid disease, other Surgical history: Reports: cholecystectomy, orthopedic, other Psychiatric history: Reports: anxiety, depression, schizophrenia - Social History Smoking Status: Never smoker Smokeless Tobacco Status: No Alcohol use: Reports: none Drug use: Reports: none Physical Exam - General Limitations: altered mental status General appearance: alert Course Vital Signs Temperature 98.4 F 06/22/18 22:11 Pulse Rate 68 06/22/18 22:11 Respiratory Rate 16 06/22/18 22:11 Blood Pressure 183/93 06/22/18 22:11 O2 Sat by Pulse Oximetry 95 06/22/18 22:11 Temperature 97.8 F 06/22/18 23:22 Pulse Rate 67 06/22/18 23:22 Respiratory Rate 19 06/22/18 23:22 Blood Pressure 201/95 06/22/18 23:22 O2 Sat by Pulse Oximetry 98 06/22/18 23:22 Oxygen Delivery Oxygen Delivery Nasal Cannula Medical Decision Making - Lab Data Result diagrams: 06/22/18 22:34 06/22/18 22:34 Lab Results 06/22/18 06/22/18 06/22/18 Range/Units 22:34 22:34 22:34 WBC 5.6 (4.3-11.1) K/mcL RBC 3.97 (3.82-4.97) M/mcL Hgb 11.8 (11.5-15.4) g/dL Hct 37.9 (35.3-44.9) % MCV 95.5 (83.0-100.0) fL MCH 29.7 (28.0-33.3) pg MCHC 31.1 L (31.6-35.5) g/dL RDW 13.3 (11.5-14.5) % Plt Count 218 (140-400) K/mcL MPV 9.5 (9.4-12.4) fL Immature Gran % 0.2 (0-4) % Seg Neutrophils % 57.1 % Lymphocytes % 20.7 % Monocytes % 14.6 % Eosinophils % 7.0 % Basophils % 0.4 % Neutrophils # 3.2 (1.6-8.9) K/mcL Lymphocytes # 1.2 (0.6-4.6) K/mcL Monocytes # 0.8 (0.0-1.3) K/mcL Eosinophils # 0.4 (0.0-0.6) K/mcL Basophils # 0.0 (0.0-0.2) K/mcL PT 10.4 (9.4-12.1) Seconds INR 0.9 APTT 32.2 (26.0-36.0) Seconds Sodium 142 (136-145) mEq/L Potassium 4.5 (3.5-5.1) mEq/L Chloride 108 H (98-107) mEq/L Carbon Dioxide 29 (23-29) mEq/L BUN 40 H (8-23) mg/dL Creatinine 2.86 H (0.60-1.20) mg/dL Est GFR ( Amer) 20 L (> 60) Est GFR (Non-Af Amer) 16 L (> 60) BUN/Creatinine Ratio 14 (6-26) Glucose 104 (70-105) mg/dL Calculated Osmolality 304 H (280-300) Lactic Acid (0.5-2.2) mmol/L Calcium 10.6 H (8.6-10.3) mg/dL Total Bilirubin 0.4 (0.3-1.0) mg/dL Direct Bilirubin 0.0 (0.0-0.2) mg/dL Indirect Bilirubin 0.4 (0.0-1.2) mg/dL AST 15 (13-39) Units/L ALT 6 L (7-52) Units/L Alkaline Phosphatase 53 (34-104) Units/L Ammonia (16-53) mcmol/L Troponin I < 0.03 (< 0.04) ng/mL Serum Total Protein 6.1 L (6.4-8.9) g/dL Albumin 3.2 L (3.5-5.7) g/dL Globulin 2.9 (2.4-3.5) g/dL Albumin/Globulin Ratio 1.1 (1.1-2.2) Lipase 36 (11-82) Units/L TSH 9.018 H (0.340-5.600) mcIU/mL Urine Color (Yellow) Urine Clarity (Clear) Urine pH (5.0-8.0) pH Units Ur Specific [place] (1.010-1.025) Urine Protein (Neg-Trace) mg/dL Urine Glucose (UA) (Normal) mg/dL Urine Ketones (Negative) mg/dL Urine Blood (Negative) Urine Nitrite (Negative) Urine Bilirubin (Negative) Urine Urobilinogen (Normal) mg/dL Ur Leukocyte Esterase (Negative) Urine Microscopic RBC (0-3) per hpf Urine Microscopic WBC (0-3) per hpf Ur Culture Indicated? (NO) 06/22/18 06/22/18 06/22/18 Range/Units 22:34 22:34 22:51 WBC (4.3-11.1) K/mcL RBC (3.82-4.97) M/mcL Hgb (11.5-15.4) g/dL Hct (35.3-44.9) % MCV (83.0-100.0) fL MCH (28.0-33.3) pg MCHC (31.6-35.5) g/dL RDW (11.5-14.5) % Plt Count (140-400) K/mcL MPV (9.4-12.4) fL Immature Gran % (0-4) % Seg Neutrophils % % Lymphocytes % % Monocytes % % Eosinophils % % Basophils % % Neutrophils # (1.6-8.9) K/mcL Lymphocytes # (0.6-4.6) K/mcL Monocytes # (0.0-1.3) K/mcL Eosinophils # (0.0-0.6) K/mcL Basophils # (0.0-0.2) K/mcL PT (9.4-12.1) Seconds INR APTT (26.0-36.0) Seconds Sodium (136-145) mEq/L Potassium (3.5-5.1) mEq/L Chloride (98-107) mEq/L Carbon Dioxide (23-29) mEq/L BUN (8-23) mg/dL Creatinine (0.60-1.20) mg/dL Est GFR ( Amer) (> 60) Est GFR (Non-Af Amer) (> 60) BUN/Creatinine Ratio (6-26) Glucose (70-105) mg/dL Calculated Osmolality (280-300) Lactic Acid 0.7 (0.5-2.2) mmol/L Calcium (8.6-10.3) mg/dL Total Bilirubin (0.3-1.0) mg/dL Direct Bilirubin (0.0-0.2) mg/dL Indirect Bilirubin (0.0-1.2) mg/dL AST (13-39) Units/L ALT (7-52) Units/L Alkaline Phosphatase (34-104) Units/L Ammonia 48 (16-53) mcmol/L Troponin I (< 0.04) ng/mL Serum Total Protein (6.4-8.9) g/dL Albumin (3.5-5.7) g/dL Globulin (2.4-3.5) g/dL Albumin/Globulin Ratio (1.1-2.2) Lipase (11-82) Units/L TSH (0.340-5.600) mcIU/mL Urine Color Yellow (Yellow) Urine Clarity Clear (Clear) Urine pH 7.0 (5.0-8.0) pH Units Ur Specific [place] 1.009 L (1.010-1.025) Urine Protein >=300 H (Neg-Trace) mg/dL Urine Glucose (UA) Normal (Normal) mg/dL Urine Ketones Negative (Negative) mg/dL Urine Blood Trace H (Negative) Urine Nitrite Negative (Negative) Urine Bilirubin Negative (Negative) Urine Urobilinogen Normal (Normal) mg/dL Ur Leukocyte Esterase Negative (Negative) Urine Microscopic RBC 3-5 H (0-3) per hpf Urine Microscopic WBC 0-3 (0-3) per hpf Ur Culture Indicated? NO (NO) Critical Care Time Critical Care Time: Yes Total Critical Care Time: 35 Attestation: Critical care time of 35 minutes spent in medical management of CVA as well as uncontrolled hypertension. Attestation Statement - Attestation Attestation: I examined this patient and my medical decision-making was reviewed with the Resident Physician. I agree with the documented findings, disposition and treatment plan as described except to the extent set forth below. 73-year-old female presented to the emergency room from the [facility] for possible strokelike symptoms. It was unclear as to when the symptoms started. There was no good history. They had noticed a right facial droop and increased weakness. She was sent to the ER for evaluation. On exam, patient does have some flattening of the right nasolabial fold. She also has some right upper extremity weakness and poor coordination on the right side as compared to the left. There was no other significant neurological findings. She had a slight moments of confusion. There was reports of some dementia in her past as well. She can tell me her name and where she was located at but cannot tell me the year. Her speech at times was muffled and did not make sense. Her CT of the head did not show any new acute findings as compared to her old previous CT scans. She does have old right sided calcified meningioma of some sort when we compared this to her previous CT scan of her head. She chronically has a midli ne shift. But again there were no signs of any acute CVA findings on the CT scan. Rest her workup was unremarkable for her. She chronically has a acute kidney injury. Chest x-ray was normal with no signs of pneumonia. No other infectious etiology at this time. Patient will be admitted. We did have issues with her high blood pressure in the 205 range. She had a heart rate in the 60s. We elected to give her IV hydralazine to help lower her blood pressure. We did speak with the hospitalist. Patient will be admitted for CVA workup as well as blood pressure control.
[2018-06-23] MEDS ORDERED: *HR* Labetalol 20 MG/4 ML SYRINGE IVP ONE (01:02)
[2018-06-23] MEDS ORDERED: Naloxone 0.4 MG/ML INJ IVP PRN (01:23)
[2018-06-23] MEDS ORDERED: Ondansetron 4 MG/2 ML VIAL IVP PRN (01:28)
--- NOTE | 2018-06-23 01:50 | Internal Med History&Physical ---
<Eber Guthrie Grant - Last Filed: 06/23/18 04:56> Date of Encounter: 06/23/18 Time of Encounter: 01:20 Internal Medicine - H&P: HPI Chief complaint: Fatigue, AMS, R sided weakness Admitted From: Long-term Nursing Facility Plans for Post Hospital Care: [facility] History of present illness: Ms. Bynum is a 73 year old female with pmh significant for HTN, HLD, and hypothyroidism. She was sent to [facility] ED after staff at her nursing facility thought she was confused and weak. She is unable to give a reliable hx and most of hx comes from medical records. She says when she woke up she felt fatigued all day and also complained of some vague weakness of lower extremities but could not say if unilateral or bilateral or when it began. It is unclear whether her weakness is acute or chronic. She thinks she "might have" had a previous CVA but not sure during hx. There is mention in ED note of a lower abdominal pain complaint but she denied this to me at the time of hx. 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 Psychiatric history: anxiety, depression, schizophrenia - Past Surgical History Surgical History: cholecystectomy, orthopedic, other Additional surgical history: left ankle sx years ago - Social History Smoking Status: Never smoker Smokeless Tobacco Status: No Alcohol use: none Drug use: none - Family History Mother Living Status: Hx Family Cardiac Disorders: Yes Hx Family Respiratory Disorders: No Hx Family Cancer: No Hx Family GI Disorders: No Hx Family Endocrine Disorder: No Hx Family Neuromuscular Disorders: Yes (dementia) Hx Family Neurologic Disorders: No Hx Family HEENT Disorders: No Hx Family Autoimmune Disorders: No Father Living Status: Hx Family Neurologic Disorders: Yes (dementia) Internal Medicine - H&P: Meds Bupropion HCl [Wellbutrin Xl] 300 mg PO DAILY 01/17/17 [History] OLANZapine [Zyprexa] 15 mg PO BID 01/17/17 [History] risperiDONE [Risperidone] 4 mg PO BID 01/17/17 [History] levETIRAcetam [Roweepra] 500 mg PO BID 04/09/17 [History] Acetaminophen [Tylenol] 650 mg PO Q6HR PRN 12/05/17 [History] Aspirin [Adult Aspirin Regimen] 81 mg PO DAILY 12/05/17 [History] Brimonidine Tartrate/Timolol [Combigan 0.2%-0.5% Eye Drops] 1 drop RIGHT EYE BID 12/05/17 [History] GuaiFENesin/Dextromethorphan [Robitussin/Dm] 10 ml PO Q6HR PRN 12/05/17 [History] Pravastatin Sodium [Pravachol] 20 mg PO HS 12/05/17 [History] Ammonium Lactate [Patricia-Hydrolac] 1 appl TP BID 03/20/18 [History] Nystatin POWDER [Nystop] 1 appl TP BID PRN 03/20/18 [History] Tramadol HCl [Ultram] 50 mg PO QID PRN 03/20/18 [History] Calcium 500 + Vit D Caplet 1 tab PO BID 06/23/18 [History] Ketorolac OPTH Soln [Acular] 1 drop RIGHT EYE QID 06/23/18 [History] Zinc Oxide [Boudreauxs] 1 appl TP DAILY 06/23/18 [History] amLODIPine [Norvasc] 5 mg PO DAILY 06/23/18 [History] Allergy/AdvReac Type Severity Reaction Status Date / Time No Known Allergies Allergy Verified 02/05/18 22:47 ROS unobtainable: due to mental status All Systems PM: A 10-system review of systems was performed and is negative for pertinent findings except as documented above in the HPI. - Constitutional Vitals: Temp Pulse Resp BP Pulse Ox 98.3 F 79 12 222/101 98 06/23/18 00:43 06/23/18 00:48 06/23/18 00:43 06/23/18 00:48 06/23/18 00:43 General appearance: Present: cooperative, A&O X 2 (Person, place but not time ), pleasant. Absent: no acute distress, answers questions appropriately Exam: - - Head Head exam: Present: atraumatic, normal inspection, normocephalic - Eye Eye exam: Absent: periorbital swelling, periorbital tenderness Pupils: Present: normal accommodation, PERRL - Neck Neck exam general surgery: Present: supple, trachea midline - Respiratory Respiratory exam: Present: CTAB. Absent: accessory muscle use, chest wall tenderness, decreased breath sounds, prolonged expiratory phase, rales, respiratory distress, rhonchi, stridor, wheezes, tachypnea - Cardiovascular Cardiovascular exam: Present: RRR, +S1, +S2. Absent: bradycardia, clicks, diastolic murmur, distant heart sounds, gallop, irregular rhythm, JVD, rubs, +S3, +S4, systolic murmur, tachycardia - GI/Abdominal GI/Abdominal exam: Present: soft. Absent: distended, firm, guarding, rebound, rigid, tenderness - Extremities Exam Extremities exam: Present: normal capillary refill, normal inspection, warm, radial pulses palpable and symmetrical. Absent: calf tenderness, cyanotic, mottling, pedal edema, tenderness - Expanded Neurological Exam Neurological exam expanded: Present: memory loss-recent event, protecting the airway Patient oriented to: Present: person, place. Absent: time Cranial Nerves: EOM's intact PM: Normal, tongue deviation PM: Normal Cerebellar function: finger to nose: Abnormal Left, Abnormal Right (Not well evaluated due to weakness), heel to [place]: Abnormal Left, Abnormal Right (Not well evaluated due to weakness) Upper motor neuron: pronator drift: Normal Sensory exam: lower extremity light touch: Normal, lower extremity temperature: Normal, upper extremity light touch: Normal, upper extremity temperature: Normal Neuro motor strength exam: LUE: 3, RUE: 3, LLE: 3, RLE: 3 (R hip flexors weak compared to L but plantar and dorsiflexion equal) Coma Scale Eye Opening: Spontaneous Coma Scale Motor Response: Obeys Commands Coma Scale Verbal Response: Confused Coma Scale Total: 14 - Psychiatric Psychiatric exam: Present: normal affect, normal mood - Skin Skin exam: Present: dry, erythema, intact, normal color, warm. Absent: abrasion, cyanosis, diaphoretic, excoriation, mottled, pallor, petechiae, rash, urticaria, vesicles Internal Med - H&P Results - Labs CBC & Chem 7: 06/22/18 22:34 06/22/18 22:34 Labs: Short CBC 06/22/18 Range/Units 22:34 WBC 5.6 (4.3-11.1) K/mcL Hgb 11.8 (11.5-15.4) g/dL Hct 37.9 (35.3-44.9) % Plt Count 218 (140-400) K/mcL Neutrophils # 3.2 (1.6-8.9) K/mcL BMP 06/22/18 22:34 Sodium 142 Potassium 4.5 Chloride 108 H Carbon Dioxide 29 BUN 40 H Creatinine 2.86 H Glucose 104 Calcium 10.6 H Cardiac Enzymes 06/22/18 Range/Units 22:34 Troponin I < 0.03 (< 0.04) ng/mL Liver Function 06/22/18 Range/Units 22:34 Total Bilirubin 0.4 (0.3-1.0) mg/dL Direct Bilirubin 0.0 (0.0-0.2) mg/dL AST 15 (13-39) Units/L ALT 6 L (7-52) Units/L Alkaline Phosphatase 53 (34-104) Units/L Albumin 3.2 L (3.5-5.7) g/dL Urine 06/22/18 Range/Units 22:51 Urine Color Yellow (Yellow) Urine Clarity Clear (Clear) Urine pH 7.0 (5.0-8.0) pH Units Ur Specific [place] 1.009 L (1.010-1.025) Urine Protein >=300 H (Neg-Trace) mg/dL Urine Glucose (UA) Normal (Normal) mg/dL - Impressions ITS Impressions Chest X-Ray 06/22/18 22:06 IMPRESSION: 1. Unchanged enlargement of the cardiomediastinal silhouette. 2. No radiographic evidence of acute intrathoracic findings. D/ / Jose Maria Rico MD / Jose Maria Rico MD Interpreting Provider: Jose Maria Rico MD Head CT 06/22/18 22:07 IMPRESSION: No significant change in calcified extra-axial mass along the right frontotemporal convexity with mass effect on the adjacent cortex with unchanged adjacent edema. Unchanged 7 mm midline shift to the left. Overall, no significant interval change. No evidence of acute intracranial hemorrhage. No CT evidence of acute cortical infarct. D/ / 06/22/2018 22:39:26 Jose Maria Rico MD / noé Interpreting Provider: Jose Maria Rico MD - Assessment and plan (1) Acute encephalopathy Current Visit: No Status: Acute Assessment and plan: -AMS and weakness at shelter in the setting of hypertensive emergency, BP as high as 222/101 -She has been admitted previously with similar presentation of AMS and weakness without definitive cause found -Continues to be encephalopathic but she appears to be more generally weak on exam. Asymmetric findings were appreciated on R hip flexor being more weak than L but R plantar and dorsiflexion is equal. No sensory changes to light touch or temp. -Unclear if her current presentation is due to hypertensive encephalopthy vs TIA/CVA at this time but more likely to be hypertensive encephalopathy with some neurological expression -No evidence of an infectious origin evident in current workup -BUN 40 which appears baseline -CT head 06/22/18: No significant interval change from prior CT. No evidence of acute intracranial hemorrhage. No CT evidence of acute cortical infarct -BP improved to 184/93 with labetalol given -Will not bring pressures down further at this time and will slowly bring pressure down over next 24 hours for total of 25% reduction in 24 hours -Will get MRI brain for the morning (2) Generalized weakness Current Visit: Yes Status: Acute Assessment and plan: -Weakness appears more generalized on exam as stated above in acute encephalopathy assessment -Discussion with shelter overnight was informed she is chair bound and does not ambulate on her own which could account for lower extremity weakness observed (3) HTN (hypertension) Current Visit: No Status: Chronic Assessment and plan: -Hx of HTN -BP as high as 222/101 -BP most recently 184/93 after labetalol administration -Will not further medically bring pressures down further overnight if remain stable and will bring pressures down slowly over next 24 hours for total of 25% reduction in 24 hours Qualifiers: Hypertension type: unspecified Qualified Code(s): I10 - Essential (primary) hypertension (4) Hypothyroid Current Visit: No Status: Chronic Assessment and plan: -Hx of hypothyroidism -TSH 9.018 -Will continue home meds when med rec complete Qualifiers: Hypothyroidism type: unspecified Qualified Code(s): E03.9 - Hypothyroidism, unspecified (5) CKD (chronic kidney disease) stage 3, GFR 30-59 ml/min Current Visit: No Status: Chronic Assessment and plan: -Hx of CKD III -Cr 2.86 today -Historical baseline appears to be closer to 2.4 -Cr 2.67 1 week prior and 2.35 3 weeks prior -If Cr higher in morning labs will start IVF (6) DVT prophylaxis Current Visit: No Status: Acute Assessment and plan: -SCDs (7) Hypercalcemia Current Visit: No Status: Acute Assessment and plan: -Ca slightly elevated at 10.6 on arrival -Home med lists a Ca and vit D supplement but has not been confirmed yet -If still taking will hold supplement for now with other possibility being secondary hyperparathyroidism given her CKD status -Will get phos and when home meds confirmed can add on pth if no longer taking Ca supplement - Time Spent With Patient Total time spent is greater than 50% in coordination of care (as documented) at patient's floor/unit and/or counseling patient: <Lydia Coley - Last Filed: 06/23/18 18:53> Date of Encounter: 06/23/18 Internal Medicine - H&P: HPI History of present illness: Ms. Bynum is a 73 year old female All Systems PM: A 10-system review of systems was performed and is negative for pertinent findings except as documented above in the HPI. - Constitutional Vitals: Temp Pulse Resp BP Pulse Ox 97.6 F 67 16 165/79 98 06/23/18 17:00 06/23/18 17:00 06/23/18 17:00 06/23/18 17:00 06/23/18 17:00 Internal Med - H&P Results - Labs CBC & Chem 7: 06/23/18 04:35 06/23/18 04:35 Labs: Short CBC 06/22/18 06/23/18 Range/Units 22:34 04:35 WBC 5.6 5.3 (4.3-11.1) K/mcL Hgb 11.8 10.8 L (11.5-15.4) g/dL Hct 37.9 34.8 L (35.3-44.9) % Plt Count 218 218 (140-400) K/mcL Neutrophils # 3.2 2.9 (1.6-8.9) K/mcL BMP 06/22/18 06/23/18 22:34 04:35 Sodium 142 143 Potassium 4.5 3.9 Chloride 108 H 109 H Carbon Dioxide 29 27 BUN 40 H 39 H Creatinine 2.86 H 2.71 H Glucose 104 86 Calcium 10.6 H 10.4 H Cardiac Enzymes 06/22/18 Range/Units 22:34 Troponin I < 0.03 (< 0.04) ng/mL Liver Function 06/22/18 Range/Units 22:34 Total Bilirubin 0.4 (0.3-1.0) mg/dL Direct Bilirubin 0.0 (0.0-0.2) mg/dL AST 15 (13-39) Units/L ALT 6 L (7-52) Units/L Alkaline Phosphatase 53 (34-104) Units/L Albumin 3.2 L (3.5-5.7) g/dL Urine 06/22/18 Range/Units 22:51 Urine Color Yellow (Yellow) Urine Clarity Clear (Clear) Urine pH 7.0 (5.0-8.0) pH Units Ur Specific [place] 1.009 L (1.010-1.025) Urine Protein >=300 H (Neg-Trace) mg/dL Urine Glucose (UA) Normal (Normal) mg/dL - Impressions ITS Impressions Chest X-Ray 06/22/18 22:06 IMPRESSION: 1. Unchanged enlargement of the cardiomediastinal silhouette. 2. No radiographic evidence of acute intrathoracic findings. D/ / Jose Maria Rico MD / Jose Maria Rico MD Interpreting Provider: Jose Maria Rico MD Head CT 06/22/18 22:07 IMPRESSION: 1. No significant change in calcified extra-axial mass along right frontotemporal convexity with mass effect on adjacent cortex with unchanged adjacent brain parenchymal edema. Unchanged 7 mm midline shift to the left. 2. Overall, no significant interval change. No evidence of acute intracranial hemorrhage. No CT evidence of acute cortical infarct. D/ / 06/22/2018 22:39:26 Jose Maria Rico MD / noé Interpreting Provider: Jose Maria Rico MD X-Ray 06/23/18 14:19 IMPRESSION: Nonobstructed bowel-gas pattern. Small to moderate stool throughout the colon. Post cholecystectomy. D/ / 06/23/2018 14:56:08 Ike Rico MD / Latonia Fishman Interpreting Provider: Ike Rico MD - Assessment and plan (1) HTN (hypertension) Current Visit: No Status: Chronic Qualifiers: Hypertension type: unspecified Qualified Code(s): I10 - Essential (primary) hypertension (2) Hypothyroid Current Visit: No Status: Chronic Qualifiers: Hypothyroidism type: unspecified Qualified Code(s): E03.9 - Hypothyroidism, unspecified (3) CKD (chronic kidney disease) stage 3, GFR 30-59 ml/min Current Visit: No Status: Chronic (4) Acute encephalopathy Current Visit: No Status: Acute (5) Generalized weakness Current Visit: Yes Status: Acute (6) DVT prophylaxis Current Visit: No Status: Acute (7) Hypercalcemia Current Visit: No Status: Acute - Time Spent With Patient Total time spent is greater than 50% in coordination of care (as documented) at patient's floor/unit and/or counseling patient: - Attending Attestation Patient was seen and examined on 06/23/2018. History and physical was performed by myself and the case was discussed with the resident. I reviewed the resident's note and agree with the assessment and plan of care. Will admit patient for altered mental status concerning for CVA. Appreciate neurology input.
[2018-06-23 05:02] LABS: Basophils % 0.8 %; Eosinophils # 0.4 K/mcL (0.0-0.6); Eosinophils % 7.4 %; Hematocrit 34.8 % (35.3-44.9); Hemoglobin 10.8 g/dL (11.5-15.4); Immature Granulocytes % 0.2 % (0-4); Lymphocytes # 1.1 K/mcL (0.6-4.6); Lymphocytes % 20.2 %; Mean Corpuscular Hemoglobin 29.5 pg (28.0-33.3); Mean Corpuscular Volume 95.1 fL (83.0-100.0); Mean Platelet Volume 9.7 fL (9.4-12.4); Monocytes # 0.9 K/mcL (0.0-1.3); Monocytes % 16.2 %; Neutrophils # 2.9 K/mcL (1.6-8.9); Platelet Count 218 K/mcL (140-400); Red Blood Count 3.66 M/mcL (3.82-4.97); Red Cell Distribution Width 13.4 % (11.5-14.5); Segmented Neutrophils % 55.2 %
[2018-06-23 05:05] LABS: INR 0.9; Prothrombin Time 10.6 Seconds (9.4-12.1)
[2018-06-23 05:21] LABS: Calcium 10.4 mg/dL (8.6-10.3); Chol/HDL Ratio 4.7 (0-4.9); Magnesium 1.9 mg/dL (1.6-2.6); Phosphorous 3.4 mg/dL (2.7-4.5); Potassium 3.9 mEq/L (3.5-5.1)
[2018-06-23] MEDS ORDERED: traMADol 50 MG TABLET PO PRN (08:36)
[2018-06-23] MEDS ORDERED: Acetaminophen 325 MG TABLET PO PRN (08:36)
[2018-06-23] MEDS ORDERED: Nystatin POWDER 30 GM BOTTLE TP PRN (08:36)
[2018-06-23] MEDS ORDERED: BuPROPion XL (24 HR) 150 MG TABLET PO SCH (09:00)
[2018-06-23] MEDS ORDERED: NON-FORMULARY MEDICATION 1 EACH EACH (Brimonidine Tartrate/Timolol [Combigan 0.2%-0.5% Eye RIGHT EYE SCH (09:00)
[2018-06-23] MEDS: Ammonium Lactate 30 APPL/225 GM BOTTLE TP SCH ×2 (09:50→20:24)
[2018-06-23] MEDS: levETIRAcetam 250 MG TABLET PO SCH ×3 (09:51→20:21)
[2018-06-23] MEDS: risperiDONE 1 MG TABLET PO SCH ×2 (09:51→13:06)
[2018-06-23] MEDS: Aspirin Enteric Coated 81 MG Tablet PO SCH ×2 (09:51→13:07)
[2018-06-23] MEDS: OLANZapine 5 MG TAB.RAPDIS PO SCH ×2 (09:52→13:06)
--- NOTE | 2018-06-23 09:54 | Neurology - Consult Note ---
Addendum entered and electronically signed by Darcie Blum MD 06/23/18 13:04: Patient seen and examined at the bedside and discussed with the nursing staff. I examined have reviewed all the medical records independently and I agree with Dr. Christine Rahman's physical examination, history taking, assessment and plan outlined below. In summary, this is a 73-year-old woman who has been known to our neurology clinic, had seen Dr. Zackary Murphy during February 2018 for an known right frontal meningioma and seizure disorder. Patient developed another episode of altered mental status and generalized weakness as well as elevated blood pressure. Patient has known seizure disorder likely related to right frontal lobe meningioma with mild midline shift and edema however, this has been reported as a stable phenomenon. 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 The patient has may be also baseline cognitive impairment but now patient developed acute mental status change mainly characterized by significant drowsiness. No significant focal neurological deficits were identified. There is no significant neutral rigidity and no sei zure activity. Currently the patient is very drowsy but arousable and follows command. This appears likely caused by diffuse encephalopathy related to multiple medical considerations including elevated blood pressure, hypertensive crisis, respiratory hypoxemia on chronic renal insufficiency. Due to complexity of her multiple conditions and acute mental status changes I would agree to obtain MRI of the brain to assess possible intracranial abnormality. Patient EEG showed no evidence of ongoing electrographic seizures but rather persistent light stage II sleep. Please continue medical and supportive care. Will follow up tomorrow and once imagines studies available for review Original Note: Date of Encounter: 06/23/18 Time of Encounter: 09:38 Assessment and Plan (1) Altered mental status Current Visit: Yes Status: Acute 73-year-old female resident of an extended care facility with multiple admissions for altered mental status presents with acute onset confusion and generalized weakness. Patient is alert and oriented 2 and is a poor historian and cannot recall the events surrounding her admission. In the emergency department patient was severely hypertensive at 221/104. Her lab work was indicative of CKD, hypercalcemia, and hypothyroidism. CT head redemonstrated a right frontotemporal meningioma with 7 mm midline shift that is unchanged. This meningioma is suspected to be the cause of patient's previous seizure in 03/2017 and thus patient is on Keppra 500 mg twice a day. On physical examination patient does have right-sided ptosis and mild right facial droop.While the ptosis may be secondary to prior cataract surgery, the patient does appear to have facial asymmetry and a slight droop on the right when smiling. This may be from an acute CVA or secondary to her meningioma and arachnoid cyst history. Patient has generalized weakness on exam, however patient is chair bound at F and no discrepancy was noted between the right and left extremities. She also had a positive glabellar reflex which may be indication for a frontal releasing sign in the setting of baseline frontal lobe dysfunction, such as underlying dementia. Patient's baseline mental status is unknown at this time as there are no family members or ECF staff present at bedside. Patient's altered mental status may be due to several causes or may be multifactorial in nature. During her previous admissions patient's altered mental status has improved with IV fluid hydration. However, there is concern for a CVA given patient's physical examination findings and acute changes in mental status, therefore we will continue with obtaining an MRI. Furthermore, given the patient's history of seizure activity and the presence of a large calcified mass on imaging we will also obtain an EEG study to assess for any epileptiform activity. Patient's current presentation may be secondary to non-neurological causes as well, considerations include Hypertensive emergency or possible PRES syndrome, hypothyroidism as patient's TSH is elevated at 9.02, or hypercalcemia. PTH testing during her last admission showed that patient's PTH was appropriately low and that her hypercalcemia may be secondary to dehydration. -Encephalopathy vs. CVA -Continue ASA and statin -Continue Keppra 500mg BID -Obtain MRI to assess for acute CVA vs. PRES syndrome -Carotid ultrasound and echo pending -EEG did not reveal any electrographic seizure activity -Will continue to follow the patient and monitor AMS and physical exam Qualifiers: Altered mental status type: somnolence Qualified Code(s): R40.0 - Somnolence History of Present Illness Chief complaint: Altered mental status HPI: Ms. Bynum is a 73 year old female resident of a [place] [facility] who presented with a chief complaint of altered mental status. She has a history of suspected seizure disorder, hypothyroidism, hypertension, and CKD. She has had multiple visits over the past year for altered mental status, and during her last hospital admissions (02/2018 and 11/2017) her mental status improved after IV fluid hydration. It was believed that her hypercalcemia was secondary to dehydration at that time. Today the patient is alert and oriented 2 and is a very poor historian, history was collected from the records as there are no family members or [place] [facility] attendants available at bedside. Reportedly yesterday Ms. Bynum was found altered, confused, and weak at the nursing facility and was brought to the emergency department. In the emergency department patient was found to be confused and had severely elevated blood pressure readings as high as 221/104. lab work was indicative for chronic kidney disease and hypercalcemia; she also had an elevated TSH of 9.02. CT head was performed which revealed a calcified mass, likely meningioma, in the right frontotemporal lobe with mass effect and 7 mm midline shift to the left. This mass is unchanged from previous imaging. Patient is on Keppra 500 mg twice a day after she was found unresponsive at her ECF in 03/2017 with evidence of biting her tongue, MRI at that time revealed the right frontal meningioma which is believed to be the foci for her seizure activity, EEG at that time however did not reveal any evidence for epileptiform activity. 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 Psychiatric history: anxiety, depression, schizophrenia - Past Surgical History Surgical History: cholecystectomy, orthopedic, other Additional surgical history: left ankle sx years ago - Social History Smoking Status: Never smoker Smokeless Tobacco Status: No Alcohol use: none Drug use: none - Family History Mother Living Status: Hx Family Cardiac Disorders: Yes Hx Family Respiratory Disorders: No Hx Family Cancer: No Hx Family GI Disorders: No Hx Family Endocrine Disorder: No Hx Family Neuromuscular Disorders: Yes (dementia) Hx Family Neurologic Disorders: No Hx Family HEENT Disorders: No Hx Family Autoimmune Disorders: No Father Living Status: Hx Family Neurologic Disorders: Yes (dementia) Medications and Allergies Bupropion HCl [Wellbutrin Xl] 300 mg PO DAILY 01/17/17 [History] OLANZapine [Zyprexa] 15 mg PO BID 01/17/17 [History] risperiDONE [Risperidone] 4 mg PO BID 01/17/17 [History] levETIRAcetam [Roweepra] 500 mg PO BID 04/09/17 [History] Acetaminophen [Tylenol] 650 mg PO Q6HR PRN 12/05/17 [History] Aspirin [Adult Aspirin Regimen] 81 mg PO DAILY 12/05/17 [History] Brimonidine Tartrate/Timolol [Combigan 0.2%-0.5% Eye Drops] 1 drop RIGHT EYE BID 12/05/17 [History] GuaiFENesin/Dextromethorphan [Robitussin/Dm] 10 ml PO Q6HR PRN 12/05/17 [History] Pravastatin Sodium [Pravachol] 20 mg PO HS 12/05/17 [History] Ammonium Lactate [Patricia-Hydrolac] 1 appl TP BID 03/20/18 [History] Nystatin POWDER [Nystop] 1 appl TP BID PRN 03/20/18 [History] Tramadol HCl [Ultram] 50 mg PO QID PRN 03/20/18 [History] Calcium 500 + Vit D Caplet 06/23/18 [History] Ketorolac OPTH Soln [Acular] 06/23/18 [History] Zinc Oxide [Boudreauxs] 1 appl TP DAILY 06/23/18 [History] amLODIPine [Norvasc] 5 mg PO DAILY 06/23/18 [History] Allergy/AdvReac Type Severity Reaction Status Date / Time No Known Allergies Allergy Verified 02/05/18 22:47 ROS unobtainable: due to mental status All Systems: The remainder of the systems were reviewed and are negative Physical Examination - Vital Signs Vital Signs: Initial Vital Signs Temp Pulse Resp BP Pulse Ox 98.4 F 68 16 183/93 95 06/22/18 22:11 06/22/18 22:11 06/22/18 22:11 06/22/18 22:11 06/22/18 22:11 - Exam Exam: Constitutional: Patient is alert and oriented 2, cannot recall her current location. She is drowsy and difficult to arouse and requires constant redirection to examination. HEENT: Head is atraumatic normocephalic, there is evidence of a right sided previous cataract surgery, there is also ptosis of the right eye. There is an is anisocoria but pupils react to light bilaterally. Patient does follow simple commands and extraocular muscles were intact. No oropharyngeal lesions. External ears and nares have a normal appearance. Neck: Trachea midline no JVD, no bruits Chest: Symmetrical chest wall rise, no tenderness to palpation Cardiovascular: Regular rate and rhythm no murmurs Respiratory: Clear to auscultation bilaterally Abdomen: Soft, nontender no guarding or rigidity Neurological: -Cranial nerves: Ptosis present on the right. Anisocoria present however pupils react to light bilaterally. EOMI. Patient has a positive glabellar reflex. There is some right-sided mild facial asymmetry present. Tongue protrudes midline. Unable to test rest of cranial nerves due to patient's altered mental status. 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 Her upper extremities are weak however symmetrical, patient can lift both her arms in the air. Does not follow commands for finger to nose testing or for testing pronator drift. Elli sign was negative, negative palmomental reflex. Biceps reflexes were 1+ bilaterally. -Lower extremities: Patient has weakness of the hip flexors bilaterally, she attempts to raise each leg off the bed but cannot lift her legs against gravity. Patient is reportedly chair bound at her ECF. Weakness is noted to be symmetrical bilaterally. Patient has good effort on plantarflexion and dorsi flexion testing. Patellar reflexes are 1+ bilaterally. Babinski negative. Patient has toe amputations of the left foot. Results - Laboratory Findings CBC and BMP: 06/23/18 04:35 06/23/18 04:35 Abnormal lab findings: Abnormal lab results RBC 3.66 M/mcL (3.82-4.97) L 06/23/18 04:35 Hgb 10.8 g/dL (11.5-15.4) L 06/23/18 04:35 Hct 34.8 % (35.3-44.9) L 06/23/18 04:35 MCHC 31.0 g/dL (31.6-35.5) L 06/23/18 04:35 Chloride 109 mEq/L (98-107) H 06/23/18 04:35 BUN 39 mg/dL (8-23) H 06/23/18 04:35 Creatinine 2.71 mg/dL (0.60-1.20) H 06/23/18 04:35 Est GFR ( Amer) 21 (> 60) L 06/23/18 04:35 Est GFR (Non-Af Amer) 17 (> 60) L 06/23/18 04:35 Calculated Osmolality 305 (280-300) H 06/23/18 04:35 Calcium 10.4 mg/dL (8.6-10.3) H 06/23/18 04:35 ALT 6 Units/L (7-52) L 06/22/18 22:34 Serum Total Protein 6.1 g/dL (6.4-8.9) L 06/22/18 22:34 Albumin 3.2 g/dL (3.5-5.7) L 06/22/18 22:34 Cholesterol 208 mg/dL (< 200) H 06/23/18 04:35 LDL Cholesterol, Calc 144 mg/dL (0-99) H 06/23/18 04:35 TSH 9.018 mcIU/mL (0.340-5.600) H 06/22/18 22:34 Ur Specific Dell 1.009 (1.010-1.025) L 06/22/18 22:51 Urine Protein >=300 mg/dL (Neg-Trace) H 06/22/18 22:51 Urine Blood Trace (Negative) H 06/22/18 22:51 Urine Microscopic RBC 3-5 per hpf (0-3) H 06/22/18 22:51 Consult Discharge Plan - Plan Referrals: Ant Brewer MD [Primary Care Provider] -
[2018-06-23] MEDS ORDERED: *HR* Dextrose 50 % in Water (Syg) 50 ML SYRINGE ONE (11:10)
--- NOTE | 2018-06-23 11:14 | EEG/EMG/Oth Biometrics Report ---
EEG Procedure Report Date of procedure: 06/23/18 EEG Procedure: Routine EEG Procedure Note: History: This is a 73 year old woman who is undergoing an EEG to evaluate possible seizure disorder. Anticonvulsant: Keppra. Report: This EEG was acquired with standard international 10-20 electrode placement system with EKG recording. The background activity during this EEG was characterized by the presence of persistent stage 2 sleep, right from the beginning of the recording. Sleep stages were characterized by the presence of background fragmentation, vertex waves, K-complexes and sleep spindles. No clear wakefulness records noted. There are no electrographic seizures identified during this tracing. There are no epileptiform discharges and focal slowing noted during this recording. Photic stimulation produced no abnormalities. HV procedure not performed. EKG tracing showed no significant cardiac dysarrhythmia. Impression: This is a normal asleep EEG. No wakefulness records obtained. Unable to comment on background EEG activity. Clinical Correlation: Normal EEGs, however, do not exclude epilepsy. Clinical correlation required.
[2018-06-23] MEDS ORDERED: *HR* Dextrose 50 % in Water (Syg) 50 ML SYRINGE IVP ONE (11:16)
[2018-06-23] MEDS: *HR* Labetalol 20 MG/4 ML SYRINGE IVP PRN (11:30)
--- NOTE | 2018-06-23 11:36 | Event Note ---
Date of Encounter: 06/23/18 Time of Encounter: 09:00 H&P reviewed. Patient with history of hypertension, hypothyroidism, was admitted for acute encephalopathy. Known history of similar presentations in the past. No obvious source of infection identified. No significant change noted in the extra-axial mass aong R frontotemporal convexity seen on the CT head. NOted to have elevated BP on presentation and I am not able to find any anti-HTN meds on her home med list (she was discharged with norvasc 10mg in 02/2018). Will restart anti-HTN after ruling out CVA with MRI. Follow with neurology. OF note, her last3 TSH values are noted to be elevated and again, she does not appear to be on levothyroxine as outpatient. Will start low dose of levothyroxine as well.
[2018-06-23] MEDS: Ketorolac OPTH Soln 5 ML BOTTLE RIGHT EYE SCH ×3 (13:08→20:24)
--- NOTE | 2018-06-23 15:26 | Electrocardiograph Report ---
[place] [id number] Test Date: 2018-06-22 Pat Name: Berenice Bynum Department: EXAMC5 Room: 2NE17 Gender: F Environmental Officer: : 1945 Requested By: Kimberli Zhang Order Number: [id number] Reading MD: Rula Sagastume Measurements Intervals [place] Rate: 70 P: 69 W[place]: 197 QRS: -29 QRSD: 111 T: 52 QT: 468 QTc: 505 Interpretive Statements Sinus rhythm Borderline left axis deviation RSR' in V1 or V2, probably normal variant Prolonged QT interval Electronically Signed On 06-23-2018 15:25:04 EST by Rula Sagastume
[2018-06-23] MEDS: D5% in 0.45% NACL 1,000 ML IVC SCH (17:42)
[2018-06-23] MEDS: *HR* Heparin 5,000 UNIT/ML VIAL SQ SCH (17:43)
--- NOTE | 2018-06-23 22:58 | Event Note ---
Date of Encounter: 06/23/18 Time of Encounter: 21:47 Alerted by pts. nurse SUKHJINDER Yao that the pt. was drowsy but arousable. Pt. was not able to follow commands for NIHSS assessment. Pts. nurse reported that the pt. was able to do these last night and was alert and oriented to self and place. Pt. is admitted for CVA r/o. Nurse reported that the day team stated that the pt. was similar in mentation to this during the day as well. Went to see pt. who was more alert and resting in bed. Pt. was A&O x0 and appeared confused. Only medications given to the pt. this evening were Keppra and Zocor. Pt. did not reportedly sleep well last night which could explain her somnolence, however speech is garbled and pt. has difficulty following commands. Examination of UE strength seemed equal bilaterally as did the LEs, however pt. reported pain in feet during exam. No pronator drift or facial droop. Neurology notes state encephalopathy d/t multiple co-morbidities. Head CT showed no significant change in calcified extra-axial mass along right frontotemporal convexity with mass effect on adjacent cortex with unchanged adjacent brain parenchymal edema. Unchanged 7 mm midline shift to the left. Overall, no significant interval change. No evidence of acute intracranial hemorrhage. No CT evidence of acute cortical infarct. Pt. is d/t have MRI [facility] tomorrow d/t incompatible Pacemaker. Nurse instructed to continue monitoring pt. closely overnight and notify me immediately of any adverse changes or mentation decline.
[2018-06-24] MEDS: *HR* Labetalol 20 MG/4 ML SYRINGE IVP PRN (04:23)
[2018-06-24 04:40] LABS: Basophils # 0.1 K/mcL (0.0-0.2); Eosinophils # 0.4 K/mcL (0.0-0.6); Eosinophils % 7.1 %; Hematocrit 33.8 % (35.3-44.9); Hemoglobin 10.4 g/dL (11.5-15.4); Immature Granulocytes % 0.2 % (0-4); Lymphocytes # 1.2 K/mcL (0.6-4.6); Lymphocytes % 24.2 %; Mean Corpuscular HGB Conc 30.8 g/dL (31.6-35.5); Mean Corpuscular Hemoglobin 29.8 pg (28.0-33.3); Mean Corpuscular Volume 96.8 fL (83.0-100.0); Mean Platelet Volume 9.8 fL (9.4-12.4); Monocytes # 0.8 K/mcL (0.0-1.3); Monocytes % 15.7 %; Neutrophils # 2.6 K/mcL (1.6-8.9); Platelet Count 198 K/mcL (140-400); Red Blood Count 3.49 M/mcL (3.82-4.97); Red Cell Distribution Width 13.6 % (11.5-14.5); Segmented Neutrophils % 51.8 %
[2018-06-24 05:04] LABS: Calcium 9.5 mg/dL (8.6-10.3)
[2018-06-24] MEDS: D5% in 0.45% NACL 1,000 ML IVC SCH (06:33)
[2018-06-24] MEDS: *HR* Heparin 5,000 UNIT/ML VIAL SQ SCH (06:33)
[2018-06-24] MEDS ORDERED: Desitin (Zinc Oxide) 56 GM TUBE TP SCH (09:00)
[2018-06-24] MEDS ORDERED: amLODIPine 5 MG TABLET PO SCH (09:00)
--- NOTE | 2018-06-24 09:13 | Neurology Progress Note ---
<Christine Rahman N - Last Filed: 06/24/18 15:06> Date of Encounter: 06/24/18 Time of Encounter: 09:07 Assessment and Plan (1) Altered mental status Current Visit: Yes Status: Acute Patient's mental status has clinically improved today. She is more awake and follows commands EEG did not reveal evidence for electrographic seizures MRI did not reveal evidence for acute CVA, redemonstrated the extra-axial mass without any significant change Suspect encephalopathy secondary to multiple medical comorbidities including hypertension Continue Keppra 500mg BID Will reevaluate at your request Qualifiers: Altered mental status type: somnolence Qualified Code(s): R40.0 - Somnolence Subjective Principal diagnosis: Acute Encephalopathy Interval history: Patient seen and examined at bedside this morning. She is far more awake and alert than the previous day. Alert and Oriented X 2, but patient makes appropriate conversation and follows all commands. She is sitting up in bed eating her breakfast independently. Overnight patient was found to be increasingly drowsy, but this was transient and self resolved. Objective - Constitutional Vitals: Temp Pulse Resp BP Pulse Ox 98.0 F 69 16 180/115 100 06/24/18 07:12 06/24/18 07:12 06/24/18 07:12 06/24/18 07:12 06/24/18 07:12 Exam: Constitutional: Patient is alert and oriented 2, cannot recall her current location. She is more awake than the previous day and follows all commands. HEENT: Head is atraumatic normocephalic, there is evidence of a right sided previous cataract surgery, there is also ptosis of the right eye. pupils react to light bilaterally. extraocular muscles were intact. No oropharyngeal lesions. External ears and nares have a normal appearance. Neck: Trachea midline no JVD, no bruits Chest: Symmetrical chest wall rise, no tenderness to palpation Cardiovascular: Regular rate and rhythm no murmurs Respiratory: Clear to auscultation bilaterally Abdomen: Soft, nontender no guarding or rigidity Neurological: -Cranial nerves: Ptosis present on the right. pupils react to light bilaterally. EOMI. There is some right-sided mild facial asymmetry present. facial sensation intact. Tongue protrudes midline. hearing intact, vision intact. SCM and trapezius strength is normal. -Upper extremities: Patient has equal rib knitter strength bilaterally with muscle strength at 4 out of 5. Her upper extremities are weak however symmetrical, p atient can lift both her arms in the air. Elli sign was negative, negative palmomental reflex. Biceps reflexes 2+ bilaterally. -Lower extremities: Patient has weakness of the hip flexors bilaterally, she attempts to raise each leg off the bed but cannot lift her legs against gravity. Patient is reportedly chair bound at her ECF. Weakness is noted to be symmetrical bilaterally. Patient has good effort on plantarflexion and dorsiflexion testing. Patellar reflexes are 1+ bilaterally. Babinski negative. Patient has toe amputation of the left foot. Results - Laboratory Findings CBC and BMP: 06/24/18 04:18 06/24/18 04:18 Abnormal lab findings: Abnormal lab results RBC 3.49 M/mcL (3.82-4.97) L 06/24/18 04:18 Hgb 10.4 g/dL (11.5-15.4) L 06/24/18 04:18 Hct 33.8 % (35.3-44.9) L 06/24/18 04:18 MCHC 30.8 g/dL (31.6-35.5) L 06/24/18 04:18 Chloride 109 mEq/L (98-107) H 06/24/18 04:18 BUN 38 mg/dL (8-23) H 06/24/18 04:18 Creatinine 2.78 mg/dL (0.60-1.20) H 06/24/18 04:18 Est GFR ( Amer) 20 (> 60) L 06/24/18 04:18 Est GFR (Non-Af Amer) 17 (> 60) L 06/24/18 04:18 POC Glucose 106 mg/dL (70-99) H 06/23/18 17:00 Calculated Osmolality 303 (280-300) H 06/24/18 04:18 ALT 6 Units/L (7-52) L 06/22/18 22:34 Serum Total Protein 6.1 g/dL (6.4-8.9) L 06/22/18 22:34 Albumin 3.2 g/dL (3.5-5.7) L 06/22/18 22:34 Cholesterol 208 mg/dL (< 200) H 06/23/18 04:35 LDL Cholesterol, Calc 144 mg/dL (0-99) H 06/23/18 04:35 TSH 9.018 mcIU/mL (0.340-5.600) H 06/22/18 22:34 Ur Specific [place] 1.009 (1.010-1.025) L 06/22/18 22:51 Urine Protein >=300 mg/dL (Neg-Trace) H 06/22/18 22:51 Urine Blood Trace (Negative) H 06/22/18 22:51 Urine Microscopic RBC 3-5 per hpf (0-3) H 06/22/18 22:51 Consult Discharge Plan - Plan Instructions: Chronic Hypertension (DC) Additional Instructions: Norvasc increased to 10mg, coreg 12.5mg BID added for BP control Levothyroxine 50mcg started as her TSH is noted to be elevated since 11/2017 Discontinue calcium supplement. May resume VIt D supplement Outpatient workup for cognitive impairment, ?underlying dementia. Referrals: Ant Brewer MD [Primary Care Provider] - Prescriptions: amLODIPine [Norvasc] 10 mg PO DAILY #60 tablet Carvedilol [Coreg] 12.5 mg PO BIDWM #60 tablet Levothyroxine [Synthroid] 50 mcg PO 0630 #30 tablet <Zackary Murphy E - Last Filed: 06/24/18 17:51> Date of Encounter: 06/24/18 Assessment and Plan (1) Altered mental status Current Visit: Yes Status: Acute I agree with the assessment of the neurology resident as stated above. I suspect that the mental status changes are multifactorial but not due to a primary neurologic etiology. I agree with maintaining Keppra at 500 twice a day. Qualifiers: Altered mental status type: somnolence Qualified Code(s): R40.0 - Somnolence Subjective Interval history: The chart was reviewed, the patient was seen and examined along with the neurology resident this evening. I agree with his assessment as stated above. However the patient does not get a normal baseline level of alertness. She is still confused about where she years, thought she was [facility]" but she is conversant which is improved from yesterday. Objective - Constitutional Vitals: Temp Pulse Resp BP Pulse Ox 98.0 F 63 17 164/74 96 06/24/18 15:30 06/24/18 15:30 06/24/18 15:30 06/24/18 15:30 06/24/18 15:30 Exam: I agree with the assessment of the neurology resident as stated above, with the following conditions; General Examination: *GENERAL APPEARANCE OF PATIENT -patient does appear somewhat chronically ill. *EYES: pupils equal, round, reactive to light and accommodation, conjunctiva clear without masses or ulcerations, fundi normal. *CARDIOVASCULAR no peripheral edema, distal temperature normal, dorsalis pedis pulses normal. Refer to vital signs Musculoskeletal: *GAIT AND STATION patient is bedridden and unable to walk. *ASSESSMENT OF MUSCLE STRENGTH IN THE UPPER AND LOWER EXTREMITIES deltoid, bicep, tricep, rib knitter strength, are 4/5 throughout, patient has 2/5 strength of the iliopsoas symmetrically she also has atrophy of the quadriceps symmetrically and the left foot is deformed externally rotated and has an amputated great l eft toe. The right lower extremity below the knee is normal. *MUSCLE TONE IN THE UPPER AND LOWER EXTREMITIES normal. Neurological: *ORIENTATION she is oriented to self only, thus she was not [facility]. *RECURRENT AND REMOTE MEMORY impaired *ATTENTION AND CONCENTRATION are impaired, she could not answer specific questions about her location, and why she was in the hospital. *LANGUAGE FUNCTION no significant aphasia or dysarthia was noted. *FUND OF KNOWLEDGE poor *MENTAL attention span is improved from yesterday however not normal. *CN II optic fundi were normal, no papilledema noted. *CN III,IV, PERRLA extraocular eye movements were full, no nystagmus. Right ptosis is present however. *CN V shows normal sensation and jaw opens symmetrically. *CN VII shows normal facial movement symmetrically, upper and lower bilaterally. *CN VIII shows no significant hearing loss on examination in the office. *CN IX,,X palate elevated symmetrically and normal gag reflex was noted. *CN XI normal strength in the sternocleidomastoid muscles, symmetrical shoulder shrugging. *CN XII tongue protruded in the midline, with normal strength and movement. *SENSORY EXAMINATION pinprick sensation intact, and light touch(vibration sense). *REFLEXES: deep tendon reflexes were normal and symmetrical , grade 1/4 diffusely, no pathological reflexes were noted. *CEREBELLAR TESTING no nystagmus or palatal myoclonus. *PAIN LEVEL-0 Results - Laboratory Findings CBC and BMP: 06/24/18 04:18 06/24/18 04:18 Abnormal lab findings: Abnormal lab results RBC 3.49 M/mcL (3.82-4.97) L 06/24/18 04:18 Hgb 10.4 g/dL (11.5-15.4) L 06/24/18 04:18 Hct 33.8 % (35.3-44.9) L 06/24/18 04:18 MCHC 30.8 g/dL (31.6-35.5) L 06/24/18 04:18 Chloride 109 mEq/L (98-107) H 06/24/18 04:18 BUN 38 mg/dL (8-23) H 06/24/18 04:18 Creatinine 2.78 mg/dL (0.60-1.20) H 06/24/18 04:18 Est GFR ( Amer) 20 (> 60) L 06/24/18 04:18 Est GFR (Non-Af Amer) 17 (> 60) L 06/24/18 04:18 POC Glucose 106 mg/dL (70-99) H 06/23/18 17:00 Calculated Osmolality 303 (280-300) H 06/24/18 04:18 ALT 6 Units/L (7-52) L 06/22/18 22:34 Serum Total Protein 6.1 g/dL (6.4-8.9) L 06/22/18 22:34 Albumin 3.2 g/dL (3.5-5.7) L 06/22/18 22:34 Cholesterol 208 mg/dL (< 200) H 06/23/18 04:35 LDL Cholesterol, Calc 144 mg/dL (0-99) H 06/23/18 04:35 TSH 9.018 mcIU/mL (0.340-5.600) H 06/22/18 22:34 Ur Specific [place] 1.009 (1.010-1.025) L 06/22/18 22:51 Urine Protein >=300 mg/dL (Neg-Trace) H 06/22/18 22:51 Urine Blood Trace (Negative) H 06/22/18 22:51 Urine Microscopic RBC 3-5 per hpf (0-3) H 06/22/18 22:51
[2018-06-24] MEDS: OLANZapine 5 MG TAB.RAPDIS PO SCH (09:26)
[2018-06-24] MEDS: risperiDONE 1 MG TABLET PO SCH (09:26)
[2018-06-24] MEDS: levETIRAcetam 250 MG TABLET PO SCH (09:26)
[2018-06-24] MEDS: Ketorolac OPTH Soln 5 ML BOTTLE RIGHT EYE SCH ×2 (09:28→13:54)
[2018-06-24] MEDS: Ammonium Lactate 30 APPL/225 GM BOTTLE TP SCH (09:28)
[2018-06-24] MEDS ORDERED: amLODIPine 5 MG TABLET PO ONE (10:45)
[2018-06-24 15:32] VITALS: BP 164/74
--- NOTE | 2018-06-24 15:43 | Discharge Summary ---
- NOTES TO OUTPATIENT PROVIDER Notes to Outpatient Provider: Patient with hypothyroidism not on treatment, HTN, CKD, R frontoparietal meningioma, seizure d/o, was admitted for encephalopathy. Likely multifactorial, poorly controlled HTN, untreated hypothyroidism, mild hypercalcemia. No infectious foci were identified, BUN/Cr at her baseline, MRI - ve for CVA, and EEG -ve for active seizure. Started on 50mcg of levothyroxine and norvasc was increased to 10mg. Added coreg for better BP control. Calcium supplement d/trey. Suspect she has progressive cognitive decline as well which should be further worked up as outpatient with consideration for Aricept. Repeat TSH in 4-6 weeks. Date of Encounter: 06/24/18 Time of Encounter: 12:40 - Discharge Diagnosis (1) HTN (hypertension) Priority: Secondary Status: Chronic Qualifiers: Hypertension type: unspecified Qualified Code(s): I10 - Essential (primary) hypertension (2) Hypothyroid Priority: Secondary Status: Chronic Qualifiers: Hypothyroidism type: unspecified Qualified Code(s): E03.9 - Hypothyroidism, unspecified (3) CKD (chronic kidney disease) stage 3, GFR 30-59 ml/min Priority: Secondary Status: Chronic (4) Acute encephalopathy Priority: Primary Status: Acute (5) Generalized weakness Priority: Secondary Status: Acute (6) DVT prophylaxis Priority: Secondary Status: Acute (7) Hypercalcemia Priority: Secondary Status: Acute Hospital course: Ms. Bynum is a 73 year old female with PMHx of hypothyroidism not on treatment, HTN, CKD, R frontoparietal meningioma, seizure d/o, was admitted for encephalopathy. Likely multifactorial, poorly controlled HTN, untreated hypothyroidism, mild hypercalcemia. No infectious foci were identified, BUN/Cr at her baseline, MRI -ve for CVA, and EEG -ve for active seizure. Started on 50mcg of levothyroxine and norvasc was increased to 10mg. Added coreg for better BP control. Calcium supplement d/trey. Suspect she has progressive cognitive decline as well which should be further worked up as outpatient with consideration for Aricept. Repeat TSH in 4-6 weeks. Discharge discussed with: nurse, social work - Time Spent with Patient Total time spent providing and/or coordinating discharge services: 25 mins - Discharge Medications Prescriptions: amLODIPine [Norvasc] 10 mg PO DAILY #60 tablet Carvedilol [Coreg] 12.5 mg PO BIDWM #60 tablet Levothyroxine [Synthroid] 50 mcg PO 0630 #30 tablet Home Medications: Bupropion HCl [Wellbutrin Xl] 300 mg PO DAILY 01/17/17 [History] OLANZapine [Zyprexa] 15 mg PO BID 01/17/17 [History] risperiDONE [Risperidone] 4 mg PO BID 01/17/17 [History] levETIRAcetam [Roweepra] 500 mg PO BID 04/09/17 [History] Acetaminophen [Tylenol] 650 mg PO Q6HR PRN 12/05/17 [History] Aspirin [Adult Aspirin Regimen] 81 mg PO DAILY 12/05/17 [History] Brimonidine Tartrate/Timolol [Combigan 0.2%-0.5% Eye Drops] 1 drop RIGHT EYE BID 12/05/17 [History] GuaiFENesin/Dextromethorphan [Robitussin/Dm] 10 ml PO Q6HR PRN 12/05/17 [History] Pravastatin Sodium [Pravachol] 20 mg PO HS 12/05/17 [History] Ammonium Lactate [Patricia-Hydrolac] 1 appl TP BID 03/20/18 [History] Nystatin POWDER [Nystop] 1 appl TP BID PRN 03/20/18 [History] Tramadol HCl [Ultram] 50 mg PO QID PRN 03/20/18 [History] Ketorolac OPTH Soln [Acular] 1 drop RIGHT EYE QID 06/23/18 [History] Zinc Oxide [Boudreauxs] 1 appl TP DAILY 06/23/18 [History] Carvedilol [Coreg] 12.5 mg PO BIDWM #60 tablet 06/24/18 [Rx] Levothyroxine [Synthroid] 50 mcg PO 0630 #30 tablet 06/24/18 [Rx] amLODIPine [Norvasc] 10 mg PO DAILY #60 tablet 06/24/18 [Rx] Allergies/Adverse Reactions: Allergy/AdvReac Type Severity Reaction Status Date / Time No Known Allergies Allergy Verified 02/05/18 22:47 Date of admission: 06/22/18 23:37 Primary care physician: Ant Brewer MD Consults: 06/23/18 01:04 Consult to Nutrition [CONS] Routine Comment: Consulting Provider: NUTRITION Reason for Dietary Consult: MST Score 06/23/18 01:05 Consult to Machine Bunch Maker [CONS] Routine Reason for SW Consult: patient from [facility] ECF will need Follow up upon Discharge 06/23/18 03:28 Consult to Neurology [CONS] Routine Consulting Provider: Neurology [facility] Reason for Consult: AMS concern for CVA Call Completed: No 06/23/18 11:00 Consult to Interpret Exam [CONS] Routine Consulting Provider: Darcie Blum Consult to Interpret Exam: Interpret EEG - Constitutional Vitals: Temp Pulse Resp BP Pulse Ox 98.0 F 63 17 164/74 96 06/24/18 15:30 06/24/18 15:30 06/24/18 15:30 06/24/18 15:30 06/24/18 15:30 General appearance: Present: cooperative, A&O X 2 (Person, place but not time ), pleasant. Absent: no acute distress, answers questions appropriately Exam: General: Alert and oriented to place and person, not in acute distress. HEENT:EOMI, pupils equal, round and reactive. Cardiovascular:Normal S1 & S2, No JVD. Pulse regular. Lungs: clear to auscultation, no wheezes/rales Abdomen:Soft, non-tender, no rigidity. Neurological: grossly non-focal - Patient Status Disposition: Transfer SNF Condition: Fair Functional capacity at discharge: independent ambulation Overall status at discharge: patient is progressing back to baseline - Discharge Instructions Instructions: Chronic Hypertension (DC) Follow Up With: Ant Brewer MD [Primary Care Provider] - Additional Instructions: Norvasc increased to 10mg, coreg 12.5mg BID added for BP control Levothyroxine 50mcg started as her TSH is noted to be elevated since 11/2017 Discontinue calcium supplement. May resume VIt D supplement Outpatient workup for cognitive impairment, ?underlying dementia. - Diet and Activity Activity: resume usual activities as tolerated Diet: low salt diet
--- NOTE | 2018-06-24 15:52 | Physician Discharge Referral ---
ExtendedCare Referral Info Institutional Level of Care: Skilled - Diagnosis (1) HTN (hypertension) Priority: Secondary Status: Chronic (2) Hypothyroid Priority: Secondary Status: Chronic (3) CKD (chronic kidney disease) stage 3, GFR 30-59 ml/min Priority: Secondary Status: Chronic (4) Acute encephalopathy Priority: Primary Status: Acute (5) Generalized weakness Priority: Secondary Status: Acute (6) DVT prophylaxis Priority: Secondary Status: Acute (7) Hypercalcemia Priority: Secondary Status: Acute - Transfer Medications Prescriptions: amLODIPine [Norvasc] 10 mg PO DAILY #60 tablet Carvedilol [Coreg] 12.5 mg PO BIDWM #60 tablet Levothyroxine [Synthroid] 50 mcg PO 0630 #30 tablet Home Medications: Bupropion HCl [Wellbutrin Xl] 300 mg PO DAILY 01/17/17 [History] OLANZapine [Zyprexa] 15 mg PO BID 01/17/17 [History] risperiDONE [Risperidone] 4 mg PO BID 01/17/17 [History] levETIRAcetam [Roweepra] 500 mg PO BID 04/09/17 [History] Acetaminophen [Tylenol] 650 mg PO Q6HR PRN 12/05/17 [History] Aspirin [Adult Aspirin Regimen] 81 mg PO DAILY 12/05/17 [History] Brimonidine Tartrate/Timolol [Combigan 0.2%-0.5% Eye Drops] 1 drop RIGHT EYE BID 12/05/17 [History] GuaiFENesin/Dextromethorphan [Robitussin/Dm] 10 ml PO Q6HR PRN 12/05/17 [History] Pravastatin Sodium [Pravachol] 20 mg PO HS 12/05/17 [History] Ammonium Lactate [Patricia-Hydrolac] 1 appl TP BID 03/20/18 [History] Nystatin POWDER [Nystop] 1 appl TP BID PRN 03/20/18 [History] Tramadol HCl [Ultram] 50 mg PO QID PRN 03/20/18 [History] Ketorolac OPTH Soln [Acular] 1 drop RIGHT EYE QID 06/23/18 [History] Zinc Oxide [Boudreauxs] 1 appl TP DAILY 06/23/18 [History] Carvedilol [Coreg] 12.5 mg PO BIDWM #60 tablet 06/24/18 [Rx] Levothyroxine [Synthroid] 50 mcg PO 629 #30 tablet 06/24/18 [Rx] amLODIPine [Norvasc] 10 mg PO DAILY #60 tablet 06/24/18 [Rx] Allergies/Adverse Reactions: Allergy/AdvReac Type Severity Reaction Status Date / Time No Known Allergies Allergy Verified 02/05/18 22:47 - Respiratory Orders Smoking Cessation: Smoking cessation has been advised. For more information, call the [place] Tobacco Quit Line at 1-881-KCFL-NOW. - Rehabiliation Orders Rehab Orders: Evaluation for Physical Therapy, Evaluation for Occupational Therapy - Treatments List/Other: anti HTN meds as per d/c summary Pt does have intermittent, transient periods of disorientation which could be compatible with possible underlying dementia. Treat hypothyroidism as per d/c summary and outpatient workup for AD. - Diet Orders Cardiac CERTIFICATION: I certify that the transfer of the above named patient to an Extended Care Facility is necessary for the continuing treatment of the diagnosis listed. The above information is true and accurate reflection of patient's current condition. Confidential - Redisclosure prohibited without a patient's written consent.
== END 2018-06-24 17:35 ==
LOC: EMEROOARM 21:51 → 2NENU 21:51 → SUATTDRO 23:37 → 2NENU 06-23 00:20
PROVIDERS: ADMIT Internal Medicine; ATTEND Internal Medicine

== ENCOUNTER 2018-08-10 07:26 | Inpatient (IN) ==
[2018-08-10] MEDS ORDERED: Ringers Solution, Lactated 500 ML IVC SCH (07:45)
[2018-08-10] MEDS ORDERED: 0.9 % Sodium Chloride 500 ML IVC SCH (08:00)
[2018-08-10 08:11] LABS: INR 0.9; Prothrombin Time 10.5 Seconds (9.4-12.1)
--- NOTE | 2018-08-10 08:14 | History & Physical Report ---
Date of Encounter: 08/10/18 Time of Encounter: 08:13 24 Hour HP Update - Instructions Instructions: If the History and Physical is less than 30 days old and was completed prior to A.M. admission and or procedure and has NOT been updated on calendar day of procedure please complete this update prior to performing procedure. - Update Patient reports changes in Medical Condition: No Changes in examination, assessment, or condition: No Changes in Medication: No Preop tests/diagnostics Reviewed: Yes Surgery Remains Indicated: Yes Consent for Planned Operative Procedure(s) Verified: Yes
--- NOTE | 2018-08-10 08:15 | Pre-Sedation Evaluation ---
Pre-sedation evaluation - Pre-sedation checklist Date of procedure: 08/10/18 Procedure: ct guided biopsy left justa Recent Vitals: Last Vital Signs Temp 97.7 F 08/10/18 08:03 Pulse 63 08/10/18 08:03 Resp 18 08/10/18 08:03 BP 135/67 08/10/18 08:03 Pulse Ox 96 08/10/18 08:03 H&P (including ROS) documented in medical record: No Previous reaction to sedatives/anesthetics: No Dietary Status: NPO after Midnight Dentition: No loose teeth or bridges ASA Classification *see protocol: CLASS II-Mild systemic disease Plan of Care: Pt appropriate candidate for procedure/moderate/conscious sedation, Risks/benefits of procedure/sedation discussed w/ patient/family
[2018-08-10] MEDS ORDERED: *HR* FentaNYL (PF) 100 MCG/2 ML VIAL IVP ONE (08:16)
[2018-08-10] MEDS ORDERED: *HR* Midazolam HCl 2 MG/2 ML VIAL IVP ONE (08:16)
[2018-08-10] MEDS ORDERED: 0.9 % Sodium Chloride 500 ML ONE (11:18)
[2018-08-10] MEDS ORDERED: *HR* Heparin 5,000 UNIT/ML VIAL ONE (11:18)
[2018-08-10] MEDS ORDERED: Heparin 1,000 UNITS/500 mL 500 ML ONE (11:18)
[2018-08-10] MEDS ORDERED: 0.9 % Sodium Chloride 1,000 ML ONE ×2 (11:22→14:56)
[2018-08-10] MEDS ORDERED: Isovue-370 500 ML BOTTLE IVP ONE (11:23)
[2018-08-10] MEDS ORDERED: Isovue-300 50 ML VIAL IVP ONE (12:17)
[2018-08-10] MEDS ORDERED: IOPAMIDOL IVP ONE (12:18)
[2018-08-10] MEDS ORDERED: SODIUM CHLORIDE 0.9% IVP ONE (12:18)
[2018-08-10 12:19] LABS: Basophils % 0.5 %; Eosinophils # 0.3 K/mcL (0.0-0.6); Eosinophils % 7.2 %; Hematocrit 24.9 % (35.3-44.9); Hemoglobin 7.6 g/dL (11.5-15.4); Immature Granulocytes % 0.5 % (0-4); Lymphocytes # 0.7 K/mcL (0.6-4.6); Lymphocytes % 15.4 %; Mean Corpuscular HGB Conc 30.5 g/dL (31.6-35.5); Mean Corpuscular Hemoglobin 29.3 pg (28.0-33.3); Mean Corpuscular Volume 96.1 fL (83.0-100.0); Mean Platelet Volume 9.3 fL (9.4-12.4); Monocytes # 0.7 K/mcL (0.0-1.3); Monocytes % 17.3 %; Neutrophils # 2.5 K/mcL (1.6-8.9); Platelet Count 167 K/mcL (140-400); Red Blood Count 2.59 M/mcL (3.82-4.97); Red Cell Distribution Width 13.2 % (11.5-14.5); Segmented Neutrophils % 59.1 %
[2018-08-10 13:53] LABS: Hematocrit 27.1 % (35.3-44.9); Hemoglobin 8.3 g/dL (11.5-15.4)
[2018-08-10] MEDS ORDERED: Naloxone 0.4 MG/ML INJ IVP PRN (14:40)
[2018-08-10] MEDS ORDERED: 0.9 % Sodium Chloride 1,000 ML IVC SCH (15:00)
--- NOTE | 2018-08-10 18:07 | Internal Med History&Physical ---
Date of Encounter: 08/10/18 Time of Encounter: 13:00 Internal Medicine - H&P: HPI Chief complaint: Pain on the right back Admitted From: Home Plans for Post Hospital Care: Home History of present illness: Ms. Bynum is a 73 year old female directly admitted from interventional radiology department for right back pain after kidney biopsy. Past medical history is significant for hypertension, CKD. Patient was sent to IR for kidney biopsy by nephrology. After biopsy, patient complaint pain on the back. CT abdomen shows right retroperitoneal hematoma with active bleeding. Interventional radiologist Dr Armendariz did coil embolization and seems active bleeding stopped. Patient denies dizziness, nausea, or vomiting. Has generalized weakness. Hemoglobin dropped from baseline around 10 to 7.6. Patient was admitted for observation. Past Med Surg Social Fam HX - Past Medical History Medical history: arthritis, DVT, fibromyalgia, hyperlipidemia, hypertension, renal disease, thyroid disease, other Additional medical history: rhabomyolitis, osteomylitis, uti, JESSICA, shizophrenia, depression, dvt, depression, insomia, mrsa hs to wound Psychiatric history: anxiety, depression, schizophrenia - Past Surgical History Surgical History: cholecystectomy, orthopedic, other Additional surgical history: left ankle sx years ago - Social History Smoking Status: Never smoker Smokeless Tobacco Status: No Alcohol use: none Drug use: none - Family History Mother Living Status: Hx Family Cardiac Disorders: Yes Hx Family Respiratory Disorders: No Hx Family Cancer: No Hx Family GI Disorders: No Hx Family Endocrine Disorder: No Hx Family Neuromuscular Disorders: Yes (dementia) Hx Family Neurologic Disorders: No Hx Family HEENT Disorders: No Hx Family Autoimmune Disorders: No Father Living Status: Hx Family Neurologic Disorders: Yes (dementia) Internal Medicine - H&P: Meds Bupropion HCl [Wellbutrin Xl] 300 mg PO DAILY 01/17/17 [History] OLANZapine [Zyprexa] 15 mg PO BID 01/17/17 [History] risperiDONE [Risperidone] 4 mg PO BID 01/17/17 [History] levETIRAcetam [Roweepra] 500 mg PO BID 04/09/17 [History] Acetaminophen [Tylenol] 650 mg PO Q6HR PRN 12/05/17 [History] Brimonidine Tartrate/Timolol [Combigan 0.2%-0.5% Eye Drops] 1 drop RIGHT EYE BID 12/05/17 [History] GuaiFENesin/Dextromethorphan [Robitussin/Dm] 10 ml PO Q6HR PRN 12/05/17 [History] Pravastatin Sodium [Pravachol] 20 mg PO HS 12/05/17 [History] Ammonium Lactate [Patricia-Hydrolac] 1 appl TP BID 03/20/18 [History] Nystatin POWDER [Nystop] 1 appl TP BID PRN 03/20/18 [History] Tramadol HCl [Ultram] 50 mg PO QID PRN 03/20/18 [History] Ketorolac OPTH Soln [Acular] 1 drop RIGHT EYE QID 06/23/18 [History] Zinc Oxide [Boudreauxs] 1 appl TP DAILY 06/23/18 [History] Carvedilol [Coreg] 12.5 mg PO BIDWM #60 tablet 06/24/18 [Rx] Levothyroxine [Synthroid] 50 mcg PO 0630 #30 tablet 06/24/18 [Rx] Amlodipine Besylate 10 mg PO DAILY 07/20/18 [History] Aspirin [Lo-Dose Aspirin EC] 81 mg PO DAILY 07/20/18 [History] DiphenhydraMINE [Benadryl] 25 mg PO Q6HR PRN 07/20/18 [History] Ferrous Sulfate [Iron] 325 mg PO DAILY 08/10/18 [History] Allergy/AdvReac Type Severity Reaction Status Date / Time No Known Allergies Allergy Verified 02/05/18 22:47 All Systems PM: A 10-system review of systems was performed and is negative for pertinent findings except as documented above in the HPI. - Constitutional Vitals: Temp Pulse Resp BP Pulse Ox 97.6 F 68 18 128/79 92 08/10/18 16:18 08/10/18 17:30 08/10/18 16:18 08/10/18 17:30 08/10/18 16:18 Exam: Pt is AAO x 3, in NAD HEENT: NC/AT, PERRL Neck: Supple, no JVD, no LAD Lungs: CTA b/l Heart: S1S2, RRR Abd: Soft, mild tenderness on right back, BS present Ext: ROM wnl, no pedal edema Neuro: No focal deficit Internal Med - H&P Results - Labs CBC & Chem 7: 08/10/18 13:39 Labs: Short CBC 08/10/18 08/10/18 Range/Units 12:00 13:39 WBC 4.3 (4.3-11.1) K/mcL Hgb 7.6 L 8.3 L (11.5-15.4) g/dL Hct 24.9 L 27.1 L (35.3-44.9) % Plt Count 167 (140-400) K/mcL Neutrophils # 2.5 (1.6-8.9) K/mcL - Impressions ITS Impressions Abdomen Arteriogram 08/10/18 00:00 IMPRESSION: Active extravasation from the lower pole branch of the right renal artery. Successful coil embolization as described D/ / Hiram Armendariz MD / Hiram Armendariz MD Interpreting Provider: Hiram Armendariz MD Abdomen Arteriogram 08/10/18 00:00 IMPRESSION: Active extravasation from the lower pole branch of the right renal artery. Successful coil embolization as described D/ / Hiram Armendariz MD / Hiram Armendariz MD Interpreting Provider: Hiram Armendariz MD Abdomen/Pelvis CTA 08/10/18 00:00 IMPRESSION: Active extravasation originating from an inferior pole branch of the right renal artery. An adjacent moderate to large retroperitoneal hematoma is present. D/ / 08/10/2018 12:15:07 Rafiq Christopher MD / [facility] Interpreting Provider: Rafiq Christopher MD Embolization 08/10/18 00:00 IMPRESSION: Active extravasation from the lower pole branch of the right renal artery. Successful coil embolization as described D/ / Hiram Armendariz MD / Hiram Armendariz MD Interpreting Provider: Hiram Armendariz MD Embolization 08/10/18 00:00 IMPRESSION: Active extravasation from the lower pole branch of the right renal artery. Successful coil embolization as described D/ / Hiram Armendariz MD / Hiram Armendariz MD Interpreting Provider: Hiram Armendariz MD Renal Biopsy CT 08/10/18 09:15 IMPRESSION: Successful CT guided core biopsy right kidney. D/ / Hiram Armendariz MD / Hiram Armendariz MD Interpreting Provider: Hiram Armendariz MD - Assessment and Plan (1) CKD (chronic kidney disease) Current Visit: Yes Status: Acute Assessment and plan: Continue closely monitor renal function. Give low rate IV fluid for renal protection to prevent contrast-induced renal dysfunction. Consult nephrology. Qualifiers: Chronic kidney disease stage: stage 3 (moderate) Qualified Code(s): N18.3 - Chronic kidney disease, stage 3 (moderate) (2) Retroperitoneal hematoma Current Visit: Yes Status: Acute Assessment and plan: Closely monitor patient in 2 N. Vitals every hour. H&H every 6 hours. Transfused as needed. - Patient is not on anticoagulation, hold by mouth aspirin at this point. - Interventional radiology consult will follow-up pt. (3) DVT prophylaxis Current Visit: No Status: Acute Assessment and plan: EPCDs (4) Seizure Current Visit: No Status: Chronic Assessment and plan: Continue home medications (5) HTN (hypertension) Current Visit: No Status: Chronic Assessment and plan: Continue home medications Qualifiers: Hypertension type: essential hypertension Qualified Code(s): I10 - Essential (primary) hypertension - Time Spent With Patient Total time spent is greater than 50% in coordination of care (as documented) at patient's floor/unit and/or counseling patient: 40 minutes Greater than 35 minutes
[2018-08-10] MEDS: risperiDONE 1 MG, risperiDONE 3 MG PO SCH (19:35)
[2018-08-10] MEDS: OLANZapine 5 MG TAB.RAPDIS PO SCH (19:35)
[2018-08-10] MEDS: levETIRAcetam 250 MG TABLET PO SCH (19:35)
[2018-08-10 20:16] LABS: Hematocrit 25.4 % (35.3-44.9); Hemoglobin 7.7 g/dL (11.5-15.4)
[2018-08-10 20:28] LABS: Calcium 8.8 mg/dL (8.6-10.3); Potassium 4.9 mEq/L (3.5-5.1)
[2018-08-10] MEDS ORDERED: RISPERIDONE 4 MG PO SCH (21:00)
[2018-08-11 02:43] LABS: Basophils % 0.3 %; Eosinophils # 0.2 K/mcL (0.0-0.6); Eosinophils % 2.6 %; Hematocrit 23.4 % (35.3-44.9); Hemoglobin 7.1 g/dL (11.5-15.4); Immature Granulocytes % 0.3 % (0-4); Lymphocytes # 0.7 K/mcL (0.6-4.6); Lymphocytes % 9.3 %; Mean Corpuscular HGB Conc 30.3 g/dL (31.6-35.5); Mean Corpuscular Hemoglobin 29.5 pg (28.0-33.3); Mean Corpuscular Volume 97.1 fL (83.0-100.0); Mean Platelet Volume 9.6 fL (9.4-12.4); Monocytes % 13.7 %; Neutrophils # 5.4 K/mcL (1.6-8.9); Platelet Count 173 K/mcL (140-400); Red Blood Count 2.41 M/mcL (3.82-4.97); Red Cell Distribution Width 13.3 % (11.5-14.5); Segmented Neutrophils % 73.8 %
[2018-08-11 02:57] LABS: Calcium 8.8 mg/dL (8.6-10.3); Magnesium 1.9 mg/dL (1.6-2.6); Potassium 4.5 mEq/L (3.5-5.1)
[2018-08-11 08:06] LABS: Hematocrit 24.2 % (35.3-44.9); Hemoglobin 7.3 g/dL (11.5-15.4)
[2018-08-11] MEDS: amLODIPine 5 MG TABLET PO SCH (08:35)
[2018-08-11] MEDS: OLANZapine 5 MG TAB.RAPDIS PO SCH ×2 (08:35→20:45)
[2018-08-11] MEDS: levETIRAcetam 250 MG TABLET PO SCH ×2 (08:35→20:44)
[2018-08-11] MEDS: risperiDONE 1 MG, risperiDONE 3 MG PO SCH ×2 (08:36→20:45)
[2018-08-11] MEDS: BuPROPion XL (24 HR) 150 MG TABLET PO SCH (08:37)
[2018-08-11] MEDS ORDERED: 0.9 % Sodium Chloride 250 ML ONE (09:48)
[2018-08-11] MEDS: Zinc Oxide 454 GM EACH TP SCH (11:31)
--- NOTE | 2018-08-11 12:12 | Nephrology Consult Note ---
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 We will continue to follow (2) Anemia Status: Acute Worsening of chronic anemia s/p hematoma Baseline hgb appears around 10 [place] 1 U PRBCs now - transfusion per primary team Qualifiers: Anemia type: other cause Other causes of anemia: acute posthemorrhagic Qualified Code(s): D62 - Acute posthemorrhagic anemia (3) Retroperitoneal hematoma Status: Acute (4) HTN (hypertension) Status: Acute Qualifiers: Hypertension type: essential hypertension Qualified Code(s): I10 - Essential (primary) hypertension History of Present Illness - Reason for Consult Consult date: 08/10/18 Acute Kidney Injury, Chronic Kidney Disease Requesting physician: Miles Flood - Chief Complaint JESSICA on CKD - History of Present Illness Ms. Bynum is a 73 yo female with PMH of CKD IV (patient of Dr. Wade), HTN, fibromyalgia, and hypothyroidism. She is admitted with back pain s/p renal biopsy and found to have a retroperitoneal hematoma. Successful embolization per IR. Nephrology is consulted for JESSICA on CKD. She reports back pain and some mild dyspnea. States the pain medicine helps but makes her sleepy. She denies confusion, light-headedness, N/V, dysuria, or LE edema. She was undergoing the renal biopsy for further evaluation of positive PEDRO and monoclonal antibody. She did have contrast dye yesterday for evaluation of the hematoma and for the embolization. She denies NSAIDs, recent antibiotics, diuretics, or MISTY/ARBs. No known FH of renal disease. Past Med Surg Social Fam HX - Past Medical History Medical history: arthritis, DVT, fibromyalgia, hyperlipidemia, hypertension, renal disease, thyroid disease, other Additional medical history: rhabomyolitis, osteomylitis, uti, JESSICA, shizophrenia, depression, dvt, depression, insomia, mrsa hs to wound Psychiatric history: anxiety, depression, schizophrenia - Past Surgical History Surgical History: cholecystectomy, orthopedic, other Additional surgical history: left ankle sx years ago - Social History Smoking Status: Never smoker Smokeless Tobacco Status: No Alcohol use: none Drug use: none - Family History Mother Living Status: Hx Family Cardiac Disorders: Yes Hx Family Respiratory Disorders: No Hx Family Cancer: No Hx Family GI Disorders: No Hx Family Endocrine Disorder: No Hx Family Neuromuscular Disorders: Yes (dementia) Hx Family Neurologic Disorders: No Hx Family HEENT Disorders: No Hx Family Autoimmune Disorders: No Father Living Status: Hx Family Neurologic Disorders: Yes (dementia) Medications and Allergies Bupropion HCl [Wellbutrin Xl] 300 mg PO DAILY 01/17/17 [History] OLANZapine [Zyprexa] 15 mg PO 01/17/17 [History] levETIRAcetam [Roweepra] 500 mg PO 04/09/17 [History] Acetaminophen [Tylenol] 650 mg PO Q6HR PRN 12/05/17 [History] Brimonidine Tartrate/Timolol [Combigan 0.2%-0.5% Eye Drops] 1 drop RIGHT EYE BID 12/05/17 [History] GuaiFENesin/Dextromethorphan [Robitussin/Dm] 10 ml PO Q6HR PRN 12/05/17 [History] Pravastatin Sodium [Pravachol] 20 mg PO HS 12/05/17 [History] Ammonium Lactate [Patricia-Hydrolac] 1 appl TP BID 03/20/18 [History] Nystatin POWDER [Nystop] 1 appl TP BID PRN 03/20/18 [History] Zinc Oxide [Boudreauxs] 1 appl TP DAILY 06/23/18 [History] Carvedilol [Coreg] 12.5 mg PO BIDWM #60 tablet 06/24/18 [Rx] Amlodipine Besylate 10 mg PO DAILY 07/20/18 [History] Aspirin [Lo-Dose Aspirin EC] 81 mg PO DAILY 07/20/18 [History] Dextran 70/Hypromellose [Artificial Tears] 1 drop BOTH EYES QID PRN 08/10/18 [History] Levothyroxine Sodium 75 mcg PO DAILY 08/10/18 [History] DiphenhydraMINE [Benadryl] 12.5 mg PO Q6HR PRN udc 08/23/18 [Rx] risperiDONE [RisperDAL] 2 mg PO DAILY tablet 08/23/18 [Rx] risperiDONE [Risperidone] 4 mg PO HS #0 08/23/18 [Rx] Allergy/AdvReac Type Severity Reaction Status Date / Time No Known Allergies Allergy Verified 08/10/18 19:22 Review of Systems All Systems: reviewed and no additional remarkable complaints except as stated Exam - Vital Signs Vital signs: Initial Vital Signs Temp Pulse Resp BP Pulse Ox 97.7 F 63 18 135/67 96 08/10/18 08:03 08/10/18 08:03 08/10/18 08:03 08/10/18 08:03 08/10/18 08:03 Vital Signs - Last 8 Hours Temp Pulse Resp BP Pulse Ox 08/11/18 10:58 99.7 F H 83 20 134/55 93 08/11/18 10:20 98.2 F 72 18 134/55 08/11/18 10:05 99.1 F 74 18 146/59 95 08/11/18 08:45 78 08/11/18 08:30 78 20 95 08/11/18 06:46 98.7 F 77 22 163/71 90 Intake and Output 08/10/18 08/11/18 08/11/18 23:59 07:59 15:59 Intake Total 240 / 240 120 / 120 Output Total 650 / 650 500 / 500 600 / 600 Balance -410 / -410 -500 / -500 -480 / -480 Intake: Oral 240 / 240 120 / 120 Blood Product 0 / 0 Rbcs Leuko Poor As-1 Unit 0 / 0 [id number] Output: Urine 650 / 650 500 / 500 600 / 600 Other: Meal Dinner Breakfast Percent of Meal Consumed 100% 45% Stool Size Small Moderate Small Stool Consistency soft soft soft formed formed Stool Color Brown Brown Brown # Voids 1 1 Weight 81.2 kg Patient Weight 08/11/18 23:59 Weight 81.2 kg - General Appearance General appearance: frail EENT: ATNC, mucous membranes dry Neck: supple Respiratory: clear Cardiology: edema (mild bilateral LE), regular rate, regular rhythm Gastrointestinal: normoactive bowel sounds, no tenderness Integumentary: warm and dry Neurologic: no focal deficit, alert and oriented x3 Musculoskeletal: no cyanosis, no clubbing Psychiatric: mood/affect appropriate, cooperative Results - Lab Results 08/11/18 07:40 08/11/18 02:12 Most recent lab results Calcium 8.8 mg/dL (8.6-10.3) 08/11/18 02:12 Magnesium 1.9 mg/dL (1.6-2.6) 08/11/18 02:12 Consult Discharge Plan - Plan Instructions: Percutaneous Kidney Biopsy (DC) Additional Instructions: Discharge Instructions for Interventional Radiology Patients: 1. You must have a ride home from your procedure today. Because of the sedation that you received during your procedure today, you may not drive for 24 hours. 2. Keep your dressing clean and dry and do not remove for 24 hours after your procedure. 3. After 24 hours, you may remove your dressing and shower. Do not submerge your incision in water (bathtub or swimming) until the the incision is healed. It usually takes 7-10 days for incisions to heal. 4. You may put a band aid over your incision until it is completely healed. You may change the dressing if it gets wet or soiled. 5. Always watch for any sign of infection to the site, such as: * Redness * Warmth * Tenderness * White or yellow drainage * Fever or 100.4 degrees or greater If you notice any of these symptoms, please contact your Primary Care Provider immediately. 6. You may resume all blood thinners with the next scheduled dose. For example: If you take a blood thinner each morning, take your medication the next morning as you normally would. Follow Up Appointment * Please call your surgeon's office within 24 hours or next business day to schedule a follow up appointment. * Home Medication List * You have been given a list of your current medications. If you have changes in your medications, update your list. * Provide a list of current medications to your primary care physician. * Carry a copy of your current medications with you in case of an emergency. Referrals: Ant Brewer MD [Non-Partnered Physician] - (NO PCP APPOINTMENT NEEDED [facility]) <Jake Ortiz - Last Filed: 08/27/18 15:22> Date of Encounter: 08/11/18 Assessment and Plan (1) Acute kidney injury superimposed on CKD Status: Acute (2) IgA nephropathy determined by renal biopsy Status: Acute (3) Anemia Status: Acute Qualifiers: Anemia type: other cause Other causes of anemia: acute posthemorrhagic Qualified Code(s): D62 - Acute posthemorrhagic anemia (4) Retroperitoneal hematoma Status: Acute Exam - Vital Signs Vital signs: Initial Vital Signs Temp Pulse Resp BP Pulse Ox 97.7 F 63 18 135/67 96 08/10/18 08:03 08/10/18 08:03 08/10/18 08:03 08/10/18 08:03 08/10/18 08:03 Results - Lab Results 08/23/18 07:05 08/23/18 07:05 Most recent lab results ABG pH 7.44 pH Units (7.32-7.45) 08/18/18 10:55 ABG pCO2 46 mmHg (35-45) H 08/18/18 10:55 ABG pO2 64 mmHg (85-104) L 08/18/18 10:55 ABG HCO3 31 mEq/L (21-27) H 08/18/18 10:55 ABG O2 Saturation 93 % (95-98) L 08/18/18 10:55 Calcium 9.2 mg/dL (8.6-10.3) 08/23/18 07:05 Phosphorus 3.8 mg/dL (2.7-4.5) 08/12/18 04:35 Magnesium 1.9 mg/dL (1.6-2.6) 08/12/18 04:35 Urine Creatinine 53 mg/dL 08/11/18 18:35 Urine Sodium 69.2 mEq/L 08/11/18 18:35 Urine Total Protein 254 mg/dL (1-14) H 08/11/18 18:35 - Attending Attestation I examined this patient and my medical decision-making was reviewed with the Resident Physician. I agree with the documented findings, disposition and treatment plan as described except to the extent set forth below. Pt seen and examined and in brief; 73 y o female with PMH of HTN and stage [address] Wade admitted after renal biopsy with complication of bleeding with hematoma requiring IR to perform CTA with embolization. Pt has continued to have back pain. Her hgb dropped from 10.5 pre biopsy to 7.6 after biopsy with SCr worsening from 2.85 to 2.98 and now in the 3.0s. On exam, elderly female in mild distress due to pain with clear lungs, heart S1S2, abd soft NT and no LE edema. Agree with serial hgb checks. Agree with transfusion pRBCs. Will start IVF afterwards. No acute indication for [employer] at this time but will monitor closely. Avoid nephrotoxins if possible. Will await prelim renal biopsy results from [facility] to help with plan of care.
[2018-08-11] MEDS: 0.9 % Sodium Chloride 1,000 ML IVC SCH (13:34)
--- NOTE | 2018-08-11 13:39 | IR Progress Note ---
Patient reports: still having pain, shortness of breath Vital Signs: Vital Signs/O2 Sat, Most Current Temp Pulse Resp BP Pulse Ox 98.8 F 76 20 146/61 95 08/11/18 12:40 08/11/18 12:40 08/11/18 12:40 08/11/18 12:40 08/11/18 12:40 Recent Labs: Lab Results 08/11/18 08/11/18 08/11/18 07:40 02:15 02:12 WBC 7.3 D RBC 2.41 L Hgb 7.3 L 7.1 L Hct 24.2 L 23.4 L MCV 97.1 MCH 29.5 MCHC 30.3 L RDW 13.3 Plt Count 173 MPV 9.6 Neutrophils # 5.4 Lymphocytes # 0.7 Monocytes # 1.0 Eosinophils # 0.2 Basophils # 0.0 Sodium 141 Potassium 4.5 Chloride 112 H Carbon Dioxide 24 BUN 45 H Creatinine 3.17 H Est GFR ( Amer) 17 L Est GFR (Non-Af Amer) 14 L BUN/Creatinine Ratio 14 Glucose 135 H Calcium 8.8 Magnesium 1.9 08/10/18 08/10/18 08/10/18 18:50 18:50 13:39 WBC RBC Hgb 7.7 L 8.3 L Hct 25.4 L 27.1 L MCV MCH MCHC RDW Plt Count MPV Neutrophils # Lymphocytes # Monocytes # Eosinophils # Basophils # Sodium 142 Potassium 4.9 Chloride 111 H Carbon Dioxide 25 BUN 48 H Creatinine 2.98 H Est GFR ( Amer) 19 L Est GFR (Non-Af Amer) 15 L BUN/Creatinine Ratio 16 Glucose 187 H Calcium 8.8 Magnesium 08/10/18 12:00 WBC 4.3 RBC 2.59 L Hgb 7.6 L Hct 24.9 L MCV 96.1 MCH 29.3 MCHC 30.5 L RDW 13.2 Plt Count 167 MPV 9.3 L Neutrophils # 2.5 Lymphocytes # 0.7 Monocytes # 0.7 Eosinophils # 0.3 Basophils # 0.0 Sodium Potassium Chloride Carbon Dioxide BUN Creatinine Est GFR ( Amer) Est GFR (Non-Af Amer) BUN/Creatinine Ratio Glucose Calcium Magnesium Assessment and Plan Saw patient earlier this morning. Underwent CT guided renal biopsy, with a small perinephric hematoma after the procedure. However while in recovery, there were concerns for continued bleeding, and a CTA was done that demonstrated active hemorrhage from the lower pole. She was taken by Dr. Armendariz to the IR lab where he was successfully able to embolize the lower pole branches feeding the bleeding site, with no residual active bleeding when he was done. Appreciate assistance from Hospitalist service. She appears drowsy and pale this morning, with a drop in Hgb noted. She will be transfused today per nursing. From an IR standpoint, no further intervention required with regards to the bleeding that occured yesterday. If any clinical chance of concern for possible bleeding, please contact [facility]. Once medically cleared, would be ok for discharge from and IR standpoint. Conor Menendez MD
[2018-08-11 13:54] LABS: Hematocrit 25.5 % (35.3-44.9); Hemoglobin 7.9 g/dL (11.5-15.4)
[2018-08-11] MEDS: traMADol 50 MG TABLET PO PRN (14:35)
--- NOTE | 2018-08-11 14:56 | Internal Med Progress Note ---
Hospitalist Progress Note - Encounter Date of Encounter: 08/11/18 Time of Encounter: 14:52 - Subjective Interval History: Evaluated patient earlier today. Was complaining of pain in her right flank and upper abdomen. No dizziness or lightheadedness. No fevers or chills overnight. - Exam Vitals: Temp Pulse Resp BP Pulse Ox 98.8 F 76 20 146/61 95 08/11/18 12:40 08/11/18 12:40 08/11/18 12:40 08/11/18 12:40 08/11/18 12:40 Exam: General: Patient is alert, no acute distress, oriented x 3 ENT: Mucous membranes moist Respiratory: Good respiratory effort. Normal breath sounds. No wheezing or crackles. Cardiovascular: Regular rate and rhythm. s1 and s2 normal No clicks, rubs, gallops, or murmurs. No pedal edema Abdomen: Abdomen is soft, nontender. Right CVA tenderness present Bowel sounds are present Musculoskeletal: Spontaneously moving all extremities Skin: warm, dry, intact. Pallor present Neuro: Alert oriented x 3 normal cranial nerves, no focal deficits - Assessment and Plan (1) Retroperitoneal hematoma Current Visit: Yes Status: Acute Assessment and Plan: Patient with acute retroperitoneal hematoma following right kidney biopsy. Status post embolization of bleeding vessel. Currently doing well. Hemoglobin levels remained stable but low. As such we will transfuse 1 unit PRBC. Today supportive care. Pain control. (2) HTN (hypertension) Current Visit: Yes Status: Chronic Assessment and Plan: Blood pressure elevated today. Could be held due to her pain. Continue carvedilol (3) Seizure Current Visit: No Status: Chronic Assessment and Plan: History of seizure disorder. Continue Keppra (4) CKD (chronic kidney disease) Current Visit: Yes Status: Chronic Assessment and Plan: Mild acute kidney injury on chronic kidney disease stage IV . Creatinine 3.17 today. Slightly elevated than yesterday. Could be due to retroperitoneal he matoma/kidney biopsy and intravenous dye that she received for embolization. Nephrology following. Recommend gentle IV hydration. We will continue to monitor renal function (5) Anemia Current Visit: Yes Status: Acute Assessment and Plan: Patient with severe anemia related to chronic kidney disease and acute retroperitoneal hematoma. Will transfuse 1 unit PRBC given the precipitous drop in hemoglobin. Along with worsening renal function. Monitor H&H closely (6) DVT prophylaxis Current Visit: No Status: Acute Assessment and Plan: With SCDs only due to retroperitoneal hematoma - Time Spent with Patient Total time spent is greater than 50% in coordination of care (as documented) at patient's floor/unit and/or counseling patient: Internal Medicine: Result - Labs CBC & Chem 7: 08/11/18 13:39 08/11/18 02:12 Labs: Short CBC 08/10/18 08/11/18 08/11/18 Range/Units 18:50 02:15 07:40 WBC 7.3 D (4.3-11.1) K/mcL Hgb 7.7 L 7.1 L 7.3 L (11.5-15.4) g/dL Hct 25.4 L 23.4 L 24.2 L (35.3-44.9) % Plt Count 173 (140-400) K/mcL Neutrophils # 5.4 (1.6-8.9) K/mcL 08/11/18 Range/Units 13:39 WBC (4.3-11.1) K/mcL Hgb 7.9 L (11.5-15.4) g/dL Hct 25.5 L (35.3-44.9) % Plt Count (140-400) K/mcL Neutrophils # (1.6-8.9) K/mcL BMP 08/10/18 08/11/18 18:50 02:12 Sodium 142 141 Potassium 4.9 4.5 Chloride 111 H 112 H Carbon Dioxide 25 24 BUN 48 H 45 H Creatinine 2.98 H 3.17 H Glucose 187 H 135 H Calcium 8.8 8.8 - ABG Interpretation ABG results: PT/INR, D-dimer PT 10.5 Seconds (9.4-12.1) 08/10/18 07:50 Consult Discharge Plan - Plan Instructions: Percutaneous Kidney Biopsy (DC) Additional Instructions: Discharge Instructions for Interventional Radiology Patients: 1. You must have a ride home from your procedure today. Because of the sedation that you received during your procedure today, you may not drive for 24 hours. 2. Keep your dressing clean and dry and do not remove for 24 hours after your procedure. 3. After 24 hours, you may remove your dressing and shower. Do not submerge your incision in water (bathtub or swimming) until the the incision is healed. It usually takes 7-10 days for incisions to heal. 4. You may put a band aid over your incision until it is completely healed. You may change the dressing if it gets wet or soiled. 5. Always watch for any sign of infection to the site, such as: * Redness * Warmth * Tenderness * White or yellow drainage * Fever or 100.4 degrees or greater If you notice any of these symptoms, please contact your Primary Care Provider immediately. 6. You may resume all blood thinners with the next scheduled dose. For example: If you take a blood thinner each morning, take your medication the next morning as you normally would. Follow Up Appointment * Please call your surgeon's office within 24 hours or next business day to schedule a follow up appointment. * Home Medication List * You have been given a list of your current medications. If you have changes in your medications, update your list. * Provide a list of current medications to your primary care physician. * Carry a copy of your current medications with you in case of an emergency. Referrals: Ant Brewer MD [Non-Partnered Physician] - (NO PCP APPOINTMENT NEEDED PT IS GOING TO [facility]) (2) HTN (hypertension) Qualifiers: Hypertension type: essential hypertension Qualified Code(s): I10 - Essential (primary) hypertension (4) CKD (chronic kidney disease) Qualifiers: Chronic kidney disease stage: stage 4 (severe) Qualified Code(s): N18.4 - Chronic kidney disease, stage 4 (severe) (5) Anemia Qualifiers: Anemia type: other cause Other causes of anemia: acute posthemorrhagic Qualified Code(s): D62 - Acute posthemorrhagic anemia
[2018-08-11 18:51] LABS: Bilirubin,Urine Negative (Negative); Blood,Urine Negative (Negative); Clarity,Urine Clear (Clear); Color,Urine Yellow (Yellow); Glucose,Urine (UA) Normal (Normal); Ketones,Urine Negative (Negative); Leukocyte Esterase,Urine Negative (Negative); Nitrite,Urine Negative (Negative); Protein,Urine >=300 mg/dL (Neg-Trace); Specific Gravity,Urine 1.022 (1.010-1.025); Urobilinogen,Urine Normal (Normal)
[2018-08-11 18:52] LABS: Bacteria,Urine None Seen per hpf (None-Few); Hyaline Casts,Urine None Seen per lpf (None-Few); Squamous Epithelial Cell,Urine Moderate per lpf (None-Few); WBC,Urine 0-3 per hpf (0-3)
[2018-08-11 19:31] LABS: Creatinine,Urine 53 mg/dL; Microalbumin,Urine > 1350 mg/L; Protein/Creatinine Ratio,Urine 4.79 mg/mg (0.00-0.20); Sodium, Urine 69.2 mEq/L
[2018-08-11 19:45] LABS: Hematocrit 24.3 % (35.3-44.9); Hemoglobin 7.6 g/dL (11.5-15.4)
[2018-08-11] MEDS: Acetaminophen 325 MG TABLET PO PRN (23:06)
[2018-08-12 05:23] LABS: Basophils % 0.2 %; Eosinophils # 0.2 K/mcL (0.0-0.6); Hematocrit 23.8 % (35.3-44.9); Hemoglobin 7.3 g/dL (11.5-15.4); Immature Granulocytes % 0.7 % (0-4); Lymphocytes # 1.1 K/mcL (0.6-4.6); Lymphocytes % 10.1 %; Mean Corpuscular HGB Conc 30.7 g/dL (31.6-35.5); Mean Corpuscular Hemoglobin 29.1 pg (28.0-33.3); Mean Corpuscular Volume 94.8 fL (83.0-100.0); Mean Platelet Volume 9.6 fL (9.4-12.4); Monocytes # 1.6 K/mcL (0.0-1.3); Monocytes % 15.7 %; Neutrophils # 7.4 K/mcL (1.6-8.9); Platelet Count 147 K/mcL (140-400); Red Blood Count 2.51 M/mcL (3.82-4.97); Red Cell Distribution Width 15.1 % (11.5-14.5); Segmented Neutrophils % 71.3 %
[2018-08-12 05:25] LABS: Magnesium 1.9 mg/dL (1.6-2.6); Phosphorous 3.8 mg/dL (2.7-4.5); Potassium 4.3 mEq/L (3.5-5.1)
[2018-08-12] MEDS: 0.9 % Sodium Chloride 1,000 ML IVC SCH (05:29)
[2018-08-12] MEDS: BuPROPion XL (24 HR) 150 MG TABLET PO SCH (08:21)
[2018-08-12] MEDS: OLANZapine 5 MG TAB.RAPDIS PO SCH ×2 (08:21→21:29)
[2018-08-12] MEDS: risperiDONE 1 MG, risperiDONE 3 MG PO SCH ×2 (08:21→21:29)
[2018-08-12] MEDS: Nystatin POWDER 30 GM BOTTLE TP PRN (08:22)
[2018-08-12] MEDS: levETIRAcetam 250 MG TABLET PO SCH ×2 (08:22→21:29)
[2018-08-12] MEDS: amLODIPine 5 MG TABLET PO SCH (08:22)
[2018-08-12] MEDS: Zinc Oxide 454 GM EACH TP SCH (08:31)
[2018-08-12 12:32] LABS: Hematocrit 25.7 % (35.3-44.9); Hemoglobin 7.9 g/dL (11.5-15.4)
[2018-08-12] MEDS ORDERED: 0.9 % Sodium Chloride 250 ML ONE (13:20)
--- NOTE | 2018-08-12 14:03 | Nephrology Progress Note ---
<Licha Nieves - Last Filed: 08/12/18 14:01> Date of Encounter: 08/12/18 Time of Encounter: 14:01 - Assessment and Plan (1) Acute kidney injury superimposed on CKD Status: Acute Baseline GFR appears to be around 20. GFR today is 15. JESSICA on CKD likely related to IV contrast. D/C IVF. Agree with blood transfusion, could probably benefit from another PRBC. Avoid nephrotoxins and renal dose. (2) Anemia Status: Acute Baseline HGB appears to be 10. Hgb is 7.5, s/p 1 unit PRBC's. 1 unit PRBC infusing as well. Trend H/H's. Qualifiers: Anemia type: other cause Other causes of anemia: acute posthemorrhagic Qualified Code(s): D62 - Acute posthemorrhagic anemia (3) Retroperitoneal hematoma Status: Acute Per IR/primary team. Trend H/H. Subjective Principal diagnosis: s/p kidney biopsy Interval history: Pt seen and examined. Is doing well. Denies any chest pain or shortness of breath. Denies nausea, vomiting, diarrhea. Admits to right hip/groin pain. Objective - Vital Signs Vital signs: Vital Signs Temp Pulse Resp BP Pulse Ox 08/12/18 13:43 97.8 F 62 16 129/60 98 08/12/18 13:28 98.9 F 72 14 137/53 96 08/12/18 11:19 98.8 F 91 24 138/66 97 08/12/18 07:34 98.8 F 106 22 160/75 94 08/12/18 03:47 98.1 F 72 24 143/60 100 08/12/18 00:22 98.0 F 08/11/18 23:01 101.0 F H 75 20 136/83 98 08/11/18 18:41 98.7 F 71 26 144/63 95 08/11/18 18:15 72 22 95 08/11/18 16:30 74 22 96 08/11/18 16:26 99.0 F 78 20 148/65 97 08/11/18 14:40 73 20 96 Intake and Output 08/11/18 08/12/18 08/12/18 23:59 07:59 15:59 Intake Total 1000 / 1000 1000 / 1000 Output Total 950 / 950 1000 / 1000 Balance -950 / -950 0 / 0 1000 / 1000 Intake: IV Fluids 1000 / 1000 0.9 % Sodium Chloride 1,000 ML 1000 / 1000 @ 60 mls/hr IVC .[id number] [facility] Rx #:[id number] Oral 1000 / 1000 Blood Product 0 / 0 Rbcs Leuko Poor As-1 Unit 0 / 0 [id number] Output: Urine 950 / 950 1000 / 1000 Other: Meal Dinner Lunch Percent of Meal Consumed 95% 50% Stool Size Small Stool Consistency soft Stool Characteristics Normal for Patient Stool Color Brown # Voids 1 # Bowel Movements 1 Weight 79.5 kg Patient Weight 08/12/18 23:59 Weight 79.5 kg - General Appearance General appearance: Present: well-developed, well-nourished Exam: Pt appears pale. EENT: Present: ATNC, hearing intact, vision intact Cardiology: Present: no edema, normal S1, normal S2 Gastrointestinal: Present: normoactive bowel sounds, no tenderness Integumentary: Present: no rash, warm and dry Neurologic: Present: alert and oriented x3 Musculoskeletal: Present: no deformities, no erythema Psychiatric: Present: mood/affect appropriate, cooperative - Lab 08/12/18 12:20 08/12/18 04:35 Most recent lab results Calcium 9.0 mg/dL (8.6-10.3) 08/12/18 04:35 Phosphorus 3.8 mg/dL (2.7-4.5) 08/12/18 04:35 Magnesium 1.9 mg/dL (1.6-2.6) 08/12/18 04:35 Urine Creatinine 53 mg/dL 08/11/18 18:35 Urine Sodium 69.2 mEq/L 08/11/18 18:35 Urine Total Protein 254 mg/dL (1-14) H 08/11/18 18:35 Consult Discharge Plan - Plan Instructions: Percutaneous Kidney Biopsy (DC) Additional Instructions: Discharge Instructions for Interventional Radiology Patients: 1. You must have a ride home from your procedure today. Because of the sedation that you received during your procedure today, you may not drive for 24 hours. 2. Keep your dressing clean and dry and do not remove for 24 hours after your procedure. 3. After 24 hours, you may remove your dressing and shower. Do not submerge your incision in water (bathtub or swimming) until the the incision is healed. It usually takes 7-10 days for incisions to heal. 4. You may put a band aid over your incision until it is completely healed. You may change the dressing if it gets wet or soiled. 5. Always watch for any sign of infection to the site, such as: * Redness * Warmth * Tenderness * White or yellow drainage * Fever or 100.4 degrees or greater If you notice any of these symptoms, please contact your Primary Care Provider immediately. 6. You may resume all blood thinners with the next scheduled dose. For example: If you take a blood thinner each morning, take your medication the next morning as you normally would. Follow Up Appointment * Please call your surgeon's office within 24 hours or next business day to schedule a follow up appointment. * Home Medication List * You have been given a list of your current medications. If you have changes in your medications, update your list. * Provide a list of current medications to your primary care physician. * Carry a copy of your current medications with you in case of an emergency. Referrals: Ant Brewer MD [Non-Partnered Physician] - (NO PCP APPOINTMENT NEEDED PT IS GOING TO [facility]) <Jake Ortiz - Last Filed: 09/19/18 23:41> Date of Encounter: 08/12/18 - Assessment and Plan (1) Acute kidney injury superimposed on CKD Status: Acute (2) IgA nephropathy determined by renal biopsy Status: Acute (3) Anemia Status: Acute Qualifiers: Anemia type: other cause Other causes of anemia: acute posthemorrhagic Qualified Code(s): D62 - Acute posthemorrhagic anemia (4) Retroperitoneal hematoma Status: Acute Objective - Lab 08/23/18 07:05 08/23/18 07:05 - Attending Attestation I examined this patient and my medical decision-making was reviewed with the Resident Physician. I agree with the documented findings, disposition and treatment plan as described except to the extent set forth below. Pt seen and examined. Pt has continued to have back pain radiating to right pelvis. On exam, elderly female NAD with clear lungs, heart S1S2, abd soft NT and no LE edema. GFR now 15, baseline in the 20s, Agree with continued serial hgb checks. Agree with transfusion pRBCs already given and more. Can continue IVF afterwards. No acute indication for [employer] at this time but will monitor closely. Continue to avoid nephrotoxins if possible. Will await prelim renal biopsy results from [facility] to help with plan of care.
--- NOTE | 2018-08-12 14:39 | IR Progress Note ---
Vital Signs: Vital Signs/O2 Sat, Most Current Temp Pulse Resp BP Pulse Ox 97.8 F 62 16 129/60 98 08/12/18 13:43 08/12/18 13:43 08/12/18 13:43 08/12/18 13:43 08/12/18 13:43 Recent Labs: Lab Results 08/12/18 08/12/18 08/12/18 12:20 04:35 04:35 WBC RBC Hgb 7.9 L Hct 25.7 L MCV MCH MCHC RDW Plt Count MPV Neutrophils # Lymphocytes # Monocytes # Eosinophils # Basophils # Sodium 143 Potassium 4.3 Chloride 112 H Carbon Dioxide 23 BUN 41 H Creatinine 3.10 H Est GFR ( Amer) 18 L Est GFR (Non-Af Amer) 15 L BUN/Creatinine Ratio 13 Glucose 113 H Calcium 9.0 Phosphorus 3.8 Magnesium 1.9 08/12/18 08/11/18 08/11/18 04:35 19:16 13:39 WBC 10.4 RBC 2.51 L Hgb 7.3 L 7.6 L 7.9 L Hct 23.8 L 24.3 L 25.5 L MCV 94.8 MCH 29.1 MCHC 30.7 L RDW 15.1 H Plt Count 147 MPV 9.6 Neutrophils # 7.4 Lymphocytes # 1.1 Monocytes # 1.6 H Eosinophils # 0.2 Basophils # 0.0 Sodium Potassium Chloride Carbon Dioxide BUN Creatinine Est GFR ( Amer) Est GFR (Non-Af Amer) BUN/Creatinine Ratio Glucose Calcium Phosphorus Magnesium 08/11/18 08/11/18 08/11/18 07:40 02:15 02:12 WBC 7.3 D RBC 2.41 L Hgb 7.3 L 7.1 L Hct 24.2 L 23.4 L MCV 97.1 MCH 29.5 MCHC 30.3 L RDW 13.3 Plt Count 173 MPV 9.6 Neutrophils # 5.4 Lymphocytes # 0.7 Monocytes # 1.0 Eosinophils # 0.2 Basophils # 0.0 Sodium 141 Potassium 4.5 Chloride 112 H Carbon Dioxide 24 BUN 45 H Creatinine 3.17 H Est GFR ( Amer) 17 L Est GFR (Non-Af Amer) 14 L BUN/Creatinine Ratio 14 Glucose 135 H Calcium 8.8 Phosphorus Magnesium 1.9 08/10/18 08/10/1808/10/19 18:50 18:50 13:39 WBC RBC Hgb 7.7 L 8.3 L Hct 25.4 L 27.1 L MCV MCH MCHC RDW Plt Count MPV Neutrophils # Lymphocytes # Monocytes # Eosinophils # Basophils # Sodium 142 Potassium 4.9 Chloride 111 H Carbon Dioxide 25 BUN 48 H Creatinine 2.98 H Est GFR ( Amer) 19 L Est GFR (Non-Af Amer) 15 L BUN/Creatinine Ratio 16 Glucose 187 H Calcium 8.8 Phosphorus Magnesium 08/10/18 12:00 WBC 4.3 RBC 2.59 L Hgb 7.6 L Hct 24.9 L MCV 96.1 MCH 29.3 MCHC 30.5 L RDW 13.2 Plt Count 167 MPV 9.3 L Neutrophils # 2.5 Lymphocytes # 0.7 Monocytes # 0.7 Eosinophils # 0.3 Basophils # 0.0 Sodium Potassium Chloride Carbon Dioxide BUN Creatinine Est GFR ( Amer) Est GFR (Non-Af Amer) BUN/Creatinine Ratio Glucose Calcium Phosphorus Magnesium Assessment and Plan Saw patient this afternoon. Underwent CT guided renal biopsy, with a small perinephric hematoma after the procedure. However while in recovery, there were concerns for continued bleeding, and a CTA was done that demonstrated active hemorrhage from the lower pole. She was taken to the IR lab and we were able to embolize the lower pole branches feeding the bleeding site, with no residual active bleeding . Appreciate assistance from Hospitalist service. Pt complains of persistent back pain. She is being transfused today per nursing. HgB 7.9. From an IR standpoint, no further intervention required with regards to the bleeding that occured yesterday. If any clinical chance of concern for possible bleeding, please contact [facility]IR. Once medically cleared, would be ok for discharge from and IR standpoint. Thank you, Hiram Armendariz MD
--- NOTE | 2018-08-12 15:12 | Internal Med Progress Note ---
Hospitalist Progress Note - Encounter Date of Encounter: 08/12/18 Time of Encounter: 10:10 - Subjective Interval History: Patient continues to have right flank pain but it is improving in severe. Denies any dizziness or lightheadedness. No nausea or vomiting. Patient did have an episode of fever with temperature 101 last night. Afebrile since then. - Exam Vitals: Temp Pulse Resp BP Pulse Ox 97.8 F 62 16 129/60 98 08/12/18 13:43 08/12/18 13:43 08/12/18 13:43 08/12/18 13:43 08/12/18 13:43 Exam: General: Patient is alert, no acute distress, oriented x 3 ENT: Mucous membranes moist Respiratory: Good respiratory effort. Normal breath sounds. No wheezing or crackles. Cardiovascular: Regular rate and rhythm. s1 and s2 normal No clicks, rubs, gallops, or murmurs. No pedal edema Abdomen: Abdomen is soft, nontender. Right CVA tenderness. Bowel sounds are present Musculoskeletal: Spontaneously moving all extremities Skin: warm, dry, intact. Pallor present. Neuro: Alert oriented x 3 normal cranial nerves, no focal deficits - Assessment and Plan (1) Retroperitoneal hematoma Current Visit: Yes Status: Acute Assessment and Plan: Stable. Pain improving. Avoid anticoagulants. We will continue to monitor. Interventional radiology and nephrology following. (2) HTN (hypertension) Current Visit: Yes Status: Chronic Assessment and Plan: Blood pressure is well controlled at this time. (3) Seizure Current Visit: No Status: Chronic Assessment and Plan: Continue Keppra (4) CKD (chronic kidney disease) Current Visit: Yes Status: Chronic Assessment and Plan: Creatinine improving. 3.1 today. Nephrology input appreciated. We will stop IV fluids at this time. (5) Anemia Current Visit: Yes Status: Acute Assessment and Plan: Hemoglobin 7.3 this morning. Discussed with nephrology. Recommend transfusing another unit of blood. Will transfuse and follow hemoglobin levels. If stable, possible discharge tomorrow. (6) DVT prophylaxis Current Visit: No Status: Acute Assessment and Plan: With SCDs - Time Spent with Patient Total time spent is greater than 50% in coordination of care (as documented) at patient's floor/unit and/or counseling patient: Internal Medicine: Result - Labs CBC & Chem 7: 08/12/18 12:20 08/12/18 04:35 Labs: Short CBC 08/11/18 08/12/18 08/12/18 Range/Units 19:16 04:35 12:20 WBC 10.4 (4.3-11.1) K/mcL Hgb 7.6 L 7.3 L 7.9 L (11.5-15.4) g/dL Hct 24.3 L 23.8 L 25.7 L (35.3-44.9) % Plt Count 147 (140-400) K/mcL Neutrophils # 7.4 (1.6-8.9) K/mcL BMP 08/12/18 04:35 Sodium 143 Potassium 4.3 Chloride 112 H Carbon Dioxide 23 BUN 41 H Creatinine 3.10 H Glucose 113 H Calcium 9.0 Urine 08/11/18 Range/Units 18:35 Urine Color Yellow (Yellow) Urine Clarity Clear (Clear) Urine pH 6.0 (5.0-8.0) pH Units Ur Specific [place] 1.022 (1.010-1.025) Urine Protein >=300 H (Neg-Trace) mg/dL Urine Glucose (UA) Normal (Normal) mg/dL - ABG Interpretation ABG results: PT/INR, D-dimer PT 10.5 Seconds (9.4-12.1) 08/10/18 07:50 Consult Discharge Plan - Plan Instructions: Percutaneous Kidney Biopsy (DC) Additional Instructions: Discharge Instructions for Interventional Radiology Patients: 1. You must have a ride home from your procedure today. Because of the sedation that you received during your procedure today, you may not drive for 24 hours. 2. Keep your dressing clean and dry and do not remove for 24 hours after your procedure. 3. After 24 hours, you may remove your dressing and shower. Do not submerge your incision in water (bathtub or swimming) until the the incision is healed. It usually takes 7-10 days for incisions to heal. 4. You may put a band aid over your incision until it is completely healed. You may change the dressing if it gets wet or soiled. 5. Always watch for any sign of infection to the site, such as: * Redness * Warmth * Tenderness * White or yellow drainage * Fever or 100.4 degrees or greater If you notice any of these symptoms, please contact your Primary Care Provider immediately. 6. You may resume all blood thinners with the next scheduled dose. For example: If you take a blood thinner each morning, take your medication the next morning as you normally would. Follow Up Appointment * Please call your surgeon's office within 24 hours or next business day to schedule a follow up appointment. * Home Medication List * You have been given a list of your current medications. If you have changes in your medications, update your list. * Provide a list of current medications to your primary care physician. * Carry a copy of your current medications with you in case of an emergency. Referrals: Ant Brewer MD [Non-Partnered Physician] - (NO PCP APPOINTMENT NEEDED PT IS GOING TO [facility]) (2) HTN (hypertension) Qualifiers: Hypertension type: essential hypertension Qualified Code(s): I10 - Essential (primary) hypertension (4) CKD (chronic kidney disease) Qualifiers: Chronic kidney disease stage: stage 4 (severe) Qualified Code(s): N18.4 - Chronic kidney disease, stage 4 (severe) (5) Anemia Qualifiers: Anemia type: other cause Other causes of anemia: acute posthemorrhagic Qualified Code(s): D62 - Acute posthemorrhagic anemia
[2018-08-12 18:10] LABS: Hematocrit 26.8 % (35.3-44.9); Hemoglobin 8.5 g/dL (11.5-15.4)
[2018-08-13 05:52] LABS: Basophils % 0.2 %; Eosinophils # 0.3 K/mcL (0.0-0.6); Eosinophils % 2.7 %; Hematocrit 26.4 % (35.3-44.9); Immature Granulocytes % 0.5 % (0-4); Lymphocytes # 0.8 K/mcL (0.6-4.6); Lymphocytes % 7.8 %; Mean Corpuscular HGB Conc 30.3 g/dL (31.6-35.5); Mean Corpuscular Hemoglobin 28.7 pg (28.0-33.3); Mean Corpuscular Volume 94.6 fL (83.0-100.0); Mean Platelet Volume 9.5 fL (9.4-12.4); Monocytes # 1.6 K/mcL (0.0-1.3); Monocytes % 15.9 %; Neutrophils # 7.3 K/mcL (1.6-8.9); Platelet Count 155 K/mcL (140-400); Red Blood Count 2.79 M/mcL (3.82-4.97); Red Cell Distribution Width 15.5 % (11.5-14.5); Segmented Neutrophils % 72.9 %
[2018-08-13 06:12] LABS: Calcium 9.2 mg/dL (8.6-10.3); Potassium 4.1 mEq/L (3.5-5.1)
--- NOTE | 2018-08-13 06:52 | Nephrology Progress Note ---
Date of Encounter: 08/13/18 Time of Encounter: 08:55 - Assessment and Plan (1) Acute kidney injury superimposed on CKD Current Visit: Yes Status: Acute I reviewed the ECW notes from my colleague Dr. Wade, as well as the inpatient labs, vitals, medications, progress notes and imaging: JESSICA (versus slowly progressive CKD). The renal biopsy findings are not immediately available to me (I also looked in the clinic and in eCW); since she has a positive PEDRO and there is concern for possible glomerulonephritis according to Dr. Wade's note, I will request medical records. Depending upon the renal biopsy findings, sometimes patients with a GN would need initiation of immunosuppressive therapy in the hospital. Given the stability of her GFR near 15, I would not recommend initiation of renal replacement therapy today, but she may need it during this admission.. Continue to follow a renal protective strategy with close H&H and renal function monitoring. We will need strict I's and O's, daily weights, renal dosing, and possibly she may need dialysis during this admission, which is why she is quite complex and has required a high degree of E/M and MDM. Thank you (2) Anemia Current Visit: Yes Status: Acute Recommend continuing the trend of her H&H. Typically, transfusions are indicated for hemodynamic instability with a hemoglobin of less than 7. Qualifiers: Anemia type: other cause Other causes of anemia: acute posthemorrhagic Qualified Code(s): D62 - Acute posthemorrhagic anemia (3) Retroperitoneal hematoma Current Visit: Yes Status: Acute Per IR/primary team. Trend H/H. (4) Proteinuria Current Visit: No Status: Chronic Nephrotic range proteinuria. D/t her advancing SCr I would recommend holding any MISTY or ARB for now. Qualifiers: Proteinuria type: persistent Qualified Code(s): R80.1 - Persistent proteinuria, unspecified Subjective Principal diagnosis: s/p kidney biopsy Interval history: The patient was seen and examined, and she was sleeping at the time, and the floor nurse reported that she had just received her Seroquel. Earlier in the day the floor nurse reported she was eating without nausea or vomiting and was able to have a coherent conversation. Objective - Vital Signs Vital signs: Vital Signs Temp Pulse Resp BP Pulse Ox 08/13/18 03:29 98.5 F 71 26 145/63 92 08/12/18 23:06 98.5 F 73 24 149/66 97 08/12/18 21:38 98.9 F 20 08/12/18 19:13 100 F H 70 26 146/68 96 08/12/18 16:31 98.3 F 76 14 139/61 94 08/12/18 13:43 97.8 F 62 16 129/60 98 08/12/18 13:28 98.9 F 72 14 137/53 96 08/12/18 11:19 98.8 F 91 24 138/66 97 08/12/18 07:34 98.8 F 106 22 160/75 94 Intake and Output 08/12/18 08/12/18 08/13/18 15:59 23:59 07:59 Intake Total 1000 / 1000 436 / 436 Output Total 500 / 500 Balance 1000 / 1000 -64 / -64 Intake: IV Fluids 50 / 50 0.9 % Sodium Chloride 250 ML @ 50 / 50 0 mls/hr .ROUTE .[facility] Rx #:[id number] Oral 1000 / 1000 60 / 60 Blood Product 0 / 0 326 / 326 Rbcs Leuko Poor As-1 Unit 0 / 0 326 / 326 [id number] Output: Urine 500 / 500 Other: Meal Lunch Dinner Percent of Meal Consumed 50% 35% Stool Size Small Stool Consistency soft Stool Characteristics Normal for Patient Stool Color Brown # Voids 1 # Bowel Movements 1 Weight 79 kg Patient Weight 08/13/18 23:59 Weight 79 kg - General Appearance General appearance: Present: well-developed, well-nourished, appears started age EENT: Present: mucous membranes moist Additional Comments: mild right eye droop Neck: Present: supple Respiratory: Present: course breath sounds (with diminished breath sounds bilaterally) Cardiology: Present: no edema, regular rate, regular rhythm, normal S1, normal S2 Gastrointestinal: Present: normoactive bowel sounds, no tenderness, no guarding, obese Integumentary: Present: warm and dry Neurologic: Present: no focal deficit (but mostly sleeping during my exam/interview), no asterixis Musculoskeletal: Present: no erythema, no cyanosis Psychiatric: Present: cooperative - Lab 08/15/18 02:28 08/15/18 02:28 Most recent lab results Calcium 9.2 mg/dL (8.6-10.3) 08/13/18 05:35 Phosphorus 3.8 mg/dL (2.7-4.5) 08/12/18 04:35 Magnesium 1.9 mg/dL (1.6-2.6) 08/12/18 04:35 Urine Creatinine 53 mg/dL 08/11/18 18:35 Urine Sodium 69.2 mEq/L 08/11/18 18:35 Urine Total Protein 254 mg/dL (1-14) H 08/11/18 18:35 Consult Discharge Plan - Plan Instructions: Percutaneous Kidney Biopsy (DC) Additional Instructions: Discharge Instructions for Interventional Radiology Patients: 1. You must have a ride home from your procedure today. Because of the sedation that you received during your procedure today, you may not drive for 24 hours. 2. Keep your dressing clean and dry and do not remove for 24 hours after your procedure. 3. After 24 hours, you may remove your dressing and shower. Do not submerge your incision in water (bathtub or swimming) until the the incision is healed. It usually takes 7-10 days for incisions to heal. 4. You may put a band aid over your incision until it is completely healed. You may change the dressing if it gets wet or soiled. 5. Always watch for any sign of infection to the site, such as: * Redness * Warmth * Tenderness * White or yellow drainage * Fever or 100.4 degrees or greater If you notice any of these symptoms, please contact your Primary Care Provider immediately. 6. You may resume all blood thinners with the next scheduled dose. For ex ample: If you take a blood thinner each morning, take your medication the next morning as you normally would. Follow Up Appointment * Please call your surgeon's office within 24 hours or next business day to schedule a follow up appointment. * Home Medication List * You have been given a list of your current medications. If you have changes in your medications, update your list. * Provide a list of current medications to your primary care physician. * Carry a copy of your current medications with you in case of an emergency. Referrals: Ant Brewer MD [Non-Partnered Physician] - (NO PCP APPOINTMENT NEEDED PT IS GOING TO [facility] [place])
[2018-08-13] MEDS: amLODIPine 5 MG TABLET PO SCH (08:03)
[2018-08-13] MEDS: OLANZapine 5 MG TAB.RAPDIS PO SCH ×2 (08:03→20:08)
[2018-08-13] MEDS: risperiDONE 1 MG, risperiDONE 3 MG PO SCH ×2 (08:03→20:08)
[2018-08-13] MEDS: levETIRAcetam 250 MG TABLET PO SCH ×2 (08:04→20:08)
[2018-08-13] MEDS: BuPROPion XL (24 HR) 150 MG TABLET PO SCH (08:04)
[2018-08-13] MEDS: Zinc Oxide 454 GM EACH TP SCH (09:48)
--- NOTE | 2018-08-13 16:10 | Internal Med Progress Note ---
Hospitalist Progress Note - Encounter Date of Encounter: 08/13/18 Time of Encounter: 10:30 - Subjective Interval History: Patient is lying down in bed. She she is very somnolent at this time. She just received risperidone, Keppra per nursing staff. Patient has been doing better overall. No fevers or chills reported overnight. - Exam Vitals: Temp Pulse Resp BP Pulse Ox 98.6 F 71 20 132/64 93 08/13/18 15:59 08/13/18 15:59 08/13/18 15:59 08/13/18 15:59 08/13/18 15:59 Exam: General: Patient is somnolent, wakes to sternal rub. ENT: Mucous membranes moist Respiratory: Decreased breath sounds at both bases. Cardiovascular: Regular rate and rhythm. s1 and s2 normal No clicks, rubs, gallops, or murmurs. Bilateral pedal edema present Abdomen: Abdomen is soft, nontender. Bowel sounds are present Musculoskeletal: Spontaneously moving all extremities Skin: warm, dry, intact. Neuro: Alert oriented x 3 normal cranial nerves, no focal deficits - Assessment and Plan (1) Retroperitoneal hematoma Current Visit: Yes Status: Acute Assessment and Plan: Hemoglobin levels appear to have stabilized. No further indication for blood transfusion. Continue monitoring blood counts. (2) HTN (hypertension) Current Visit: Yes Status: Chronic Assessment and Plan: Blood pressure is well controlled. Continue carvedilol and amlodipine (3) Seizure Current Visit: No Status: Chronic Assessment and Plan: Seizure disorder. Continue Keppra. (4) CKD (chronic kidney disease) Current Visit: Yes Status: Chronic Assessment and Plan: Status post kidney biopsy. Concern for IgA nephropathy. Nephrology following. Creatinine levels remain stable. Currently considering whether if patient would require inpatient initiation of immunosuppressives. We will follow nephrology r ecommendations. (5) Anemia Current Visit: Yes Status: Acute Assessment and Plan: Due to retroperitoneal hematoma. Hemoglobin levels are stable at 8 (6) DVT prophylaxis Current Visit: Yes Status: Acute Assessment and Plan: With SCDs. - Time Spent with Patient Total time spent is greater than 50% in coordination of care (as documented) at patient's floor/unit and/or counseling patient: Internal Medicine: Result - Labs CBC & Chem 7: 08/13/18 05:35 08/13/18 05:35 Labs: Short CBC 08/12/18 08/13/18 Range/Units 17:52 05:35 WBC 10.0 (4.3-11.1) K/mcL Hgb 8.5 L 8.0 L (11.5-15.4) g/dL Hct 26.8 L 26.4 L (35.3-44.9) % Plt Count 155 (140-400) K/mcL Neutrophils # 7.3 (1.6-8.9) K/mcL BMP 08/13/18 05:35 Sodium 143 Potassium 4.1 Chloride 114 H Carbon Dioxide 24 BUN 42 H Creatinine 3.06 H Glucose 114 H Calcium 9.2 - ABG Interpretation ABG results: PT/INR, D-dimer PT 10.5 Seconds (9.4-12.1) 08/10/18 07:50 - Impressions Impressions Abdomen/Pelvis CTA 08/10/18 00:00 IMPRESSION: Active extravasation originating from an inferior pole branch of the right renal artery. An adjacent moderate to large retroperitoneal hematoma is present. Critical results were called by Dr. Rafiq Christopher MD to Landy Espinoza RT on 08/10/2018 at 12 p.m. D/ / 08/10/2018 12:15:07 Rafiq Christopher MD / idalia Interpreting Provider: Rafiq Christopher MD Consult Discharge Plan - Plan Instructions: Percutaneous Kidney Biopsy (DC) Additional Instructions: Discharge Instructions for Interventional Radiology Patients: 1. You must have a ride home from your procedure today. Because of the sed ation that you received during your procedure today, you may not drive for 24 hours. 2. Keep your dressing clean and dry and do not remove for 24 hours after your procedure. 3. After 24 hours, you may remove your dressing and shower. Do not submerge your incision in water (bathtub or swimming) until the the incision is healed. It usually takes 7-10 days for incisions to heal. 4. You may put a band aid over your incision until it is completely healed. You may change the dressing if it gets wet or soiled. 5. Always watch for any sign of infection to the site, such as: * Redness * Warmth * Tenderness * White or yellow drainage * Fever or 100.4 degrees or greater If you notice any of these symptoms, please contact your Primary Care Provider immediately. 6. You may resume all blood thinners with the next scheduled dose. For example: If you take a blood thinner each morning, take your medication the next morning as you normally would. Follow Up Appointment * Please call your surgeon's office within 24 hours or next business day to schedule a follow up appointment. * Home Medication List * You have been given a list of your current medications. If you have changes in your medications, update your list. * Provide a list of current medications to your primary care physician. * Carry a copy of your current medications with you in case of an emergency. Referrals: Ant Brewer MD [Non-Partnered Physician] - (NO PCP APPOINTMENT NEEDED [facility] (2) HTN (hypertension) Qualifiers: Hypertension type: essential hypertension Qualified Code(s): I10 - Essential (primary) hypertension (4) CKD (chronic kidney disease) Qualifiers: Chronic kidney disease stage: stage 4 (severe) Qualified Code(s): N18.4 - Chronic kidney disease, stage 4 (severe) (5) Anemia Qualifiers: Anemia type: other cause Other causes of anemia: acute posthemorrhagic Qualified Code(s): D62 - Acute posthemorrhagic anemia
[2018-08-13] MEDS: (Brimonidine Tartrate/Timolol [Combigan 0.2%-0.5% Eye) OP SCH (20:09)
[2018-08-13] MEDS: Artificial Tears SOLN 15 ML BOTTLE BOTH EYES PRN (20:09)
[2018-08-14] MEDS: traMADol 50 MG TABLET PO PRN ×2 (04:58→20:22)
[2018-08-14 07:48] LABS: Basophils % 0.5 %; Eosinophils # 0.4 K/mcL (0.0-0.6); Eosinophils % 5.2 %; Hematocrit 26.2 % (35.3-44.9); Hemoglobin 7.9 g/dL (11.5-15.4); Immature Granulocytes % 0.4 % (0-4); Lymphocytes # 0.7 K/mcL (0.6-4.6); Lymphocytes % 8.6 %; Mean Corpuscular HGB Conc 30.2 g/dL (31.6-35.5); Mean Corpuscular Hemoglobin 28.5 pg (28.0-33.3); Mean Corpuscular Volume 94.6 fL (83.0-100.0); Mean Platelet Volume 9.8 fL (9.4-12.4); Monocytes # 1.2 K/mcL (0.0-1.3); Monocytes % 15.2 %; Neutrophils # 5.6 K/mcL (1.6-8.9); Platelet Count 185 K/mcL (140-400); Red Blood Count 2.77 M/mcL (3.82-4.97); Segmented Neutrophils % 70.1 %
[2018-08-14 08:08] LABS: Calcium 9.1 mg/dL (8.6-10.3); Potassium 3.9 mEq/L (3.5-5.1)
--- NOTE | 2018-08-14 08:59 | Nephrology Progress Note ---
Date of Encounter: 08/14/18 Time of Encounter: 11:55 - Assessment and Plan (1) Acute kidney injury superimposed on CKD Current Visit: Yes Status: Acute I was able to locate the renal biopsy report late yesterday, and this demonstrated IgA nephropathy, without mention of crescents. There were no findings of lupus nephritis, but there was significant sclerosis, demonstrating a nearly a endstage renal finding. Of note, the biopsy was mostly medulla, wh ich is a deeper portion of the kidney, and would likely explain the retroperitoneal bleed. There was minimal renal cortex, which is preferred for proper pathology findings, but I would not recommend re-biopsying this patient given her recent complication status post biopsy. She does not have indications for immunosuppressive therapy at this time. Her renal function has worsened today, so I will recommend giving 1 L of IV fluids slowly today. She should not be discharged given her high risk, and if she continues to demonstrated worsening renal function, then I would recommend that she start dialysis potentially in the next 24-48 hours. (2) Anemia Current Visit: Yes Status: Acute Recommend continuing the trend of her H&H. Typically, transfusions are indicated for hemodynamic instability with a hemoglobin of less than 7. Qualifiers: Anemia type: other cause Other causes of anemia: acute posthemorrhagic Qualified Code(s): D62 - Acute posthemorrhagic anemia (3) Retroperitoneal hematoma Current Visit: Yes Status: Acute See my comments from yesterday. 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 (5) Proteinuria Current Visit: No Status: Chronic Nephrotic range proteinuria. D/t her advancing SCr I would recommend holding any MISTY or ARB for now, but perhaps if she were to stabilize at some point, then adding an MISTY or ARB could help reduced proteinuria. Qualifiers: Proteinuria type: persistent Qualified Code(s): R80.1 - Persistent proteinuria, unspecified Subjective Principal diagnosis: s/p kidney biopsy Interval history: The patient was seen and examined on Thursday in her 2N room. She did not affirm active nausea, vomiting, but did report a slightly diminished appetite and overall still feeling quite fatigued. No family was present Objective - Vital Signs Vital signs: Vital Signs Temp Pulse Resp BP Pulse Ox 08/14/18 07:08 99.0 F 104 18 125/64 93 08/14/18 03:59 99.0 F 107 20 142/67 93 03/22/19 23:24 98.9 F 68 24 135/60 91 08/13/18 20:26 66 08/13/18 19:27 98.0 F 67 24 130/66 95 08/13/18 15:59 98.6 F 71 20 132/64 93 08/13/18 11:40 98.4 F 105 20 131/69 92 08/13/18 10:25 93 08/13/18 10:24 86 Intake and Output 08/13/18 08/14/18 08/14/18 23:59 07:59 15:59 Output Total 200 / 200 Balance -200 / -200 Output: Urine 200 / 200 Other: # Voids 1 1 # Urine Diapers 1 1 - General Appearance Exam: General appearance: Present: well-developed, well-nourished, appears started age EENT: Present: mucous membranes moist Additional Comments: chronic appearing mild right eye droop Neck: Present: supple Respiratory: Present: course breath sounds (with diminished breath sounds bilaterally) Cardiology: Present: no edema, regular rate, regular rhythm, normal S1, normal S2 Gastrointestinal: Present: normoactive bowel sounds, no tenderness, no guarding, obese Integumentary: Present: warm and dry Neurologic: Present: no focal deficit, no asterixis, awake and alert Musculoskeletal: Present: no erythema, no cyanosis Psychiatric: Present: cooperative - Lab 08/15/18 02:28 08/15/18 02:28 Most recent lab results Calcium 9.1 mg/dL (8.6-10.3) 08/14/18 07:29 Phosphorus 3.8 mg/dL (2.7-4.5) 08/12/18 04:35 Magnesium 1.9 mg/dL (1.6-2.6) 08/12/18 04:35 Urine Creatinine 53 mg/dL 08/11/18 18:35 Urine Sodium 69.2 mEq/L 08/11/18 18:35 Urine Total Protein 254 mg/dL (1-14) H 08/11/18 18:35 Consult Discharge Plan - Plan Instructions: Percutaneous Kidney Biopsy (DC) Additional Instructions: Discharge Instructions for Interventional Radiology Patients: 1. You must have a ride home from your procedure today. Because of the sedation that you received during your procedure today, you may not drive for 24 hours. 2. Keep your dressing clean and dry and do not remove for 24 hours after your procedure. 3. After 24 hours, you may remove your dressing and shower. Do not submerge your incision in water (bathtub or swimming) until the the incision is healed. It usually takes 7-10 days for incisions to heal. 4. You may put a band aid over your incision until it is completely healed. You may change the dressing if it gets wet or soiled. 5. Always watch for any sign of infection to the site, such as: * Redness * Warmth * Tenderness * White or yellow drainage * Fever or 100.4 degrees or greater If you notice any of these symptoms, please contact your Primary Care Provider immediately. 6. You may resume all blood thinners with the next scheduled dose. For example: If you take a blood thinner each morning, take your medication the next morning as you normally would. Follow Up Appointment * Please call your surgeon's office within 24 hours or next business day to schedule a follow up appointment. * Home Medication List * You have been given a list of your current medications. If you have changes in your medications, update your list. * Provide a list of current medications to your primary care physician. * Carry a copy of your current medications with you in case of an emergency. Referrals: Ant Brewer MD [Non-Partnered Physician] - (NO PCP APPOINTMENT NEEDED PT IS GOING TO [facility])
[2018-08-14] MEDS ORDERED: 0.9 % Sodium Chloride 1,000 ML IVC SCH (09:00)
[2018-08-14] MEDS ORDERED: 0.9 % Sodium Chloride 1,000 ML ONE (09:05)
[2018-08-14] MEDS: BuPROPion XL (24 HR) 150 MG TABLET PO SCH (09:10)
[2018-08-14] MEDS: risperiDONE 1 MG, risperiDONE 3 MG PO SCH ×2 (09:11→20:22)
[2018-08-14] MEDS: OLANZapine 5 MG TAB.RAPDIS PO SCH ×2 (09:11→20:21)
[2018-08-14] MEDS: Aspirin Enteric Coated 81 MG Tablet PO SCH (09:12)
[2018-08-14] MEDS: amLODIPine 5 MG TABLET PO SCH (09:12)
[2018-08-14] MEDS: levETIRAcetam 250 MG TABLET PO SCH ×2 (09:14→20:22)
[2018-08-14] MEDS: (Brimonidine Tartrate/Timolol [Combigan 0.2%-0.5% Eye) OP SCH (09:15)
--- NOTE | 2018-08-14 12:38 | Internal Med Progress Note ---
Hospitalist Progress Note - Encounter Date of Encounter: 08/14/18 Time of Encounter: 12:38 - Subjective Interval History: Evaluated patient earlier today. She remains somnolent but was able to answer my questions appropriately. Continues to have some right flank pain but it is improving. No fevers or chills reported overnight. Has had decreasing urine output. - Exam Vitals: Temp Pulse Resp BP Pulse Ox 98.7 F 106 18 144/80 96 08/14/18 11:27 08/14/18 11:27 08/14/18 11:27 08/14/18 11:27 08/14/18 11:27 Exam: General: Patient is somnolent, but able to awake and answer questions appropriately. ENT: Mucous membranes moist Respiratory: Good respiratory effort. Normal breath sounds. No wheezing or crackles. Cardiovascular: Regular rate and rhythm. s1 and s2 normal No clicks, rubs, gallops, or murmurs. pedal edema bilaterally Abdomen: Abdomen is soft, nontender. Bowel sounds are present Skin: warm, dry, intact. Neuro: Somnolent no focal deficits - Assessment and Plan (1) Retroperitoneal hematoma Current Visit: Yes Status: Acute Assessment and Plan: Status post-coil embolization. Hemoglobin 7.9 today. Stable. No further indication for blood transfusion. (2) HTN (hypertension) Current Visit: Yes Status: Chronic Assessment and Plan: Blood pressure elevated overnight but has improved since then.ntermittently. We will continue carvedilol and amlodipine. Continue to monitor blood pressure closely (3) Seizure Current Visit: No Status: Chronic Assessment and Plan: Continue Keppra (4) CKD (chronic kidney disease) Current Visit: Yes Status: Chronic Assessment and Plan: Acute kidney injury on chronic kidney disease stage IV .Renal function worsening today. Discussed with nephrology. Will keep patient on gentle IV hydration today. If renal function continues to worsen, she will need hemodialysis. (5) Anemia Current Visit: Yes Status: Acute Assessment and Plan: Hemoglobin 7.9 today. Stable. We will continue to monitor closely (6) DVT prophylaxis Current Visit: Yes Status: Acute Assessment and Plan: With SCDs - Time Spent with Patient Total time spent is greater than 50% in coordination of care (as documented) at patient's floor/unit and/or counseling patient: Internal Medicine: Result - Labs CBC & Chem 7: 08/14/18 07:29 08/14/18 07:29 Labs: Short CBC 08/14/18 Range/Units 07:29 WBC 7.9 (4.3-11.1) K/mcL Hgb 7.9 L (11.5-15.4) g/dL Hct 26.2 L (35.3-44.9) % Plt Count 185 (140-400) K/mcL Neutrophils # 5.6 (1.6-8.9) K/mcL BMP 08/14/18 07:29 Sodium 141 Potassium 3.9 Chloride 112 H Carbon Dioxide 24 BUN 47 H Creatinine 3.49 H Glucose 126 H Calcium 9.1 - ABG Interpretation ABG results: PT/INR, D-dimer PT 10.5 Seconds (9.4-12.1) 08/10/18 07:50 Consult Discharge Plan - Plan Instructions: Percutaneous Kidney Biopsy (DC) Additional Instructions: Discharge Instructions for Interventional Radiology Patients: 1. You must have a ride home from your procedure today. Because of the sedation that you received during your procedure today, you may not drive for 24 hours. 2. Keep your dressing clean and dry and do not remove for 24 hours after your procedure. 3. After 24 hours, you may remove your dressing and shower. Do not submerge your incision in water (bathtub or swimming) until the the incision is healed. It usually takes 7-10 days for incisions to heal. 4. You may put a band aid over your incision until it is completely healed. You may change the dressing if it gets wet or soiled. 5. Always watch for any sign of infection to the site, such as: * Redness * Warmth * Tenderness * White or yellow drainage * Fever or 100.4 degrees or greater If you notice any of these symptoms, please contact your Primary Care Provider immediately. 6. You may resume all blood thinners with the next scheduled dose. For example: If you take a blood thinner each morning, take your medication the next morning as you normally would. Follow Up Appointment * Please call your surgeon's office within 24 hours or next business day to schedule a follow up appointment. * Home Medication List * You have been given a list of your current medications. If you have changes in your medications, update your list. * Provide a list of current medications to your primary care physician. * Carry a copy of your current medications with you in case of an emergency. Referrals: Ant Brewer MD [Non-Partnered Physician] - (NO PCP APPOINTMENT NEEDED PT IS GOING TO [facility]) (2) HTN (hypertension) Qualifiers: Hypertension type: essential hypertension Qualified Code(s): I10 - Essential (primary) hypertension (4) CKD (chronic kidney disease) Qualifiers: Chronic kidney disease stage: stage 4 (severe) Qualified Code(s): N18.4 - Chronic kidney disease, stage 4 (severe) (5) Anemia Qualifiers: Anemia type: other cause Other causes of anemia: acute posthemorrhagic Qualified Code(s): D62 - Acute posthemorrhagic anemia
[2018-08-14] MEDS: Zinc Oxide 454 GM EACH TP SCH (17:19)
[2018-08-15 03:09] LABS: Basophils % 0.3 %; Eosinophils # 0.5 K/mcL (0.0-0.6); Eosinophils % 6.4 %; Hemoglobin 8.7 g/dL (11.5-15.4); Immature Granulocytes % 0.5 % (0-4); Lymphocytes # 0.6 K/mcL (0.6-4.6); Mean Corpuscular Hemoglobin 28.4 pg (28.0-33.3); Mean Corpuscular Volume 94.8 fL (83.0-100.0); Mean Platelet Volume 9.8 fL (9.4-12.4); Monocytes # 1.3 K/mcL (0.0-1.3); Monocytes % 17.3 %; Neutrophils # 5.1 K/mcL (1.6-8.9); Platelet Count 213 K/mcL (140-400); Red Blood Count 3.06 M/mcL (3.82-4.97); Red Cell Distribution Width 14.6 % (11.5-14.5); Segmented Neutrophils % 67.5 %
[2018-08-15 03:28] LABS: Calcium 9.4 mg/dL (8.6-10.3); Potassium 4.4 mEq/L (3.5-5.1)
[2018-08-15] MEDS: traMADol 50 MG TABLET PO PRN ×2 (05:44→19:26)
--- NOTE | 2018-08-15 08:15 | Nephrology Progress Note ---
Date of Encounter: 08/15/18 Time of Encounter: 11:00 - Assessment and Plan (1) Acute kidney injury superimposed on CKD Current Visit: Yes Status: Acute She has progressively worsening renal function in terms of creatinine, with a GFR of 13. Her renal biopsy demonstrated IgA nephropathy, without mention of crescents, and so she does not have indications for immunosuppressive therapy at this time. Of note, I gave IV fluids yesterday, but yet her serum creatinine continued to worsen. Though I do not recommend starting urgent/emergent dialysis today (on Thursday), she most likely will need dialysis started on Thursday given her worsening function. I will consult IR in the morning and ideally request a permacath, if able. She will need to be NPO after midnight. Continue to follow a renal protective strategy including strict I's and O's, daily weights, renal dosing, avoidance of nephrotoxic agents. Thank you (2) Anemia Current Visit: Yes Status: Acute Recent blood loss anemia. She also has advanced CKD, and so I may arrange for IV iron and or EPO, and will assess daily. Qualifiers: Anemia type: other cause Other causes of anemia: acute posthemorrhagic Qualified Code(s): D62 - Acute posthemorrhagic anemia (3) Retroperitoneal hematoma Current Visit: Yes Status: Acute Given her large size it is understandable that her renal biopsy would be more challenging. The renal pathology report demonstrated mostly renal medulla on the biopsy (though some cortex), and when biopsying that deep into the kidney there is a higher chance of inducing a retroperitoneal bleed. I reviewed the IR notes and IR procedure report. 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 Subjective Principal diagnosis: s/p kidney biopsy Interval history: She was seen and examined. She affirmed after I reviewd the risks, benefits, indications, alternatives that she would agree to proceed with dialysis if her labs were to be worse tomorrow. She affirmed that she still feels quite weak and frail and has only been eating a little per day. These could be uremic symptoms. Objective - Vital Signs Vital signs: Vital Signs Temp Pulse Resp BP Pulse Ox 08/15/18 07:51 98.6 F 115 20 146/80 93 08/15/18 05:46 99.7 F H 110 20 146/83 95 08/15/18 03:01 108 08/15/18 00:02 107 08/14/18 23:10 99.2 F 108 18 136/53 90 08/14/18 20:22 66 08/14/18 19:17 98.3 F 68 20 130/63 96 08/14/18 18:05 67 18 95 08/14/18 16:35 72 18 92 08/14/18 16:14 97.8 F 67 18 103/50 97 08/14/18 13:25 62 18 95 08/14/18 11:35 102 18 95 08/14/18 11:27 98.7 F 106 18 144/80 96 08/14/18 09:10 108 22 95 Intake and Output 08/14/18 08/15/18 08/15/18 23:59 07:59 15:59 Intake Total 340 / 340 700 / 700 Output Total 140 / 140 Balance 340 / 340 560 / 560 Intake: Oral 340 / 340 700 / 700 Output: Urine 140 / 140 Other: Meal Dinner Percent of Meal Consumed 100% # Voids 3 1 # Urine Diapers 0 1 - General Appearance Exam: General appearance: Present: well-developed, well-nourished, appears started age EENT: Present: mucous membranes moist Additional Comments: chronic appearing mild right eye droop Neck: Present: supple Respiratory: Present: course breath sounds (with diminished breath sounds bilaterally) Cardiology: Present: no edema, regular rate, regular rhythm, normal S1, normal S2 Gastrointestinal: Present: normoactive bowel sounds, no tenderness, no guarding, obese Integumentary: Present: warm and dry Neurologic: Present: no focal deficit, no asterixis, awake and alert Musculoskeletal: Present: no erythema, no cyanosis Psychiatric: Present: cooperative - Lab 08/15/18 02:28 08/15/18 02:28 Most recent lab results Calcium 9.4 mg/dL (8.6-10.3) 08/15/18 02:28 Phosphorus 3.8 mg/dL (2.7-4.5) 08/12/18 04:35 Magnesium 1.9 mg/dL (1.6-2.6) 08/12/18 04:35 Urine Creatinine 53 mg/dL 08/11/18 18:35 Urine Sodium 69.2 mEq/L 08/11/18 18:35 Urine Total Protein 254 mg/dL (1-14) H 08/11/18 18:35 Consult Discharge Plan - Plan Instructions: Percutaneous Kidney Biopsy (DC) Additional Instructions: Discharge Instructions for Interventional Radiology Patients: 1. You must have a ride home from your procedure today. Because of the sedation that you received during your procedure today, you may not drive for 24 hours. 2. Keep your dressing clean and dry and do not remove for 24 hours after your procedure. 3. After 24 hours, you may remove your dressing and shower. Do not submerge your incision in water (bathtub or swimming) until the the incision is healed. It usually takes 7-10 days for incisions to heal. 4. You may put a band aid over your incision until it is completely healed. You may change the dressing if it gets wet or soiled. 5. Always watch for any sign of infection to the site, such as: * Redness * Warmth * Tenderness * White or yellow drainage * Fever or 100.4 degrees or greater If you notice any of these symptoms, please contact your Primary Care Provider immediately. 6. You may resume all blood thinners with the next scheduled dose. For example: If you take a blood thinner each morning, take your medication the next morning as you normally would. Follow Up Appointment * Please call your surgeon's office within 24 hours or next business day to schedule a follow up appointment. * Home Medication List * You have been given a list of your current medications. If you have changes in your medications, update your list. * Provide a list of current medications to your primary care physician. * Carry a copy of your current medications with you in case of an emergency. Referrals: Ant Brewer MD [Non-Partnered Physician] - (NO PCP APPOINTMENT NEEDED PT IS GOING TO [facility])
[2018-08-15] MEDS: OLANZapine 5 MG TAB.RAPDIS PO SCH ×2 (09:31→22:12)
[2018-08-15] MEDS: amLODIPine 5 MG TABLET PO SCH (09:32)
[2018-08-15] MEDS: risperiDONE 1 MG, risperiDONE 3 MG PO SCH ×2 (09:32→22:12)
[2018-08-15] MEDS: levETIRAcetam 250 MG TABLET PO SCH ×2 (09:32→22:11)
[2018-08-15] MEDS: BuPROPion XL (24 HR) 150 MG TABLET PO SCH (09:32)
[2018-08-15] MEDS: Aspirin Enteric Coated 81 MG Tablet PO SCH (09:32)
[2018-08-15] MEDS: Zinc Oxide 454 GM EACH TP SCH (09:33)
[2018-08-15] MEDS: Artificial Tears SOLN 15 ML BOTTLE BOTH EYES PRN ×2 (09:34→22:14)
[2018-08-15 10:46] LABS: Hepatitis B Surface Antibody < 3.10 mIU/mL
[2018-08-15 10:55] LABS: Hepatitis B Surface Antigen Nonreactive (Nonreactive)
--- NOTE | 2018-08-15 13:00 | Internal Med Progress Note ---
Hospitalist Progress Note - Encounter Date of Encounter: 08/15/18 Time of Encounter: 10:10 - Subjective Interval History: Patient is lying down in bed. Somnolent. Difficult to awake. Responds to sternal rub today. No fevers or chills reported overnight. She has eaten breakfast this morning. - Exam Vitals: Temp Pulse Resp BP Pulse Ox 97.1 F L 110 18 148/85 97 08/15/18 11:11 08/15/18 11:11 08/15/18 11:11 08/15/18 11:11 08/15/18 11:11 Exam: General: Patient is somnolent ENT: Mucous membranes moist Respiratory: Decreased breath sounds at both bases. Cardiovascular: Regular rate and rhythm. s1 and s2 normal No clicks, rubs, gallops, or murmurs. Bilateral pedal edema Abdomen: Abdomen is soft, nontender. Bowel sounds are present Musculoskeletal: Spontaneously moving all extremities Skin: warm, dry, intact. Neuro: Somnolent - Assessment and Plan (1) Acute kidney injury superimposed on CKD Current Visit: Yes Status: Acute Assessment and Plan: acute kidney injury on chronic kidney disease stage IV. Renal function continues to worsen. Patient continues to have poor urine output. Nephrology following. Plan to initiate dialysis tomorrow after placement of permacath. (2) CKD (chronic kidney disease) Current Visit: Yes Status: Chronic Assessment and Plan: Renal function continues to worsen. Patient also having continued decreased urine output. Creatinine 3.52 today. (3) Retroperitoneal hematoma Current Visit: Yes Status: Acute Assessment and Plan: Stabilized. Hemoglobin 8.7 today. (4) HTN (hypertension) Current Visit: Yes Status: Chronic Assessment and Plan: Blood pressures as pressure remains elevated. We will increase carvedilol dosag e. (5) Seizure Current Visit: No Status: Chronic Assessment and Plan: Continue Keppra (6) Anemia Current Visit: Yes Status: Acute Assessment and Plan: Hemoglobin 8.7 today. Stable (7) DVT prophylaxis Current Visit: Yes Status: Acute Assessment and Plan: With SCDs - Time Spent with Patient Total time spent is greater than 50% in coordination of care (as documented) at patient's floor/unit and/or counseling patient: Internal Medicine: Result - Labs CBC & Chem 7: 08/15/18 02:28 08/15/18 02:28 Labs: Short CBC 03/24/19 Range/Units 02:28 WBC 7.5 (4.3-11.1) K/mcL Hgb 8.7 L (11.5-15.4) g/dL Hct 29.0 L (35.3-44.9) % Plt Count 213 (140-400) K/mcL Neutrophils # 5.1 (1.6-8.9) K/mcL BMP 08/15/18 02:28 Sodium 144 Potassium 4.4 Chloride 113 H Carbon Dioxide 24 BUN 53 H Creatinine 3.52 H Glucose 108 H Calcium 9.4 - ABG Interpretation ABG results: PT/INR, D-dimer PT 10.5 Seconds (9.4-12.1) 08/10/18 07:50 Consult Discharge Plan - Plan Instructions: Percutaneous Kidney Biopsy (DC) Additional Instructions: Discharge Instructions for Interventional Radiology Patients: 1. You must have a ride home from your procedure today. Because of the sedation that you received during your procedure today, you may not drive for 24 hours. 2. Keep your dressing clean and dry and do not remove for 24 hours after your procedure. 3. After 24 hours, you may remove your dressing and shower. Do not submerge your incision in water (bathtub or swimming) until the the incision is healed. It usually takes 7-10 days for incisions to heal. 4. You may put a band aid over your incision until it is completely healed. You may change the dressing if it gets wet or soiled. 5. Always watch for any sign of infection to the site, such as: * Redness * Warmth * Tenderness * White or yellow drainage * Fever or 100.4 degrees or greater If you notice any of these symptoms, please contact your Primary Care Provider immediately. 6. You may resume all blood thinners with the next scheduled dose. For example: If you take a blood thinner each morning, take your medication the next morning as you normally would. Follow Up Appointment * Please call your surgeon's office within 24 hours or next business day to sc hedule a follow up appointment. * Home Medication List * You have been given a list of your current medications. If you have changes in your medications, update your list. * Provide a list of current medications to your primary care physician. * Carry a copy of your current medications with you in case of an emergency. Referrals: Ant Brewer MD [Non-Partnered Physician] - (NO PCP APPOINTMENT NEEDED PT IS GOING TO [facility]) (2) CKD (chronic kidney disease) Qualifiers: Chronic kidney disease stage: stage 4 (severe) Qualified Code(s): N18.4 - Chronic kidney disease, stage 4 (severe) (4) HTN (hypertension) Qualifiers: Hypertension type: essential hypertension Qualified Code(s): I10 - Essential (primary) hypertension (6) Anemia Qualifiers: Anemia type: other cause Other causes of anemia: acute posthemorrhagic Qualified Code(s): D62 - Acute posthemorrhagic anemia
[2018-08-16 05:44] LABS: Hematocrit 28.5 % (35.3-44.9); Hemoglobin 8.6 g/dL (11.5-15.4); Lymphocytes # 0.5 K/mcL (0.6-4.6); Mean Corpuscular HGB Conc 30.2 g/dL (31.6-35.5); Mean Corpuscular Hemoglobin 28.7 pg (28.0-33.3); Mean Platelet Volume 9.5 fL (9.4-12.4); Platelet Count 243 K/mcL (140-400); Red Cell Distribution Width 14.3 % (11.5-14.5)
[2018-08-16 05:52] LABS: Prothrombin Time 10.9 Seconds (9.4-12.1)
[2018-08-16 06:06] LABS: Calcium 9.9 mg/dL (8.6-10.3); Potassium 4.4 mEq/L (3.5-5.1)
[2018-08-16 06:12] LABS: Eosinophils # 0.1 K/mcL (0.0-0.6); Neutrophils # 4.8 K/mcL (1.6-8.9); Platelet Estimate Normal (Normal)
[2018-08-16] MEDS ORDERED: 0.9 % Sodium Chloride 1,000 ML PRIME SCH (07:00)
[2018-08-16] MEDS ORDERED: 0.9 % Sodium Chloride 250 ML IVC PRN (07:00)
--- NOTE | 2018-08-16 08:43 | Internal Med Progress Note ---
<Anand Youssef - Last Filed: 08/16/18 12:41> Hospitalist Progress Note - Encounter Date of Encounter: 08/16/18 Time of Encounter: 10:45 - Exam Vitals: Temp Pulse Resp BP Pulse Ox 99.1 F 108 18 133/81 95 08/16/18 07:45 08/16/18 07:45 08/16/18 07:45 08/16/18 07:45 08/16/18 07:45 - Assessment and Plan (1) Acute kidney injury superimposed on CKD Current Visit: Yes Status: Acute (2) CKD (chronic kidney disease) Current Visit: Yes Status: Chronic (3) Retroperitoneal hematoma Current Visit: Yes Status: Acute (4) HTN (hypertension) Current Visit: Yes Status: Chronic (5) Seizure Current Visit: No Status: Chronic (6) Anemia Current Visit: Yes Status: Acute (7) DVT prophylaxis Current Visit: Yes Status: Acute - Time Spent with Patient Total time spent is greater than 50% in coordination of care (as documented) at patient's floor/unit and/or counseling patient: Internal Medicine: Result - Labs CBC & Chem 7: 08/16/18 05:28 08/16/18 05:28 Labs: Short CBC 08/16/18 Range/Units 05:28 WBC 6.5 (4.3-11.1) K/mcL Hgb 8.6 L (11.5-15.4) g/dL Hct 28.5 L (35.3-44.9) % Plt Count 243 (140-400) K/mcL Neutrophils # 4.8 (1.6-8.9) K/mcL BMP 08/16/18 05:28 Sodium 146 H Potassium 4.4 Chloride 113 H Carbon Dioxide 25 BUN 53 H Creatinine 3.07 H Glucose 96 Calcium 9.9 - ABG Interpretation ABG results: PT/INR, D-dimer PT 10.9 Seconds (9.4-12.1) 08/16/18 05:28 - Impressions Impressions Chest X-Ray 08/15/18 08:20 IMPRESSION: Markedly enlarged cardiomediastinal silhouette with the findings suggestive of pulmonary interstitial edema. Probable small bilateral pleural effusions. Correlation with volume status is recommended. D/ / 08/15/2018 15:07:46 Jose Maria Rico MD / Latonia Fishman Interpreting Provider: Jose Maria Rico MD Guidance Ultrasound 08/16/18 00:00 IMPRESSION: Successful ultrasound and fluoroscopy guided tunneled catheter placement. D/ / 08/16/2018 10:02:01 Jody Chiu MD / idalia Interpreting Provider: Jody Chiu MD Insertion Tunneled Catheter 08/16/18 00:00 IMPRESSION: Successful ultrasound and fluoroscopy guided tunneled catheter placement. D/ / 08/16/2018 10:02:01 Jody Chiu MD / idalia Interpreting Provider: Jody Chiu MD Consult Discharge Plan - Plan Instructions: Percutaneous Kidney Biopsy (DC) Additional Instructions: Discharge Instructions for Interventional Radiology Patients: 1. You must have a ride home from your procedure today. Because of the sedation that you received during your procedure today, you may not drive for 24 hours. 2. Keep your dressing clean and dry and do not remove for 24 hours after your procedure. 3. After 24 hours, you may remove your dressing and shower. Do not submerge your incision in water (bathtub or swimming) until the the incision is healed. It usually takes 7-10 days for incisions to heal. 4. You may put a band aid over your incision until it is completely healed. You may change the dressing if it gets wet or soiled. 5. Always watch for any sign of infection to the site, such as: * Redness * Warmth * Tenderness * White or yellow drainage * Fever or 100.4 degrees or greater If you notice any of these symptoms, please contact your Primary Care Provider immediately. 6. You may resume all blood thinners with the next scheduled dose. For example: If you take a blood thinner each morning, take your medication the next morning as you normally would. Follow Up Appointment * Please call your surgeon's office within 24 hours or next business day to schedule a follow up appointment. * Home Medication List * You have been given a list of your current medications. If you have changes in your medications, update your list. * Provide a list of current medications to your primary care physician. * Carry a copy of your current medications with you in case of an emergency. Referrals: Ant Brewer MD [Non-Partnered Physician] - (NO PCP APPOINTMENT NEEDED PT IS GOING TO [facility]) - Attending Attestation I saw evaluated and examined this patient and my medical decision-making was reviewed with the Resident Physician, Mohan Gonzalez. I agree with the documented findings, disposition and treatment plan as described except to any changes set forth below. We independently had [id number] contact with the patient. Patient lying down in bed. She just came back after she underwent right IJ permacath placement. She is scheduled to receive hemodialysis later today. She complains of pain in her abdomen. No flank pain reported today. she has had low-grade fever overnight. Temperature of 99.7 earlier this morning. No chest pain or palpitations. No nausea or vomiting General: Patient is alert, no acute distress, oriented x 3 ENT: Mucous membranes moist Respiratory: Decreased breath sounds at both bases Cardiovascular: Regular rate and rhythm. s1 and s2 normal No clicks, rubs, gallops, or murmurs. Bilateral pedal edema Abdomen: Abdomen is soft, distended, generalized tenderness. Bowel sounds are present Skin: warm, dry, intact. Neuro: Alert oriented x 3 normal cranial nerves, no focal deficits Acute kidney injury superimposed on chronic kidney disease stage IV: Nephrology following. Plan is to start patient on dialysis today. Permanent catheter has been placed. Abdominal pain: Possibly due to retroperitoneal hematoma. If pain does not improve, consider repeating CT scan of the abdomen and pelvis. Retroperitoneal hematoma: Following kidney biopsy. Status post coil embolization. Acute blood loss anemia: Due to retroperitoneal hematoma. Hemoglobin levels are stable. We will continue to monitor. Hypertension: Blood pressure is improved. Continue current dose of carvedilol. Seizure disorder: Continue Keppra DVT prophylaxis with SCDs <Mohan Gonzalez - Last Filed: 08/16/18 13:12> Hospitalist Progress Note - Encounter Date of Encounter: 08/16/18 - Subjective Interval History: Patient denied any acute events overnight. While she appears groggy she is answering all my questions and understands her reason for admission. She denies headache, chest pain, shortness of breath, abdominal pain, lower extremity pain. - Exam Vitals: Temp Pulse Resp BP Pulse Ox 99.1 F 108 18 133/81 95 08/16/18 07:45 08/16/18 07:45 08/16/18 07:45 08/16/18 07:45 08/16/18 07:45 Exam: General: pleasant, groggy Cardiovascualr: Regular rate and rhythm with no murmur, absent gallops or rubs, absent pedal edema, radial pulses 2 out of 4 Lungs: Clear to auscultation bilaterally, not in respiratory distress Abdomen: Soft nontender, nondistended positive bowel sounds, absent hepatomegaly Skin: warm and dry, absent rash, absent open wounds and nodules MSK: absent clubbing, cyanosis, joints without swelling Neuro: Alert oriented 3 Psych: good insight and judgment, - Assessment and Plan (1) IgA nephropathy determined by renal biopsy Current Visit: Yes Status: Acute Assessment and Plan: He has acute kidney injury 2nd to IgA nephropathy Patient will have a permacath placed today and will start on renal replacement therapy Patient will not need immunosuppressive therapy as per nephrology Renal diet once permacath was placed. (2) Acute kidney injury superimposed on CKD Current Visit: Yes Status: Acute Assessment and Plan: plan as above (3) Anemia Current Visit: Yes Status: Acute Assessment and Plan: Acute blood loss anemia secondary to retroperitoneal hematoma after kidney biopsy Patient's hemoglobin is stable Patient being replaced with ferriheme and nephrology planning to start epo (4) DVT prophylaxis Current Visit: Yes Status: Acute Assessment and Plan: EPCDs (5) HTN (hypertension) Current Visit: Yes Status: Acute Assessment and Plan: Patient's blood pressure stable however her heart rate remains above 100 We will continue Coreg and monitor heart rate. (6) Retroperitoneal hematoma Current Visit: Yes Status: Acute Assessment and Plan: Plan as above. (7) Seizure Current Visit: Yes Status: Chronic Assessment and Plan: Continue Keppra. - Time Spent with Patient Total time spent is greater than 50% in coordination of care (as documented) at patient's floor/unit and/or counseling patient: Internal Medicine: Result - Labs CBC & Chem 7: 08/16/18 05:28 08/16/18 05:28 Labs: Short CBC 08/16/18 Range/Units 05:28 WBC 6.5 (4.3-11.1) K/mcL Hgb 8.6 L (11.5-15.4) g/dL Hct 28.5 L (35.3-44.9) % Plt Count 243 (140-400) K/mcL Neutrophils # 4.8 (1.6-8.9) K/mcL BMP 08/16/18 05:28 Sodium 146 H Potassium 4.4 Chloride 113 H Carbon Dioxide 25 BUN 53 H Creatinine 3.07 H Glucose 96 Calcium 9.9 - ABG Interpretation ABG results: PT/INR, D-dimer PT 10.9 Seconds (9.4-12.1) 08/16/18 05:28 - Impressions Impressions Chest X-Ray 08/15/18 08:20 IMPRESSION: Markedly enlarged cardiomediastinal silhouette with the findings suggestive of pulmonary interstitial edema. Probable small bilateral pleural effusions. Correlation with volume status is recommended. D/ / 08/15/2018 15:07:46 Jose Maria Rico MD / Latonia Fishman Interpreting Provider: Jose Maria Rico MD <Anand Youssef - Last Filed: 08/16/18 12:41> (2) CKD (chronic kidney disease) Qualifiers: Chronic kidney disease stage: stage 4 (severe) Qualified Code(s): N18.4 - Chronic kidney disease, stage 4 (severe) (4) HTN (hypertension) Qualifiers: Hypertension type: essential hypertension Qualified Code(s): I10 - Essential (primary) hypertension (6) Anemia Qualifiers: Anemia type: other cause Other causes of anemia: acute posthemorrhagic Qualified Code(s): D62 - Acute posthemorrhagic anemia <Mohan Gonzalez - Last Filed: 08/16/18 13:12> (3) Anemia Qualifiers: Anemia type: other cause Other causes of anemia: acute posthemorrhagic Qualified Code(s): D62 - Acute posthemorrhagic anemia (5) HTN (hypertension) Qualifiers: Hypertension type: essential hypertension Qualified Code(s): I10 - Essential (primary) hypertension
[2018-08-16] MEDS ORDERED: Heparin 1,000 UNITS/500 mL 500 ML ONE (08:59)
[2018-08-16] MEDS ORDERED: *HR* Heparin 5,000 UNIT/ML VIAL ONE (09:42)
--- NOTE | 2018-08-16 09:52 | IR Procedure Note ---
Date of procedure: 08/16/18 Consent Obtained: Written consent Timeout: Correct patient and procedure verified, Correct site verified, Time out performed, Skin prep completed Local anesthetic: Lidocaine 1% Indications: renal failure Procedure Performed: permacath Was there an title i assistant present: No Site/Technique: rt IJ to SVC Results/Findings: adequate placement Estimated blood loss (cc): 4 Complications: None; Tolerated procedure well Post Procedure Treatment Plan: dialyze Specimen: none
[2018-08-16] MEDS ORDERED: CeFAZolin Premix DUPLEX 2,000 MG/50 ML BAG IVPB ONE (10:00)
[2018-08-16] MEDS: Nystatin POWDER 30 GM BOTTLE TP PRN (10:33)
[2018-08-16] MEDS: amLODIPine 5 MG TABLET PO SCH (10:33)
[2018-08-16] MEDS: Zinc Oxide 454 GM EACH TP SCH (10:33)
[2018-08-16] MEDS: BuPROPion XL (24 HR) 150 MG TABLET PO SCH (10:34)
[2018-08-16] MEDS: OLANZapine 5 MG TAB.RAPDIS PO SCH ×2 (10:34→20:55)
[2018-08-16] MEDS: risperiDONE 1 MG, risperiDONE 3 MG PO SCH ×2 (10:34→20:55)
[2018-08-16] MEDS: Aspirin Enteric Coated 81 MG Tablet PO SCH (10:35)
[2018-08-16] MEDS: levETIRAcetam 250 MG TABLET PO SCH ×2 (10:35→20:55)
--- NOTE | 2018-08-16 11:16 | Nephrology Progress Note ---
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 Hgb stable (4) HTN (hypertension) Current Visit: No Status: Acute Qualifiers: Hypertension type: essential hypertension Qualified Code(s): I10 - Essential (primary) hypertension (5) IgA nephropathy determined by renal biopsy Current Visit: Yes Status: Acute Subjective Principal diagnosis: s/p kidney biopsy Interval history: Patient seen and examined. She is still somewhat drowsy after her permacath placement, but able to respond to questioning. She continues to feel weak and tired. She denies other symptoms, denies N/V, abdominal pain, or worsening LE edema. Objective - Vital Signs Vital signs: Vital Signs Temp Pulse Resp BP Pulse Ox 08/16/18 07:45 99.1 F 108 18 133/81 95 08/16/18 04:52 99 F 113 26 134/78 94 08/15/18 22:42 99.1 F 108 28 145/74 97 08/15/18 18:46 99.1 F 113 28 130/65 94 Intake and Output 08/15/18 08/16/18 08/16/18 23:59 07:59 15:59 Intake Total 0 / 0 0 / 0 Output Total 500 / 500 100 / 100 Balance -500 / -500 -100 / -100 0 / 0 Intake: Oral 0 / 0 0 / 0 Output: Urine 500 / 500 100 / 100 Other: Meal NPO Percent of Meal Consumed 0% # Voids 1 Weight 78.7 kg Blood Glucose* 102 Patient Weight 08/16/18 23:59 Weight 78.7 kg - General Appearance General appearance: Present: well-developed, well-nourished EENT: Present: ATNC, mucous membranes moist Neck: Present: supple Respiratory: Present: course breath sounds (bilaterally) Cardiology: Present: no edema, regular rate, regular rhythm Dialysis Vascular Access: Venous Catheter (new permacath - site C/D/I) Gastrointestinal: Present: normoactive bowel sounds, no tenderness Integumentary: Present: warm and dry Neurologic: Present: no focal deficit Musculoskeletal: Present: no cyanosis, no clubbing Psychiatric: Present: cooperative - Lab 08/16/18 05:28 08/16/18 05:28 Most recent lab results Calcium 9.9 mg/dL (8.6-10.3) 08/16/18 05:28 Phosphorus 3.8 mg/dL (2.7-4.5) 08/12/18 04:35 Magnesium 1.9 mg/dL (1.6-2.6) 08/12/18 04:35 Urine Creatinine 53 mg/dL 08/11/18 18:35 Urine Sodium 69.2 mEq/L 08/11/18 18:35 Urine Total Protein 254 mg/dL (1-14) H 08/11/18 18:35 Consult Discharge Plan - Plan Instructions: Percutaneous Kidney Biopsy (DC) Additional Instructions: Discharge Instructions for Interventional Radiology Patients: 1. You must have a ride home from your procedure today. Because of the sedation that you received during your procedure today, you may not drive for 24 hours. 2. Keep your dressing clean and dry and do not remove for 24 hours after your procedure. 3. After 24 hours, you may remove your dressing and shower. Do not submerge your incision in water (bathtub or swimming) until the t he incision is healed. It usually takes 7-10 days for incisions to heal. 4. You may put a band aid over your incision until it is completely healed. You may change the dressing if it gets wet or soiled. 5. Always watch for any sign of infection to the site, such as: * Redness * Warmth * Tenderness * White or yellow drainage * Fever or 100.4 degrees or greater If you notice any of these symptoms, please contact your Primary Care Provider immediately. 6. You may resume all blood thinners with the next scheduled dose. For example: If you take a blood thinner each morning, take your medication the next morning as you normally would. Follow Up Appointment * Please call your surgeon's office within 24 hours or next business day to schedule a follow up appointment. * Home Medication List * You have been given a list of your current medications. If you have changes in your medications, update your list. * Provide a list of current medications to your primary care physician. * Carry a copy of your current medications with you in case of an emergency. Referrals: Ant Brewer MD [Non-Partnered Physician] - (NO PCP APPOINTMENT NEEDED PT IS GOING TO [facility])
[2018-08-16] MEDS ORDERED: Ferumoxytol 510 MG in 0.9 % Sodium Chloride 100 ML IVPB ONE (12:45)
[2018-08-16] MEDS ORDERED: *HR* Heparin 10,000 UNIT/10 ML VIAL IV PRN ×2 (16:29)
[2018-08-16] MEDS ORDERED: 0.9 % Sodium Chloride 1,000 ML ONE (17:03)
[2018-08-16] MEDS: Acetaminophen 325 MG TABLET PO PRN (23:46)
[2018-08-17 01:43] LABS: Basophils % 0.4 %; Eosinophils # 0.1 K/mcL (0.0-0.6); Eosinophils % 1.4 %; Hematocrit 26.7 % (35.3-44.9); Hemoglobin 8.2 g/dL (11.5-15.4); Immature Granulocytes % 0.6 % (0-4); Lymphocytes # 0.6 K/mcL (0.6-4.6); Lymphocytes % 7.6 %; Mean Corpuscular HGB Conc 30.7 g/dL (31.6-35.5); Mean Corpuscular Hemoglobin 29.1 pg (28.0-33.3); Mean Corpuscular Volume 94.7 fL (83.0-100.0); Mean Platelet Volume 9.9 fL (9.4-12.4); Monocytes # 1.6 K/mcL (0.0-1.3); Neutrophils # 5.5 K/mcL (1.6-8.9); Nucleated Red Blood Cells 0.3 /100 WBC (0); Platelet Count 247 K/mcL (140-400); Red Blood Count 2.82 M/mcL (3.82-4.97); Red Cell Distribution Width 13.9 % (11.5-14.5)
[2018-08-17 01:58] LABS: Calcium 8.6 mg/dL (8.6-10.3); Potassium 4.3 mEq/L (3.5-5.1)
[2018-08-17 02:13] LABS: Platelet Estimate Normal (Normal)
[2018-08-17] MEDS ORDERED: 0.9 % Sodium Chloride 250 ML IVC PRN (07:00)
--- NOTE | 2018-08-17 07:48 | Internal Med Progress Note ---
<Anand Youssef - Last Filed: 08/17/18 10:59> Hospitalist Progress Note - Encounter Date of Encounter: 08/17/18 Time of Encounter: 10:30 - Exam Vitals: Temp Pulse Resp BP Pulse Ox 97.6 F 65 16 117/49 94 08/17/18 07:00 08/17/18 07:00 08/17/18 07:00 08/17/18 07:00 08/17/18 07:00 - Assessment and Plan (1) Acute kidney injury superimposed on CKD Current Visit: Yes Status: Acute (2) CKD (chronic kidney disease) Current Visit: Yes Status: Chronic (3) Retroperitoneal hematoma Current Visit: Yes Status: Acute (4) HTN (hypertension) Current Visit: Yes Status: Chronic (5) Seizure Current Visit: Yes Status: Chronic (6) Anemia Current Visit: Yes Status: Acute (7) DVT prophylaxis Current Visit: Yes Status: Acute - Time Spent with Patient Total time spent is greater than 50% in coordination of care (as documented) at patient's floor/unit and/or counseling patient: Internal Medicine: Result - Labs CBC & Chem 7: 08/17/18 00:44 08/17/18 00:44 Labs: Short CBC 08/17/18 Range/Units 00:44 WBC 7.8 (4.3-11.1) K/mcL Hgb 8.2 L (11.5-15.4) g/dL Hct 26.7 L (35.3-44.9) % Plt Count 247 (140-400) K/mcL Neutrophils # 5.5 (1.6-8.9) K/mcL BMP 08/16/18 08/17/18 05:28 00:44 Sodium 146 H 140 Potassium 4.4 4.3 Chloride 113 H 104 Carbon Dioxide 25 32 H BUN 53 H 30 H Creatinine 3.07 H 2.38 H Glucose 96 139 H Calcium 9.9 8.6 - ABG Interpretation ABG results: PT/INR, D-dimer PT 10.9 Seconds (9.4-12.1) 08/16/18 05:28 - Impressions Impressions Chest X-Ray 08/15/18 08:20 IMPRESSION: Markedly enlarged cardiomediastinal silhouette with findings suggestive of pulmonary interstitial edema. Probable small bilateral pleural effusions. Correlation with volume status is recommended. D/ / 08/15/2018 15:07:46 Jose Maria Rico MD / Latonia Fishman Interpreting Provider: Jose Maria Rico MD Consult Discharge Plan - Plan Instructions: Percutaneous Kidney Biopsy (DC) Additional Instructions: Discharge Instructions for Interventional Radiology Patients: 1. You must have a ride home from your procedure today. Because of the sedation that you received during your procedure today, you may not drive for 24 hours. 2. Keep your dressing clean and dry and do not remove for 24 hours after your procedure. 3. After 24 hours, you may remove your dressing and shower. Do not submerge your incision in water (bathtub or swimming) until the the incision is healed. It usually takes 7-10 days for incisions to heal. 4. You may put a band aid over your incision until it is completely healed. You may change the dressing if it gets wet or soiled. 5. Always watch for any sign of infection to the site, such as: * Redness * Warmth * Tenderness * White or yellow drainage * Fever or 100.4 degrees or greater If you notice any of these symptoms, please contact your Primary Care Provider immediately. 6. You may resume all blood thinners with the next scheduled dose. For example: If you take a blood thinner each morning, take your medication the next morning as you normally would. Follow Up Appointment * Please call your surgeon's office within 24 hours or next business day to schedule a follow up appointment. * Home Medication List * You have been given a list of your current medications. If you have changes in your medications, update your list. * Provide a list of current medications to your primary care physician. * Carry a copy of your current medications with you in case of an emergency. Referrals: Ant Brewer MD [Non-Partnered Physician] - (NO PCP APPOINTMENT NEEDED PT IS GOING TO [facility]) - Attending Attestation I saw evaluated and examined this patient and my medical decision-making was reviewed with the Resident Physician, Mohan Gonzalez. I agree with the documented findings, disposition and treatment plan as described except to any changes set forth below. We independently had [id number] contact with the patient. Evaluated patient just before she was sitting for hemodialysis. She was very somnolent but had been a week earlier today. She did breakfast. She was apparently had stated last night and received Benadryl and was able to sleep after that. Did well with dialysis yesterday. She did have one episode of fever with temperature 101 last night. General: Patient is currently somnolent. Difficult to awake ENT: Mucous membranes moist Respiratory: Decreased breath sounds at both bases Cardiovascular: Regular rate and rhythm. s1 and s2 normal No clicks, rubs, gallops, or murmurs. No pedal edema Abdomen: Abdomen is soft, distended, generalized tenderness. Bowel sounds are present Skin: warm, dry, intact. Neuro: Somnolent. Acute kidney injury superimposed on chronic kidney disease stage IV: Patient started on hemodialysis. Second session today. We will continue to monitor renal function. Abdominal pain: Unable to assess if she continues to have abdominal pain at this time. Will recheck later when she is more awake. Retroperitoneal hematoma: Stabilize. Hemoglobin levels have been stable. Patient did receive coil embolization. Acute blood loss anemia: Due to retroperitoneal hematoma. Hemoglobin 8.2 today. Stabilize. So far patient has received 2 units PRBC during this hospitalization. Hypertension: Continue current medications. Carvedilol dosage increased earlier during this hospital stay and patient tolerating it well. Seizure disorder: Continue Keppra DVT prophylaxis with SCDs due to retroperitoneal hematoma <Mohan Gonzalez - Last Filed: 08/17/18 13:24> Hospitalist Progress Note - Encounter Date of Encounter: 08/17/18 - Subjective Interval History: No acute events overnight .patient noted to be difficult to awaken this morning by nursing. Received benadryl at night. During my evaluation patient was awake and ate breakfast this morning. - Exam Vitals: Temp Pulse Resp BP Pulse Ox 97.6 F 65 16 117/49 94 08/17/18 07:00 08/17/18 07:00 08/17/18 07:00 08/17/18 07:00 08/17/18 07:00 Exam: General: pleasant, Cardiovascualr: Regular rate and rhythm with no murmur, absent gallops or rubs, absent pedal edema, radial pulses 2 out of 4 Lungs: Clear to auscultation bilaterally, not in respiratory distress Abdomen: Soft nontender, nondistended positive bowel sounds, absent hepatomegaly Skin: warm and dry, absent rash, absent open wounds and nodules MSK: absent clubbing, cyanosis, joints without swelling Neuro: Alert oriented self , place, time Psych: good insight and judgment, - Assessment and Plan (1) IgA nephropathy determined by renal biopsy Current Visit: Yes Status: Acute Assessment and Plan: He has acute kidney injury 2nd to IgA nephropathy right IJ permacath without surrounding erythema. underwent 2nd dialysis today. Patient will not need immunosuppressive therapy as per nephrology Renal diet (2) Acute kidney injury superimposed on CKD Current Visit: Yes Status: Acute Assessment and Plan: plan as above (3) Anemia Current Visit: Yes Status: Acute Assessment and Plan: Acute blood loss anemia secondary to retroperitoneal hematoma after kidney biopsy Patient's hemoglobin is stable Patient being replaced with ferriheme (4) DVT prophylaxis Current Visit: Yes Status: Acute Assessment and Plan: epcd (5) HTN (hypertension) Current Visit: Yes Status: Acute Assessment and Plan: continue coreg (6) Retroperitoneal hematoma Current Visit: Yes Status: Acute Assessment and Plan: Plan as above. (7) Seizure Current Visit: Yes Status: Chronic Assessment and Plan: Continue Keppra. DVT Prophylaxis: epcd - Time Spent with Patient Total time spent is greater than 50% in coordination of care (as documented) at patient's floor/unit and/or counseling patient: Internal Medicine: Result - Labs CBC & Chem 7: 08/17/18 00:44 08/17/18 00:44 Labs: Short CBC 08/17/18 Range/Units 00:44 WBC 7.8 (4.3-11.1) K/mcL Hgb 8.2 L (11.5-15.4) g/dL Hct 26.7 L (35.3-44.9) % Plt Count 247 (140-400) K/mcL Neutrophils # 5.5 (1.6-8.9) K/mcL BMP 08/16/18 08/17/18 05:28 00:44 Sodium 146 H 140 Potassium 4.4 4.3 Chloride 113 H 104 Carbon Dioxide 25 32 H BUN 53 H 30 H Creatinine 3.07 H 2.38 H Glucose 96 139 H Calcium 9.9 8.6 - ABG Interpretation ABG results: PT/INR, D-dimer PT 10.9 Seconds (9.4-12.1) 08/16/18 05:28 - Impressions Impressions Chest X-Ray 08/15/18 08:20 IMPRESSION: Markedly enlarged cardiomediastinal silhouette with findings suggestive of pulmonary interstitial edema. Probable small bilateral pleural effusions. Correlation with volume status is recommended. D/ / 08/15/2018 15:07:46 Jose Maria Rico MD / Latonia Fishman Interpreting Provider: Jose Maria Rico MD Guidance Ultrasound 08/16/18 00:00 IMPRESSION: Successful ultrasound and fluoroscopy guided tunneled catheter placement. D/ / 08/16/2018 10:02:01 Jody Chiu MD / idalia Interpreting Provider: Jody Chiu MD Insertion Tunneled Catheter 08/16/18 00:00 IMPRESSION: Successful ultrasound and fluoroscopy guided tunneled catheter placement. D/ / 08/16/2018 10:02:01 Jody Chiu MD / idalia Interpreting Provider: Jody Chiu MD <Anand Youssef - Last Filed: 08/17/18 10:59> (2) CKD (chronic kidney disease) Qualifiers: Chronic kidney disease stage: stage 4 (severe) Qualified Code(s): N18.4 - Chronic kidney disease, stage 4 (severe) (4) HTN (hypertension) Qualifiers: Hypertension type: essential hypertension Qualified Code(s): I10 - Essential (primary) hypertension (6) Anemia Qualifiers: Anemia type: other cause Other causes of anemia: acute posthemorrhagic Qualified Code(s): D62 - Acute posthemorrhagic anemia <Mohan Gonzalez - Last Filed: 08/17/18 13:24> (3) Anemia Qualifiers: Anemia type: other cause Other causes of anemia: acute posthemorrhagic Qualified Code(s): D62 - Acute posthemorrhagic anemia (5) HTN (hypertension) Qualifiers: Hypertension type: essential hypertension Qualified Code(s): I10 - Essential (primary) hypertension
[2018-08-17] MEDS: amLODIPine 5 MG TABLET PO SCH (09:34)
[2018-08-17] MEDS: BuPROPion XL (24 HR) 150 MG TABLET PO SCH (09:34)
[2018-08-17] MEDS: risperiDONE 1 MG, risperiDONE 3 MG PO SCH ×2 (09:34→21:53)
[2018-08-17] MEDS: levETIRAcetam 250 MG TABLET PO SCH ×2 (09:34→21:53)
[2018-08-17] MEDS: Aspirin Enteric Coated 81 MG Tablet PO SCH (09:34)
[2018-08-17] MEDS: OLANZapine 5 MG TAB.RAPDIS PO SCH ×2 (09:34→21:53)
[2018-08-17] MEDS: Artificial Tears SOLN 15 ML BOTTLE BOTH EYES PRN (09:39)
[2018-08-17] MEDS: Zinc Oxide 454 GM EACH TP SCH (09:40)
[2018-08-17] MEDS: Nystatin POWDER 30 GM BOTTLE TP PRN (09:43)
--- NOTE | 2018-08-17 14:51 | Nephrology Progress Note ---
Date of Encounter: 08/17/18 Time of Encounter: 14:30 - Assessment and Plan (1) Acute kidney injury superimposed on CKD Current Visit: Yes Status: Acute Renal function better today, SCr 2.38, GFR 20 after HD yesterday - will provide HD again today Renal biopsy with IgA nephropathy without mention of cresents, so still no immunosuppressive therapy at this time Continue to follow renal protective strategy: daily weights, I/O's, and avoid nephrotoxic agents if possible (2) Anemia Current Visit: Yes Status: Acute Multifactorial - secondary to recent blood loss, but also with CKD and iron deficiency s/p feraheme yesterday and likely start EPO in the near future Goal Hgb 10-11 Qualifiers: Anemia type: other cause Other causes of anemia: acute posthemorrhagic Qualified Code(s): D62 - Acute posthemorrhagic anemia (3) Retroperitoneal hematoma Current Visit: Yes Status: Acute s/p coil per IR. Hgb stable (4) HTN (hypertension) Current Visit: Yes Status: Acute Qualifiers: Hypertension type: essential hypertension Qualified Code(s): I10 - Essential (primary) hypertension (5) IgA nephropathy determined by renal biopsy Current Visit: Yes Status: Acute Subjective Principal diagnosis: s/p kidney biopsy Interval history: Patient seen and examined. She reports some mild abdominal discomfort but no N/V. She continues to feel weak and tired. Denies dyspnea or worsening LE edema. Objective - Vital Signs Vital signs: Vital Signs Temp Pulse Resp BP Pulse Ox 08/17/18 13:38 97.7 F 18 92/76 08/17/18 13:20 121/76 08/17/18 13:05 102/53 08/17/18 12:50 124/56 08/17/18 12:35 110/85 08/17/18 12:20 111/56 08/17/18 12:05 114/50 08/17/18 11:50 123/51 08/17/18 11:35 138/61 08/17/18 11:20 146/58 08/17/18 11:05 113/55 08/17/18 10:50 110/54 08/17/18 10:35 108/51 08/17/18 10:20 97.9 F 18 103/54 08/17/18 07:00 97.6 F 65 16 117/49 94 08/17/18 04:33 99.2 F 66 17 109/48 96 08/16/18 23:48 70 08/16/18 23:12 101.4 F H 71 20 121/69 95 08/16/18 21:00 120 08/16/18 19:29 99.6 F 118 20 149/70 91 08/16/18 16:57 63 18 105/76 08/16/18 16:45 97.9 F 18 108/64 08/16/18 16:30 106/69 08/16/18 16:15 113/58 08/16/18 16:00 129/56 08/16/18 15:45 135/79 08/16/18 15:30 125/74 08/16/18 15:15 124/76 08/16/18 15:00 121/67 Intake and Output 08/16/18 08/17/18 08/17/18 23:59 07:59 15:59 Intake Total 1167 / 1167 720 / 720 Output Total 100 / 100 1100 / 1100 Balance 1067 / 1067 -380 / -380 Intake: IV Fluids 1167 / 1167 Ancef Premix DUPLEX 2,000 mg In 50 / 50 50 ml @ 100 mls/hr IVPB ONCE ONE Rx#:[id number] Feraheme 510 MG In 0.9 % Sodium 117 / 117 Chloride 100 ML @ 468 mls/hr IVPB ONCE ONE Rx#:[id number] Oral 0 / 0 120 / 120 Intake, Rinseback and Flushes 600 / 600 Output: Urine 0 / 0 Total Dialysis (HD) Output 100 / 100 1100 / 1100 Other: Stool Size Small Stool Color Brown # Voids 1 Weight 75.4 kg Blood Glucose* 101 Hemodialysis Net Fluid Removed 500 500 (mL) Patient Weight 08/17/18 23:59 Weight 75.4 kg - General Appearance General appearance: Present: well-developed, well-nourished EENT: Present: ATNC, mucous membranes moist Neck: Present: supple Respiratory: Present: course breath sounds (bilaterally) Cardiology: Present: no edema, regular rate, regular rhythm Dialysis Vascular Access: Venous Catheter (permacath - C/D/I, no erythema or warmth) Gastrointestinal: Present: normoactive bowel sounds, tenderness (mild epigastric), no guarding Integumentary: Present: warm and dry Neurologic: Present: no focal deficit Musculoskeletal: Present: no cyanosis, no clubbing Psychiatric: Present: mood/affect appropriate, cooperative - Lab 08/17/18 00:44 08/17/18 00:44 Most recent lab results Calcium 8.6 mg/dL (8.6-10.3) 08/17/18 00:44 Phosphorus 3.8 mg/dL (2.7-4.5) 08/12/18 04:35 Magnesium 1.9 mg/dL (1.6-2.6) 08/12/18 04:35 Urine Creatinine 53 mg/dL 08/11/18 18:35 Urine Sodium 69.2 mEq/L 08/11/18 18:35 Urine Total Protein 254 mg/dL (1-14) H 08/11/18 18:35 Consult Discharge Plan - Plan Instructions: Percutaneous Kidney Biopsy (DC) Additional Instructions: Discharge Instructions for Interventional Radiology Patients: 1. You must have a ride home from your procedure today. Because of the sedation that you received during your procedure today, you may not drive for 24 hours. 2. Keep your dressing clean and dry and do not remove for 24 hours after your procedure. 3. After 24 hours, you may remove your dressing and shower. Do not submerge your incision in water (bathtub or swimming) until the the incision is healed. It usually takes 7-10 days for incisions to heal. 4. You may put a band aid over your incision until it is completely healed. You may change the dressing if it gets wet or soiled. 5. Always watch for any sign of infection to the site, such as: * Redness * Warmth * Tenderness * White or yellow drainage * Fever or 100.4 degrees or greater If you notice any of these symptoms, please contact your Primary Care Provider immediately. 6. You may resume all blood thinners with the next scheduled dose. For example: If you take a blood thinner each morning, take your medication the next morning as you normally would. Follow Up Appointment * Please call your surgeon's office within 24 hours or next business day to schedule a follow up appointment. * Home Medication List * You have been given a list of your current medications. If you have changes in your medications, update your list. * Provide a list of current medications to your primary care physician. * Carry a copy of your current medications with you in case of an emergency. Referrals: Ant Brewer MD [Non-Partnered Physician] - (NO PCP APPOINTMENT NEEDED PT IS GOING TO [facility])
[2018-08-17] MEDS ORDERED: 0.9 % Sodium Chloride 2,000 ML ONE (15:45)
[2018-08-17] MEDS: traMADol 50 MG TABLET PO PRN (16:44)
[2018-08-17] MEDS: Acetaminophen 325 MG TABLET PO PRN (21:53)
[2018-08-18 06:36] LABS: Basophils % 0.2 %; Eosinophils # 0.2 K/mcL (0.0-0.6); Eosinophils % 1.7 %; Hematocrit 26.2 % (35.3-44.9); Immature Granulocytes % 1.2 % (0-4); Lymphocytes # 0.7 K/mcL (0.6-4.6); Lymphocytes % 6.3 %; Mean Corpuscular HGB Conc 30.5 g/dL (31.6-35.5); Mean Corpuscular Hemoglobin 29.4 pg (28.0-33.3); Mean Corpuscular Volume 96.3 fL (83.0-100.0); Mean Platelet Volume 10.3 fL (9.4-12.4); Monocytes % 17.2 %; Neutrophils # 8.7 K/mcL (1.6-8.9); Platelet Count 284 K/mcL (140-400); Red Blood Count 2.72 M/mcL (3.82-4.97); Red Cell Distribution Width 14.1 % (11.5-14.5); Segmented Neutrophils % 73.4 %
[2018-08-18 06:40] LABS: Calcium 9.1 mg/dL (8.6-10.3)
[2018-08-18 10:58] LABS: ABG Base Excess 6 mEq/L (-2 to 3); ABG HCO3 31 mEq/L (21-27); ABG Oxygen Saturation 93 % (95-98); ABG PCO2 46 mmHg (35-45); ABG PH 7.44 pH Units (7.32-7.45); ABG PO2 64 mmHg (85-104); ABG TCO2 32 mEq/L (20-26)
--- NOTE | 2018-08-18 11:11 | Nephrology Progress Note ---
Date of Encounter: 08/18/18 Time of Encounter: 09:30 - Assessment and Plan (1) Acute kidney injury superimposed on CKD Current Visit: Yes Status: Acute Renal function fluctuating, a little worse today She is s/p two days of HD - will rest today and provide HD tomorrow to get her on her out-patient schedule of TTS Renal biopsy with IgA nephropathy without mention of cresents, so still no immunosuppressive therapy at this time Continue to follow renal protective strategy: daily weights, I/O's, and avoid nephrotoxic agents if possible (2) Anemia Current Visit: Yes Status: Acute Multifactorial - secondary to recent blood loss, but also with CKD and iron deficiency s/p feraheme and EPO Goal Hgb 10-11 Qualifiers: Anemia type: other cause Other causes of anemia: acute posthemorrhagic Qualified Code(s): D62 - Acute posthemorrhagic anemia (3) Retroperitoneal hematoma Current Visit: Yes Status: Acute s/p coil per IR. Hgb stable (4) HTN (hypertension) Current Visit: Yes Status: Acute Qualifiers: Hypertension type: essential hypertension Qualified Code(s): I10 - Essential (primary) hypertension (5) IgA nephropathy determined by renal biopsy Current Visit: Yes Status: Acute Subjective Principal diagnosis: s/p kidney biopsy Interval history: Patient seen and examined. She is more somnolent today than yesterday and not answering questions very well currently. Objective - Vital Signs Vital signs: Vital Signs Temp Pulse Resp BP Pulse Ox 08/18/18 07:38 99.7 F H 61 19 115/73 92 08/18/18 03:51 98.8 F 63 17 136/62 97 08/17/18 23:32 98.0 F 59 16 114/74 96 08/17/18 22:12 93 08/17/18 19:05 98.2 F 64 16 127/64 96 08/17/18 17:54 124/70 08/17/18 17:09 98.1 F 59 18 124/70 97 08/17/18 13:38 97.7 F 18 92/76 08/17/18 13:20 121/76 08/17/18 13:05 102/53 08/17/18 12:50 124/56 08/17/18 12:35 110/85 08/17/18 12:20 111/56 08/17/18 12:05 114/50 03/26/19 11:50 123/51 08/17/18 11:35 138/61 08/17/18 11:20 146/58 Intake and Output 08/17/18 08/18/18 08/18/18 23:59 07:59 15:59 Other: # Voids 2 Blood Glucose* 108 - General Appearance General appearance: Present: well-developed, well-nourished EENT: Present: ATNC, mucous membranes moist Neck: Present: supple Respiratory: Present: course breath sounds Cardiology: Present: no edema, regular rate, regular rhythm Dialysis Vascular Access: Venous Catheter (permacath - C/D/I, no erythema or warmth) Gastrointestinal: Present: normoactive bowel sounds, tenderness (epigastric), no guarding Additional Comments: patient is very somnolent on exam today which has not been unusual for her Musculoskeletal: Present: no cyanosis, no clubbing - Lab 08/18/18 05:37 08/18/18 05:37 Most recent lab results ABG pH 7.44 pH Units (7.32-7.45) 08/18/18 10:55 ABG pCO2 46 mmHg (35-45) H 08/18/18 10:55 ABG pO2 64 mmHg (85-104) L 08/18/18 10:55 ABG HCO3 31 mEq/L (21-27) H 08/18/18 10:55 ABG O2 Saturation 93 % (95-98) L 08/18/18 10:55 Calcium 9.1 mg/dL (8.6-10.3) 08/18/18 05:37 Phosphorus 3.8 mg/dL (2.7-4.5) 08/12/18 04:35 Magnesium 1.9 mg/dL (1.6-2.6) 08/12/18 04:35 Urine Creatinine 53 mg/dL 08/11/18 18:35 Urine Sodium 69.2 mEq/L 08/11/18 18:35 Urine Total Protein 254 mg/dL (1-14) H 08/11/18 18:35 - VTE Documentation of Mechanical Device: Intermittent pneumatic compression device Consult Discharge Plan - Plan Instructions: Percutaneous Kidney Biopsy (DC) Additional Instructions: Discharge Instructions for Interventional Radiology Patients: 1. You must have a ride home from your procedure today. Because of the sedation that you received during your procedure today, you may not drive for 24 hours. 2. Keep your dressing clean and dry and do not remove for 24 hours after your procedure. 3. After 24 hours, you may remove your dressing and shower. Do not submerge your incision in water (bathtub or swimming) until the the incision is healed. It usually takes 7-10 days for incisions to heal. 4. You may put a band aid over your incision until it is completely healed. You may change the dressing if it gets wet or soiled. 5. Always watch for any sign of infection to the site, such as: * Redness * Warmth * Tenderness * White or yellow drainage * Fever or 100.4 degrees or greater If you notice any of these symptoms, please contact your Primary Care Provider immediately. 6. You may resume all blood thinners with the next scheduled dose. For example: If you take a blood thinner each morning, take your medication the next morning as you normally would. Follow Up Appointment * Please call your surgeon's office within 24 hours or next business day to schedule a follow up appointment. * Home Medication List * You have been given a list of your current medications. If you have changes in your medications, update your list. * Provide a list of current medications to your primary care physician. * Carry a copy of your current medications with you in case of an emergency. Referrals: Ant Brewer MD [Non-Partnered Physician] - (NO PCP APPOINTMENT NEEDED PT IS GOING TO [facility])
[2018-08-18] MEDS: Aspirin Enteric Coated 81 MG Tablet PO SCH (12:04)
[2018-08-18] MEDS: risperiDONE 1 MG, risperiDONE 3 MG PO SCH ×2 (12:04→21:47)
[2018-08-18] MEDS: amLODIPine 5 MG TABLET PO SCH (12:05)
[2018-08-18] MEDS: levETIRAcetam 250 MG TABLET PO SCH ×2 (12:05→21:47)
[2018-08-18] MEDS: BuPROPion XL (24 HR) 150 MG TABLET PO SCH (12:05)
[2018-08-18] MEDS: OLANZapine 5 MG TAB.RAPDIS PO SCH ×2 (12:06→21:46)
--- NOTE | 2018-08-18 12:17 | Internal Med Progress Note ---
Hospitalist Progress Note - Encounter Date of Encounter: 08/18/18 Time of Encounter: 09:00 - Subjective Interval History: Patient is somnolent, opens eyes but not answer questions. Looks in no acute distress. - Exam Vitals: Temp Pulse Resp BP Pulse Ox 98.8 F 64 19 125/74 90 08/18/18 11:38 08/18/18 11:38 08/18/18 11:38 08/18/18 11:38 08/18/18 11:38 Exam: Pt is AAO x 0, in NAD, somnolent HEENT: NC/AT, PERRL Neck: Supple, no JVD, no LAD Lungs: CTA b/l Heart: S1S2, RRR Abd: Soft, nontender, BS present Ext: ROM wnl, no pedal edema Neuro: No focal deficit - Assessment and Plan (1) HTN (hypertension) Current Visit: Yes Status: Chronic Assessment and Plan: Blood pressures is stable after increased carvedilol dosage. (2) Seizure Current Visit: Yes Status: Chronic Assessment and Plan: Continue Keppra. Pt has hx of AMS and known hx of meningioma. (3) Anemia Current Visit: Yes Status: Acute Assessment and Plan: Hemoglobin 8.0 today. Generally Stable, continue closely follow-up (4) DVT prophylaxis Current Visit: Yes Status: Acute Assessment and Plan: With SCDs (5) CKD (chronic kidney disease) Current Visit: Yes Status: Chronic Assessment and Plan: Nephrology consult on case. Patient started hemodialysis. Closely monitor renal function. Avoid nephrotoxic medications (6) Retroperitoneal hematoma Current Visit: Yes Status: Acute Assessment and Plan: Stabilized. Continue closely monitoring (7) Acute kidney injury superimposed on CKD Current Visit: Yes Status: Acute Assessment and Plan: acute kidney injury on chronic kidney disease stage IV. Renal function con tinues to worsen. Started hemodialysis per nephrology. Creatinine level getting down after hemodialysis (8) Altered mental status Current Visit: No Status: Acute Assessment and Plan: Patient previous chart reviewed. Patient has history of intermittent altered mental status, considering multiple factors including frontal lobe meningioma and history of seizure. CT head, ABG, urinalysis and a chest x-ray ordered to rule out metabolic encephalopathy. - Continue closely monitor patient. DVT Prophylaxis: EPCDs - Time Spent with Patient Total time spent is greater than 50% in coordination of care (as documented) at patient's floor/unit and/or counseling patient: 30 minutes 25 - 35 minutes Plan of Care Discussed with: nurse Internal Medicine: Result - Labs CBC & Chem 7: 08/18/18 05:37 08/18/18 05:37 Labs: Short CBC 08/18/18 Range/Units 05:37 WBC 11.8 H D (4.3-11.1) K/mcL Hgb 8.0 L (11.5-15.4) g/dL Hct 26.2 L (35.3-44.9) % Plt Count 284 (140-400) K/mcL Neutrophils # 8.7 (1.6-8.9) K/mcL BMP 08/18/18 05:37 Sodium 138 Potassium 4.0 Chloride 103 Carbon Dioxide 30 H BUN 31 H Creatinine 2.97 H Glucose 107 H Calcium 9.1 - ABG Interpretation ABG results: ABG ABG pH 7.44 pH Units (7.32-7.45) 08/18/18 10:55 ABG pCO2 46 mmHg (35-45) H 08/18/18 10:55 ABG pO2 64 mmHg (85-104) L 08/18/18 10:55 ABG O2 Saturation 93 % (95-98) L 08/18/18 10:55 PT/INR, D-dimer PT 10.9 Seconds (9.4-12.1) 08/16/18 05:28 - Impressions Impressions Head CT 08/18/18 10:41 IMPRESSION: No acute intracranial abnormality. No change in the very large calcified or ossified right parietal extra-axial mass causing a moderate to large amount of mass effect. Mild cerebral atrophy appropriate for age. [id number] chronic ischemic changes also age-appropriate. No significant change from the prior study. D/ / Martín Sneed MD / Martín Sneed MD Interpreting Provider: Martín Sneed MD Chest X-Ray 08/18/18 10:44 IMPRESSION: 1. Right dual-lumen hemodialysis catheter tip overlies the superior atrial junction. No pneumothorax. 2. Stable mild enlargement of the cardiac silhouette. 3. No acute pulmonary abnormality. D/ / Chaitanya Selby MD / Chaitanya Selby MD Interpreting Provider: Chaitanya Selby MD - VTE Documentation of Mechanical Device: Intermittent pneumatic compression device Consult Discharge Plan - Plan Instructions: Percutaneous Kidney Biopsy (DC) Additional Instructions: Discharge Instructions for Interventional Radiology Patients: 1. You must have a ride home from your procedure today. Because of the sedation that you received during your procedure today, you may not drive for 24 hours. 2. Keep your dressing clean and dry and do not remove for 24 hours after your procedure. 3. After 24 hours, you may remove your dressing and shower. Do not submerge your incision in water (bathtub or swimming) until the the incision is healed. It usually takes 7-10 days for incisions to heal. 4. You may put a band aid over your incision until it is completely healed. You may change the dressing if it gets wet or soiled. 5. Always watch for any sign of infection to the site, such as: * Redness * Warmth * Tenderness * White or yellow drainage * Fever or 100.4 degrees or greater If you notice any of these symptoms, please contact your Primary Care Provider immediately. 6. You may resume all blood thinners with the next scheduled dose. For example: If you take a blood thinner each morning, take your medication the next morning as you normally would. Follow Up Appointment * Please call your surgeon's office within 24 hours or next business day to schedule a follow up appointment. * Home Medication List * You have been given a list of your current medications. If you have changes in your medications, update your list. * Provide a list of current medications to your primary care physician. * Carry a copy of your current medications with you in case of an emergency. Referrals: Ant Brewer MD [Non-Partnered Physician] - (NO PCP APPOINTMENT NEEDED PT IS GOING TO [facility]) (1) HTN (hypertension) Qualifiers: Hypertension type: essential hypertension Qualified Code(s): I10 - Essential (primary) hypertension (3) Anemia Qualifiers: Anemia type: other cause Other causes of anemia: acute posthemorrhagic Qualified Code(s): D62 - Acute posthemorrhagic anemia (5) CKD (chronic kidney disease) Qualifiers: Chronic kidney disease stage: stage 4 (severe) Qualified Code(s): N18.4 - Chronic kidney disease, stage 4 (severe) (8) Altered mental status Qualifiers: Altered mental status type: somnolence Qualified Code(s): R40.0 - Somnolence
[2018-08-18] MEDS: Zinc Oxide 454 GM EACH TP SCH (14:06)
--- NOTE | 2018-08-18 15:34 | Neurology - Consult Note ---
<Eduin Bentley - Last Filed: 08/18/18 15:29> Date of Encounter: 08/18/18 Time of Encounter: 15:29 Assessment and Plan (1) Encephalopathy Current Visit: Yes Status: Acute Neuro c/s for encephalopathy and suspected seizures. She has a h/o seizures and is compliant with Keppra. Patient has h/o a very large calicified or ossified right parietal extra-axial mass causing a moderate to large mass effect; findings reflect a meningioma without any significant changes compared to prior study. There is also concern for pupillary irregularities and encephalopathic state. It is reported that the patient was somnolent this morning prior to dialysis and upon return she was even more somnolent. This resolved around noon today. However, per my exam she continues to be lethargic appearing but not somnolent. She denies tonic-clonic seizure activity however, her seizures do not manifest with tonic-clonic activity either way. Her normal seizure manifestation is an attention, generalized weakness and lethargy. The etiology for her encephalopathy is unclear; consider metabolic derangement with ESRD, or medication cause (patient initially improved to return to baseline however, she is now once again lethargic and encephalopathic) she recently received a dose of keppra, Risperdal and zyprexa at noon and shortly thereafter appeared lethargic and encephalopathic. I suspect that the medications are contributing. Other diagnosis to consider in the differential include an acute infectious process, seizure given the h/o a large meningioma or an acute neurovascular event. In regards to the pupillary irregularities the patient reports these as chronic and can, she has a right heel whole sheet pupil S/P cataract surgery and a left pupillary irregularity also S/P cataract surgery. I do not suspect that these are due to an acute issue. Nonetheless given the findings of muffled voice, facial asymmetry and slurred speech as well as lethargy and encephalopathic features we will proceed with the workup as follows. PLAN: Agree with urinalysis to rule out infectious cause; consider other infectious source; defer to primary team. Patient was noted to have fevers throughout this stay. We will obtain an MRI of the brain to rule out an acute cerebrovascular event given the facial asymmetry, muffled voice and slurred speech. - Recent TTE: Mild AR, EF 55-60% and mild LVDD recent carotid duplex scans with non-stenotic plaque in the bilateral carotid system. Obtain an EEG given concerns for possible seizure. Continue with current AEDs In the meantime continue with an NIH assessments per protocol as well as neurological assessments per protocol Continue antiplatelet and statin medication We will check a TSH History of Present Illness Chief complaint: Encephalopathy and suspected seizures HPI: Ms. Bynum is a 73 year old female with a PMH of arthritis, fibromyalgia, HLD, HTN, ESRD and hypothyroidism as well as anxiety, schizophrenia and depression. She initially presented S/P kidney biopsy resulting in a right retroperitoneal bleed. Throughout the stay she has had encephalopathic features and waxing and waning lethargy. Neurology consulted today with concerns for bilateral pupillary irregularities, waxing and waning encephalopathic features and lethargy as well as concerns for seizure given history of large meningioma. On exam this afternoon the patient continues to be somewhat lethargic but is able to provide a history. She denies any tonic-clonic seizure activity, visual changes, dizziness, headache, blurred or double vision, chest pain, pal pitations, unilateral weakness or paresthesias. She admits to chronic bilateral leg weakness and new generalized weakness, admits to a new muffled voice, some slurred speech and malaise. She further elaborates on her seizure activity and noticed that she does not present with tonic-clonic features but instead has episodes of inattention, confusion and lethargy. She notes that her seizure typically present much like her current state but is unclear as to whether or not she has actually had a seizure event. Review of her labs finds end-stage renal disease with serum creatinine stable around patient's baseline. A urinalysis has been ordered but is pending collection. A CT of the head shows no acute intracranial abnormality but a stable very large calcified or ossified right parietal extra-axial mass causing a moderate to large amount of mass effect. Mild cerebral atrophic changes for age. Mild-moderate chronic ischemic changes which are also age appropriate. Chest x-ray with no acute pulmonary process. Past Med Surg Social Fam HX - Past Medical History Medical history: arthritis, DVT, fibromyalgia, hyperlipidemia, hypertension, renal disease, thyroid disease, other Additional medical history: rhabomyolitis, osteomylitis, uti, JESSICA, shizophrenia, depression, dvt, depression, insomia, mrsa hs to wound Psychiatric history: anxiety, depression, schizophrenia - Past Surgical History Surgical History: cholecystectomy, orthopedic, other Additional surgical history: left ankle sx years ago - Social History Smoking Status: Never smoker Smokeless Tobacco Status: No Alcohol use: none Drug use: none - Family History Mother Living Status: Hx Family Cardiac Disorders: Yes Hx Family Respiratory Disorders: No Hx Family Cancer: No Hx Family GI Disorders: No Hx Family Endocrine Disorder: No Hx Family Neuromuscular Disorders: Yes (dementia) Hx Family Neurologic Disorders: No Hx Family HEENT Disorders: No Hx Family Autoimmune Disorders: No Father Living Status: Hx Family Neurologic Disorders: Yes (dementia) Medications and Allergies Bupropion HCl [Wellbutrin Xl] 300 mg PO DAILY 01/17/17 [History] OLANZapine [Zyprexa] 15 mg PO 01/17/17 [History] risperiDONE [Risperidone] 4 mg PO BID 01/17/17 [History] levETIRAcetam [Roweepra] 500 mg PO 04/09/17 [History] Acetaminophen [Tylenol] 650 mg PO Q6HR PRN 12/05/17 [History] Brimonidine Tartrate/Timolol [Combigan 0.2%-0.5% Eye Drops] 1 drop RIGHT EYE BID 12/05/17 [History] GuaiFENesin/Dextromethorphan [Robitussin/Dm] 10 ml PO Q6HR PRN 12/05/17 [History] Pravastatin Sodium [Pravachol] 20 mg PO HS 12/05/17 [History] Ammonium Lactate [Patricia-Hydrolac] 1 appl TP BID 03/20/18 [History] Nystatin POWDER [Nystop] 1 appl TP BID PRN 03/20/18 [History] Tramadol HCl [Ultram] 50 mg PO QID PRN 03/20/18 [History] Zinc Oxide [Boudreauxs] 1 appl TP DAILY 06/23/18 [History] Carvedilol [Coreg] 12.5 mg PO BIDWM #60 tablet 06/24/18 [Rx] Amlodipine Besylate 10 mg PO DAILY 07/20/18 [History] Aspirin [Lo-Dose Aspirin EC] 81 mg PO DAILY 07/20/18 [History] DiphenhydraMINE [Benadryl] 25 mg PO Q6HR PRN 07/20/18 [History] Dextran 70/Hypromellose [Artificial Tears] 1 drop BOTH EYES QID PRN 08/10/18 [History] Levothyroxine Sodium 75 mcg PO DAILY 08/10/18 [History] Allergy/AdvReac Type Severity Reaction Status Date / Time No Known Allergies Allergy Verified 08/10/18 19:22 All Systems: The remainder of the systems were reviewed and are negative Review of Systems: REVIEW OF SYSTEMS-limited due to patient's encephalopathic state and lethargy GENERAL: Negative for any nausea, vomiting, fevers, chills, or weight loss POSITIVE-lethargy, malaise and fatigue NEUROLOGIC: Negative for any visual changes, facial asymmetry, dysphagia, hemiparesis, hemisensory deficits, vertigo, ataxia, denies any tonic-clonic seizure activity, tingling, numbness, unilateral weakness or numbness/tingling, negative for tongue bite POSITIVE-generalized weakness, muffled voice, speech slurring PSYCH: agitation/irritability, anxiety, delirium, nervous, mood changes, insomnia, nightmares, depression, PTSD, SI/HI, energy loss, restlessness, personality changes HEENT: Negative for any head trauma, neck trauma, neck stiffness, photophobia, phonophobia, dysphagia POSITIVE-new muffled speech CARDIAC: Negative for any chest pain,, palpitations, peripheral edema GASTROINTESTINAL: Negative for any abdominal pain, nausea, vomiting, diarrhea GENITOURINARY: Negative for any dysuria, incontinence. ENDOCRINE: Thyroid trouble, heat/cold intolerance, excessive sweating MUSCULOSKELETAL: Negative-Joint pain, stiffness, loss of strength Physical Examination - Vital Signs Vital Signs: Initial Vital Signs Temp Pulse Resp BP Pulse Ox 97.7 F 63 18 135/67 96 08/10/18 08:03 08/10/18 08:03 08/10/18 08:03 08/10/18 08:03 08/10/18 08:03 - Exam Exam: Examination: General Examination: *CONSTITUTIONAL: Alert and oriented x3, no acute distress *GENERAL APPEARANCE OF PATIENT overall, generally ill-appearing obese fem delta *EYES: Right pupil is L-shaped S/P cataract surgery, left pupil is somewhat irregular, neither constrict appropriately with either direct or consensual light. conjunctiva clear *CARDIOVASCULAR RRR, S1, S2, no peripheral edema, distal temperature normal, dorsalis pedis pulses normal. 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 No abnormal movements, fasciculations or atrophy identified. Neurological: *ORIENTATION to person, situation, time and place *RECURRENT AND REMOTE MEMORY intact *ATTENTION AND CONCENTRATION are altered, the patient is lethargic. However she will respond to gentle verbal stimulus but answers questions with eyes closed *LANGUAGE FUNCTION no significant aphasia, however the patient does have a slight slurred quality to her speech with a muffled tone which is new *FUND OF KNOWLEDGE aware of current events, past history, vocabulary *MENTAL attention span and concentration are somewhat altered however she will follow commands and answers questions appropriately. *CN II optic fundi were difficult to assess, no obvious edema or signs of HTN noted *CN III,IV, Right pupil is L-shaped S/P cataract surgery, left pupil is somewhat irregular, neither constrict appropriately with either direct or consensual light. conjunctiva clear, extraocular eye movements were full, no nystagmus and no ptosis noted. *CN V shows normal sensation and jaw opens symmetrically. *CN VII shows normal facial movement symmetrically, upper and lower bilaterally. *CN VIII shows no significant hearing loss on exam *CN IX,,X palate elevated symmetrically *CN XI normal strength in the sternocleidomastoid muscles, symmetrical shoulder shrugging. *CN XII tongue protruded in the midline, with normal strength and movement. No tongue bite noted *SENSORY EXAMINATION light touch intact *REFLEXES: Bicep and tricep deep tendon reflexes were normal and symmetrical 2+/4, lower extremity DTRs were absent however, they were difficult to obtain as the patient would not relax her legs and not to attempt taking them, no pathological reflexes were noted. *CEREBELLAR TESTING normal finger to nose, heel/knee/barksdale *PAIN LEVEL 0 Results - Laboratory Findings CBC and BMP: 08/18/18 05:37 08/18/18 05:37 Abnormal lab findings: Abnormal lab results WBC 11.8 K/mcL (4.3-11.1) H D 08/18/18 05:37 RBC 2.72 M/mcL (3.82-4.97) L 08/18/18 05:37 Hgb 8.0 g/dL (11.5-15.4) L 08/18/18 05:37 Hct 26.2 % (35.3-44.9) L 08/18/18 05:37 MCHC 30.5 g/dL (31.6-35.5) L 08/18/18 05:37 Monocytes # 2.0 K/mcL (0.0-1.3) H 08/18/18 05:37 Nucleated RBCs/100 WBC 0.3 /100 WBC (0) H 08/17/18 00:44 ABG pCO2 46 mmHg (35-45) H 08/18/18 10:55 ABG pO2 64 mmHg (85-104) L 08/18/18 10:55 ABG HCO3 31 mEq/L (21-27) H 08/18/18 10:55 ABG Total CO2 32 mEq/L (20-26) H 08/18/18 10:55 ABG O2 Saturation 93 % (95-98) L 08/18/18 10:55 ABG Base Excess 6 mEq/L (-2 to 3) H 08/18/18 10:55 Carbon Dioxide 30 mEq/L (23-29) H 08/18/18 05:37 BUN 31 mg/dL (8-23) H 08/18/18 05:37 Creatinine 2.97 mg/dL (0.60-1.20) H 08/18/18 05:37 Est GFR ( Amer) 19 (> 60) L 08/18/18 05:37 Est GFR (Non-Af Amer) 16 (> 60) L 08/18/18 05:37 Glucose 107 mg/dL (70-105) H 08/18/18 05:37 POC Glucose 101 mg/dL (70-99) H 08/17/18 11:28 Iron 16 mcg/dL (50-170) L 08/16/18 05:28 % Saturation 5 % (15-50) L 08/16/18 05:28 Ferritin 145 ng/mL (10-120) H 08/16/18 05:28 Urine Protein >=300 mg/dL (Neg-Trace) H 08/11/18 18:35 Urine Microscopic RBC 3-5 per hpf (0-3) H 08/11/18 18:35 Ur Squamous Epith Cells Moderate per lpf (None-Few) H 08/11/18 18:35 Protein/Creatinin Ratio 4.79 mg/mg (0.00-0.20) H 08/11/18 18:35 Urine Total Protein 254 mg/dL (1-14) H 08/11/18 18:35 Hep Bs Antibody < 3.10 mIU/mL (10.00-) L 08/15/18 09:53 - Diagnostic Findings Additional findings: CT/CT head/brain wo con IMPRESSION: No acute intracranial abnormality. No change in the very large calcified or ossified right parietal extra-axial mass causing a moderate to large amount of mass effect. Mild cerebral atrophy appropriate for age. [id number] chronic ischemic changes also age-appropriate. No significant change from the prior study. Consult Discharge Plan - Plan Instructions: Percutaneous Kidney Biopsy (DC) Additional Instructions: Discharge Instructions for Interventional Radiology Patients: 1. You must have a ride home from your procedure today. Because of the sedation that you received during your procedure today, you may not drive for 24 hours. 2. Keep your dressing clean and dry and do not remove for 24 hours after your procedure. 3. After 24 hours, you may remove your dressing and shower. Do not submerge your incision in water (bathtub or swimming) until the the incision is healed. It usually takes 7-10 days for incisions to heal. 4. You may put a band aid over your incision until it is completely healed. You may change the dressing if it gets wet or soiled. 5. Always watch for any sign of infection to the site, such as: * Redness * Warmth * Tenderness * White or yellow drainage * Fever or 100.4 degrees or greater If you notice any of these symptoms, please contact your Primary Care Provider immediately. 6. You may resume all blood thinners with the next scheduled dose. For example: If you take a blood thinner each morning, take your medication the next morning as you normally would. Follow Up Appointment * Please call your surgeon's office within 24 hours or next business day to schedule a follow up appointment. * Home Medication List * You have been given a list of your current medications. If you have changes in your medications, update your list. * Provide a list of current medications to your primary care physician. * Carry a copy of your current medications with you in case of an emergency. Referrals: Ant Brewer MD [Non-Partnered Physician] - (NO PCP APPOINTMENT NEEDED PT IS GOING TO [facility]) <Zackary Murphy - Last Filed: 08/18/18 17:08> Date of Encounter: 08/18/18 Time of Encounter: 17:01 Assessment and Plan (1) Encephalopathy Current Visit: Yes Status: Acute I have personally performed a [id number] assessment of the patient and have reviewed the PA/DEPOSITION REPORTER note. My impressions are as follows: I am in agreement with the assessment and plan of the SALES ENGINEER as stated above. I agree that the differential for this mental status change would include medicat ion effect, delirium, infectious etiologies, and possibly seizure. Further recommendations will be made after completion of the above for mentioned tests. History of Present Illness HPI: The chart was reviewed, patient was seen and examined independently. Was discussed with the SALES ENGINEER. I agree with his assessment and documentation of the history of present illness as stated above. All Systems: The remainder of the systems were reviewed and are negative Review of Systems: The balance of the systems review is negative Physical Examination - Vital Signs Vital Signs: Initial Vital Signs Temp Pulse Resp BP Pulse Ox 97.7 F 63 18 135/67 96 08/10/18 08:03 08/10/18 08:03 08/10/18 08:03 08/10/18 08:03 08/10/18 08:03 - Exam Exam: I have personally performed a [id number] assessment of the patient and have reviewed the PA/DEPOSITION REPORTER note. My impressions are as follows: I agree with the neurologic examination is documented above. Results - Laboratory Findings CBC and BMP: 08/18/18 05:37 08/18/18 05:37 Abnormal lab findings: Abnormal lab results WBC 11.8 K/mcL (4.3-11.1) H D 08/18/18 05:37 RBC 2.72 M/mcL (3.82-4.97) L 08/18/18 05:37 Hgb 8.0 g/dL (11.5-15.4) L 08/18/18 05:37 Hct 26.2 % (35.3-44.9) L 08/18/18 05:37 MCHC 30.5 g/dL (31.6-35.5) L 08/18/18 05:37 Monocytes # 2.0 K/mcL (0.0-1.3) H 08/18/18 05:37 Nucleated RBCs/100 WBC 0.3 /100 WBC (0) H 08/17/18 00:44 ABG pCO2 46 mmHg (35-45) H 08/18/18 10:55 ABG pO2 64 mmHg (85-104) L 08/18/18 10:55 ABG HCO3 31 mEq/L (21-27) H 08/18/18 10:55 ABG Total CO2 32 mEq/L (20-26) H 08/18/18 10:55 ABG O2 Saturation 93 % (95-98) L 08/18/18 10:55 ABG Base Excess 6 mEq/L (-2 to 3) H 08/18/18 10:55 Carbon Dioxide 30 mEq/L (23-29) H 08/18/18 05:37 BUN 31 mg/dL (8-23) H 08/18/18 05:37 Creatinine 2.97 mg/dL (0.60-1.20) H 08/18/18 05:37 Est GFR ( Amer) 19 (> 60) L 08/18/18 05:37 Est GFR (Non-Af Amer) 16 (> 60) L 08/18/18 05:37 Glucose 107 mg/dL (70-105) H 08/18/18 05:37 POC Glucose 101 mg/dL (70-99) H 08/17/18 11:28 Iron 16 mcg/dL (50-170) L 08/16/18 05:28 % Saturation 5 % (15-50) L 08/16/18 05:28 Ferritin 145 ng/mL (10-120) H 08/16/18 05:28 Urine Protein >=300 mg/dL (Neg-Trace) H 08/11/18 18:35 Urine Microscopic RBC 3-5 per hpf (0-3) H 08/11/18 18:35 Ur Squamous Epith Cells Moderate per lpf (None-Few) H 08/11/18 18:35 Protein/Creatinin Ratio 4.79 mg/mg (0.00-0.20) H 08/11/18 18:35 Urine Total Protein 254 mg/dL (1-14) H 08/11/18 18:35 Hep Bs Antibody < 3.10 mIU/mL (10.00-) L 08/15/18 09:53
[2018-08-18] MEDS: Acetaminophen 325 MG TABLET PO PRN (21:47)
[2018-08-19] MEDS: traMADol 50 MG TABLET PO PRN (01:36)
[2018-08-19 05:16] LABS: Bilirubin,Urine Small (Negative); Blood,Urine Trace (Negative); Clarity,Urine Cloudy (Clear); Color,Urine Dark Yellow (Yellow); Glucose,Urine (UA) Normal (Normal); Ketones,Urine Negative (Negative); Leukocyte Esterase,Urine Negative (Negative); Nitrite,Urine Negative (Negative); Protein,Urine 100 mg/dL (Neg-Trace); Specific Gravity,Urine 1.019 (1.010-1.025); Urobilinogen,Urine Normal (Normal)
[2018-08-19 05:19] LABS: Hyaline Casts,Urine Few per lpf (None-Few); RBC,Urine 0-3 per hpf (0-3); Squamous Epithelial Cell,Urine Many per lpf (None-Few)
[2018-08-19 05:33] LABS: Bacteria,Urine Few per hpf (None-Few); Mucus,Urine Few (Few)
[2018-08-19] MEDS ORDERED: 0.9 % Sodium Chloride 250 ML IVC PRN (07:40)
[2018-08-19 08:10] LABS: Basophils % 0.3 %; Eosinophils # 0.3 K/mcL (0.0-0.6); Eosinophils % 2.8 %; Hematocrit 25.3 % (35.3-44.9); Hemoglobin 7.9 g/dL (11.5-15.4); Immature Granulocytes % 1.6 % (0-4); Lymphocytes # 0.8 K/mcL (0.6-4.6); Lymphocytes % 7.2 %; Mean Corpuscular HGB Conc 31.2 g/dL (31.6-35.5); Mean Corpuscular Hemoglobin 29.6 pg (28.0-33.3); Mean Corpuscular Volume 94.8 fL (83.0-100.0); Monocytes # 1.6 K/mcL (0.0-1.3); Neutrophils # 7.6 K/mcL (1.6-8.9); Platelet Count 300 K/mcL (140-400); Red Blood Count 2.67 M/mcL (3.82-4.97); Red Cell Distribution Width 14.2 % (11.5-14.5); Segmented Neutrophils % 73.1 %
[2018-08-19 08:30] LABS: Calcium 9.1 mg/dL (8.6-10.3); Potassium 4.1 mEq/L (3.5-5.1)
--- NOTE | 2018-08-19 08:57 | Nephrology Progress Note ---
Date of Encounter: 08/19/18 Time of Encounter: 08:54 - Assessment and Plan (1) Acute kidney injury superimposed on CKD Current Visit: Yes Status: Acute Plan for HD today Has a chair time at [facility] on the TTS schedule Continue renal diet Continue strict I/Os Avoid nephrotoxins if possible (2) Anemia Current Visit: Yes Status: Acute Hgb 7.9-stable Recent blood loss anemia May arrange for IV iron and or EPO, and will assess daily Goal hgb 10-11 Transfuse per parameters Qualifiers: Anemia type: other cause Other causes of anemia: acute posthemorrhagic Qualified Code(s): D62 - Acute posthemorrhagic anemia (3) Retroperitoneal hematoma Current Visit: Yes Status: Acute Still c/o some "tenderness" over abdomen (4) 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 States she is a little "drowsy" this morning and metal reclamation kettle tender in abdomen. Objective - Vital Signs Vital signs: Vital Signs Temp Pulse Resp BP Pulse Ox 08/19/18 06:59 99.9 F H 72 18 119/73 89 08/19/18 03:32 96.9 F L 55 15 109/50 95 08/18/18 22:52 98.9 F 60 17 123/80 92 08/18/18 18:46 98.4 F 56 14 114/56 95 08/18/18 16:26 99.0 F 62 18 117/60 93 08/18/18 11:38 98.8 F 64 19 125/74 90 Intake and Output 08/18/18 08/19/18 08/19/18 23:59 07:59 15:59 Intake Total 240 / 240 Balance 240 / 240 Intake: Oral 240 / 240 Other: Meal Breakfast Percent of Meal Consumed 90% # Voids 2 Weight 78.2 kg Blood Glucose* 155 99 - General Appearance General appearance: Present: well-developed, well-nourished, obese EENT: Present: ATNC, mucous membranes moist, hearing intact, vision intact Neck: Present: supple Respiratory: Present: clear (decreased) Cardiology: Present: no edema, normal S1, normal S2 Dialysis Vascular Access: Venous Catheter Gastrointestinal: Present: no tenderness, no guarding Integumentary: Present: warm and dry Neurologic: Present: alert and oriented x3 Psychiatric: Present: mood/affect appropriate, cooperative - Lab 08/19/18 07:29 08/19/18 07:29 Most recent lab results ABG pH 7.44 pH Units (7.32-7.45) 08/18/18 10:55 ABG pCO2 46 mmHg (35-45) H 08/18/18 10:55 ABG pO2 64 mmHg (85-104) L 08/18/18 10:55 ABG HCO3 31 mEq/L (21-27) H 08/18/18 10:55 ABG O2 Saturation 93 % (95-98) L 08/18/18 10:55 Calcium 9.1 mg/dL (8.6-10.3) 08/19/18 07:29 Phosphorus 3.8 mg/dL (2.7-4.5) 08/12/18 04:35 Magnesium 1.9 mg/dL (1.6-2.6) 08/12/18 04:35 Urine Creatinine 53 mg/dL 08/11/18 18:35 Urine Sodium 69.2 mEq/L 08/11/18 18:35 Urine Total Protein 254 mg/dL (1-14) H 08/11/18 18:35 - VTE Documentation of Mechanical Device: Intermittent pneumatic compression device Consult Discharge Plan - Plan Instructions: Percutaneous Kidney Biopsy (DC) Additional Instructions: Discharge Instructions for Interventional Radiology Patients: 1. You must have a ride home from your procedure today. Because of the sedation that you received during your procedure today, you may not drive for 24 hours. 2. Keep your dressing clean and dry and do not remove for 24 hours after your procedure. 3. After 24 hours, you may remove your dressing and shower. Do not submerge your incision in water (bathtub or swimming) until the the incision is healed. It usually takes 7-10 days for incisions to heal. 4. You may put a band aid over your incision until it is completely healed. You may change the dressing if it gets wet or soiled. 5. Always watch for any sign of infection to the site, such as: * Redness * Warmth * Tenderness * White or yellow drainage * Fever or 100.4 degrees or greater If you notice any of these symptoms, please contact your Primary Care Provider immediately. 6. You may resume all blood thinners with the next scheduled dose. For example: If you take a blood thinner each morning, take your medication the next morning as you normally would. Follow Up Appointment * Please call your surgeon's office within 24 hours or next business day to schedule a follow up appointment. * Home Medication List * You have been given a list of your current medications. If you have changes in your medications, update your list. * Provide a list of current medications to your primary care physician. * Carry a copy of your current medications with you in case of an emergency. Referrals: Ant Brewer MD [Non-Partnered Physician] - (NO PCP APPOINTMENT NEEDED PT IS GOING TO [facility])
--- NOTE | 2018-08-19 09:48 | Neurology Progress Note ---
Date of Encounter: 08/19/18 Time of Encounter: 08:30 Assessment and Plan (1) Encephalopathy Current Visit: Yes Status: Acute At this point I am inclined to suspect that this patient's intermittent, balance and confusion is due to medication effect. She is on pretty hefty dose of Zyprexa along with risperidone. Both of which can cause somnolence. Also on aroused her cognition and language are intact. The content of her language in conversation is normal. I do not feel that she is having breakthrough seizures and postictal somnolence. The EEG however is yet pending. I do not think feel that metabolic encephalopathy is the reason for the waxing and waning mental status. Perhaps some of her other providers should reevaluate her extensive me dication list. I will reevaluate her after the EEG. Subjective Principal diagnosis: s/p kidney biopsy Interval history: Chart was reviewed, the patient was seen and examined. She is sitting up in bed eating breakfast and watching a television program. She is in no acute distress. She does however seem to be somnolent. She responds appropriately to questions asked that at times she is a little bit slow to respond. She is an office patient of [facility]. I did review her office file. I last saw her in my office on 03/18/2018. At that time I also noted that she was having difficulty staying awake and she had slurred speech. Highly suspicious of medication effect causing this. I did review the MRI scan of the brain personally. The right frontal meningioma is stable in comparison to the previous study. The EEG is yet pending. Objective - Constitutional Vitals: Temp Pulse Resp BP Pulse Ox 99.9 F H 72 18 119/73 89 08/19/18 06:59 08/19/18 06:59 08/19/18 06:59 08/19/18 06:59 08/19/18 06:59 Exam: Exam: Examination: General Examination: *CONSTITUTIONAL: Alert and oriented x3, no acute distress *GENERAL APPEARANCE OF PATIENT overall, generally ill-appearing obese female *EYES: Right pupil is L-shaped S/P cataract surgery, left pupil is somewhat irregular, neither constrict appropriately with either direct or consensual light. conjunctiva clear *CARDIOVASCULAR RRR, S1, S2, no peripheral edema, distal temperature normal, dorsalis pedis pulses normal. See vital signs Musculoskeletal: *GAIT AND STATION not assessed, patient is wheelchair-dependent with weakness to BLE *ASSESSMENT OF MUSCLE STRENGTH IN THE UPPER AND LOWER EXTREMITIES bilateral deltoid, bicep, tricep, steam hand strength 4/5, hip flexors ,anterior tibialis, dorsoflexion of the foot 3/5 *MUSCLE TONE IN THE UPPER AND LOWER EXTREMITIES normal. No abnormal movements, fasciculations or atrophy identified. Neurological: *ORIENTATION to person, situation, time and place *RECURRENT AND REMOTE MEMORY intact *ATTENTION AND CONCENTRATION are altered, the patient is lethargic. However she will respond to gentle verbal stimulus but answers questions with eyes closed *LANGUAGE FUNCTION no significant aphasia, however the patient does have a slight slurred quality to her speech with a muffled tone which is new *FUND OF KNOWLEDGE aware of current events, past history, vocabulary *MENTAL attention span and concentration are somewhat altered however she will follow commands and answers questions appropriately. *CN II optic fundi were difficult to assess, no obvious edema or signs of HTN noted *CN III,IV, Right pupil is L-shaped S/P cataract surgery, left pupil is somewhat irregular, neither constrict appropriately with either direct or consensual light. conjunctiva clear, extraocular eye movements were full, no nystagmus and no ptosis noted. *CN V shows normal sensation and jaw opens symmetrically. *CN VII shows normal facial movement symmetrically, upper and lower bilat erally. *CN VIII shows no significant hearing loss on exam *CN IX,,X palate elevated symmetrically *CN XI normal strength in the sternocleidomastoid muscles, symmetrical shoulder shrugging. *CN XII tongue protruded in the midline, with normal strength and movement. No tongue bite noted *SENSORY EXAMINATION light touch intact *REFLEXES: Bicep and tricep deep tendon reflexes were normal and symmetrical 2+/4, lower extremity DTRs were absent however, they were difficult to obtain as the patient would not relax her legs and not to attempt taking them, no pathological reflexes were noted. *CEREBELLAR TESTING normal finger to nose, heel/knee/barksdale *PAIN LEVEL 0 - VTE Documentation of Mechanical Device: Intermittent pneumatic compression device Results - Laboratory Findings CBC and BMP: 08/19/18 07:29 08/19/18 07:29 Abnormal lab findings: Abnormal lab results RBC 2.67 M/mcL (3.82-4.97) L 08/19/18 07:29 Hgb 7.9 g/dL (11.5-15.4) L 08/19/18 07:29 Hct 25.3 % (35.3-44.9) L 08/19/18 07:29 MCHC 31.2 g/dL (31.6-35.5) L 08/19/18 07:29 Monocytes # 1.6 K/mcL (0.0-1.3) H 08/19/18 07:29 Nucleated RBCs/100 WBC 0.3 /100 WBC (0) H 08/17/18 00:44 ABG pCO2 46 mmHg (35-45) H 08/18/18 10:55 ABG pO2 64 mmHg (85-104) L 08/18/18 10:55 ABG HCO3 31 mEq/L (21-27) H 08/18/18 10:55 ABG Total CO2 32 mEq/L (20-26) H 08/18/18 10:55 ABG O2 Saturation 93 % (95-98) L 08/18/18 10:55 ABG Base Excess 6 mEq/L (-2 to 3) H 08/18/18 10:55 BUN 52 mg/dL (8-23) H 08/19/18 07:29 Creatinine 4.26 mg/dL (0.60-1.20) H 08/19/18 07:29 Est GFR ( Amer) 12 (> 60) L 08/19/18 07:29 Est GFR (Non-Af Amer) 10 (> 60) L 08/19/18 07:29 POC Glucose 108 mg/dL (70-99) H 08/18/18 07:36 Iron 16 mcg/dL (50-170) L 08/16/18 05:28 % Saturation 5 % (15-50) L 08/16/18 05:28 Ferritin 145 ng/mL (10-120) H 08/16/18 05:28 Urine Clarity Cloudy (Clear) A 08/19/18 05:00 Urine Protein 100 mg/dL (Neg-Trace) H 08/19/18 05:00 Urine Blood Trace (Negative) H 08/19/18 05:00 Urine Bilirubin Small (Negative) H 08/19/18 05:00 Urine Microscopic WBC 3-5 per hpf (0-3) H 08/19/18 05:00 Ur Squamous Epith Cells Many per lpf (None-Few) H 08/19/18 05:00 Protein/Creatinin Ratio 4.79 mg/mg (0.00-0.20) H 08/11/18 18:35 Urine Total Protein 254 mg/dL (1-14) H 08/11/18 18:35 Hep Bs Antibody < 3.10 mIU/mL (10.00-) L 08/15/18 09:53 Consult Discharge Plan - Plan Instructions: Percutaneous Kidney Biopsy (DC) Additional Instructions: Discharge Instructions for Interventional Radiology Patients: 1. You must have a ride home from your procedure today. Because of the sedation that you received during your procedure today, you may not drive for 24 hours. 2. Keep your dressing clean and dry and do not remove for 24 hours after your procedure. 3. After 24 hours, you may remove your dressing and shower. Do not submerge your incision in water (bathtub or swimming) until the the incision is healed. It usually takes 7-10 days for incisions to heal. 4. You may put a band aid over your incision until it is completely healed. You may change the dressing if it gets wet or soiled. 5. Always watch for any sign of infection to the site, such as: * Redness * Warmth * Tenderness * White or yellow drainage * Fever or 100.4 degrees or greater If you notice any of these symptoms, please contact your Primary Care Provider immediately. 6. You may resume all blood thinners with the next scheduled dose. For example: If you take a blood thinner each morning, take your medication the next morning as you normally would. Follow Up Appointment * Please call your surgeon's office within 24 hours or next business day to schedule a follow up appointment. * Home Medication List * You have been given a list of your current medications. If you have changes in your medications, update your list. * Provide a list of current medications to your primary care physician. * Carry a copy of your current medications with you in case of an emergency. Referrals: Ant Brewer MD [Non-Partnered Physician] - (NO PCP APPOINTMENT NEEDED PT IS GOING TO [facility])
[2018-08-19] MEDS ORDERED: 0.9 % Sodium Chloride 1,000 ML ONE (11:52)
--- NOTE | 2018-08-19 13:03 | Internal Med Progress Note ---
Hospitalist Progress Note - Encounter Date of Encounter: 08/19/18 Time of Encounter: 09:00 - Subjective Interval History: I have seen patient in hemodialysis room. Patient is awake alert, still weak. Answer questions properly. Denies acute pain or discomfort. Vitals are stable. - Exam Vitals: Temp Pulse Resp BP Pulse Ox 98.7 F 72 18 135/61 89 08/19/18 09:15 08/19/18 06:59 08/19/18 09:15 08/19/18 11:15 08/19/18 06:59 Exam: Pt is AAO x 3, in NAD HEENT: NC/AT, PERRL Neck: Supple, no JVD, no LAD Lungs: CTA b/l Heart: S1S2, RRR Abd: Soft, nontender, BS present Ext: ROM wnl, no pedal edema Neuro: No focal deficit - Assessment and Plan (1) HTN (hypertension) Current Visit: Yes Status: Chronic Assessment and Plan: Blood pressures is stable after increased carvedilol dosage. (2) Seizure Current Visit: Yes Status: Chronic Assessment and Plan: Continue Keppra. Neuro consult appreciated, plan to repeat EEG. (3) Anemia Current Visit: Yes Status: Acute Assessment and Plan: Hemoglobin 7.9 today. Generally Stable, continue closely follow-up (4) DVT prophylaxis Current Visit: Yes Status: Acute Assessment and Plan: With SCDs (5) CKD (chronic kidney disease) Current Visit: Yes Status: Chronic Assessment and Plan: Nephrology consult on case. Patient started hemodialysis. Closely monitor renal function. Avoid nephrotoxic medications (6) Retroperitoneal hematoma Current Visit: Yes Status: Acute Assessment and Plan: Stabilized. IR follow up sign off. No further workup/procedure needed. (7) Acute kidney injury superimposed on CKD Current Visit: Yes Status: Acute Assessment and Plan: acute kidney injury on chronic kidney disease stage IV. Renal function continues to worsen. Started hemodialysis per nephrology. Pt will cont HD after discharge (8) Altered mental status Current Visit: No Status: Acute Assessment and Plan: Intermittent confusion. Etiology is undetermined. MRI brain negative for acute infarct. Neurology consult appreciated. Plan for EED today. Also suspected medication caused confusion. Will consult psychiatry for medication adjustment. Patient has unremarkable chest x-ray and urine analysis. DVT Prophylaxis: EPCDs - Time Spent with Patient Total time spent is greater than 50% in coordination of care (as documented) at patient's floor/unit and/or counseling patient: 30 minutes 25 - 35 minutes Plan of Care Discussed with: patient Internal Medicine: Result - Labs CBC & Chem 7: 08/19/18 07:29 08/19/18 07:29 Labs: Short CBC 08/19/18 Range/Units 07:29 WBC 10.4 (4.3-11.1) K/mcL Hgb 7.9 L (11.5-15.4) g/dL Hct 25.3 L (35.3-44.9) % Plt Count 300 (140-400) K/mcL Neutrophils # 7.6 (1.6-8.9) K/mcL BMP 08/19/18 07:29 Sodium 136 Potassium 4.1 Chloride 101 Carbon Dioxide 28 BUN 52 H Creatinine 4.26 H Glucose 100 Calcium 9.1 Urine 08/19/18 Range/Units 05:00 Urine Color Dark Yellow (Yellow) Urine Clarity Cloudy A (Clear) Urine pH 5.0 (5.0-8.0) pH Units Ur Specific [place] 1.019 (1.010-1.025) Urine Protein 100 H (Neg-Trace) mg/dL Urine Glucose (UA) Normal (Normal) mg/dL - ABG Interpretation ABG results: ABG ABG pH 7.44 pH Units (7.32-7.45) 08/18/18 10:55 ABG pCO2 46 mmHg (35-45) H 08/18/18 10:55 ABG pO2 64 mmHg (85-104) L 08/18/18 10:55 ABG O2 Saturation 93 % (95-98) L 08/18/18 10:55 PT/INR, D-dimer PT 10.9 Seconds (9.4-12.1) 08/16/18 05:28 - Impressions Impressions Brain MRI 08/18/18 15:39 IMPRESSION: Mild chronic small ischemic disease without acute stroke. Stable right frontal extra-axial mass with stable mass effect and midline shift. D/ / Silverio Hernandez / Silverio Hernandez Interpreting Provider: Silverio Hernandez - VTE Documentation of Mechanical Device: Intermittent pneumatic compression device Consult Discharge Plan - Plan Instructions: Percutaneous Kidney Biopsy (DC) Additional Instructions: Discharge Instructions for Interventional Radiology Patients: 1. You must have a ride home from your procedure today. Because of the sedation that you received during your procedure today, you may not drive for 24 hours. 2. Keep your dressing clean and dry and do not remove for 24 hours after your procedure. 3. After 24 hours, you may remove your dressing and shower. Do not submerge your incision in water (bathtub or swimming) until the the incision is healed. It usually takes 7-10 days for incisions to heal. 4. You may put a band aid over your incision until it is completely healed. You may change the dressing if it gets wet or soiled. 5. Always watch for any sign of infection to the site, such as: * Redness * Warmth * Tenderness * White or yellow drainage * Fever or 100.4 degrees or greater If you notice any of these symptoms, please contact your Primary Care Provider immediately. 6. You may resume all blood thinners with the next scheduled dose. For example: If you take a blood thinner each morning, take your medication the next morning as you normally would. Follow Up Appointment * Please call your surgeon's office within 24 hours or next business day to schedule a follow up appointment. * Home Medication List * You have been given a list of your current medications. If you have changes in your medications, update your list. * Provide a list of current medications to your primary care physician. * Carry a copy of your current medications with you in case of an emergency. Referrals: Ant Brewer MD [Non-Partnered Physician] - (NO PCP APPOINTMENT NEEDED PT IS GOING TO [facility]) (1) HTN (hypertension) Qualifiers: Hypertension type: essential hypertension Qualified Code(s): I10 - Essential (primary) hypertension (3) Anemia Qualifiers: Anemia type: other cause Other causes of anemia: acute posthemorrhagic Qualified Code(s): D62 - Acute posthemorrhagic anemia (5) CKD (chronic kidney disease) Qualifiers: Chronic kidney disease stage: stage 4 (severe) Qualified Code(s): N18.4 - Chronic kidney disease, stage 4 (severe) (8) Altered mental status Qualifiers: Altered mental status type: somnolence Qualified Code(s): R40.0 - Somnolence
[2018-08-19] MEDS: OLANZapine 5 MG TAB.RAPDIS PO SCH ×2 (13:21→20:07)
[2018-08-19] MEDS: Zinc Oxide 454 GM EACH TP SCH (13:21)
[2018-08-19] MEDS: amLODIPine 5 MG TABLET PO SCH (13:21)
[2018-08-19] MEDS: Aspirin Enteric Coated 81 MG Tablet PO SCH (13:21)
[2018-08-19] MEDS: levETIRAcetam 250 MG TABLET PO SCH ×2 (13:22→20:07)
[2018-08-19] MEDS: BuPROPion XL (24 HR) 150 MG TABLET PO SCH (13:22)
[2018-08-19] MEDS: risperiDONE 1 MG, risperiDONE 3 MG PO SCH ×2 (13:30→20:07)
--- NOTE | 2018-08-19 17:02 | EEG/EMG/Oth Biometrics Report ---
EEG Procedure Report Date of procedure: 08/19/18 EEG Procedure: Routine EEG Procedure Note: This is a report of a 21 channel bipolar and referential montage EEG. A posterior dominant rhythm of 10 Hz moderate voltage alpha frequency is identified symmetrically in the posterior head regions. This rhythm attenuates symmetrically with eye opening. Hyperventilation is performed and does not significantly alter the recording. Periods of drowsiness and stage II sleep are identified as referenced by dropout of posterior dominant rhythm and emergence of vertex activity K complexes and sleep spindles. Photic stimulation is performed and produces a symmetric driving response. The EKG rhythm strip r eveals normal sinus rhythm at 60 bpm. Impressions: This EEG recording is within normal limits. There is no evidence of epileptiform activity identified during the recording. Comment: A normal EEG does not preclude a diagnosis of seizure or epilepsy. If the clinical suspicion for seizure activity is high, serial EEGs or perhaps a prolonged recording may increase the yield. Please correlate clinically.
[2018-08-20] MEDS: Acetaminophen 325 MG TABLET PO PRN (00:01)
[2018-08-20] MEDS: traMADol 50 MG TABLET PO PRN (00:02)
[2018-08-20 02:22] LABS: Basophils % 0.4 %; Eosinophils # 0.2 K/mcL (0.0-0.6); Eosinophils % 1.9 %; Hemoglobin 7.9 g/dL (11.5-15.4); Immature Granulocytes % 2.6 % (0-4); Lymphocytes # 1.1 K/mcL (0.6-4.6); Lymphocytes % 9.3 %; Mean Corpuscular HGB Conc 30.4 g/dL (31.6-35.5); Mean Corpuscular Hemoglobin 28.6 pg (28.0-33.3); Mean Corpuscular Volume 94.2 fL (83.0-100.0); Mean Platelet Volume 9.9 fL (9.4-12.4); Monocytes # 1.7 K/mcL (0.0-1.3); Monocytes % 15.3 %; Platelet Count 331 K/mcL (140-400); Red Blood Count 2.76 M/mcL (3.82-4.97); Red Cell Distribution Width 14.3 % (11.5-14.5); Segmented Neutrophils % 70.5 %
[2018-08-20 02:39] LABS: Calcium 8.6 mg/dL (8.6-10.3); Potassium 4.4 mEq/L (3.5-5.1)
[2018-08-20] MEDS: OLANZapine 5 MG TAB.RAPDIS PO SCH ×2 (08:01→21:57)
[2018-08-20] MEDS: risperiDONE 1 MG, risperiDONE 3 MG PO SCH ×2 (08:02→22:02)
[2018-08-20] MEDS: levETIRAcetam 250 MG TABLET PO SCH ×2 (08:02→21:57)
[2018-08-20] MEDS: Aspirin Enteric Coated 81 MG Tablet PO SCH (08:02)
[2018-08-20] MEDS: BuPROPion XL (24 HR) 150 MG TABLET PO SCH (08:02)
[2018-08-20] MEDS: amLODIPine 5 MG TABLET PO SCH (08:02)
[2018-08-20] MEDS: Zinc Oxide 454 GM EACH TP SCH (08:15)
--- NOTE | 2018-08-20 09:56 | Consult Note ---
Date of Encounter: 08/20/18 Time of Encounter: 09:10 Assessment & Recommendation (1) Altered mental status Current visit: No Status: Acute Assessment & Recommendation: -Patient on high-dose antipsychotic medications which can cause the side effect of sedation. There is concerned with her decreased kidney function that medications are having an increased affect at this time. As such, it is recommended that the patient's risperidone be changed to 2 mg by mouth every morning and 4 mg by mouth daily at bedtime for psychosis. Further medication changes may need to be made to combat the decreased kidney function. -Recommend continuing olanzapine 15 mg by mouth twice a day for psychosis -Recommend continuing bupropion XL 300 mg by mouth daily -Will continue to monitor while inpatient. Qualifiers: Altered mental status type: somnolence Qualified Code(s): R40.0 - Somnolence History of Present Illness Patient: new to practice Requesting Physician: Miles Flood MD Reason for consult: Somnolence and confusion History of present illness: Ms. Bynum is a 73 year old female with a past psychiatric history of schizophrenia and depression who was admitted on 08/12/2018 after a retroperitoneal Hematoma was found status post kidney biopsy was consulted today for somnolence and confusion. Per notes, patient has been increasingly more somnolent over the past few days. There was concern that medication may be causing this confusion and somnolence. Therefore, psychiatry was consulted. When entering the room, patient was asleep. She was not aroused to verbal stimulation. She was aroused when I moderately shook her awake. When she was up, she was able to tell me that she was "sleepy." She denies issues with depression and anxiety. When asked what her mental health issues are, she reports "I hear voices." When asked how bad they are today, she says "not as bad." At that point, I could not fully awake her for further conversation. Nursing staff reports that prior to medication administration this morning, she was alert and oriented 3. Patient is currently on olanzapine 15 mg by mouth twice a day and risperidone 4 mg by mouth 4 times a day, which are both heavy doses of this medication. CC: Miles Flood MD Past Med Surg Social Fam HX - Past Medical History Source: patient Medical history: arthritis, DVT, fibromyalgia, hyperlipidemia, hypertension, renal disease, thyroid disease, other - Past Psychiatric History Psychiatric history: Reports: depression, schizophrenia Family psychiatric history: Unknown Family History of Suicide: Unknown - Past Surgical History Surgical History: cholecystectomy, orthopedic, other - Social History Smoking Status: Never smoker Smokeless Tobacco Status: No Alcohol use: none Drug use: none - Family History Mother Living Status: Hx Family Cardiac Disorders: Yes Hx Family Respiratory Disorders: No Hx Family Cancer: No Hx Family GI Disorders: No Hx Family Endocrine Disorder: No Hx Family Neuromuscular Disorders: Yes (dementia) Hx Family Neurologic Disorders: No Hx Family HEENT Disorders: No Hx Family Autoimmune Disorders: No Father Living Status: Hx Family Neurologic Disorders: Yes (dementia) Medications & Allergies Bupropion HCl [Wellbutrin Xl] 300 mg PO DAILY 01/17/17 [History] OLANZapine [Zyprexa] 15 mg PO 01/17/17 [History] risperiDONE [Risperidone] 4 mg PO BID 01/17/17 [History] levETIRAcetam [Roweepra] 500 mg PO 04/09/17 [History] Acetaminophen [Tylenol] 650 mg PO Q6HR PRN 12/05/17 [History] Brimonidine Tartrate/Timolol [Combigan 0.2%-0.5% Eye Drops] 1 drop RIGHT EYE BID 12/05/17 [History] GuaiFENesin/Dextromethorphan [Robitussin/Dm] 10 ml PO Q6HR PRN 12/05/17 [History] Pravastatin Sodium [Pravachol] 20 mg PO HS 12/05/17 [History] Ammonium Lactate [Patricia-Hydrolac] 1 appl TP BID 03/20/18 [History] Nystatin POWDER [Nystop] 1 appl TP BID PRN 03/20/18 [History] Tramadol HCl [Ultram] 50 mg PO QID PRN 03/20/18 [History] Zinc Oxide [Boudreauxs] 1 appl TP DAILY 06/23/18 [History] Carvedilol [Coreg] 12.5 mg PO BIDWM #60 tablet 06/24/18 [Rx] Amlodipine Besylate 10 mg PO DAILY 07/20/18 [History] Aspirin [Lo-Dose Aspirin EC] 81 mg PO DAILY 07/20/18 [History] DiphenhydraMINE [Benadryl] 25 mg PO Q6HR PRN 07/20/18 [History] Dextran 70/Hypromellose [Artificial Tears] 1 drop BOTH EYES QID PRN 08/10/18 [History] Levothyroxine Sodium 75 mcg PO DAILY 08/10/18 [History] Allergy/AdvReac Type Severity Reaction Status Date / Time No Known Allergies Allergy Verified 08/10/18 19:22 Review of Systems Psychiatric: Reports: auditory hallucinations, confusion. Denies: depression, anxiety, visual hallucinations Endocrine: Reports: fatigue Psychiatry Exam - Constitutional Vitals: Temp Pulse Resp BP Pulse Ox 97.8 F 58 16 107/55 93 08/20/18 08:00 08/20/18 08:00 08/20/18 08:00 08/20/18 08:00 08/20/18 06:54 General appearance: age & developmentally appropriate, well-groomed, well- nourished Additional observations: In hospital garb - Musculoskeletal Gait: other (Not assessed) Station: relaxed Strength & Tone: normal for patient (Grossly) - Psychiatric Patient Orientation: Yes Person (Responded to name), Yes Other (Cannot fully oriented patient today due to somnolence, but nursing staff says she is alert and oriented 3 this morning before medication administration) Level of alertness: Sedated (Very somnolent with inability to stay awake when questioning and shaking for the whole interview.) Behavior: calm, other (Uncooperative due to somnolence but attempted to answer questions when awake) Psychomotor activity: Slowed (Due to somnolence) Eye Contact: Minimal Contact (It is somnolence did attempt to look at this provider when awake) Mood Description: Other Patient description of mood: "Sleepy" Affect description: congruent with mood, flat (Due to somnolence) Speech Volume: Soft/Quiet Speech pattern: normal tone, spontaneous, slowed (Decreased rate,), limited (Decreased prosody due to somnolence), slurred (Due to somnolence) Language & Vocabulary: consistent with education Thought Process: Slowed Thinking (Possibly due to somnolence) Thought Content: Yes Intact (Could not be assessed due to somnolence) Perceptual Disturbances: No Reacting to internal stimuli, Yes Auditory hallucinations (Improved compared to before per patient), No Visual hallucinations Attention Span Ability: Unable to Focus, Unable to Sustain Attention Memory Description: Grossly Intact (Cannot be fully assessed due to somnolence) Patient Reliability: Questionable Historian Fund of knowledge: No aware of current events (Cannot be fully assessed due to somnolence) Intelligence Estimate: Average Judgment: Limited Insight: Partial Results - Drug Levels and Toxicology Drug Levels and Toxicology: None noted this a.m. - Labs Labs: Laboratory Last Values WBC 11.3 K/mcL (4.3-11.1) H 08/20/18 02:09 RBC 2.76 M/mcL (3.82-4.97) L 08/20/18 02:09 Hgb 7.9 g/dL (11.5-15.4) L 08/20/18 02:09 Hct 26.0 % (35.3-44.9) L 08/20/18 02:09 MCV 94.2 fL (83.0-100.0) 08/20/18 02:09 MCH 28.6 pg (28.0-33.3) 08/20/18 02:09 MCHC 30.4 g/dL (31.6-35.5) L 08/20/18 02:09 RDW 14.3 % (11.5-14.5) 08/20/18 02:09 Plt Count 331 K/mcL (140-400) 08/20/18 02:09 MPV 9.9 fL (9.4-12.4) 08/20/18 02:09 Immature Gran % 2.6 % (0-4) 08/20/18 02:09 Seg Neutrophils % 70.5 % 08/20/18 02:09 Lymphocytes % 9.3 % 08/20/18 02:09 Monocytes % 15.3 % 08/20/18 02:09 Eosinophils % 1.9 % 08/20/18 02:09 Basophils % 0.4 % 08/20/18 02:09 Neutrophils # 8.0 K/mcL (1.6-8.9) 08/20/18 02:09 Lymphocytes # 1.1 K/mcL (0.6-4.6) 08/20/18 02:09 Monocytes # 1.7 K/mcL (0.0-1.3) H 08/20/18 02:09 Eosinophils # 0.2 K/mcL (0.0-0.6) 08/20/18 02:09 Basophils # 0.0 K/mcL (0.0-0.2) 08/20/18 02:09 Nucleated RBCs/100 WBC 0.3 /100 WBC (0) H 08/17/18 00:44 Platelet Estimate Normal (Normal) 08/17/18 00:44 PT 10.9 Seconds (9.4-12.1) 08/16/18 05:28 INR 1.0 08/16/18 05:28 Sample Site R Brach 08/18/18 10:55 ABG pH 7.44 pH Units (7.32-7.45) 08/18/18 10:55 ABG pCO2 46 mmHg (35-45) H 08/18/18 10:55 ABG pO2 64 mmHg (85-104) L 08/18/18 10:55 ABG HCO3 31 mEq/L (21-27) H 08/18/18 10:55 ABG Total CO2 32 mEq/L (20-26) H 08/18/18 10:55 ABG O2 Saturation 93 % (95-98) L 08/18/18 10:55 ABG Base Excess 6 mEq/L (-2 to 3) H 08/18/18 10:55 Vern Test Positive 08/18/18 10:55 O2 Delivery Device Cannula 08/18/18 10:55 Inspired O2 2.0 (1-15=lpm [id number]%) 08/18/18 10:55 Sodium 135 mEq/L (136-145) L 08/20/18 02:09 Potassium 4.4 mEq/L (3.5-5.1) 08/20/18 02:09 Chloride 100 mEq/L (98-107) 08/20/18 02:09 Carbon Dioxide 29 mEq/L (23-29) 08/20/18 02:09 BUN 35 mg/dL (8-23) H 08/20/18 02:09 Creatinine 3.00 mg/dL (0.60-1.20) H 08/20/18 02:09 Est GFR ( Amer) 19 (> 60) L 08/20/18 02:09 Est GFR (Non-Af Amer) 15 (> 60) L 08/20/18 02:09 BUN/Creatinine Ratio 12 (6-26) 08/20/18 02:09 Glucose 119 mg/dL (70-105) H 08/20/18 02:09 POC Glucose 143 mg/dL (70-99) H 08/19/18 19:25 Calculated Osmolality 289 (280-300) 08/20/18 02:09 Calcium 8.6 mg/dL (8.6-10.3) 08/20/18 02:09 Phosphorus 3.8 mg/dL (2.7-4.5) 08/12/18 04:35 Magnesium 1.9 mg/dL (1.6-2.6) 08/12/18 04:35 Iron 16 mcg/dL (50-170) L 08/16/18 05:28 % Saturation 5 % (15-50) L 08/16/18 05:28 Transferrin 218 mg/dL (203-362) 08/16/18 05:28 Ferritin 145 ng/mL (10-120) H 08/16/18 05:28 TSH 3.300 mcIU/mL (0.340-5.600) 08/18/18 16:26 Urine Color Dark Yellow (Yellow) 08/19/18 05:00 Urine Clarity Cloudy (Clear) A 08/19/18 05:00 Urine pH 5.0 pH Units (5.0-8.0) 08/19/18 05:00 Ur Specific [place] 1.019 (1.010-1.025) 08/19/18 05:00 Urine Protein 100 mg/dL (Neg-Trace) H 08/19/18 05:00 Urine Glucose (UA) Normal mg/dL (Normal) 08/19/18 05:00 Urine Ketones Negative mg/dL (Negative) 08/19/18 05:00 Urine Blood Trace (Negative) H 08/19/18 05:00 Urine Nitrite Negative (Negative) 08/19/18 05:00 Urine Bilirubin Small (Negative) H 08/19/18 05:00 Urine Urobilinogen Normal mg/dL (Normal) 08/19/18 05:00 Ur Leukocyte Esterase Negative (Negative) 08/19/18 05:00 Urine Microscopic RBC 0-3 per hpf (0-3) 08/19/18 05:00 Urine Microscopic WBC 3-5 per hpf (0-3) H 08/19/18 05:00 Ur Squamous Epith Cells Many per lpf (None-Few) H 08/19/18 05:00 Urine Bacteria Few per hpf (None-Few) 08/19/18 05:00 Hyaline Casts Few per lpf (None-Few) 08/19/18 05:00 Urine Mucus Few (Few) 08/19/18 05:00 Ur Culture Indicated? NO (NO) 08/19/18 05:00 Urine Creatinine 53 mg/dL 08/11/18 18:35 Urine Microalbumin > 1350 mg/L 08/11/18 18:35 Microalb/Creat Ratio TNP 08/11/18 18:35 Protein/Creatinin Ratio 4.79 mg/mg (0.00-0.20) H 08/11/18 18:35 Urine Sodium 69.2 mEq/L 08/11/18 18:35 Urine Total Protein 254 mg/dL (1-14) H 08/11/18 18:35 Hep Bs Antigen Nonreactive (Nonreactive) 08/15/18 09:53 Hep Bs Antibody < 3.10 mIU/mL (10.00-) L 08/15/18 09:53 Hep B Core Total Ab NEGATIVE (Negative) 08/15/18 09:53 Miscellaneous Test See EMR document 08/10/18 10:00 Blood Type O POSITIVE 08/10/18 12:00 Antibody Screen NEGATIVE 08/10/18 12:00 Crossmatch See Detail 08/10/18 12:00 - Impressions None noted this a.m. Consult Discharge Plan - Plan Instructions: Percutaneous Kidney Biopsy (DC) Additional Instructions: Discharge Instructions for Interventional Radiology Patients: 1. You must have a ride home from your procedure today. Because of the sedation that you received during your procedure today, you may not drive for 24 hours. 2. Keep your dressing clean and dry and do not remove for 24 hours after your procedure. 3. After 24 hours, you may remove your dressing and shower. Do not submerge your incision in water (bathtub or swimming) until the the incision is healed. It usually takes 7-10 days for incisions to heal. 4. You may put a band aid over your incision until it is completely healed. You may change the dressing if it gets wet or soiled. 5. Always watch for any sign of infection to the site, such as: * Redness * Warmth * Tenderness * White or yellow drainage * Fever or 100.4 degrees or greater If you notice any of these symptoms, please contact your Primary Care Provider immediately. 6. You may resume all blood thinners with the next scheduled dose. For example: If you take a blood thinner each morning, take your medication the next morning as you normally would. Follow Up Appointment * Please call your surgeon's office within 24 hours or next business day to schedule a follow up appointment. * Home Medication List * You have been given a list of your current medications. If you have changes in your medications, update your list. * Provide a list of current medications to your primary care physician. * Carry a copy of your current medications with you in case of an emergency. Referrals: Ant Brewer MD [Non-Partnered Physician] - (NO PCP APPOINTMENT NEEDED PT IS GOING TO [facility]) - Attending Attestation I examined this patient and my medical decision-making was reviewed with the Resident Physician. I agree with the documented findings, disposition and treatment plan as described.
--- NOTE | 2018-08-20 13:11 | Nephrology Progress Note ---
Date of Encounter: 08/20/18 Time of Encounter: 10:30 - Assessment and Plan (1) Acute kidney injury superimposed on CKD Current Visit: Yes Status: Acute Tolerated HD well yesterday - continue TTS schedule Has a chair time at [facility] on the TTS schedule Renal biopsy with IgA nephropathy without mention of cresents, so no immunosuppressive therapy at this time Follow renal protective strategy: daily weights, I/O's, and avoid nephrotoxins if able She continues to have periods of increased somnolence - psychiatry is adjusting her medications (2) Anemia Current Visit: Yes Status: Acute Multifactorial - secondary to recent blood loss, but also with CKD and iron deficiency s/p feraheme and EPO Goal Hgb 10-11 Qualifiers: Anemia type: other cause Other causes of anemia: acute posthemorrhagic Qualified Code(s): D62 - Acute posthemorrhagic anemia (3) Retroperitoneal hematoma Current Visit: Yes Status: Acute (4) HTN (hypertension) Current Visit: Yes Status: Acute Qualifiers: Hypertension type: essential hypertension Qualified Code(s): I10 - Essential (primary) hypertension (5) IgA nephropathy determined by renal biopsy Current Visit: Yes Status: Acute Subjective Principal diagnosis: s/p kidney biopsy Interval history: Patient seen and examined. She continues to be somnolent, but arousable. She admits to some continue right sided abdominal tenderness. Denies N/V. Objective - Vital Signs Vital signs: Vital Signs Temp Pulse Resp BP Pulse Ox 08/20/18 11:55 97.8 F 58 16 107/55 08/20/18 11:17 98.9 F 50 20 100/54 97 08/20/18 08:00 97.8 F 58 16 107/55 08/20/18 06:54 97.8 F 58 20 107/55 93 08/20/18 03:41 98.9 F 55 16 97/53 92 08/20/18 02:08 98.7 F 56 16 96 08/19/18 23:45 100.9 F H 56 18 101/52 08/19/18 23:09 100.9 F H 56 18 101/52 90 08/19/18 20:15 100.4 F H 58 17 117/63 08/19/18 19:22 100.4 F H 58 17 117/63 91 08/19/18 16:10 99.7 F H 66 18 157/81 91 Intake and Output 08/19/18 08/20/18 08/20/18 23:59 07:59 15:59 Intake Total 240 / 240 120 / 120 Balance 240 / 240 120 / 120 Intake: Oral 240 / 240 120 / 120 Other: Meal Dinner Breakfast Percent of Meal Consumed 60% 90% Weight 79.2 kg 85.5 kg Blood Glucose* 143 97 107 Patient Weight 08/20/18 23:59 Weight 85.5 kg - General Appearance General appearance: Present: well-developed, well-nourished EENT: Present: ATNC, mucous membranes moist Neck: Present: supple Respiratory: Present: clear Cardiology: Present: no edema, regular rate, regular rhythm Dialysis Vascular Access: Venous Catheter Gastrointestinal: Present: normoactive bowel sounds, tenderness (mild tenderness on right side of abdomen) Integumentary: Present: warm and dry Neurologic: Present: no focal deficit Musculoskeletal: Present: no cyanosis, no clubbing Psychiatric: Present: cooperative - Lab 08/20/18 02:09 08/20/18 02:09 Most recent lab results ABG pH 7.44 pH Units (7.32-7.45) 08/18/18 10:55 ABG pCO2 46 mmHg (35-45) H 08/18/18 10:55 ABG pO2 64 mmHg (85-104) L 08/18/18 10:55 ABG HCO3 31 mEq/L (21-27) H 08/18/18 10:55 ABG O2 Saturation 93 % (95-98) L 08/18/18 10:55 Calcium 8.6 mg/dL (8.6-10.3) 08/20/18 02:09 Phosphorus 3.8 mg/dL (2.7-4.5) 08/12/18 04:35 Magnesium 1.9 mg/dL (1.6-2.6) 08/12/18 04:35 Urine Creatinine 53 mg/dL 08/11/18 18:35 Urine Sodium 69.2 mEq/L 08/11/18 18:35 Urine Total Protein 254 mg/dL (1-14) H 08/11/18 18:35 - VTE Documentation of Mechanical Device: Intermittent pneumatic compression device Consult Discharge Plan - Plan Instructions: Percutaneous Kidney Biopsy (DC) Additional Instructions: Discharge Instructions for Interventional Radiology Patients: 1. You must have a ride home from your procedure today. Because of the sedation that you received during your procedure today, you may not drive for 24 hours. 2. Keep your dressing clean and dry and do not remove for 24 hours after your procedure. 3. After 24 hours, you may remove your dressing and shower. Do not submerge your incision in water (bathtub or swimming) until the the incision is healed. It usually takes 7-10 days for incisions to heal. 4. You may put a band aid over your incision until it is completely healed. You may change the dressing if it gets wet or soiled. 5. Always watch for any sign of infection to the site, such as: * Redness * Warmth * Tenderness * White or yellow drainage * Fever or 100.4 degrees or greater If you notice any of these symptoms, please contact your Primary Care Provider immediately. 6. You may resume all blood thinners with the next scheduled dose. For example: If you take a blood thinner each morning, take your medication the next morning as you normally would. Follow Up Appointment * Please call your surgeon's office within 24 hours or next business day to schedule a follow up appointment. * Home Medication List * You have been given a list of your current medications. If you have changes in your medications, update your list. * Provide a list of current medications to your primary care physician. * Carry a copy of your current medications with you in case of an emergency. Referrals: Ant Brewer MD [Non-Partnered Physician] - (NO PCP APPOINTMENT NEEDED PT IS GOING TO [facility])
--- NOTE | 2018-08-20 13:16 | Internal Med Progress Note ---
Hospitalist Progress Note - Encounter Date of Encounter: 08/20/18 Time of Encounter: 09:00 - Subjective Interval History: Patient is still somnolent, weak, intermittent confused, sleepy. Overnight low grade fever noticed. Patient denies cough or dysuria. - Exam Vitals: Temp Pulse Resp BP Pulse Ox 97.8 F 58 16 107/55 97 08/20/18 11:55 08/20/18 11:55 08/20/18 11:55 08/20/18 11:55 08/20/18 11:17 Exam: Pt is AAO x 3, in NAD, somnolent HEENT: NC/AT, PERRL Neck: Supple, no JVD, no LAD Lungs: CTA b/l Heart: S1S2, RRR Abd: Soft, nontender, BS present Ext: ROM wnl, no pedal edema Neuro: No focal deficit - Assessment and Plan (1) HTN (hypertension) Current Visit: Yes Status: Chronic Assessment and Plan: Blood pressures is stable, will decrease carvedilol dose as heart rate is low. (2) Seizure Current Visit: Yes Status: Chronic Assessment and Plan: Continue Keppra. Neuro consult appreciated, repeat EEG negative. (3) Anemia Current Visit: Yes Status: Acute Assessment and Plan: Hemoglobin 7.9 today. Generally Stable, continue closely follow-up (4) DVT prophylaxis Current Visit: Yes Status: Acute Assessment and Plan: With SCDs (5) CKD (chronic kidney disease) Current Visit: Yes Status: Chronic Assessment and Plan: Nephrology consult on case. Patient started hemodialysis. Closely monitor renal function. Avoid nephrotoxic medications. Continue hemodialysis after discharge (6) Retroperitoneal hematoma Current Visit: Yes Status: Acute Assessment and Plan: Stabilized. IR follow up has signed off. No further workup/procedure needed. (7) Acute kidney injury superimposed on CKD Current Visit: Yes Status: Acute Assessment and Plan: acute kidney injury on chronic kidney disease stage IV. Renal function continues to worsen. Started hemodialysis per nephrology. Pt will cont HD after discharge (8) Altered mental status Current Visit: No Status: Acute Assessment and Plan: Intermittent confusion. Etiology is undetermined. MRI brain negative for acute infarct. Repeat EEG negative. Psychiatry consult appreciated, will adjust psych medication per recommendation. Patient has unremarkable chest x-ray and urine analysis. Abdominal exam is benign. DVT Prophylaxis: EPCDs - Time Spent with Patient Total time spent is greater than 50% in coordination of care (as documented) at patient's floor/unit and/or counseling patient: 30 minutes 25 - 35 minutes Plan of Care Discussed with: patient Internal Medicine: Result - Labs CBC & Chem 7: 08/20/18 02:09 08/20/18 02:09 Labs: Short CBC 08/20/18 Range/Units 02:09 WBC 11.3 H (4.3-11.1) K/mcL Hgb 7.9 L (11.5-15.4) g/dL Hct 26.0 L (35.3-44.9) % Plt Count 331 (140-400) K/mcL Neutrophils # 8.0 (1.6-8.9) K/mcL BMP 08/20/18 02:09 Sodium 135 L Potassium 4.4 Chloride 100 Carbon Dioxide 29 BUN 35 H Creatinine 3.00 H Glucose 119 H Calcium 8.6 - ABG Interpretation ABG results: ABG ABG pH 7.44 pH Units (7.32-7.45) 08/18/18 10:55 ABG pCO2 46 mmHg (35-45) H 08/18/18 10:55 ABG pO2 64 mmHg (85-104) L 08/18/18 10:55 ABG O2 Saturation 93 % (95-98) L 08/18/18 10:55 PT/INR, D-dimer PT 10.9 Seconds (9.4-12.1) 08/16/18 05:28 - VTE Documentation of Mechanical Device: Intermittent pneumatic compression device Consult Discharge Plan - Plan Instructions: Percutaneous Kidney Biopsy (DC) Additional Instructions: Discharge Instructions for Interventional Radiology Patients: 1. You must have a ride home from your procedure today. Because of the sedation that you received during your procedure today, you may not drive for 24 hours. 2. Keep your dressing clean and dry and do not remove for 24 hours after your procedure. 3. After 24 hours, you may remove your dressing and shower. Do not submerge your incision in water (bathtub or swimming) until the the incision is healed. It usually takes 7-10 days for incisions to heal. 4. You may put a band aid over your incision until it is completely healed. You may change the dressing if it gets wet or soiled. 5. Always watch for any sign of infection to the site, such as: * Redness * Warmth * Tenderness * White or yellow drainage * Fever or 100.4 degrees or greater If you notice any of these symptoms, please contact your Primary Care Provider immediately. 6. You may resume all blood thinners with the next scheduled dose. For example: If you take a blood thinner each morning, take your medication the next morning as you normally would. Follow Up Appointment * Please call your surgeon's office within 24 hours or next business day to schedule a follow up appointment. * Home Medication List * You have been given a list of your current medications. If you have changes in your medications, update your list. * Provide a list of current medications to your primary care physician. * Carry a copy of your current medications with you in case of an emergency. Referrals: Ant Brewer MD [Non-Partnered Physician] - (NO PCP APPOINTMENT NEEDED PT IS GOING TO [facility]) (1) HTN (hypertension) Qualifiers: Qualified Code(s): I10 - Essential (primary) hypertension (3) Anemia Qualifiers: Qualified Code(s): D62 - Acute posthemorrhagic anemia (5) CKD (chronic kidney disease) Qualifiers: Qualified Code(s): N18.4 - Chronic kidney disease, stage 4 (severe) (8) Altered mental status Qualifiers: Qualified Code(s): R40.0 - Somnolence
--- NOTE | 2018-08-20 15:53 | Neurology Progress Note ---
Date of Encounter: 08/20/18 Time of Encounter: 15:51 Assessment and Plan (1) Encephalopathy Current Visit: Yes Status: Acute She is improving and i agree that the excessive sleepiness may be multifactorial in etiology and that it may be related to medication side effects and superimposed medical encephalopathy. No evidence suggesting [employer] pathology. Will sign off at this time. Please call if any questions Subjective Principal diagnosis: s/p kidney biopsy Interval history: patient seen and examined today. She is slightly drowsy but easily aroused and once aroused she is oriented x3 and can communicate normally. Reports some soreness to the right flank area and some back pain. EEG reported normal study per Dr. Zackary Murphy. Objective - Constitutional Vitals: Temp Pulse Resp BP Pulse Ox 98.2 F 60 20 108/58 90 08/20/18 15:23 08/20/18 15:23 08/20/18 15:23 08/20/18 15:23 08/20/18 15:23 - Neurological Exam Sensorimotor examination: Present: intact Motor Examination: Present: grossly full strength in all extremities Motor examination - right side: 5/5: deltoids, biceps, triceps, wrist flexion, wrist extension, skip load driver, hip flexors, tibialis Anterior, quadriceps, toe extension (EHL), plantarflexion Motor examination - left side: 5/5: deltoids, biceps, triceps, wrist flexion, wrist extension, hip flexors, skip load driver, quadriceps, tibialis Anterior, toe extension (EHL), plantarflexion Sensation intact: Present: intact Posture: Present: other (None) Reflex and gait examination: other (Gait not assessed) Mental Status Examination: Present: awake, alert, oriented to person, oriented to place, oriented to time, follows commands appropriately, answers questions appropriately, no agnosia, no aphasia, no aproxia Cranial nerve examination: Present: PERRL, EOMI, visual jordan intact, corneal reflexes brisk symmetrically, sensory to face intact, mastication intact, no facial asymmetry is present, no dysarthria, hearing is intact symmetrically, soft palate elevates bilaterally upon phonation, gag reflex intact, flexes SCM and trapezius muscles symmetrically with full power, tongue protrudes midline - VTE Documentation of Mechanical Device: Intermittent pneumatic compression device Results - Laboratory Findings CBC and BMP: 08/20/18 02:09 08/20/18 02:09 Abnormal lab findings: Abnormal lab results WBC 11.3 K/mcL (4.3-11.1) H 08/20/18 02:09 RBC 2.76 M/mcL (3.82-4.97) L 08/20/18 02:09 Hgb 7.9 g/dL (11.5-15.4) L 08/20/18 02:09 Hct 26.0 % (35.3-44.9) L 08/20/18 02:09 MCHC 30.4 g/dL (31.6-35.5) L 08/20/18 02:09 Monocytes # 1.7 K/mcL (0.0-1.3) H 08/20/18 02:09 Nucleated RBCs/100 WBC 0.3 /100 WBC (0) H 08/17/18 00:44 ABG pCO2 46 mmHg (35-45) H 08/18/18 10:55 ABG pO2 64 mmHg (85-104) L 08/18/18 10:55 ABG HCO3 31 mEq/L (21-27) H 08/18/18 10:55 ABG Total CO2 32 mEq/L (20-26) H 08/18/18 10:55 ABG O2 Saturation 93 % (95-98) L 08/18/18 10:55 ABG Base Excess 6 mEq/L (-2 to 3) H 08/18/18 10:55 Sodium 135 mEq/L (136-145) L 08/20/18 02:09 BUN 35 mg/dL (8-23) H 08/20/18 02:09 Creatinine 3.00 mg/dL (0.60-1.20) H 08/20/18 02:09 Est GFR ( Amer) 19 (> 60) L 08/20/18 02:09 Est GFR (Non-Af Amer) 15 (> 60) L 08/20/18 02:09 Glucose 119 mg/dL (70-105) H 08/20/18 02:09 POC Glucose 143 mg/dL (70-99) H 08/19/18 19:25 Iron 16 mcg/dL (50-170) L 08/16/18 05:28 % Saturation 5 % (15-50) L 08/16/18 05:28 Ferritin 145 ng/mL (10-120) H 08/16/18 05:28 Urine Clarity Cloudy (Clear) A 08/19/18 05:00 Urine Protein 100 mg/dL (Neg-Trace) H 08/19/18 05:00 Urine Blood Trace (Negative) H 08/19/18 05:00 Urine Bilirubin Small (Negative) H 08/19/18 05:00 Urine Microscopic WBC 3-5 per hpf (0-3) H 08/19/18 05:00 Ur Squamous Epith Cells Many per lpf (None-Few) H 08/19/18 05:00 Protein/Creatinin Ratio 4.79 mg/mg (0.00-0.20) H 08/11/18 18:35 Urine Total Protein 254 mg/dL (1-14) H 08/11/18 18:35 Hep Bs Antibody < 3.10 mIU/mL (10.00-) L 08/15/18 09:53 Consult Discharge Plan - Plan Instructions: Percutaneous Kidney Biopsy (DC) Additional Instructions: Discharge Instructions for Interventional Radiology Patients: 1. You must have a ride home from your procedure today. Because of the sedation that you received during your procedure today, you may not drive for 24 hours. 2. Keep your dressing clean and dry and do not remove for 24 hours after your procedure. 3. After 24 hours, you may remove your dressing and shower. Do not submerge your incision in water (bathtub or swimming) until the the incision is healed. It usually takes 7-10 days for incisions to heal. 4. You may put a band aid over your incision until it is completely healed. You may change the dressing if it gets wet or soiled. 5. Always watch for any sign of infection to the site, such as: * Redness * Warmth * Tenderness * White or yellow drainage * Fever or 100.4 degrees or greater If you notice any of these symptoms, please contact your Primary Care Provider immediately. 6. You may resume all blood thinners with the next scheduled dose. For example: If you take a blood thinner each morning, take your medication the next morning as you normally would. Follow Up Appointment * Please call your surgeon's office within 24 hours or next business day to schedule a follow up appointment. * Home Medication List * You have been given a list of your current medications. If you have changes in your medications, update your list. * Provide a list of current medications to your primary care physician. * Carry a copy of your current medications with you in case of an emergency. Referrals: Ant Brewer MD [Non-Partnered Physician] - (NO PCP APPOINTMENT NEEDED PT IS GOING TO [facility])
[2018-08-21] MEDS: traMADol 50 MG TABLET PO PRN ×2 (00:18→22:29)
[2018-08-21 01:30] LABS: Basophils % 0.4 %; Eosinophils # 0.3 K/mcL (0.0-0.6); Eosinophils % 3.3 %; Hematocrit 25.1 % (35.3-44.9); Hemoglobin 7.6 g/dL (11.5-15.4); Immature Granulocytes % 3.7 % (0-4); Lymphocytes # 0.9 K/mcL (0.6-4.6); Lymphocytes % 8.6 %; Mean Corpuscular HGB Conc 30.3 g/dL (31.6-35.5); Mean Corpuscular Hemoglobin 28.7 pg (28.0-33.3); Mean Corpuscular Volume 94.7 fL (83.0-100.0); Monocytes # 1.6 K/mcL (0.0-1.3); Monocytes % 14.9 %; Neutrophils # 7.2 K/mcL (1.6-8.9); Platelet Count 338 K/mcL (140-400); Red Blood Count 2.65 M/mcL (3.82-4.97); Red Cell Distribution Width 14.3 % (11.5-14.5); Segmented Neutrophils % 69.1 %
[2018-08-21 01:33] LABS: Calcium 8.7 mg/dL (8.6-10.3); Potassium 4.7 mEq/L (3.5-5.1)
[2018-08-21] MEDS ORDERED: *HR* Heparin 10,000 UNIT/10 ML VIAL IV PRN ×2 (07:54)
[2018-08-21] MEDS ORDERED: 0.9 % Sodium Chloride 250 ML IVC PRN (07:54)
[2018-08-21] MEDS ORDERED: 0.9 % Sodium Chloride 1,000 ML PRIME SCH (08:00)
[2018-08-21] MEDS: amLODIPine 5 MG TABLET PO SCH (08:03)
[2018-08-21] MEDS: BuPROPion XL (24 HR) 150 MG TABLET PO SCH (08:03)
[2018-08-21] MEDS: risperiDONE 1 MG TABLET PO SCH (08:04)
[2018-08-21] MEDS: levETIRAcetam 250 MG TABLET PO SCH ×2 (08:05→22:14)
[2018-08-21] MEDS: Aspirin Enteric Coated 81 MG Tablet PO SCH (08:05)
[2018-08-21] MEDS: OLANZapine 5 MG TAB.RAPDIS PO SCH ×2 (08:05→22:13)
[2018-08-21] MEDS: Zinc Oxide 454 GM EACH TP SCH (08:13)
[2018-08-21] MEDS ORDERED: 0.9 % Sodium Chloride 1,000 ML ONE (09:39)
--- NOTE | 2018-08-21 10:30 | Nephrology Progress Note ---
Date of Encounter: 08/21/18 Time of Encounter: 12:00 - Assessment and Plan (1) Anemia Current Visit: Yes Status: Acute Qualifiers: Anemia type: other cause Other causes of anemia: acute posthemorrhagic Qualified Code(s): D62 - Acute posthemorrhagic anemia (2) Retroperitoneal hematoma Current Visit: Yes Status: Acute (3) Acute kidney injury superimposed on CKD Current Visit: Yes Status: Acute (4) IgA nephropathy determined by renal biopsy Current Visit: Yes Status: Acute Subjective Principal diagnosis: s/p kidney biopsy Interval history: Pt seen and examined on HD today Objective - Vital Signs Vital signs: Vital Signs Temp Pulse Resp BP Pulse Ox 08/21/18 10:20 111/63 08/21/18 10:05 116/62 08/21/18 09:50 109/63 08/21/18 09:35 115/59 08/21/18 09:20 118/62 08/21/18 09:05 104/57 08/21/18 08:50 101/50 08/21/18 08:35 97.6 F 18 104/50 08/21/18 06:41 97.6 F 60 20 113/57 92 08/21/18 04:57 98.8 F 57 14 119/64 90 08/20/18 23:56 98.8 F 56 17 110/66 90 08/20/18 19:03 98.1 F 52 16 115/69 93 08/20/18 15:55 97.8 F 58 16 107/55 08/20/18 15:23 98.2 F 60 20 108/58 90 08/20/18 11:55 97.8 F 58 16 107/55 08/20/18 11:17 98.9 F 50 20 100/54 97 Intake and Output 08/20/18 08/21/18 08/21/18 23:59 07:59 15:59 Intake Total 120 / 120 840 / 840 Output Total 0 / 0 0 / 0 Balance 120 / 120 0 / 0 840 / 840 Intake: Oral 120 / 120 240 / 240 Intake, Rinseback and Flushes 600 / 600 Output: Urine 0 / 0 0 / 0 Other: Meal Breakfast Percent of Meal Consumed 100% Blood Glucose* 122 95 Hemodialysis Net Fluid Removed 2095 (mL) - Lab 08/21/18 00:52 08/21/18 00:52 Most recent lab results ABG pH 7.44 pH Units (7.32-7.45) 08/18/18 10:55 ABG pCO2 46 mmHg (35-45) H 08/18/18 10:55 ABG pO2 64 mmHg (85-104) L 08/18/18 10:55 ABG HCO3 31 mEq/L (21-27) H 08/18/18 10:55 ABG O2 Saturation 93 % (95-98) L 08/18/18 10:55 Calcium 8.7 mg/dL (8.6-10.3) 08/21/18 00:52 Phosphorus 3.8 mg/dL (2.7-4.5) 08/12/18 04:35 Magnesium 1.9 mg/dL (1.6-2.6) 08/12/18 04:35 Urine Creatinine 53 mg/dL 08/11/18 18:35 Urine Sodium 69.2 mEq/L 08/11/18 18:35 Urine Total Protein 254 mg/dL (1-14) H 08/11/18 18:35 - VTE Documentation of Mechanical Device: Intermittent pneumatic compression device Consult Discharge Plan - Plan Instructions: Percutaneous Kidney Biopsy (DC) Additional Instructions: Discharge Instructions for Interventional Radiology Patients: 1. You must have a ride home from your procedure today. Because of the sedation that you received during your procedure today, you may not drive for 24 hours. 2. Keep your dressing clean and dry and do not remove for 24 hours after your procedure. 3. After 24 hours, you may remove your dressing and shower. Do not submerge your incision in water (bathtub or swimming) until the the incision is healed. It usually takes 7-10 days for incisions to heal. 4. You may put a band aid over your incision until it is completely healed. You may change the dressing if it gets wet or soiled. 5. Always watch for any sign of infection to the site, such as: * Redness * Warmth * Tenderness * White or yellow drainage * Fever or 100.4 degrees or greater If you notice any of these symptoms, please contact your Primary Care Provider immediately. 6. You may resume all blood thinners with the next scheduled dose. For example: If you take a blood thinner each morning, take your medication the next morning as you normally would. Follow Up Appointment * Please call your surgeon's office within 24 hours or next business day to schedule a follow up appointment. * Home Medication List * You have been given a list of your current medications. If you have changes in your medications, update your list. * Provide a list of current medications to your primary care physician. * Carry a copy of your current medications with you in case of an emergency. Referrals: Ant Brewer MD [Non-Partnered Physician] - (NO PCP APPOINTMENT NEEDED PT IS GOING TO [facility])
--- NOTE | 2018-08-21 11:46 | Internal Med Progress Note ---
Hospitalist Progress Note - Encounter Date of Encounter: 08/21/18 Time of Encounter: 09:00 - Subjective Interval History: Saw pt at the hemodialysis room. Patient is more awake alert, still feels weak. Denies any pain. No fever overnight. Vitals are stable. - Exam Vitals: Temp Pulse Resp BP Pulse Ox 97.6 F 60 18 119/65 92 08/21/18 08:35 08/21/18 06:41 08/21/18 08:35 08/21/18 10:35 08/21/18 06:41 Exam: Pt is AAO x 3, in NAD, somnolent HEENT: NC/AT, PERRL Neck: Supple, no JVD, no LAD Lungs: CTA b/l Heart: S1S2, RRR Abd: Soft, nontender, BS present Ext: ROM wnl, no pedal edema Neuro: No focal deficit - Assessment and Plan (1) HTN (hypertension) Current Visit: Yes Status: Chronic Assessment and Plan: Blood pressures is stable, will decrease carvedilol dose as heart rate is low. (2) Seizure Current Visit: Yes Status: Chronic Assessment and Plan: Continue Keppra. Neuro consult appreciated, repeat EEG negative. (3) Anemia Current Visit: Yes Status: Acute Assessment and Plan: Hemoglobin 7.6 today. Anemia possibly due to end-stage renal disease. No signs of active bleeding. Continue closely follow-up (4) DVT prophylaxis Current Visit: Yes Status: Acute Assessment and Plan: With SCDs (5) CKD (chronic kidney disease) Current Visit: Yes Status: Chronic Assessment and Plan: Nephrology consult on case. Patient started hemodialysis. Closely monitor louie al function. Avoid nephrotoxic medications. Continue hemodialysis after discharge (6) Retroperitoneal hematoma Current Visit: Yes Status: Acute Assessment and Plan: Stabilized. IR follow up has signed off. No further workup/procedure needed. (7) Acute kidney injury superimposed on CKD Current Visit: Yes Status: Acute Assessment and Plan: acute kidney injury on chronic kidney disease stage IV. Renal function continues to worsen. Started hemodialysis per nephrology. Pt will cont HD after discharge (8) Altered mental status Current Visit: No Status: Acute Assessment and Plan: Intermittent confusion. Etiology is undetermined. MRI brain negative for acute infarct. Repeat EEG negative. Psychiatry consult appreciated, will adjust psych medication per recommendation. Patient has unremarkable chest x-ray and urine analysis. Abdominal exam is benign. (9) Fever Current Visit: Yes Status: Acute Assessment and Plan: Patient has intermittent low-grade fever in last several days. No clear signs of infection. Likely due to hematoma absorption. Send blood culture yesterday, negative so far. We will continue closely monitoring. No indication to start antibiotics at this point. DVT Prophylaxis: EPCDs - Time Spent with Patient Total time spent is greater than 50% in coordination of care (as documented) at patient's floor/unit and/or counseling patient: 30 minute 25 - 35 minutes Plan of Care Discussed with: patient Internal Medicine: Result - Labs CBC & Chem 7: 08/21/18 00:52 08/21/18 00:52 Labs: Short CBC 08/21/18 Range/Units 00:52 WBC 10.4 (4.3-11.1) K/mcL Hgb 7.6 L (11.5-15.4) g/dL Hct 25.1 L (35.3-44.9) % Plt Count 338 (140-400) K/mcL Neutrophils # 7.2 (1.6-8.9) K/mcL BMP 08/21/18 00:52 Sodium 134 L Potassium 4.7 Chloride 99 Carbon Dioxide 27 BUN 63 H Creatinine 4.39 H Glucose 128 H Calcium 8.7 - ABG Interpretation ABG results: ABG ABG pH 7.44 pH Units (7.32-7.45) 08/18/18 10:55 ABG pCO2 46 mmHg (35-45) H 08/18/18 10:55 ABG pO2 64 mmHg (85-104) L 08/18/18 10:55 ABG O2 Saturation 93 % (95-98) L 08/18/18 10:55 PT/INR, D-dimer PT 10.9 Seconds (9.4-12.1) 08/16/18 05:28 - VTE Documentation of Mechanical Device: Intermittent pneumatic compression device Consult Discharge Plan - Plan Instructions: Percutaneous Kidney Biopsy (DC) Additional Instructions: Discharge Instructions for Interventional Radiology Patients: 1. You must have a ride home from your procedure today. Because of the sedation that you received during your procedure today, you may not drive for 24 hours. 2. Keep your dressing clean and dry and do not remove for 24 hours after your procedure. 3. After 24 hours, you may remove your dressing and shower. Do not submerge your incision in water (bathtub or swimming) until the the incision is healed. It usually takes 7-10 days for incisions to heal. 4. You may put a band aid over your incision until it is completely healed. You may change the dressing if it gets wet or soiled. 5. Always watch for any sign of infection to the site, such as: * Redness * Warmth * Tenderness * White or yellow drainage * Fever or 100.4 degrees or greater If you notice any of these symptoms, please contact your Primary Care Provider immediately. 6. You may resume all blood thinners with the next scheduled dose. For example: If you take a blood thinner each morning, take your medication the next morning as you normally would. Follow Up Appointment * Please call your surgeon's office within 24 hours or next business day to schedule a follow up appointment. * Home Medication List * You have been given a list of your current medications. If you have changes in your medications, update your list. * Provide a list of current medications to your primary care physician. * Carry a copy of your current medications with you in case of an emergency. Referrals: Ant Brewer MD [Non-Partnered Physician] - (NO PCP APPOINTMENT NEEDED PT IS GOING TO [facility]) (1) HTN (hypertension) Qualifiers: Hypertension type: essential hypertension Qualified Code(s): I10 - Essential (primary) hypertension (3) Anemia Qualifiers: Anemia type: other cause Other causes of anemia: acute posthemorrhagic Qualified Code(s): D62 - Acute posthemorrhagic anemia (5) CKD (chronic kidney disease) Qualifiers: Chronic kidney disease stage: stage 4 (severe) Qualified Code(s): N18.4 - Chronic kidney disease, stage 4 (severe) (8) Altered mental status Qualifiers: Altered mental status type: somnolence Qualified Code(s): R40.0 - Somnolence (9) Fever Qualifiers: Fever type: post-procedural Qualified Code(s): R50.82 - Postprocedural fever
[2018-08-21] MEDS: risperiDONE 1 MG, risperiDONE 3 MG PO SCH (22:14)
[2018-08-22 06:54] LABS: Basophils # 0.1 K/mcL (0.0-0.2); Basophils % 0.7 %; Eosinophils # 0.4 K/mcL (0.0-0.6); Eosinophils % 3.3 %; Hematocrit 26.2 % (35.3-44.9); Immature Granulocytes % 5.4 % (0-4); Lymphocytes # 0.9 K/mcL (0.6-4.6); Lymphocytes % 8.6 %; Mean Corpuscular HGB Conc 30.5 g/dL (31.6-35.5); Mean Corpuscular Hemoglobin 28.4 pg (28.0-33.3); Mean Corpuscular Volume 92.9 fL (83.0-100.0); Monocytes # 1.6 K/mcL (0.0-1.3); Monocytes % 15.1 %; Neutrophils # 7.2 K/mcL (1.6-8.9); Platelet Count 379 K/mcL (140-400); Red Blood Count 2.82 M/mcL (3.82-4.97); Red Cell Distribution Width 14.6 % (11.5-14.5); Segmented Neutrophils % 66.9 %
[2018-08-22 07:14] LABS: Calcium 9.1 mg/dL (8.6-10.3)
[2018-08-22 07:19] LABS: Platelet Estimate Normal (Normal)
[2018-08-22] MEDS: levETIRAcetam 250 MG TABLET PO SCH ×2 (07:53→21:03)
[2018-08-22] MEDS: OLANZapine 5 MG TAB.RAPDIS PO SCH ×2 (07:53→21:02)
[2018-08-22] MEDS: BuPROPion XL (24 HR) 150 MG TABLET PO SCH (07:54)
[2018-08-22] MEDS: risperiDONE 1 MG TABLET PO SCH (07:54)
[2018-08-22] MEDS: amLODIPine 5 MG TABLET PO SCH (07:54)
[2018-08-22] MEDS: Aspirin Enteric Coated 81 MG Tablet PO SCH (07:54)
[2018-08-22] MEDS: Zinc Oxide 454 GM EACH TP SCH (08:06)
--- NOTE | 2018-08-22 10:54 | Internal Med Progress Note ---
Hospitalist Progress Note - Encounter Date of Encounter: 08/22/18 Time of Encounter: 09:00 - Subjective Interval History: Patient still has intermittent confusion and does sleep a lot. Slightly improved. No fever for last 48 hours. Vitals are stable. - Exam Vitals: Temp Pulse Resp BP Pulse Ox 98.2 F 55 18 112/69 93 08/22/18 07:36 08/22/18 07:36 08/22/18 07:36 08/22/18 07:36 08/22/18 07:36 Exam: Pt is AAO x 3, in NAD, sleepy HEENT: NC/AT, PERRL Neck: Supple, no JVD, no LAD Lungs: CTA b/l Heart: S1S2, RRR Abd: Soft, nontender, BS present Ext: ROM wnl, no pedal edema Neuro: No focal deficit - Assessment and Plan (1) HTN (hypertension) Current Visit: Yes Status: Chronic Assessment and Plan: Blood pressures is stable, will continue current medications. (2) Seizure Current Visit: Yes Status: Chronic Assessment and Plan: Continue Keppra. Neuro consult appreciated, repeat EEG negative. (3) Anemia Current Visit: Yes Status: Acute Assessment and Plan: Hemoglobin 8.0 today. Anemia possibly due to end-stage renal disease. No signs of active bleeding. Continue closely follow-up (4) DVT prophylaxis Current Visit: Yes Status: Acute Assessment and Plan: With SCDs (5) CKD (chronic kidney disease) Current Visit: Yes Status: Chronic Assessment and Plan: Nephrology consult on case. Patient started hemodialysis. Closely monitor renal function. Avoid nephrotoxic medications. Continue hemodialysis after discharge (6) Retroperitoneal hematoma Current Visit: Yes Status: Acute Assessment and Plan: Stabilized. IR follow up has signed off. No further workup/procedure needed. (7) Acute kidney injury superimposed on CKD Current Visit: Yes Status: Acute Assessment and Plan: acute kidney injury on chronic kidney disease stage IV. Renal function continues to worsen. Started hemodialysis per nephrology. Pt will cont HD after discharge (8) Altered mental status Current Visit: No Status: Acute Assessment and Plan: Intermittent confusion. Etiology is undetermined. MRI brain negative for acute infarct. Repeat EEG negative. Psychiatry consult appreciated, will adjust psych medication per recommendation. Patient has unremarkable chest x-ray and urine analysis. Abdominal exam is benign. (9) Fever Current Visit: Yes Status: Acute Assessment and Plan: Patient has no further fever in last 48 hours. No leukocytosis. Blood culture negative so far (over 48 hours). No signs of infection at this point. Continue closely monitoring. DVT Prophylaxis: EPCDs - Time Spent with Patient Total time spent is greater than 50% in coordination of care (as documented) at patient's floor/unit and/or counseling patient: 30 minute 25 - 35 minutes Plan of Care Discussed with: nurse Internal Medicine: Result - Labs CBC & Chem 7: 08/22/18 06:27 08/22/18 06:27 Labs: Short CBC 08/22/18 Range/Units 06:27 WBC 10.8 (4.3-11.1) K/mcL Hgb 8.0 L (11.5-15.4) g/dL Hct 26.2 L (35.3-44.9) % Plt Count 379 (140-400) K/mcL Neutrophils # 7.2 (1.6-8.9) K/mcL BMP 08/22/18 06:27 Sodium 133 L Potassium 4.0 Chloride 97 L Carbon Dioxide 31 H BUN 46 H Creatinine 3.78 H Glucose 98 Calcium 9.1 - ABG Interpretation ABG results: ABG ABG pH 7.44 pH Units (7.32-7.45) 08/18/18 10:55 ABG pCO2 46 mmHg (35-45) H 08/18/18 10:55 ABG pO2 64 mmHg (85-104) L 08/18/18 10:55 ABG O2 Saturation 93 % (95-98) L 08/18/18 10:55 PT/INR, D-dimer PT 10.9 Seconds (9.4-12.1) 08/16/18 05:28 - VTE Documentation of Mechanical Device: Intermittent pneumatic compression device Consult Discharge Plan - Plan Instructions: Percutaneous Kidney Biopsy (DC) Additional Instructions: Discharge Instructions for Interventional Radiology Patients: 1. You must have a ride home from your procedure today. Because of the sedation that you received during your procedure today, you may not drive for 24 hours. 2. Keep your dressing clean and dry and do not remove for 24 hours after your procedure. 3. After 24 hours, you may remove your dressing and shower. Do not submerge your incision in water (bathtub or swimming) until the the incision is healed. It usually takes 7-10 days for incisions to heal. 4. You may put a band aid over your incision until it is completely healed. You may change the dressing if it gets wet or soiled. 5. Always watch for any sign of infection to the site, such as: * Redness * Warmth * Tenderness * White or yellow drainage * Fever or 100.4 degrees or greater If you notice any of these symptoms, please contact your Primary Care Provider immediately. 6. You may resume all blood thinners with the next scheduled dose. For example: If you take a blood thinner each morning, take your medication the next morning as you normally would. Follow Up Appointment * Please call your surgeon's office within 24 hours or next business day to schedule a follow up appointment. * Home Medication List * You have been given a list of your current medications. If you have changes in your medications, update your list. * Provide a list of current medications to your primary care physician. * Carry a copy of your current medications with you in case of an emergency. Referrals: Ant Brewer MD [Non-Partnered Physician] - (NO PCP APPOINTMENT NEEDED PT IS GOING TO [facility]) (1) HTN (hypertension) Qualifiers: Hypertension type: essential hypertension Qualified Code(s): I10 - Essential (primary) hypertension (3) Anemia Qualifiers: Anemia type: other cause Other causes of anemia: acute posthemorrhagic Qualified Code(s): D62 - Acute posthemorrhagic anemia (5) CKD (chronic kidney disease) Qualifiers: Chronic kidney disease stage: stage 4 (severe) Qualified Code(s): N18.4 - Chronic kidney disease, stage 4 (severe) (8) Altered mental status Qualifiers: Altered mental status type: somnolence Qualified Code(s): R40.0 - Somnolence (9) Fever Qualifiers: Fever type: post-procedural Qualified Code(s): R50.82 - Postprocedural fever
--- NOTE | 2018-08-22 11:38 | Nephrology Progress Note ---
Date of Encounter: 08/22/18 Time of Encounter: 12:00 - Assessment and Plan (1) Acute kidney injury superimposed on CKD Current Visit: Yes Status: Acute s/p HD yesterday with next on thursday for HD dependent JESSICA Has a chair time at [facility] on the TTS schedule, awaiting discharge per primary team Continue renal diet Continue strict I/Os Avoid nephrotoxins if possible (2) IgA nephropathy determined by renal biopsy Current Visit: Yes Status: Acute IgA Nephropathy biopsy proven (3) Anemia Current Visit: Yes Status: Acute Hgb 8.0-stable Recent blood loss anemia Continue EPO with aranesp weekly Goal hgb 10-11 Transfuse per parameters Qualifiers: Anemia type: other cause Other causes of anemia: acute posthemorrhagic Qualified Code(s): D62 - Acute posthemorrhagic anemia (4) Retroperitoneal hematoma Current Visit: Yes Status: Acute Subjective Principal diagnosis: s/p kidney biopsy Interval history: Pt seen and examined Objective - Vital Signs Vital signs: Vital Signs Temp Pulse Resp BP Pulse Ox 08/22/18 07:36 98.2 F 55 18 112/69 93 08/22/18 04:07 98.9 F 60 18 103/65 92 08/21/18 23:39 98.1 F 56 16 119/70 90 08/21/18 19:16 98.5 F 56 16 103/63 93 08/21/18 15:41 97.9 F 59 20 100/44 92 08/21/18 11:52 97.3 F L 18 115/63 Intake and Output 08/21/18 08/22/18 08/22/18 23:59 07:59 15:59 Intake Total 360 / 360 Balance 360 / 360 Intake: Oral 360 / 360 Other: Meal Breakfast Percent of Meal Consumed 70% # Urine Diapers 1 Weight 79.6 kg Blood Glucose* 142 Patient Weight 08/22/18 23:59 Weight 79.6 kg - Lab 08/22/18 06:27 08/22/18 06:27 Most recent lab results ABG pH 7.44 pH Units (7.32-7.45) 08/18/18 10:55 ABG pCO2 46 mmHg (35-45) H 08/18/18 10:55 ABG pO2 64 mmHg (85-104) L 08/18/18 10:55 ABG HCO3 31 mEq/L (21-27) H 08/18/18 10:55 ABG O2 Saturation 93 % (95-98) L 08/18/18 10:55 Calcium 9.1 mg/dL (8.6-10.3) 08/22/18 06:27 Phosphorus 3.8 mg/dL (2.7-4.5) 08/12/18 04:35 Magnesium 1.9 mg/dL (1.6-2.6) 08/12/18 04:35 Urine Creatinine 53 mg/dL 08/11/18 18:35 Urine Sodium 69.2 mEq/L 08/11/18 18:35 Urine Total Protein 254 mg/dL (1-14) H 08/11/18 18:35 - VTE Documentation of Mechanical Device: Intermittent pneumatic compression device Consult Discharge Plan - Plan Instructions: Percutaneous Kidney Biopsy (DC) Additional Instructions: Discharge Instructions for Interventional Radiology Patients: 1. You must have a ride home from your procedure today. Because of the sedation that you received during your procedure today, you may not drive for 24 hours. 2. Keep your dressing clean and dry and do not remove for 24 hours after your procedure. 3. After 24 hours, you may remove your dressing and shower. Do not submerge your incision in water (bathtub or swimming) until the the incision is healed. It usually takes 7-10 days for incisions to heal. 4. You may put a band aid over your incision until it is completely healed. You may change the dressing if it gets wet or soiled. 5. Always watch for any sign of infection to the site, such as: * Redness * Warmth * Tenderness * White or yellow drainage * Fever or 100.4 degrees or greater If you notice any of these symptoms, please contact your Primary Care Provider immediately. 6. You may resume all blood thinners with the next scheduled dose. For example: If you take a blood thinner each morning, take your medication the next morning as you normally would. Follow Up Appointment * Please call your surgeon's office within 24 hours or next business day to schedule a follow up appointment. * Home Medication List * You have been given a list of your current medications. If you have changes in your medications, update your list. * Provide a list of current medications to your primary care physician. * Carry a copy of your current medications with you in case of an emergency. Referrals: Ant Brewer MD [Non-Partnered Physician] - (NO PCP APPOINTMENT NEEDED PT IS GOING TO [facility])
[2018-08-22] MEDS: traMADol 50 MG TABLET PO PRN (13:45)
[2018-08-22] MEDS: risperiDONE 1 MG, risperiDONE 3 MG PO SCH (21:03)
[2018-08-23] MEDS: traMADol 50 MG TABLET PO PRN (02:54)
[2018-08-23 07:16] LABS: Hematocrit 26.7 % (35.3-44.9); Hemoglobin 8.3 g/dL (11.5-15.4); Mean Corpuscular HGB Conc 31.1 g/dL (31.6-35.5); Mean Corpuscular Hemoglobin 29.2 pg (28.0-33.3); Mean Platelet Volume 9.6 fL (9.4-12.4); Platelet Count 397 K/mcL (140-400); Red Blood Count 2.84 M/mcL (3.82-4.97); Red Cell Distribution Width 14.6 % (11.5-14.5)
[2018-08-23 07:34] LABS: Calcium 9.2 mg/dL (8.6-10.3); Potassium 4.3 mEq/L (3.5-5.1)
[2018-08-23] MEDS: OLANZapine 5 MG TAB.RAPDIS PO SCH (08:10)
[2018-08-23] MEDS: Aspirin Enteric Coated 81 MG Tablet PO SCH (08:11)
[2018-08-23] MEDS: risperiDONE 1 MG TABLET PO SCH (08:11)
[2018-08-23] MEDS: BuPROPion XL (24 HR) 150 MG TABLET PO SCH (08:11)
[2018-08-23] MEDS: amLODIPine 5 MG TABLET PO SCH (08:11)
[2018-08-23] MEDS: levETIRAcetam 250 MG TABLET PO SCH (08:11)
[2018-08-23] MEDS: Zinc Oxide 454 GM EACH TP SCH (08:12)
[2018-08-23 08:23] LABS: Eosinophils # 0.4 K/mcL (0.0-0.6); Lymphocytes # 0.2 K/mcL (0.6-4.6); Monocytes # 0.6 K/mcL (0.0-1.3)
[2018-08-23 08:24] LABS: Platelet Estimate Normal (Normal); Polychromasia 1+ (Not Present)
[2018-08-23 08:25] LABS: Toxic Granulation Present (Not Present)
--- NOTE | 2018-08-23 10:14 | Discharge Summary ---
- NOTES TO OUTPATIENT PROVIDER Notes to Outpatient Provider: Cont HD as scheduled (T/T/S). Recommend f/u psych as outpatient to further adjust psych medications. Orders not resulted at time of discharge: Pending orders 08/20/18 11:00 Culture,Blood [BC] Stat 08/23/18 09:50 MRSA Surveillance Screen [MOLMIC] Stat 08/24/18 04:00 Chem 7 [Basic Metabolic Panel] AM 0400 Complete Blood Count w/o Diff [HEME] AM 04008/25/18 04:00 Chem 7 [Basic Metabolic Panel] AM 0400 Complete Blood Count w/o Diff [HEME] AM 04008/26/18 04:00 Chem 7 [Basic Metabolic Panel] AM 0400 Complete Blood Count w/o Diff [HEME] AM 0400 08/27/18 04:00 Chem 7 [Basic Metabolic Panel] AM 0400 Complete Blood Count w/o Diff [HEME] AM 0400 08/28/18 04:00 Chem 7 [Basic Metabolic Panel] AM 0400 Complete Blood Count w/o Diff [HEME] AM 0400 08/29/18 04:00 Chem 7 [Basic Metabolic Panel] AM 0400 Complete Blood Count w/o Diff [HEME] AM 0400 08/30/18 04:00 Chem 7 [Basic Metabolic Panel] AM 0400 Complete Blood Count w/o Diff [HEME] AM 0400 08/31/18 04:00 Chem 7 [Basic Metabolic Panel] AM 0400 Complete Blood Count w/o Diff [HEME] AM 0400 09/01/18 04:00 Chem 7 [Basic Metabolic Panel] AM 0400 Complete Blood Count w/o Diff [HEME] AM 0400 09/02/18 04:00 Chem 7 [Basic Metabolic Panel] AM 0400 Date of Encounter: 08/23/18 Time of Encounter: 09:00 - Discharge Diagnosis (1) HTN (hypertension) Priority: Secondary Status: Chronic Qualifiers: Hypertension type: essential hypertension Qualified Code(s): I10 - Essential (primary) hypertension (2) Seizure Priority: Secondary Status: Chronic (3) Anemia Priority: Secondary Status: Acute Qualifiers: Anemia type: other cause Other causes of anemia: acute posthemorrhagic Qualified Code(s): D62 - Acute posthemorrhagic anemia (4) DVT prophylaxis Priority: Secondary Status: Acute (5) CKD (chronic kidney disease) Priority: Primary Status: Chronic Qualifiers: Chronic kidney disease stage: stage 4 (severe) Qualified Code(s): N18.4 - Chronic kidney disease, stage 4 (severe) (6) Retroperitoneal hematoma Priority: Primary Status: Acute (7) Acute kidney injury superimposed on CKD Priority: Primary Status: Acute (8) Altered mental status Priority: Secondary Status: Acute Qualifiers: Altered mental status type: somnolence Qualified Code(s): R40.0 - Somnolence (9) Fever Priority: Secondary Status: Acute Qualifiers: Fever type: post-procedural Qualified Code(s): R50.82 - Postprocedural fever Hospital course: Ms. Bynum is a 73 year old female admitted for retroperitoneal hematoma. Patient had IR renal biopsy and has bleeding after biopsy. Active bleeding was coil embolized by IR. Patient has stable H/H. hospitalization complicated by JESSICA on CKD, nephrology consult on case and patient was started hemodialysis. Patient also has confusion, neurology consult saw patient. MRI and EEG has been done, negative for infarct or seizure waveform. Patient's confusion is considered from medication. Psychiatry consult saw patient, recommended decrease morning risperidone dose to 2mg now. Patient has low fever, which was considered from hematoma absorption, chest x-ray or urinalysis are unremarkable. No infection identified. Patient has no fever over last 72 hours. Will DC patient to custodial and continue hemodialysis as scheduled. I have seen and examined this patient today. Still mild intermittent confused, improved. Vitals are stable. No leukocytosis. Stable to discharge to custodial and continue follow-up with nephrology for hemodialysis. Recommend follow- up with outpatient psychiatry for further medication adjustment. Discharge discussed with: patient, nurse - Time Spent with Patient Total time spent providing and/or coordinating discharge services: 40 minutes Time spent: Greater than 30 minutes - Discharge Medications Prescriptions: New DiphenhydraMINE [Benadryl] 12.5 mg PO Q6HR PRN udc PRN Reason: Itching risperiDONE [RisperDAL] 2 mg PO DAILY tablet Continue OLANZapine [Zyprexa] 15 mg PO Bupropion HCl [Wellbutrin Xl] 300 mg PO DAILY levETIRAcetam [Roweepra] 500 mg PO Acetaminophen [Tylenol] 650 mg PO Q6HR PRN PRN Reason: Pain GuaiFENesin/Dextromethorphan [Robitussin/Dm] 10 ml PO Q6HR PRN PRN Reason: Cough Pravastatin Sodium [Pravachol] 20 mg PO HS Brimonidine Tartrate/Timolol [Combigan 0.2%-0.5% Eye Drops] 1 drop RIGHT EYE BID Nystatin POWDER [Nystop] 1 appl TP BID PRN PRN Reason: skin fold excoriation Ammonium Lactate [Patricia-Hydrolac] 1 appl TP BID Zinc Oxide [Boudreauxs] 1 appl TP DAILY Carvedilol [Coreg] 12.5 mg PO BIDWM #60 tablet Amlodipine Besylate 10 mg PO DAILY Aspirin [Lo-Dose Aspirin EC] 81 mg PO DAILY Dextran 70/Hypromellose [Artificial Tears] 1 drop BOTH EYES QID PRN PRN Reason: Dry Eye(S) Levothyroxine Sodium 75 mcg PO DAILY Tramadol HCl [Ultram] 50 mg PO QID PRN 3 Days #12 tablet PRN Reason: Pain Changed risperiDONE [Risperidone] 4 mg PO HS #0 Discontinued DiphenhydraMINE [Benadryl] 25 mg PO Q6HR PRN PRN Reason: Allergy Symptoms Home Medications: Bupropion HCl [Wellbutrin Xl] 300 mg PO DAILY 01/17/17 [History] OLANZapine [Zyprexa] 15 mg PO 399,199901/17/17 [History] levETIRAcetam [Roweepra] 500 mg PO 399,199904/09/17 [History] Acetaminophen [Tylenol] 650 mg PO Q6HR PRN 12/05/17 [History] Brimonidine Tartrate/Timolol [Combigan 0.2%-0.5% Eye Drops] 1 drop RIGHT EYE BID 12/05/17 [History] GuaiFENesin/Dextromethorphan [Robitussin/Dm] 10 ml PO Q6HR PRN 12/05/17 [History] Pravastatin Sodium [Pravachol] 20 mg PO HS 12/05/17 [History] Ammonium Lactate [Patricia-Hydrolac] 1 appl TP BID 03/20/18 [History] Nystatin POWDER [Nystop] 1 appl TP BID PRN 03/20/18 [History] Zinc Oxide [Boudreauxs] 1 appl TP DAILY 06/23/18 [History] Carvedilol [Coreg] 12.5 mg PO BIDWM #60 tablet 06/24/18 [Rx] Amlodipine Besylate 10 mg PO DAILY 07/20/18 [History] Aspirin [Lo-Dose Aspirin EC] 81 mg PO DAILY 07/20/18 [History] Dextran 70/Hypromellose [Artificial Tears] 1 drop BOTH EYES QID PRN 08/10/18 [History] Levothyroxine Sodium 75 mcg PO DAILY 08/10/18 [History] DiphenhydraMINE [Benadryl] 12.5 mg PO Q6HR PRN udc 08/23/18 [Rx] Tramadol HCl [Ultram] 50 mg PO QID PRN 3 Days #12 tablet 08/23/18 [Rx] risperiDONE [RisperDAL] 2 mg PO DAILY tablet 08/23/18 [Rx] risperiDONE [Risperidone] 4 mg PO HS #0 08/23/18 [Rx] Allergies/Adverse Reactions: Allergy/AdvReac Type Severity Reaction Status Date / Time No Known Allergies Allergy Verified 08/10/18 19:22 Date of admission: 08/12/18 15:08 Primary care physician: PCP NONE Consults: 08/10/18 14:53 Consult to Nephrology [CONS] Stat Consulting Provider: [facility]/CHELSI/BERTRAND/YANG Reason for Consult: CKD s/p IR procedure Call Completed: Yes 08/10/18 14:57 Consult to Interventional Radiology [CONS] Routine Consulting Provider: Radiology Interventional Cols Reason for Consult: Hemmorrhage s/p biopsy Call Completed: Yes 08/15/18 08:20 Consult to Single Needle Tufting Machine Operator [CONS] Routine Reason for SW Consult: Please arrange for an outpatient HD chair time. She has already been established with the [facility] with Dr. Wade in the clinic. 08/16/18 06:00 Consult to Interventional Radiology [CONS] Routine Consulting Provider: Radiology Interventional Cols Reason for Consult: Please arrange for a Permacath Call Completed: No 08/16/18 07:00 Consult to Dialysis [CONS] ONCE 08/17/18 07:00 Consult to Dialysis [CONS] ONCE 08/18/18 14:32 Consult to Neurology [CONS] Routine Consulting Provider: [facility] Reason for Consult: AMS, seizure disorder, hx of meningioma, uneaqual pupils. Call Completed: Yes 08/18/18 14:45 Consult to Nurse Navigator [CONS] Routine Comment: hd 08/19/18 07:45 Consult to Dialysis [CONS] ONCE 08/19/18 12:58 Consult to Psychiatry [CONS] Routine Consulting Provider: Allegra Flower Reason consult: Medication recommendation Other reason and/or additional details: Pt has intermittent confusion, please review psych medications and adjust meds if needed. Thank you! Call Completed: Yes 08/19/18 15:15 Consult to Interpret Exam [CONS] Routine Consulting Provider: Zackary Murphy Consult to Interpret Exam: Interpret EEG 08/21/18 08:00 Consult to Dialysis [CONS] ONCE Discharging clinician: Miles Flood Anticipated date of discharge: 08/23/18 - Constitutional Vitals: Temp Pulse Resp BP Pulse Ox 98.1 F 58 16 119/70 91 08/23/18 06:54 08/23/18 06:54 08/23/18 06:54 08/23/18 06:54 08/23/18 06:54 Exam: Pt is AAO x 3, in NAD, sleepy HEENT: NC/AT, PERRL Neck: Supple, no JVD, no LAD Lungs: CTA b/l Heart: S1S2, RRR Abd: Soft, nontender, BS present Ext: ROM wnl, no pedal edema Neuro: No focal deficit - Patient Status Disposition: Transfer SNF Condition: Fair Functional capacity at discharge: uses cane/walker Overall status at discharge: patient is back to baseline - Discharge Instructions Instructions: Percutaneous Kidney Biopsy (DC) Follow Up With: Ant Brewer MD [Non-Partnered Physician] - (NO PCP APPOINTMENT NEEDED PT IS GOING TO [facility]) Additional Instructions: Discharge Instructions for Interventional Radiology Patients: 1. You must have a ride home from your procedure today. Because of the sedation that you received during your procedure today, you may not drive for 24 hours. 2. Keep your dressing clean and dry and do not remove for 24 hours after your procedure. 3. After 24 hours, you may remove your dressing and shower. Do not submerge your incision in water (bathtub or swimming) until the the incision is healed. It usually takes 7-10 days for incisions to heal. 4. You may put a band aid over your incision until it is completely healed. You may change the dressing if it gets wet or soiled. 5. Always watch for any sign of infection to the site, such as: * Redness * Warmth * Tenderness * White or yellow drainage * Fever or 100.4 degrees or greater If you notice any of these symptoms, please contact your Primary Care Provider immediately. 6. You may resume all blood thinners with the next scheduled dose. For example: If you take a blood thinner each morning, take your medication the next morning as you normally would. Follow Up Appointment * Please call your surgeon's office within 24 hours or next business day to schedule a follow up appointment. * Home Medication List * You have been given a list of your current medications. If you have changes in your medications, update your list. * Provide a list of current medications to your primary care physician. * Carry a copy of your current medications with you in case of an emergency. - Diet and Activity Activity: as per physical therapy Diet: other (Renal diet) - VTE Documentation of Mechanical Device: Intermittent pneumatic compression device
--- NOTE | 2018-08-23 10:31 | Physician Discharge Referral ---
[facility] Referral Info Transfer To: [facility] Provider in Charge after Transfer: Other (ECF physician) - Diagnosis (1) HTN (hypertension) Status: Chronic (2) Seizure Status: Chronic (3) Anemia Status: Acute (4) DVT prophylaxis Status: Acute (5) CKD (chronic kidney disease) Status: Chronic (6) Retroperitoneal hematoma Status: Acute (7) Acute kidney injury superimposed on CKD Status: Acute (8) Altered mental status Status: Acute (9) Fever Status: Acute - Transfer Medications Prescriptions: Tramadol HCl [Ultram] 50 mg PO QID PRN 3 Days #12 tablet PRN Reason: Pain Home Medications: Bupropion HCl [Wellbutrin Xl] 300 mg PO DAILY 01/17/17 [History] OLANZapine [Zyprexa] 15 mg PO 01/17/17 [History] levETIRAcetam [Roweepra] 500 mg PO 04/09/17 [History] Acetaminophen [Tylenol] 650 mg PO Q6HR PRN 12/05/17 [History] Brimonidine Tartrate/Timolol [Combigan 0.2%-0.5% Eye Drops] 1 drop RIGHT EYE BID 12/05/17 [History] GuaiFENesin/Dextromethorphan [Robitussin/Dm] 10 ml PO Q6HR PRN 12/05/17 [History] Pravastatin Sodium [Pravachol] 20 mg PO HS 12/05/17 [History] Ammonium Lactate [Patricia-Hydrolac] 1 appl TP BID 03/20/18 [History] Nystatin POWDER [Nystop] 1 appl TP BID PRN 03/20/18 [History] Zinc Oxide [Boudreauxs] 1 appl TP DAILY 06/23/18 [History] Carvedilol [Coreg] 12.5 mg PO BIDWM #60 tablet 06/24/18 [Rx] Amlodipine Besylate 10 mg PO DAILY 07/20/18 [History] Aspirin [Lo-Dose Aspirin EC] 81 mg PO DAILY 07/20/18 [History] Dextran 70/Hypromellose [Artificial Tears] 1 drop BOTH EYES QID PRN 08/10/18 [History] Levothyroxine Sodium 75 mcg PO DAILY 08/10/18 [History] DiphenhydraMINE [Benadryl] 12.5 mg PO Q6HR PRN udc 08/23/18 [Rx] Tramadol HCl [Ultram] 50 mg PO QID PRN 3 Days #12 tablet 08/23/18 [Rx] risperiDONE [RisperDAL] 2 mg PO DAILY tablet 08/23/18 [Rx] risperiDONE [Risperidone] 4 mg PO HS #0 08/23/18 [Rx] Allergies/Adverse Reactions: Allergy/AdvReac Type Severity Reaction Status Date / Time No Known Allergies Allergy Verified 08/10/18 19:22 - Respiratory Orders Oxygen / L per min (2) Smoking Cessation: Smoking cessation has been advised. For more information, call the [place] Tobacco Quit Line at 2-795-TDXQ-NOW. - Advance Directives Code Status: Full Code - Rehabiliation Orders Rehab Orders: Evaluation for Physical Therapy, Evaluation for Occupational The rapy - Treatments List/Other: Cont HD T/T/S - Diet Orders Renal CERTIFICATION: I certify that the transfer of the above named patient to an Extended Care Facility is necessary for the continuing treatment of the diagnosis listed. The above information is true and accurate reflection of patient's current c ondition. Confidential - Redisclosure prohibited without a patient's written consent.
[2018-08-23 11:14] VITALS: BP 111/67
--- NOTE | 2018-08-23 12:48 | Psychiatry Progress Note ---
Date of Encounter: 08/23/18 Time of Encounter: 09:40 Subjective Interval history: Patient was seen today sleeping in her room by this provider. She was arousable to physical stimulation only, with this provider having to apply a mild sternal rub for her to be awakened. Once awakened, she was only able to tell me that she was "good," that she was at [facility], and that the year was 2018. This provider tried to wake the patient several times for further questioning, but the patient would not awaken. Nursing staff says that she did not sleep well last night. His providers attending reports that the patient did wake up for her, ate breakfast, and was alert and oriented 3. Review of Systems Psychiatric: Reports: other (Could not fully assess the patient reports she is "good" with continued somnolence) Endocrine: Reports: fatigue (Somnolence) Results - Vital Signs Vital Signs: Temp Pulse Resp BP Pulse Ox 98.1 F 57 17 111/67 92 08/23/18 11:10 08/23/18 11:10 08/23/18 11:10 08/23/18 11:10 08/23/18 11:10 - Drug Levels and Toxicology Drug Levels and Toxicology: None noted this a.m. - Labs Labs: Laboratory Results - last 24 hr 08/23/18 08/23/18 07:05 07:05 WBC 9.1 RBC 2.84 L Hgb 8.3 L Hct 26.7 L MCV 94.0 MCH 29.2 MCHC 31.1 L RDW 14.6 H Plt Count 397 MPV 9.6 Seg Neutrophils % 84.0 Band Neutrophils % 4.0 Lymphocytes % 2.0 Monocytes % 6.0 Eosinophils % 4.0 Neutrophils # 8.0 Lymphocytes # 0.2 L Monocytes # 0.6 Eosinophils # 0.4 Toxic Granulation Present A Platelet Estimate Normal Polychromasia 1+ A Sodium 132 L Potassium 4.3 Chloride 94 L Carbon Dioxide 29 BUN 72 H Creatinine 4.98 H Est GFR ( Amer) 10 L Est GFR (Non-Af Amer) 9 L BUN/Creatinine Ratio 14 Glucose 95 Calculated Osmolality 295 Calcium 9.2 - Impressions ITS Impressions Abdomen Arteriogram 08/10/18 00:00 IMPRESSION: Active extravasation from the lower pole branch of the right renal artery. Successful coil embolization as described D/ / Hiram Armendariz MD / Hiram Armendariz MD Interpreting Provider: Hiram Armendariz MD Abdomen Arteriogram 08/10/18 00:00 IMPRESSION: Active extravasation from the lower pole branch of the right renal artery. Successful coil embolization as described D/ / Hiram Armendariz MD / Hiram Armendariz MD Interpreting Provider: Hiram Armendariz MD Abdomen/Pelvis CTA 08/10/18 00:00 IMPRESSION: Active extravasation originating from an inferior pole branch of the right renal artery. An adjacent moderate to large retroperitoneal hematoma is present. Critical results were called by Dr. Rafiq Christopher MD to [facility] RT on 08/10/2018 at 12 p.m. D/ / 08/10/2018 12:15:07 Rafiq Christopher MD / [facility] Interpreting Provider: Rafiq Christopher MD Embolization 08/10/18 00:00 IMPRESSION: Active extravasation from the lower pole branch of the right renal artery. Successful coil embolization as described D/ / Hiram Armendariz MD / Hiram Armendariz MD Interpreting Provider: Hiram Armendariz MD Embolization 08/10/18 00:00 IMPRESSION: Active extravasation from the lower pole branch of the right renal artery. Successful coil embolization as described D/ / Hiram Armendariz MD / Hiram Armendariz MD Interpreting Provider: Hiram Armendariz MD Renal Biopsy CT 08/10/18 09:15 IMPRESSION: Successful CT guided core biopsy right kidney. D/ / Hiram Armendariz MD / Hiram Armendariz MD Interpreting Provider: Hiram Armendariz MD Chest X-Ray 08/15/18 08:20 IMPRESSION: Markedly enlarged cardiomediastinal silhouette with findings suggestive of pulmonary interstitial edema. Probable small bilateral pleural effusions. Correlation with volume status is recommended. D/ / 08/15/2018 15:07:46 Jos eMaria Rico MD / Latonia Fishman Interpreting Provider: Jose Maria Rico MD Guidance Ultrasound 08/16/18 00:00 IMPRESSION: Successful ultrasound and fluoroscopy guided tunneled catheter placement. D/ / 08/16/2018 10:02:01 Jody Chiu MD / [facility] Interpreting Provider: Jody Chiu MD Insertion Tunneled Catheter 08/16/18 00:00 IMPRESSION: Successful ultrasound and fluoroscopy guided tunneled catheter placement. D/ / 08/16/2018 10:02:01 Jody Chiu MD / [facility] Interpreting Provider: Jody Chiu MD Head CT 08/18/18 10:41 IMPRESSION: No acute intracranial abnormality. No change in the very large calcified or ossified right parietal extra-axial mass causing a moderate to large amount of mass effect. Mild cerebral atrophy appropriate for age. [id number] chronic ischemic changes also age-appropriate. No significant change from the prior study. D/ / Martín Sneed MD / Martín Sneed MD Interpreting Provider: Martín Sneed MD Chest X-Ray 08/18/18 10:44 IMPRESSION: 1. Right dual-lumen hemodialysis catheter tip overlies the superior atrial junction. No pneumothorax. 2. Stable mild enlargement of the cardiac silhouette. 3. No acute pulmonary abnormality. D/ / Chaitanya Selby MD / Chaitanya Selby MD Interpreting Provider: Chaitanya Selby MD Brain MRI 08/18/18 15:39 IMPRESSION: Mild chronic small ischemic disease without acute stroke. Stable right frontal extra-axial mass with stable mass effect and midline shift. D/ / Silverio Hernandez / Silverio Hernandez Interpreting Provider: Silverio Hernandez Assessment and Plan (1) Altered mental status Status: Acute Plan: Continue hospitalization, Close observation, Group Therapy, Monitor sleep, Monitor appetite Additional Plan: -Patient appears by all reports from others to have an improved alertness. However, she still appears to have somnolence and is on high-dose antipsychotic medication. Her kidney function continues to be reduced. As such, it is recommended to further decrease olanzapine to 7.5 mg by mouth every morning and 15 mg by mouth daily at bedtime for psychosis -Recommend continuing risperidone 2 mg by mouth every morning and 4 mg by mouth daily at bedtime for psychosis -Recommend continuing bupropion XL 300 mg by mouth daily -Will continue to monitor while inpatient Risks, benefits, side effects, alternatives discussed w/pt: Yes Patient agreeable to treatment: Yes Qualifiers: Altered mental status type: somnolence Qualified Code(s): R40.0 - Somnolence Consult Discharge Plan - Plan Instructions: Percutaneous Kidney Biopsy (DC) Additional Instructions: Discharge Instructions for Interventional Radiology Patients: 1. You must have a ride home from your procedure today. Because of the sedation that you received during your procedure today, you may not drive for 24 hours. 2. Keep your dressing clean and dry and do not remove for 24 hours after your procedure. 3. After 24 hours, you may remove your dressing and shower. Do not submerge your incision in water (bathtub or swimming) until the the incision is healed. It usually takes 7-10 days for incisions to heal. 4. You may put a band aid over your incision until it is completely healed. You may change the dressing if it gets wet or soiled. 5. Always watch for any sign of infection to the site, such as: * Redness * Warmth * Tenderness * White or yellow drainage * Fever or 100.4 degrees or greater If you notice any of these symptoms, please contact your Primary Care Provider immediately. 6. You may resume all blood thinners with the next scheduled dose. For example: If you take a blood thinner each morning, take your medication the next morning as you normally would. Follow Up Appointment * Please call your surgeon's office within 24 hours or next business day to schedule a follow up appointment. * Home Medication List * You have been given a list of your current medications. If you have changes in your medications, update your list. * Provide a list of current medications to your primary care physician. * Carry a copy of your current medications with you in case of an emergency. Referrals: Ant Brewer MD [Non-Partnered Physician] - (NO PCP APPOINTMENT NEEDED PT IS GOING TO [facility]) Prescriptions: RX: Tramadol HCl [Ultram] 50 mg PO QID PRN 3 Days #12 tablet PRN Reason: Pain - Attending Attestation I examined this patient and my medical decision-making was reviewed with the Resident Physician. I agree with the documented findings, disposition and treatment plan as described except to the extent set forth below. Psychiatry Exam - Constitutional Vitals: Temp Pulse Resp BP Pulse Ox 98.1 F 57 17 111/67 92 08/23/18 11:10 08/23/18 11:10 08/23/18 11:10 08/23/18 11:10 08/23/18 11:10 General appearance: age & developmentally appropriate, well-groomed, well- nourished - Musculoskeletal Gait: other (Not assessed) Station: relaxed Strength & Tone: normal for patient (Grossly) - Psychiatric Patient Orientation: Yes Person, Yes Time (Able to this provider the years 2017 but cannot say more), Yes Place Level of alertness: Sedated (Somnolent) Behavior: calm, other (Somnolent) Psychomotor activity: Slowed (Due to somnolence) Eye Contact: Minimal Contact (Due to somnolence) Mood Description: Euthymic/stable Patient description of mood: "Good" Affect description: congruent with mood, flat (Due to somnolence) Speech Volume: Soft/Quiet Speech pattern: normal tone, slowed (Decreased rate due to somnolence), limited (Decreased prosody due to somnolence) Language & Vocabulary: consistent with education Thought Process: [place] (Answer questions in 1-2 words) Thought Content: Yes Intact (Cannot be fully assessed due to somnolence) Perceptual Disturbances: No Reacting to internal stimuli (Cannot be fully assessed due to somnolence) Attention Span Ability: Unable to Focus, Unable to Sustain Attention Memory Description: Grossly Intact (Cannot be fully assessed due to somnolence but no issues reported by staff) Patient Reliability: Questionable Historian Fund of knowledge: Yes aware of current events Intelligence Estimate: Average Judgment: Fair Insight: Partial
== END 2018-08-23 13:22 | DRG 447 ==
LOC: RAD 07:26 → SUATTDRO 13:00 → 2NNU 13:00 → INTOOBSV 13:00 → SUATTDRO 08-12 15:08 → 2NNU 08-13 00:52 → 2ANU 08-17 17:01
PROVIDERS: ADMIT Internal Medicine; ATTEND Internal Medicine
PROC: IRPERMA (2018-08-16 13:00)